=== PATIENT | female | born 1985 | race Caucasian/White ===

== ENCOUNTER 2020-01-29 11:10 | Emergency (ER) | payer BC, MEDICAID, SELFPAY ==
[2020-01-29 11:30] VITALS: BP 108/68; PULSE 71; RESP 16; TEMP 36.6; O2SAT 98
--- NOTE | 2020-01-29 11:45 | ED.GENADULT ---
HPI - General Adult General Chief complaint: Skin/Abscess/Foreign Body Stated complaint: Hives all over body Source: patient and RN notes reviewed Mode of arrival: ambulatory Limitations: no limitations History of Present Illness HPI narrative: This is a 34 years old female presents to the office for an evaluation of hive off and on for one month. She saw her doctor on ; who prescribed her prednisone for this condition. She thinks her hives is related to stress. She had similar episode a few years ago which resolved with steroid however it did not seem to subside this time. Denies any airway involvement. Denies sick contact. Denies new medication. She also been taking Benadryl for itchiness which did not help. Warm bath and oatmeal bath seems to help temporarily. She is supposed to have a follow-up appointment with her doctor on Friday however she cannot stand the itchiness. Related Data Allergies Allergy/AdvReac Type Severity Reaction Status Date / Time No Known Allergies Allergy Verified 01/29/20 11:52 Review of Systems Review of Systems: Narrative: CONSTITUTIONAL: Denies fever or feeling ill ENT: Denies congestion CARDIOVASCULAR: Denies chest pain RESPIRATORY: Denies dyspnea GASTROINTESTINAL: Denies abdominal pain, nausea, vomiting, diarrhea. GENITOURINARY: Denies urinary symptoms SKIN: Reports itchy hives from her hip down to her lower legs. MUSCULOSKELETAL: Denies acute back pain NEUROLOGIC: Denies lightheaded PMFSH Comments At time of signature, I agree with nursing past medical, surgical, social and family history. There is no relevant family history pertinent to the presenting complaint. Exam Narrative: Exam Narrative: GENERAL: This is a well-nourished, well-developed patient, in no apparent distress. EYES: Sclera clear/white. Vision is grossly intact. THROAT: Mucous membranes moist, posterior pharynx clear. NECK: Neck supple, non-tender without lymphadenopathy, masses or thyromegaly. CARDIOVASCULAR: Regular rate and rhythm without murmurs, gallops, or rubs. RESPIRATORY: Clear to auscultation. Breath sounds equal bilaterally. No wheezes, rales, or rhonchi. GASTROINTESTINAL: Abdomen soft, non-tender, nondistended. Bowel sounds are active. No hepato-splenomegaly, or palpable masses. No guarding. SKIN: urticari noted at hip level which scatter throughout her buttocks and lower extremities. No rash in upper extremities or torso. NEURO: awake, alert, and oriented to person, place and time. There were no obvious focal neurologic abnormalities. Steady gait Benson Coma Scale Eye Opening: Spontaneous 4 [place] Coma Scale Motor: Obeys Commands 6 [place] Coma Scale Verbal: Oriented 5 Course Vital Signs Vital signs: Vital Signs Temperature 97.8 F 01/29/20 11:30 Pulse Rate 71 01/29/20 11:30 Respiratory Rate 16 01/29/20 11:30 Blood Pressure 108/68 01/29/20 11:30 Pulse Oximetry 98 01/29/20 11:30 Temperature 97.8 F 01/29/20 11:30 Pulse Rate 71 01/29/20 11:30 Respiratory Rate 16 01/29/20 11:30 Blood Pressure 108/68 01/29/20 11:30 Pulse Oximetry 98 01/29/20 11:30 Medical Decision Making MDM Narrative Medical decision making narrative: Discharge instructions reviewed with patient, as well as provided in writing per nursing staff. The instructions also include specific and strict return/GO TO THE ER as well as f/u information. All questions have been answered, and the patient deny any further questions with discharge and discharge plan. Differential Diagnosis Differential Diagnosis: Contact/allergic dermatitis, atopic dermatitis, psoriasis, eczema, cellulitis, tinea, erythema multiforme, viral exanthem Vital Signs Vital Signs: Vital Signs Temperature 97.8 F 01/29/20 11:30 Pulse Rate 71 01/29/20 11:30 Respiratory Rate 16 01/29/20 11:30 Blood Pressure 108/68 01/29/20 11:30 Pulse Oximetry 98 01/29/20 11:30 Temperature 97.8 F 01/29/20 11:30
== END 2020-01-29 12:15 | disposition home or self-care (01) ==
PROVIDERS: Emergency Provider Nurse Practitioner; PCP Family Medicine
DX: L50.9 Urticaria, unspecified (principal)
CPT/HCPCS: 99213; G0463

== ENCOUNTER 2022-05-15 14:17 | Emergency (ER) | payer OTHER, SELFPAY ==
[2022-05-15 14:25] VITALS: BP 117/57; PULSE 79; RESP 16; TEMP 36.6; O2SAT 100
--- NOTE | 2022-05-15 14:30 | ED.SKABFB ---
HPI - Skin/Abscess/Foreign Bdy General Chief complaint: Skin/Abscess/Foreign Body Stated complaint: Rash Time Seen by Provider: 05/15/22 14:20 Source: patient and RN notes reviewed History of Present Illness HPI narrative: Patient is a 36-year-old female who presents the urgent care with complaints of a rash all over. Patient states she was on a Medrol Dosepak last week which resolved the issue and then it came back 2 days after finishing the medication. Patient states that it is anxiety/stress induced and she is currently not on any anxiety medications. Patient states she had been taking hydroxyzine which did help however her PCP took her off the medication sometime ago. No other acute complaints. No acute distress noted. Patient aware of the plan of care. Some parts of this dictation were generated by voice recognition software and may contain typographical and/or grammatical inaccuracies. Related Data Home Medications Medication Instructions Recorded Confirmed famotidine 20 mg tablet 20 mg PO BID 05/15/22 05/15/22 Allergies Allergy/AdvReac Type Severity Reaction Status Date / Time No Known Allergies Allergy Verified 05/15/22 14:31 Review of Systems Review of Systems: CONSTITUTIONAL: Denies fever, chills, or sweats. EYES: Denies visual changes, redness, or discharge. ENT: Denies rhinorrhea, congestion, sore throat, or otalgia. CARDIOVASCULAR: Denies chest pain, palpitations, or edema. RESPIRATORY: Denies cough or dyspnea. GASTROINTESTINAL: Denies abdominal pain, nausea, vomiting, or diarrhea. GENITOURINARY: Denies dysuria or hematuria. SKIN: Reports of diffuse rash MUSCULOSKELETAL: Denies back pain, joint pain, or myalgia. NEUROLOGIC: Denies headache, numbness, or weakness. All other systems reviewed are negative, except as documented in HPI. PMFSH Comments At the time of my signature, I reviewed and agree with the nursing past medical, surgical, social, and family history. There is no relevant family history pertinent to the patient complaint. Exam Narrative: GENERAL: This is a well-nourished, well-developed patient, in no apparent distress. HEAD: normocephalic, atraumatic. EYES: PERRL. Sclera clear/white. Vision is grossly intact. EARS: External ears normal NOSE: External nose normal with no obvious nasal discharge, nares without redness, no rhinorrhea. THROAT: Mucous membranes moist NECK: Neck supple CARDIOVASCULAR: Regular rate and rhythm without murmurs, gallops, or rubs. RESPIRATORY: Clear to auscultation. Breath sounds equal bilaterally. No wheezes, rales, or rhonchi. SKIN: Diffuse raised erythemic/pruritic urticaria noted to bilateral lower extremities, bilateral upper extremities, trunk and back NEURO: awake, alert, and oriented to person, place and time. There were no obvious focal neurologic abnormalities. EXTREMITIES: No clubbing, cyanosis, or edema. Course Course Level of Care: Express Care Visit Vital Signs Vital signs: Vital Signs Temperature 97.9 F 05/15/22 14:25 Pulse Rate 79 05/15/22 14:25 Respiratory Rate 16 05/15/22 14:25 Blood Pressure 117/57 L 05/15/22 14:25 Pulse Oximetry 100 05/15/22 14:25 Oxygen Delivery Room Air 05/15/22 14:25 Temperature 97.9 F 05/15/22 14:25 Pulse Rate 79 05/15/22 14:25 Respiratory Rate 16 05/15/22 14:25 Blood Pressure 117/57 L 05/15/22 14:25 Pulse Oximetry 100 05/15/22 14:25 Oxygen Delivery Room Air 05/15/22 14:25 Reviewed MDM - Skin/Abscess/Foreign Bdy MDM Narrative Medical decision making narrative: Advised patient to complete the oral steroid regimen as prescribed. Be sure to eat and drink with medication. Recommend taking it prior to 5 PM to avoid keeping you up at night. Use the prescription cream to the affected areas avoiding the underarms, near the eyes and groin. May use Benadryl or hydroxyzine in conjunction with the prednisone. Would recommend staying on a daily antihistamine for recurrent tucker
== END 2022-05-15 14:40 | disposition home or self-care (01) ==
PROVIDERS: Emergency Provider Nurse Practitioner Family; PCP Nurse Practitioner Family
DX: L25.8 Unspecified contact dermatitis due to other agents (principal); K21.9 Gastro-esophageal reflux disease without esophagitis
CPT/HCPCS: 99213; G0463

== ENCOUNTER 2022-06-02 11:17 | Emergency (ER) | payer OTHER, SELFPAY ==
--- NOTE | 2022-06-02 11:19 | ED.SKABFB ---
HPI - Skin/Abscess/Foreign Bdy General Chief complaint: Skin/Abscess/Foreign Body Stated complaint: Rash Time Seen by Provider: 06/02/22 11:19 Source: patient and RN notes reviewed History of Present Illness HPI narrative: Patient is a 36-year-old female who presents the urgent care with complaints of hives to the scalp, bilateral arms and bilateral legs. Patient states that she finished her steroid on the and the hives returned on the . Patient was seen here in the past on May 06 and given steroid cream and steroid oral. That was patient's second consecutive dose on the steroids. Patient states that she has gone to her primary care doctor and they will not do anything for her . Patient states that she is tried eliminating things out of her diet which did not help the issue. Patient denies of any new detergents, creams or products. No other acute complaints. No acute distress noted. Patient aware of the plan of care. Some parts of this dictation were generated by voice recognition software and may contain typographical and/or grammatical inaccuracies. Related Data Home Medications Medication Instructions Recorded Confirmed famotidine 20 mg tablet 20 mg PO BID 05/15/22 05/15/22 Allergies Allergy/AdvReac Type Severity Reaction Status Date / Time No Known Allergies Allergy Verified 06/02/22 11:27 Review of Systems Review of Systems: CONSTITUTIONAL: Denies fever, chills, or sweats. EYES: Denies visual changes, redness, or discharge. ENT: Denies rhinorrhea, congestion, sore throat, or otalgia. CARDIOVASCULAR: Denies chest pain, palpitations, or edema. RESPIRATORY: Denies cough or dyspnea. GASTROINTESTINAL: Denies abdominal pain, nausea, vomiting, or diarrhea. GENITOURINARY: Denies dysuria or hematuria. SKIN: Reports of an itchy rash MUSCULOSKELETAL: Denies back pain, joint pain, or myalgia. NEUROLOGIC: Denies headache, numbness, or weakness. All other systems reviewed are negative, except as documented in HPI. PMFSH Comments At the time of my signature, I reviewed and agree with the nursing past medical, surgical, social, and family history. There is no relevant family history pertinent to the patient complaint. Exam Narrative: GENERAL: This is a well-nourished, well-developed patient, in no apparent distress. HEAD: normocephalic, atraumatic. EYES: PERRL. Sclera clear/white. Vision is grossly intact. EARS: External ears normal NOSE: External nose normal with no obvious nasal discharge, nares without redness, no rhinorrhea. THROAT: Mucous membranes moist, posterior pharynx clear. NECK: Neck supple SKIN: Diffuse urticaria noted to bilateral lower extremities NEURO: awake, alert, and oriented to person, place and time. There were no obvious focal neurologic abnormalities. EXTREMITIES: No clubbing, cyanosis, or edema. Course Course Level of Care: Express Care Visit Vital Signs Vital signs: Vital Signs Temperature 98.3 F 06/02/22 11:22 Pulse Rate 90 06/02/22 11:22 Respiratory Rate 14 06/02/22 11:22 Blood Pressure 111/59 L 06/02/22 11:22 Pulse Oximetry 98 06/02/22 11:22 Oxygen Delivery Room Air 06/02/22 11:22 Temperature 98.3 F 06/02/22 11:22 Pulse Rate 90 06/02/22 11:22 Respiratory Rate 14 06/02/22 11:22 Blood Pressure 111/59 L 06/02/22 11:22 Pulse Oximetry 98 06/02/22 11:22 Oxygen Delivery Room Air 06/02/22 11:22 Reviewed MDM - Skin/Abscess/Foreign Bdy MDM Narrative Medical decision making narrative: Advised the patient to use [id number] Benadryl and antihistamine daily for relief. Advised her to follow-up with a new primary care doctor to possibly have labs for autoimmune disorder and hormone dysfunction. Patient verbalizes her understanding. PCP list given. Differential Diagnosis Differential diagnosis: Likely abscess of skin or subcutaneous tissue, dermatophytosis, urticaria, herpes zoster, allergic reaction to drug, cellulitis, insect bites a
[2022-06-02 11:22] VITALS: BP 111/59; PULSE 90; RESP 14; TEMP 36.8; O2SAT 98
== END 2022-06-02 11:49 | disposition home or self-care (01) ==
PROVIDERS: Emergency Provider Nurse Practitioner Family; PCP Nurse Practitioner Family
DX: L50.9 Urticaria, unspecified (principal); K21.9 Gastro-esophageal reflux disease without esophagitis
CPT/HCPCS: 99211; G0463

== ENCOUNTER 2023-02-12 21:30 | Emergency (ER) | payer OTHER, SELFPAY ==
--- NOTE | ~2023-02-12 | XR_ITS ---
EXAMINATION: XR chest 1V portable INDICATION: Shortness of breath and cough TECHNIQUE: Portable AP chest at 2258 hours COMPARISON: None available FINDINGS: There are minimal airspace opacities of the lung bases. No pleural effusion or pneumothorax . The cardiomediastinal silhouette is normal. IMPRESSION: 1. Minimal bibasilar airspace opacities, consistent with atelectasis versus pneumonia. Reviewed, dictated and finalized at location F. IMPRESSION: 1. Minimal bibasilar airspace opacities, consistent with atelectasis versus pne umonia.
[2023-02-12 21:38] VITALS: BP 110/75; PULSE 84; RESP 20; TEMP 36.6; O2SAT 98
--- NOTE | 2023-02-12 22:00 | ED.URI ---
HPI - URI/Sore Throat General Chief Complaint: Unspecified Stated Complaint: Upper Respitory Problems Source: patient Mode of arrival: ambulatory History of Present Illness HPI Narrative: 37-year-old female, smoker, Chronic skin allergies now controlled, presents to the ER with a 3 day history of -- nonproductive cough -- shortness of breath with wheezing -- headache from repetitive cough -- chest pressure without any actual pain. MD elicited complaint: cough Onset (ago): day(s) ( started 3 days ago.) Consistency: constant Severity: severe Description of mucous: other ( Nonproductive) Able to tolerate fluids by mouth: Yes Exacerbating factors: nothing Relieving factors: nothing Associated symptoms: headache and shortness of breath Treatments prior to arrival: none Related Data Home Medications Medication Instructions Recorded Confirmed Unable to Obtain Home Medications 02/12/23 02/12/23 Allergies Allergy/AdvReac Type Severity Reaction Status Date / Time No Known Allergies Allergy Verified 06/02/22 11:27 Review of Systems Review of Systems: All systems reviewed & are unremarkable except as noted in HPI and below Constitutional: Constitutional: Reports as per HPI and Reports no additional constitutional complaints Eyes: Eyes: Reports as per HPI and Reports no additional eye complaints ENT: Reports system reviewed and no additional complaints, except as documented and Reports as per HPI Cardiovascular: Cardiovascular: Reports as per HPI and Reports no additional cardiovascular complaints Respiratory: Respiratory: Reports as per HPI, Reports no additional respiratory complaints, Reports cough, Reports dyspnea and Reports wheezing Gastrointestinal: Gastrointestinal: Reports as per HPI and Reports no additional gastrointestinal complaints Genitourinary: Genitourinary: Reports no additional female genitourinary complaints and Reports as per HPI Musculoskeletal: Musculoskeletal: Reports no additional musculoskeletal complaints and Reports as per HPI Integumentary/Breasts: Skin/Breast: Reports system reviewed and no additional complaints, except as docu and Reports as per HPI Neurologic: Reports system reviewed and no additional complaints, except as documented and Reports as per HPI Psychiatric: Psychiatric: Reports no additional psychiatric complaints and Reports as per HPI Endocrine: Endocrine: Reports no additional endocrine complaints and Reports as per HPI Hematologic/Lymphatic: Hematologic/Lymphatic: Reports no additional hematologic/lymphatic complaints and Reports as per HPI Allergic/Immunologic: Allergic/Immunologic: Reports no additional allergic/immunologic complaints and Reports as per HPI Exam Const: General: ill appearing Orientation/consciousness: patient oriented x3 Limitations: no limitations HENMT: Head: normal to inspection Ears: external ears normal Face/Nose/Sinus: Normal external nose present Face and sinus: normal facial exam Mouth: Yes Normal oral and palatal mucosa present Throat: posterior oropharynx normal Eyes: Conjunctivae: conjunctivae normal Pupils: Equal, round and reactive pupils present EOM: EOMs intact bilaterally Neck: Neck: normal visual inspection, no lymphadenopathy and no meningeal signs Chest: Chest palpation & inspection: normal inspection of the chest Resp: Auscultation: wheezes and diminished lung sounds Cardio: Rate: regular rate Rhythm: regular rhythm GI: GI Palp: Yes Soft to palpation Auscultation: normal bowel sounds : General: Yes no CVA tenderness Back/Spine/Pelvis: Back: no CVA tenderness Skin: General skin exam: normal color Rashes: no rashes Wounds: no wounds Neuro: General: patient oriented x3, moves all extremities, no meningeal signs, no focal motor deficits and CN's II-XI intact bilaterally Cranial nerves: Yes Nystagmus not present Speech: normal speech Extrem: General: normal to inspection, no clubbing, cyanosis or ed
--- NOTE | 2023-02-12 22:11 | ECG_ITS ---
Measurements Intervals [place] Rate: 75 P: 45 MN: 165 QRS: 25 QRSD: 88 T: 40 QT: 376 QTc: 422 Interpretive Statements SINUS RHYTHM WITH SINUS ARRHYTHMIA NORMAL ECG NO PREVIOUS ECG AVAILABLE FOR COMPARISON Electronically Signed On 02-13-2023 7:59:06 CDT by Suraj Erwin D.O.
[2023-02-12] MEDS: IPRATROPIUM 0.5 MG/ALBUTEROL SULFATE 2.5 MG AMPUL.NEB 3 ML INHALATION (22:21)
[2023-02-12 22:22] VITALS: PULSE 78; RESP 20
[2023-02-12 22:32] LABS: Basophils Absolute Auto 0.01 K/mm3 (0.00-0.10); Basophils Percent Auto 0.1 % (0.0-1.0); Eosinophils Absolute Auto 0.44 K/mm3 (0.02-0.50); Eosinophils Percent Auto 5.1 % (1.0-6.0); Hematocrit 39.7 % (35.0-49.0); Hemoglobin 13.4 g/dL (12.0-15.0); Immature Granulocyte Absolute 0.03 K/mm3 (0.00-0.00); Immature Granulocyte Percent A 0.4 % (0.0-0.0); Lymphocytes Absolute Auto 3.54 K/mm3 (1.10-4.50); Lymphocytes Percent Auto 41.4 % (18.0-42.0); Mean Corpuscular HGB Conc 33.8 g/dL (32.0-36.0); Mean Platelet Volume 9.4 fl (9.2-11.8); Monocytes Absolute Auto 0.55 K/mm3 (0.10-0.90); Monocytes Percent Auto 6.4 % (2.0-11.0); Neutrophils Percent Auto 46.6 % (50.0-70.0); Platelet Count Result 258 K/mm3 (150-420); Red Blood Count 4.46 M/mm3 (4.20-5.40); White Blood Count 8.6 K/mm3 (4.8-10.8)
[2023-02-12] MEDS: methylPREDNISolone SOD SUCC 125 MG VIAL IM (22:32)
[2023-02-12 22:33] VITALS: PULSE 76; RESP 16
[2023-02-12 22:53] LABS: Carbon Dioxide 27 mmol/L (21-32); Chloride 104 mmol/L (98-108); Potassium 3.6 mmol/L (3.5-5.1); Sodium 143 mmol/L (136-145)
[2023-02-12 22:54] LABS: Alanine Aminotransferase 38 U/L (14-59); Albumin Level 3.6 g/dL (3.4-5.0); Alkaline Phosphatase 74 U/L (46-116); Anion Gap 12 mmol/L (8-16); Aspartate Amino Transferase 19 U/L (15-37); Bilirubin,Total 0.4 mg/dL (0.00-1.00); Blood Urea Nitrogen 9 mg/dL (7-18); Calcium 8.8 mg/dL (8.5-10.1); Estimated CRCL calculation 76 ml/min; Estimated Glomerular Filt Rate > 60; Glucose 98 mg/dL (70-99); NT Pro B Type Natriuretic Pept < 11 pg/mL (0-125); Osmolality Calculated 294 mOsm/kg (285-295); Total Protein 7.5 g/dL (6.4-8.2)
[2023-02-12 23:01] LABS: Troponin I < 4.0 ng/L (0.00-60.4)
[2023-02-12 23:15] VITALS: BP 122/60; PULSE 72; RESP 16; O2SAT 98
[2023-02-12 23:41] LABS: Influenza A QL RT-PCR Negative (Negative); Influenza B QL RT-PCR Negative (Negative); SARS-CoV-2 RNA PCR Negative (Negative)
[2023-02-12 23:42] LABS: RSV RNA, RT-PCR Negative (Negative)
[2023-02-12] MEDS: AZITHROMYCIN 250 MG TABLET 500 MG PO (23:44)
[2023-02-12 23:56] VITALS: PULSE 78; RESP 20
[2023-02-12] MEDS: ALBUTEROL SULFATE NEB 2.5 MG/3 ML INH INHALATION (23:56)
[2023-02-13 00:05] VITALS: PULSE 80; RESP 16
[2023-02-13 00:07] VITALS: BP 109/69; PULSE 79; RESP 19; TEMP 36.6; O2SAT 99
== END 2023-02-13 00:11 | disposition home or self-care (01) ==
PROVIDERS: Emergency Provider Internal Medicine Critical Care Medicine
DX: J44.1 Chronic obstructive pulmonary disease with (acute) exacerbation (principal); R07.89 Other chest pain; Z20.822 Contact with and (suspected) exposure to COVID-19
CPT/HCPCS: 36415; 71045; 80053; 83880; 84484; 85025; 87637; 93005; 94640; 96372; 99284; A9270; J2930

== ENCOUNTER 2023-07-17 18:00 | Emergency (ER) | payer OTHER, SELFPAY | END 2023-07-17 19:50 | disposition home or self-care (01) | LOC: EXPBETH 07-28 11:03 | PROVIDERS: Emergency Provider Nurse Practitioner Family | DX: J40 Bronchitis, not specified as acute or chronic (principal); F17.200 Nicotine dependence, unspecified, uncomplicated | CPT/HCPCS: 99213; G0463 ==

== ENCOUNTER 2023-08-02 15:32 | Emergency (ER) | payer OTHER, SELFPAY ==
[2023-08-02 15:40] VITALS: BP 101/63; PULSE 77; RESP 16; TEMP 36.8; O2SAT 100
--- NOTE | 2023-08-02 16:32 | ED.GENADULT ---
HPI - General Adult General Chief complaint: Skin/Abscess/Foreign Body Stated complaint: Rash Source: patient Mode of arrival: ambulatory Limitations: no limitations History of Present Illness HPI narrative: Patient presents for evaluation of pruritic rash to bilateral lower extremities for the last 5 days. The day prior she used a new laundry detergent. She has been evaluated by [employer]eles[employer] team leader in the past for recurrent hives. She is currently on montelukast and cetirizine as recommended by [employer]eles[employer] team leader. She is also taking Pepcid. She denies any difficulty swallowing or breathing. She has been taking benadryl as needed. She has also been taking cool baths to help. Related Data Home Medications Medication Instructions Recorded Confirmed cetirizine 10 mg tablet 10 mg PO DAILY 08/02/23 08/02/23 Allergies Allergy/AdvReac Type Severity Reaction Status Date / Time No Known Allergies Allergy Verified 08/02/23 15:55 Review of Systems Review of Systems: CONSTITUTIONAL: Denies fever, chills, or sweats. EYES: Denies visual changes, redness, or discharge. ENT: Denies rhinorrhea, congestion, sore throat, or otalgia. CARDIOVASCULAR: Denies chest pain, palpitations, or edema. RESPIRATORY: Denies cough or dyspnea. GASTROINTESTINAL: Denies abdominal pain, nausea, vomiting, or diarrhea. GENITOURINARY: Denies dysuria or hematuria. SKIN: Reports pruritic rash to bilateral lower extremities MUSCULOSKELETAL: Denies back pain, joint pain, or myalgia. NEUROLOGIC: Denies headache, numbness, dizziness, or weakness. PSYCHIATRIC: Denies anxiety or depression. [facility] Past Medical History Medical History Depression Hyperlipidemia Surgical History Surgical History No pertinent past surgical history Family History Family History Mother Family history non-contributory Social History Social History Smoking packs per day: 0.5 Smoking cigarettes per day: 10.0 Smoking status: Current every day smoker Substance use: never Living arrangements: with family Gender identity (if verbalized by the patient): Female Spiritual care concerns: No Exam Narrative: GENERAL: Well-appearing, well-nourished, and in no acute distress. HEAD: Normocephalic, atraumatic. EYES: PERRLA and EOMI. ENT: Nares clear, no rhinorrhea or epistaxis. Mucous membranes moist. Oropharynx without tonsillar hypertrophy exudate or other lesions. Bilateral TMs pearly rothman nonbulging NECK: Supple. No adenopathy or masses. No carotid bruits or JVD CHEST: Clear to auscultation. No respiratory distress. No wheezes rales or rhonchi HEART: Regular rate and rhythm. No murmur heard. Normal peripheral pulses. ABDOMEN: Soft, nontender, nondistended, normal active bowel sounds. EXTREMITIES: Normal range of motion. No edema. SKIN: There are several scattered macules in annular formation to bilateral lower extremities which are all less than 1.5 cm in size, too numerous to count. NEURO: No focal deficits. Alert and oriented x3. PSYCH: Normal mood and affect. Course Course Emergency Course: This is a 37-year-old female who presented for evaluation of pruritic rash to bilateral lower extremities after changing laundry detergent. She is already taking Pepcid, montelukast and cetirizine. Will add prednisone. Benadryl as needed for itching. Cool compresses may help. Follow up with primary provider. Go to the ER for difficulty breathing or swelling. Patient in agreement with plan of care. Level of Care: Express Care Visit Vital Signs Vital signs: Vital Signs Temperature 36.8 C 08/02/23 15:40 Pulse Rate 77 08/02/23 15:40 Respiratory Rate 16 08/02/23 15:40 Blood Pressure 101/63 08/02/23 15:40 Pulse Oximetry
== END 2023-08-02 16:37 | disposition home or self-care (01) ==
PROVIDERS: Emergency Provider Nurse Practitioner
DX: L50.9 Urticaria, unspecified (principal); F17.210 Nicotine dependence, cigarettes, uncomplicated; E78.5 Hyperlipidemia, unspecified
CPT/HCPCS: 99213; G0463

== ENCOUNTER 2023-08-16 13:23 | Emergency (ER) | payer OTHER, SELFPAY ==
[2023-08-16 13:27] VITALS: BP 119/66; PULSE 88; RESP 14; TEMP 35.9; O2SAT 99
--- NOTE | 2023-08-16 13:43 | ED.SKABFB ---
HPI - Skin/Abscess/Foreign Bdy General Chief complaint: Skin/Abscess/Foreign Body Stated complaint: Rash Source: patient Mode of arrival: ambulatory Limitations: no limitations History of Present Illness HPI narrative: 37-year-old female presented for complaint of itchy red rash to arms legs. Patient reports a history of hives, and has been following with an automation qa lead. Taking Pepcid, Singulair, and Zyrtec. Started taking Benadryl at onset. Scheduled with automation qa lead in 2 weeks. Denies lip, tongue, or throat swelling, shortness of breath or wheezing. Denies changes to soap, detergent, lotion, or any other exposures. No one else in the house or any contacts with similar symptoms. Patient completed a course of steroid about 1 week ago, for the same symptoms. Related Data Home Medications Medication Instructions Recorded Confirmed cetirizine 10 mg tablet 10 mg PO DAILY 08/02/23 08/02/23 famotidine 20 mg tablet mg 08/16/23 fluoxetine 10 mg tablet mg 08/16/23 montelukast 10 mg tablet mg 08/16/23 rosuvastatin 10 mg tablet mg 08/16/23 Allergies Allergy/AdvReac Type Severity Reaction Status Date / Time No Known Allergies Allergy Verified 08/02/23 15:55 Review of Systems Review of Systems: CONSTITUTIONAL: Denies body aches, fever, chills, or sweats. EYES: Denies visual changes, redness, or discharge. ENT: Denies rhinorrhea, congestion CARDIOVASCULAR: Denies chest pain, palpitations, or edema. RESPIRATORY: Denies cough or dyspnea. GASTROINTESTINAL: Denies abdominal pain, nausea, vomiting, or diarrhea. SKIN: reports red itchy rash MUSCULOSKELETAL: Denies back pain, joint pain, or myalgia. NEUROLOGIC: Denies headache, numbness, tingling, or weakness. PMFSH Past Medical History Medical History Depression Hyperlipidemia Surgical History Surgical History No pertinent past surgical history Family History Family History Mother Family history non-contributory Social History Social History Smoking packs per day: 0.5 Smoking cigarettes per day: 10.0 Smoking status: Current every day smoker Substance use: never Living arrangements: with family Gender identity (if verbalized by the patient): Female Spiritual care concerns: No Comments At time of signature, I have reviewed and agree with nursing past medical, surgical, social and family history unless otherwise noted. Please see nursing chart for further information. There is no relevant family history pertinent to the presenting complaint Exam Narrative: GENERAL: Well-appearing HEAD: Normocephalic, atraumatic. EYES: conjunctivae clear, and EOMI. ENT: Mucous membranes moist. Oropharynx without edema, erythema or lesions. NECK: Supple. No lymphadenopathy CHEST: Clear to auscultation. HEART: Regular rate and rhythm. SKIN: Warm, dry. Erythematous round raised lesions c/w urticaria to bilateral thighs and scattered to arms. No induration, fluctuance, drainage. NEURO: Alert and oriented x3. Course Course Emergency Course: Patient is aware of diagnosis, understands and agrees to treatment plan. Anticipatory guidance given. Patient agrees to follow-up as directed and is aware of reasons to seek care at the emergency department. Portions of this record may have been created with voice recognition software Level of Care: Express Care Visit Vital Signs Vital signs: Vital Signs Temperature 96.6 F L 08/16/23 13:27 Pulse Rate 88 08/16/23 13:27 Respiratory Rate 14 08/16/23 13:27 Blood Pressure 119/66 08/16/23 13:27 Pulse Oximetry 99 08/16/23 13:27 Oxygen Delivery Room Air 08/16/23 13:27 Temperature 96.6 F L 08/16/23 13:27 Pulse Rate 88 08/16/23 13:27 Respiratory Rate 14 08/16/23 1
== END 2023-08-16 13:52 | disposition home or self-care (01) ==
PROVIDERS: Emergency Provider Nurse Practitioner Family
DX: L50.9 Urticaria, unspecified (principal); E78.5 Hyperlipidemia, unspecified; F32.A Depression, unspecified; F17.210 Nicotine dependence, cigarettes, uncomplicated; Z79.899 Other long term (current) drug therapy
CPT/HCPCS: 99213; G0463

== ENCOUNTER 2024-01-21 12:20 | Emergency (ER) | payer OTHER, SELFPAY ==
[2024-01-21 12:27] VITALS: BP 108/61; PULSE 75; RESP 16; TEMP 36.4; O2SAT 99
--- NOTE | 2024-01-21 13:10 | ED.URI ---
HPI - URI/Sore Throat General Chief Complaint: Upper Respiratory Infection Stated Complaint: no voice/throat/ears Time Seen by Provider: 01/21/24 13:10 Source: patient, RN notes reviewed and old records reviewed Mode of arrival: ambulatory Limitations: no limitations History of Present Illness HPI Narrative: 38 year old female who prsents to express care with complaints of hoarseness for the past 3 days and lstarting last night she has eft ear pain which is shooting down her neck. Patient reports that kids had influenza last week.Patient denies any sore throat or any fevers, does have some nasal congestion, denies any shortness of breath or body aches. MD elicited complaint: sore throat, rhinorrhea and other (hoarseness , left ear pain) Onset (ago): day(s) (3 days hoarseness 1 day left ear pain) Pain scale (0-10): 4 Able to tolerate fluids by mouth: Yes Treatments prior to arrival: acetaminophen and other (zyrtec) Related Data Home Medications Medication Instructions Recorded Confirmed cetirizine 10 mg tablet 10 mg PO DAILY 08/02/23 08/02/23 famotidine 20 mg tablet mg 08/16/23 fluoxetine 10 mg tablet mg 08/16/23 montelukast 10 mg tablet mg 08/16/23 rosuvastatin 10 mg tablet mg 08/16/23 amitriptyline 10 mg tablet mg 01/21/24 cholecalciferol (vitamin D3) 125 01/21/24 mcg (5,000 unit) capsule levothyroxine 75 mcg tablet mcg 01/21/24 meloxicam 15 mg tablet mg 01/21/24 Allergies Allergy/AdvReac Type Severity Reaction Status Date / Time No Known Allergies Allergy Verified 01/21/24 12:28 Review of Systems Review of Systems: CONSTITUTIONAL: Denies malaise, chills, sweats, or fever. EYES: Denies visual changes, redness, or discharge. ENT: Reports rhinorrhea, congestion, no sinus pain,left otalgia and no sore throat reports hoarseness. CARDIOVASCULAR: Denies chest pain, palpitations, or edema. RESPIRATORY: Reports no cough.? Denies dyspnea. GASTROINTESTINAL: Denies abdominal pain, nausea, vomiting, diarrhea SKIN: Denies rash or itching. MUSCULOSKELETAL: Denies myalgia. NEUROLOGIC: Denies headache. All systems reviewed & are unremarkable except as noted in HPI and below PMFSH Past Medical History Medical History (Updated 01/22/24 @ 12:01 by Lorena Chopra NP) Acute adjustment disorder with anxiety Depression GERD (gastroesophageal reflux disease) Hives Hyperlipidemia Hypothyroidism Surgical History Surgical History (Updated 01/22/24 @ 12:00 by Lorena Chopra NP) H/O tubal ligation History of carpal tunnel release right and ulnar nerve History of dilatation and curettage Hx of tonsillectomy Family History Family History Mother Family history non-contributory Social History Social History Smoking packs per day: 0.5 Smoking cigarettes per day: 10.0 Smoking status: Current every day smoker Substance use: never Living arrangements: with family Gender identity (if verbalized by the patient): Female Spiritual care concerns: No Comments At time of signature, agree with nursing past medical, surgical, social and family history. There is no relevant family history pertinent to the presenting complaint Exam Narrative: GENERAL: Well-appearing, well-nourished, and in no acute distress. HEAD: Normocephalic EYES: PERRLA, conjunctivae clear ENT: Nares clear, turbinates edematous and erythematous, clear discharge. Mucous membranes moist.Left TM red, Right TM pearly rothman with dull light reflex; no tragal tenderness. Oropharynx erythematous without lesions. Tonsils not present and throat without exudate, no drooling, positive for hoarseness, no trismus, uvula midline. NECK: Supple. No lymphadenopathy CHEST: Clear to auscultation, breath sounds equal. No wheezing, rhonchi, rales, or stridor. No respiratory distress, speaks in full sentences.SAO2 99%
== END 2024-01-21 13:32 | disposition home or self-care (01) ==
PROVIDERS: Emergency Provider Registered Nurse
DX: H66.92 Otitis media, unspecified, left ear (principal); Z20.822 Contact with and (suspected) exposure to COVID-19; F17.210 Nicotine dependence, cigarettes, uncomplicated; K21.9 Gastro-esophageal reflux disease without esophagitis; E78.5 Hyperlipidemia, unspecified; E03.9 Hypothyroidism, unspecified
CPT/HCPCS: 87426; 87804; 99213; G0463

== ENCOUNTER 2024-07-10 09:47 | Emergency (ER) | payer OTHER, SELFPAY ==
[2024-07-10 09:53] VITALS: BP 110/57; PULSE 89; RESP 20; TEMP 37.1; O2SAT 100
--- NOTE | 2024-07-10 10:00 | ED.SKABFB ---
HPI - Skin/Abscess/Foreign Bdy General Chief complaint: Skin/Abscess/Foreign Body Stated complaint: hives Time Seen by Provider: 07/10/24 10:00 Source: patient, RN notes reviewed and old records reviewed Mode of arrival: ambulatory Limitations: no limitations History of Present Illness HPI narrative: 38 year old female who [facility] complaints of hives to both legs and feet for the past 3 days which are itching,denies any difficulty with breathing or with swallowing. Patient reports that she has been taking Benadryl, Pepcid,Singulair, and also Zyrtec. 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 Patient reports no new medications, foods, laundry products or any new body soaps or lotions. MD complaint: rash Onset (ago): day(s) (3) Severity: mild Quality: pruritic Treatments prior to arrival: Benadryl and other (Zyrtec,Pepcid and also Singulair) Related Data Home Medications Medication Instructions Recorded Confirmed cetirizine 10 mg tablet 10 mg PO DAILY 08/02/23 07/10/24 famotidine 20 mg tablet 20 mg PO DAILY 08/16/23 07/10/24 montelukast 10 mg tablet 10 mg PO DAILY 08/16/23 07/10/24 rosuvastatin 10 mg tablet 10 mg PO DAILY 08/16/23 07/10/24 amitriptyline 10 mg tablet 10 mg PO DAILY 01/21/24 07/10/24 cholecalciferol (vitamin D3) 125 125 mcg PO DAILY 01/21/24 07/10/24 mcg (5,000 unit) capsule meloxicam 15 mg tablet 15 mg PO DAILY 01/21/24 07/10/24 buspirone 5 mg tablet 5 mg PO DAILY 07/10/24 07/10/24 fluoxetine 20 mg tablet 20 mg PO DAILY 07/10/24 07/10/24 Allergies Allergy/AdvReac Type Severity Reaction Status Date / Time amoxicillin Allergy Intermediate Hives Verified 07/10/24 10:00 Review of Systems Review of Systems: CONSTITUTIONAL: Denies fever, chills, or sweats. CARDIOVASCULAR: Denies chest pain, palpitations, or edema. RESPIRATORY: Denies cough or dyspnea. SKIN: Reports red blotchy hives to bilateral legs and dorsal feet for the past 3 days which are itchy MUSCULOSKELETAL: Denies joint pain or myalgia. NEUROLOGIC: Denies headache, numbness, or weakness. All systems reviewed & are unremarkable except as noted in HPI and below PMFSH Past Medical History Medical History Acute adjustment disorder with anxiety Depression GERD (gastroesophageal reflux disease) Hives Hyperlipidemia Hypothyroidism Surgical History Surgical History H/O tubal ligation History of carpal tunnel release right and ulnar nerve History of dilatation and curettage Hx of tonsillectomy Family History Family History Mother Family history non-contributory Social History Social History Smoking packs per day: 0.5 Smoking cigarettes per day: 10.0 Smoking status: Current every day smoker Substance use: never Living arrangements: with family Gender identity (if verbalized by the patient): Female Spiritual care concerns: No Comments At time of signature, agree with nursing past medical, surgical, social and family history. There is no relevant family history pertinent to the presenting complaint Exam Narrative: GENERAL: Well-appearing, well-nourished, and in no acute distress. HEAD: Normocephalic, atraumatic. EYES: PERRLA, conjunctivae clear, and EOMI. ENT: Mucous membranes moist. Oropharynx without edema, erythema or lesions. NECK: Supple. No lymphadenopathy CHEST: Clear to auscultation. No respiratory distress.SAO2 100% on room air HEART: Regular rate and rhythm. SKIN: Warm, dry.? Patches of red blotchy raised hives noted to legs and dorsal feet for the past 3 days, do juhi and are itchy.. NEURO:? Alert and oriented x3. PSYCH: Normal mood and affect Course Course Emergency Course
== END 2024-07-10 10:18 | disposition home or self-care (01) ==
PROVIDERS: Emergency Provider Registered Nurse
DX: L50.9 Urticaria, unspecified (principal); F17.210 Nicotine dependence, cigarettes, uncomplicated; K21.9 Gastro-esophageal reflux disease without esophagitis; E78.5 Hyperlipidemia, unspecified; E03.9 Hypothyroidism, unspecified; F32.A Depression, unspecified
CPT/HCPCS: 99213; G0463

== ENCOUNTER 2024-11-07 13:46 | Emergency (ER) | payer OTHER, SELFPAY ==
[2024-11-07 14:09] VITALS: BP 118/65; PULSE 88; RESP 20; TEMP 37.1; O2SAT 100
--- NOTE | 2024-11-07 14:16 | ED.EAR ---
HPI - Ear Problem General Chief complaint: Ear Stated complaint: Sore Throat/Left Ear Pain History of Present Illness HPI Narrative: Patient presents with left ear pain. Patient denies any drainage from the ear patient also reports scratchy throat nasal congestion no trouble swallowing no drooling no fever no body aches. Related Data Home Medications ?Medication ?Instructions ?Recorded ?Confirmed ?Last Taken ?Type cetirizine 10 mg tablet 10 mg PO DAILY 08/02/23 07/10/24 Unknown History famotidine 20 mg tablet 20 mg PO DAILY 08/16/23 07/10/24 Unknown History montelukast 10 mg tablet 10 mg PO DAILY 08/16/23 07/10/24 Unknown History rosuvastatin 10 mg tablet 10 mg PO DAILY 08/16/23 07/10/24 Unknown History amitriptyline 10 mg tablet 10 mg PO DAILY 01/21/24 07/10/24 Unknown History cholecalciferol (vitamin D3) 125 125 mcg PO DAILY 01/21/24 07/10/24 Unknown History mcg (5,000 unit) capsule meloxicam 15 mg tablet 15 mg PO DAILY 01/21/24 07/10/24 Unknown History buspirone 5 mg tablet 5 mg PO DAILY 07/10/24 07/10/24 Unknown History fluoxetine 20 mg tablet 20 mg PO DAILY 07/10/24 07/10/24 Unknown History Allergies Allergy/AdvReac Type Severity Reaction Status Date / Time amoxicillin Allergy Intermediate Hives Verified 07/10/24 10:00 Review of Systems Review of Systems: CONSTITUTIONAL: Denies chills, or sweats. Reports fever and generalized body aches EYES: Denies visual changes, redness, or discharge. ENT: Denies otalgia. Reports nasal congestion runny nose and sore throat CARDIOVASCULAR: Denies chest pain, palpitations, or edema. RESPIRATORY: Denies dyspnea. Reports occasional cough GASTROINTESTINAL: Denies abdominal pain, nausea, vomiting, or diarrhea. GENITOURINARY: Denies dysuria or hematuria. SKIN: Denies rash or itching. MUSCULOSKELETAL: Denies back pain, joint pain, or myalgia. Reports generalized body aches NEUROLOGIC: Denies headache, numbness, or weakness. PSYCHIATRIC: Denies anxiety or depression. [facility] Past Medical History Medical History Acute adjustment disorder with anxiety Depression GERD (gastroesophageal reflux disease) Hives Hyperlipidemia Hypothyroidism Surgical History Surgical History H/O tubal ligation History of carpal tunnel release right and ulnar nerve History of dilatation and curettage Hx of tonsillectomy Family History Family History Mother Family history non-contributory Social History Social History Smoking packs per day: 0.5 Smoking cigarettes per day: 10.0 Smoking status: Current every day smoker Substance use: never Living arrangements: with family Gender identity (if verbalized by the patient): Female Spiritual care concerns: No Comments At time of signature, agree with nursing past medical, surgical, social and family history. There is no relevant family history pertinent to the presenting complaint Exam Narrative: The patient is a well-developed, well-nourished in no acute distress. SKIN: Skin is warm and dry without erythema, swelling or exudate. There is good turgor. No tenting. HEAD: Atraumatic. Normocephalic. No temporal or scalp tenderness. EYES: Moist and bright. Sclera and conjunctivae normal. No discharge. PERRLA. Extraocular motions intact. Gross visual acuity intact. EARS: Pinna is normal shape and contour. Clear external auditory canals. Right TM pearly euceda with good cone of light, no erythema or suppuration. Bilateral cerumen noted no gross hearing deficit. Left TM bulging with moderate erythema to canal NOSE: pink, moist mucosa with good air movement. Clear rhinorrhea without nasal flaring. Septum midline. Mouth: moist mucous membranes. THROAT; mild erythema noted to posterior oropharynx with moderate postnasal drainage. Without exudate or ulceration.. Uvula midline. Normal movement of soft palate. NECK: Supple and nontender with full range of motion without discomfort. No meningeal signs. LUNGS: Equal and bilateral breath sounds without wheezes, rales or rhonchi. CHEST: The chest wall is without retractions or use of accessory muscles. HEART: Has a regular rate and rhythm without murmur, gallops, click or rub. ABDOMEN: Soft, nontender with positive active bowel sounds. No rebound tenderness. EXTREMITIES: Without cyanosis, clubbing or edema. Equal 2+ distal pulses and 2 second capillary refill noted. NEUROLOGIC: alert, active, . The patient moves all extremities with normal muscle strength. Normal muscle tone is noted. Normal coordination is noted. NO focal neurological findings noted. Course Course Level of Care: Express Care Visit Vital Signs Vital signs: Vital Signs Temperature 37.1 C 11/07/24 14:09 Pulse Rate 88 11/07/24 14:09 Respiratory Rate 20 11/07/24 14:09 Blood Pressure 118/65 11/07/24 14:09 Pulse Oximetry 100 11/07/24 14:09 Oxygen Delivery Room Air 11/07/24 14:09 Temperature 37.1 C 11/07/24 14:09 Pulse Rate 88 11/07/24 14:09 Respiratory Rate 20 11/07/24 14:09 Blood Pressure 118/65 11/07/24 14:09 Pulse Oximetry 100 11/07/24 14:09 Oxygen Delivery Room Air 11/07/24 14:09 Medical Decision Making Vital Signs Vital Signs: Vital Signs Temperature 37.1 C 11/07/24 14:09 Pulse Rate 88 11/07/24 14:09 Respiratory Rate 20 11/07/24 14:09 Blood Pressure 118/65 11/07/24 14:09 Pulse Oximetry 100 11/07/24 14:09 Oxygen Delivery Room Air 11/07/24 14:09 Temperature 37.1 C 11/07/24 14:09 Pulse Rate 88 11/07/24 14:09 Respiratory Rate 20 11/07/24 14:09 Blood Pressure 118/65 11/07/24 14:09 Pulse Oximetry 100 11/07/24 14:09 Oxygen Delivery Room Air 11/07/24 14:09 Discharge Plan Discharge Clinical Impression: Otitis media Patient Disposition: Home, Self-Care Condition: Stable Instructions: Antibiotic Form Additional Instructions: Take medications as prescribed. return for worsening signs or symptoms return if facial pain increases, fever, worsening symptoms, shortness of breath, chest pain, productive cough or difficulty swallowing) and agrees with the plan. congestion - flonase am and pm for chronic sinus congestion or prolonged symptoms of sinusitis (takes several days to work). one to three times a day of irrigation of sinus with saline spray, ocean nasal spray or kelsy pot. fluids. if you don't have hypertension-afrin nasal spray with a 3 day limit for immediate relief of sinus congestion. for runny nose: do over the counter antihistamine (claritin, benadryl, zyrtec) for sneezing, runny nose. allergies. sudafed or decongestant can also be used, unless you have elevated blood pressure, nursing or . pineapple juice to help thin mucus pain and discomfort: over the counter treatment for pain - tylenol - with a max of 3 grams a day, not to take more than 3-4 days at this dose. discussed aleve - 1-2 am and pm with food. also not to take more than a few days if not improving. patient understands not to take ibuprofen or aleve without food. patient understands ibuprofen max is 4 pills 3 times a day, also not to take this amount for more than a few days if not improving. rest. -If you have any worsening of symptoms or any other concerns please go to the ED immediately. throat pain- gargling with salt water, throat losengers or chloraseptic spray may help with throat pain. if older than 2 years, cough- can try honey for cough if older than one year. mucinex, nyquil, dayquil, robitussin and other otc cold/cough medications can all be used in teenagers and adults with caution. do not mix or use multiple therapies without discussing with your doctor or pharmacy. steam from shower twice daily or cool mist humidifier. pineapple juice to help thin mucus eat yogurt 1-2 times daily or consider probiotics if on antibiotics. -If you have any worsening of symptoms or any other concerns please go to the ED immediately. Patient Language: Indonesian Prescriptions: New cefdinir 300 mg capsule 300 mg PO Q12H 7 Days Qty: 14 0RF No Action famotidine 20 mg tablet 20 mg PO DAILY montelukast 10 mg tablet 10 mg PO DAILY rosuvastatin 10 mg tablet 10 mg PO DAILY cetirizine 10 mg tablet 10 mg PO DAILY meloxicam 15 mg tablet 15 mg PO DAILY amitriptyline 10 mg tablet 10 mg PO DAILY cholecalciferol (vitamin D3) 125 mcg (5,000 unit) capsule 125 mcg PO DAILY fluoxetine 20 mg tablet 20 mg PO DAILY buspirone 5 mg tablet 5 mg PO DAILY prednisone 50 mg tablet 50 mg PO DAILY Qty: 5 0RF Rx Instructions: Take with food Follow-up/Referrals: PHYSICIAN NOT ON STAFF,NONSTAFF [Primary Care Provider] -
--- OUTSIDE RECORDS SUMMARY | 2024-11-14 20:49 | XMS_ITS | Clinical Summary ---
Author Organization [facility] Office Building [address] Address [address] [place] [address] Care Team Providers Care Retail Maintenance Technician Name Role Phone NatashaXiomy Isa MARIE Unavailable [phone] Mikey Olea MD Primary Care Provider Eladio Weems MD Unavailable Jessenia Castrejon MD Unavailable [phone] Allergies Active Allergy Reactions Criticality Noted Date Comments Amoxicillin Hives Medium 05/31/2024 Amoxicillin-Pot Clavulanate Hives Medium 05/31/20 24 Medications OneTouch Delica Lancets 33 gauge miscIndications:Predia betes Use to check blood sugars before meals and at bedtime 100 each 1 2022 Active Additional Information Patient not taking.Reported on 05/31/2024 blood-glucose meter kitIndications:Prediab etes Please check sometimes fasting morning and sometimes 45 minutes after meal. 1 kit 2022 Active OneTouch Verio Flex meter miscIndications:Impair ed fasting blood sugar USE TO CHECK FASTING IN THE MORNING AND SOMETIMES 45 MINUTES AFTER MEAL 2022 Active OneTouch Verio test strips stripIndications:Predi abetes USE TO CHECK BLOOD SUGAR BEFORE MEALS AND AT BEDTIME 100 each 2022 Active Additional Information Patient not taking.Reported on 05/31/2024 levothyroxine (SYNTHROID) 100 mcg tabletIndications:Hypo thyroidism, unspecified type Take 1 tablet (100 mcg total) by mouth daily 90 tablet 3 2022 Active Additional Information Patient not taking.Reported on 05/31/2024 famotidine (PEPCID) 20 mg tablet Take 1 tablet (20 mg total) by mouth 2 (two) times a day 60 tablet 11 2023 Active fluticasone propionate (FLONASE) 50 mcg/actuation nasal sprayIndications:Recur rent acute serous otitis media of left ear Administer 2 sprays into each nostril daily 1 each 2023 Active Additional Information Patient not taking.Reported on 05/31/2024 albuterol HFA (PROVENTIL HFA,VENTOLIN HFA,PROAIR HFA) 90 mcg/actuation inhalerIndications:Whe ezing Inhale 2 puffs every 4 (four) hours as needed for wheezing 1 each 2023 Active cholecalciferol (VITAMIN D-3) 5,000 unit capsuleIndications:Vit masters D Deficiency Take 1 capsule (5,000 Units total) by mouth daily 90 capsule 3 05/31 Active montelukast (SINGULAIR) 10 mg tablet Take 1 tablet (10 mg total) by mouth daily 30 tablet 3 2023 Active rosuvastatin (CRESTOR) 10 mg tabletIndications:Fami lial hypercholesterolemia Take 1 tablet (10 mg total) by mouth daily 90 tablet 1 2023 Active FLUoxetine (PROzac) 20 mg tabletIndications:Anxi ety and depression Take 2 tablets (40 mg total) by mouth daily 120 tablet 2023 Active busPIRone (BUSPAR) 5 mg tabletIndications:Gene ralized Anxiety Disorder Take 1 tablet (5 mg total) by mouth 3 (three) times a day 180 tablet 2023 Active meloxicam (MOBIC) 15 mg tabletIndications:Healthcare Applications Analyst derick low back pain, unspecified back pain laterality, unspecified whether sciatica present Take 1 tablet by mouth once daily 100 tablet 1 2023 Active amitriptyline (ELAVIL) 10 mg tabletIndications:Healthcare Applications Analyst derick low back pain, unspecified back pain laterality, unspecified whether sciatica present,Frequent headaches TAKE 1 TO 2 TABLETS BY MOUTH NIGHTLY 200 tablet 2023 Active cetirizine (ZyrTEC) 10 mg tablet Take 1 tablet by mouth twice daily 60 tablet 2023 Active cetirizine (ZyrTEC) 10 mg tablet Take 1 tablet by mouth twice daily 60 tablet 2 10/25 Discontinued Active Problems Problem Noted Date Diagnosed Date Preventative health care 06/03/2024 Assessment & Plan (06/03/2024 3:58 PM CDT): - New or chronic worsening conditions: Chronic back pain stable this time - Mental health: Increase in anxiety and depression - Dental health: Up to date with regular dental care and cleaning. Discussed importance of regular tooth brushing, flossing, and dental visits. - Nutrition: Stressed importance of moderation in sodium/caffeine intake, saturated fat and cholesterol, caloric balance, sufficient intake of fresh fruits, vegetables - Exercise: Stressed the importance of regular exercise - Immunizations: Age and sex appropriate immunizations reviewed and offered - Cervical Cancer screening: Due now, referral to warehouse order puller due to previous abnormal Pap - Breast Cancer screening: Not indicated at this time - Colon cancer screening: Not indicated at this time - Lung cancer screening: Not indicated at this time - Bone desnity/osteoporosis screening: Not indicated at this time - control: tubal ligation Impaired fasting blood sugar 01/08/2023 Assessment & Plan (06/03/2024 4:06 PM CDT): -chronic, stable -follows with endocrinology -currently does not require medication at this time -will recheck hemoglobin A1c -continue current treatment plan Assessment & Plan (01/08/2023 2:41 PM FOREIGN LANGUAGE INSTRUCTOR): - established with Endocrinology - told to start monitoring BG Lab Results Component Value Date HGBA1C 5.9 (H) 07/17/2022 Anti-TPO antibodies present 01/08/2023 Assessment & Plan (01/08/2023 2:43 PM FOREIGN LANGUAGE INSTRUCTOR): - noted on testing for chronic urticaria - then she was referred to endocrinology and has established care - has had lab tests recently which is still pending Lab Results Component Value Date TSH 3.77 10/02/2022 Anxiety and depression 10/01/2022 Assessment & Plan (06/03/2024 4:16 PM CDT): -chronic, not at goal -patient currently takes fluoxetine 20 mg -patient reports worsening anxiety and depression -patient states she is happy with her fluoxetine, but thinks she may need an increase in dose -patient denies any thoughts of harming herself or others -fluoxetine increased to 40 mg daily, BuSpar 5 mg t.i.d. prescribed -follow up in 1 month for re-evaluation Assessment & Plan (01/07/2024 4:34 PM FOREIGN LANGUAGE INSTRUCTOR): - chronic, better controlled - used to be on medications before - not on any medications now - requesting assistance with depression > Anxiety - currently on Prozac 20 mg daily - continue current management Lab Results Component Value Date TSH 5.27 (H) 09/10/2023 Assessment & Plan (01/08/2023 2:19 PM FOREIGN LANGUAGE INSTRUCTOR): - chronic, better controlled - used to be on medications before - not on any medications now - requesting assistance with depression > Anxiety - currently on Prozac 20 mg daily - continue current management Lab Results Component Value Date TSH 3.77 10/02/2022 Assessment & Plan (10/01/2022 3:46 PM FOREIGN LANGUAGE INSTRUCTOR): - chronic, worse - used to be on medications before - not on any medications now - requesting assistance with depression > Anxiety - start Prozac 10 mg and up titrate to 20 mg - f/u in 2 months Lab Results Component Value Date TSH 2.63 07/17/2022 Frequent headaches 07/22/2022 Assessment & Plan (01/07/2024 4:21 PM FOREIGN LANGUAGE INSTRUCTOR): -chronic, not well controlled history of migraine headaches, nausea, light sensitivity - now reports she gets headaches when having sex - she also has tension type headaches along with migraine headaches - uses tylenol as needed - tried sumatriptan once and experienced chest tightness and heart racing after 1 use so has discontinued it Assessment & Plan (10/01/2022 3:47 PM FOREIGN LANGUAGE INSTRUCTOR): -chronic, not well controlled history of migraine headaches, nausea, light sensitivity - now reports she gets headaches when having sex - she also has tension type headaches along with migraine headaches - uses tylenol as needed - tried sumatriptan once and experienced chest tightness and heart racing after 1 use so has discontinued it Assessment & Plan (07/22/2022 9:52 PM CDT): - history of migraine headaches, nausea, light sensitivity - now reports she gets headaches when having sex - she also has tension type headaches along with migraine headaches - uses tylenol as needed - use Sumatriptan for use at beginning of migraine type headaches, script sent in History of hypokalemia 07/22/2022 Chronic urticaria 07/22/2022 Assessment & Plan (01/08/2023 2:40 PM FOREIGN LANGUAGE INSTRUCTOR): - chronic for 2 years; better controlled - unclear cause, has been seen in ED several times for this - referred to allergy/immunologyu and has established care - noted to have TPO antibody present during evaluation by Salesperson [employer]ories and referred to [employer] - doing well with Cetirizine 10 mg daily, Famotidine 20 mg daily and Montelukast 10 mg daily - continue management per allergy/immunology Assessment & Plan (10/01/2022 3:43 PM FOREIGN LANGUAGE INSTRUCTOR): - chronic for 2 years; not well controlled - unclear cause, has been seen in ED several times for this - affecting her quality of life - would benefit with further evaluation, awaiting for appointment with allergy/immunology - has an appointment tomorrow Assessment & Plan (07/22/2022 9:55 PM CDT): - chronic for 2 years - unclear cause, has been seen in ED several times for this - affecting her quality of life - would benefit with further evaluation, referral placed to allergy/immunology S/P cubital tunnel release 07/17/2022 Overview (07/17/2022): Right S/P carpal tunnel release 08/17/2021 Overview (07/17/2022): Right Carpal tunnel syndrome, bilateral 07/20/2021 Lumbar spondylosis with left L5 radiculopathy Overview (03/14/2024): 03/10 - [place], This pt's neurosurgery referral was denied. The neurosurgeon that reviewed stated, Do not schedule. No note of patient having undergone conservative therapy. NO MRI available. BMI over limit for elective lumbar surgery. Thank you, [facility] Olea would you like us to try another facility and see what another neuro states? Please advise Yes please Cervical spondylosis 07/20/2021 Chronic low back pain 05/01/2021 Assessment & Plan (06/03/2024 4:21 PM CDT): -chronic, stable -currently takes meloxicam 15 mg, amitriptyline 10 mg -has previously been evaluated by Orthopedics -patient reports her back pain has been doing somewhat better since she was last seen in office -she states she has not seen the neurosurgeon yet but she is still interested in being seen by them - contact information provided -discussed risks of long-term NSAID use -encourage patient to continue utilizing prescription medication, ice/heat application, and rest possible -continue current treatment plan Assessment & Plan (02/18/2024 4:10 PM CDT): - chronic neck and low back pain, worse - Saw orthopedic spine on 07/20/2021 and was diagnosed with Lumbar spondylosis with left L5 radiculopathy and Other spondylosis with radiculopathy, lumbar region - used to be on gabapentin 300 mg nightly but is no longer on it (she could not function to get up early and set up foods in morning for her kids, shewas excessively sleepy in the morning) - has pain with prolonged standing, grocery shopping - provided Toradol shot on this visit - start Meloxicam 15 mg daily and amitriptyline 10-20 mg nightly - recheck XR of lumbar spine --> result documented below - recommend evaluation with Neurosurgery, referral placed XR Lumbar spine 01/10 FINDINGS: Three views submitted with comparison 07/20/2021. No acute fractures are identified. There is mild levocurvature of the lumbar spine. There is mild retrolisthesis of L4 on L5. There is mild L4-L5 and moderate L5-S1 degenerative disc disease. Transitional L5 vertebra is present. IMPRESSION: Mild L4-L5 and moderate L5-S1 degenerative disc disease. Mild retrolisthesis of L4 on L5. 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 XR Spine Lumbar 08/07 osteopenia and a sacralized vertebral lumbar body at L4-S1 - she was seen by Orthopedic Spine doctor Dr. Villa in 2020 and was diagnosed with the following 1. Lumbar spondylosis with left L5 radiculopathy 2. Cervical spondylosis 3. Other spondylosis with radiculopathy, lumbar region - she was referred to Physical therapy which she was not able to do but Is open to do PT at this time - referral placed for Physical therapy Assessment & Plan (07/22/2022 9:46 PM CDT): - chronic neck and low back pain - Saw orthopedic spine - used to be on gabapentin 300 mg nightly but is no longer on it (she could not function to get up early and set up foods in morning for her kids, shewas excessively sleepy in the morning) - has pain with prolonged standing, grocery shopping XR Spine Cervical 08/07 These show minimal to no spondylosis but minimal kyphosis and 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 XR Spine Lumbar 08/07 osteopenia and a sacralized vertebral lumbar body at L4-S1 - she was seen by Orthopedic Spine doctor Dr. Villa in 2020 and was diagnosed with the following 1. Lumbar spondylosis with left L5 radiculopathy 2. Cervical spondylosis 3. Other spondylosis with radiculopathy, lumbar region - she was referred to Physical therapy which she was not able to do but Is open to do PT at this time - referral placed for Physical therapy Morbid obesity with BMI of 40.0-44.9, adult 04/17 Assessment & Plan (06/03/2024 3:58 PM CDT): Wt Readings from Last 3 Encounters: 05/31/24 98.1 kg (216 lb 4.8 oz) 03/09/24 98.9 kg (218 lb) 03/01/24 98.9 kg (218 lb) Body mass index is 41.37 kg/m??. -Stable, not at goal of <30 bmi -Discussed recommendations for exercise at least 30 minutes moderate to vigorous exercise as tolerated most days of the week. (minimum 150 minutes weekly) -Discussed importance of well-balanced diet. Assessment & Plan (01/07/2024 4:21 PM FOREIGN LANGUAGE INSTRUCTOR): Wt Readings from Last 3 Encounters: 01/07/24 99.1 kg (218 lb 6.4 oz) 09/18/23 93.9 kg (207 lb) 08/29/23 90.7 kg (200 lb) Body mass index is 41.29 kg/m??. - chronic condition, not at goal - frustrated with lack of weight loss, states has tried calorie counting, diet changes, avoiding fast food - BMI Follow-up includes: nutrition counseling, exercise counseling and education Assessment & Plan (01/08/2023 2:20 PM FOREIGN LANGUAGE INSTRUCTOR): Wt Readings from Last 3 Encounters: 01/08/23 90.7 kg (200 lb) 01/02/23 89.4 kg (197 lb 3.2 oz) 10/02/22 92.6 kg (204 lb 3.2 oz) Body mass index is 37.79 kg/m??. - chronic condition, not at goal - frustrated with lack of weight loss, states has tried calorie counting, diet changes, avoiding fast food - BMI Follow-up includes: nutrition counseling, exercise counseling and education Assessment & Plan (10/01/2022 3:46 PM FOREIGN LANGUAGE INSTRUCTOR): Wt Readings from Last 3 Encounters: 10/01/22 90.7 kg (200 lb) 07/17/22 92.4 kg (203 lb 9.6 oz) 06/30/22 90.7 kg (200 lb) Body mass index is 37.81 kg/m??. - chronic condition, not at goal - frustrated with lack of weight loss, states has tried calorie counting, diet changes, avoiding fast food - BMI Follow-up includes: nutrition counseling, exercise counseling and education Assessment & Plan (07/22/2022 9:51 PM CDT): Wt Readings from Last 3 Encounters: 07/17/22 92.4 kg (203 lb 9.6 oz) 06/30/22 90.7 kg (200 lb) 06/14/22 90.7 kg (200 lb) Body mass index is 38.49 kg/m??. - chronic condition, not at goal - frustrated with lack of weight loss, states has tried calorie counting, diet changes, avoiding fast food - BMI Follow-up includes: nutrition counseling, exercise counseling and education Personal history of tobacco use 05/01/2021 Assessment & Plan (01/07/2024 4:34 PM FOREIGN LANGUAGE INSTRUCTOR): Social History Tobacco Use Smoking Status Every Day Current packs/day: 0.75 Average packs/day: 0.8 packs/day for 15.0 years (11.3 ttl pk-yrs) Types: Cigarettes Smokeless Tobacco Never - chronic condition, not at goal but has cut back, trying to quit - less than 1/2 pk/day - discussed the importance of tobacco smoking cessation with goal of being tobacco free Assessment & Plan (07/17/2022 8:50 AM CDT): Social History Tobacco Use Smoking Status Every Day ? ? Packs/day: 0.75 ? ? Years: 15.00 ? ? Pack years: 11.25 ? ? Types: Cigarettes Smokeless Tobacco Never - chronic condition, not at goal - discussed the importance of tobacco smoking cessation with goal of being tobacco free Familial hypercholesterolemia 08/05/2017 Assessment & Plan (06/03/2024 4:05 PM CDT): -chronic, stable -currently takes rosuvastatin 10 mg daily -Discussed importance of well-balanced diet. -will recheck lab values -refill of medication provided -continue current treatment plan Assessment & Plan (02/18/2024 4:07 PM CDT): - chronic, improved - Noted 08/08 with LDL >200 - also noted to have hypertriglyceridemia - currently on Crestor 10 mg daily - most recent labs as shown below - has known morbid obesity, Body mass index is 41.29 kg/m??. - continue with current management Lab Results Component Value Date CHOL 165 09/10/2023 CHOL 296 (H) 07/17/2022 Lab Results Component Value Date HDL 41 (L) 09/10/2023 HDL 28 (L) 07/17/2022 Lab Results Component Value Date LDLCALC 202 (H) 07/17/2022 LDL 84 09/10/2023 Lab Results Component Value Date TRIG 329 (H) 09/10/2023 TRIG 328 (H) 07/17/2022 Assessment & Plan (01/08/2023 2:37 PM FOREIGN LANGUAGE INSTRUCTOR): - chronic, unknown - Noted 08/08 with LDL >200 - also noted to have hypertriglyceridemia - started Crestor 10 mg daily - labs pending, will review and see candelaria Lab Results Component Value Date CHOL 296 (H) 07/17/2022 Lab Results Component Value Date HDL 28 (L) 07/17/2022 Lab Results Component Value Date LDLCALC 202 (H) 07/17/2022 Lab Results Component Value Date TRIG 328 (H) 07/17/2022 Assessment & Plan (10/01/2022 3:43 PM FOREIGN LANGUAGE INSTRUCTOR): - recent diagnosis - Noted 08/08 with LDL >200 - also noted to have hypertriglyceridemia - started Crestor 10 mg daily - recheck labs on next visit Vitamin D deficiency 08/05/2017 Assessment & Plan (06/03/2024 4:05 PM CDT): -chronic, stable -patient currently takes vitamin D3 supplement -will recheck lab value -refill medication provided -continue current treatment plan Assessment & Plan (02/18/2024 4:14 PM CDT): - chronic, better controlled - noted to have vitamin D deficiency on 07/08 - history in past even as far as 2016 - most recent Vitamin D level is as shown below - patient is to be started on Vitamin D supplementation - currently on Vitamin D3 5000iu daily - continue current management Vitamin D 35 on 08/2023 Vitamin D 25-OH Date Value Ref Range Status 07/17/2022 23 (L) 30 - 80 ng/mL Final Assessment & Plan (10/01/2022 3:45 PM FOREIGN LANGUAGE INSTRUCTOR): - chronic, not well controlled - noted to have vitamin D deficiency on 07/08 - history in past even as far as 2016 - most recent Vitamin D level is as shown below - patient is to be started on Vitamin D supplementation - started on Vitamin D3 5000iu daily - recheck labs on next visit Vitamin D 25-OH Date Value Ref Range Status 07/17/2022 23 (L) 30 - 80 ng/mL Final Resolved Problems Problem Noted Date Diagnosed Date Resolved Date History of hypothyroidism 07/22/2022 Cubital tunnel syndrome on right 08/17/2021 07/17/2022 Edema of lower extremity 05/01/202101/2024 Fatigue 05/01/2021 07/22/2022 Gastroesophageal reflux dise ase without esophagitis 05/01/2021 07/22/2022 Hypokalemia 08/05/2017 07/22/2022 Migraine 08/05/2017 02/18/2024 Neck pain 08/05/2017 02/18/2024 Immunizations Name Administration Dates Next Due Influenza, Unspecified 01/07/2024(Deferr ed: Patient Refused),08/17/2023(Deferred: Patient Refused),10/01/2022(Deferred: Patient Refused),07/17/2022(Deferred: Patient Refused),01/15/2022(Deferred: Patient Refused),06/17/2021(Deferred: Patient Refused) Surgical History Surgery Date Site/Laterality Comments TUBAL LIGATION 11/17/2010 - 11/16/2011 DILATION AND CURETTAGE OF UTERUS 2007 and 2009 TUBAL LIGATION TONSILLECTOMY AND ADENOIDECTOMY Medical History Medical History Date Comments Cervical cancer screening Cervic al Pre Cancer Hypercholesteremia Thyroid disease Migraines Depression Hyperlipidemia Pneumonia Chronic bronchitis (HCC) GERD (gastroesophageal reflux disease) Hypothyroidism Hypertension Family History Medical History Relation Name Comments COPD Father Dad Heart disease Father Dad Hypertension Father Dad COPD Mother Mom Diabetes Mother Mom Hypertension Mother Mom Cancer Other Heart disease Other Hypertension Other Relation Name Status Comments Father Dad Mother Mom Other Social History Tobacco Use Types Packs/Day Years Used Date Smoking Tobacco: Every Day Cigarettes 0.8 15.1 Smokeless Tobacco: Never Tobacco Cessation:Ready to Q uit: No AUDIT-C Answer Date Recorded Q1: How often do you have a drink containing alcohol? Never 05/31/2024 Q2: How many drinks containi ng alcohol do you have on a typical day when you are drinking? Patient does not drink Q3: How often do you have si x or more drinks on one occasion? Never 05/31/2024 PHQ-2 Answer Date Recorded PHQ-2 Total Score (If total score is 3 or more points, staff should administer the PHQ-9) 0 05/31/2024 Personal Safety Answer Date Recorded Getting School Help Needed Not on file 10/31 Comments No Sex and Gender Information Value Date Recorded Sex Assigned at Not on file Legal Sex Female 4:09 PM FOREIGN LANGUAGE INSTRUCTOR Gender Identity Female 06/02/2024 9:46 PM CDT Sexual Orientation Straight 06/02/2024 9: 46 PM CDT Obstetrics History Last Filed Vital Signs Vital Sign Reading Time Taken Comments Blood Pressure 113/77 05/31/2024 4:05 PM CDT Pulse 79 05/31/2024 4:05 PM CDT Temperature 36.4 ??C (97.5 ??F) 05/31/2024 4:05 PM CD T Respiratory Rate 16 05/31/2024 4:05 PM CDT Oxygen Saturation 97% 05/31/2024 4:05 PM CDT Inhaled Oxygen Concentration - - Weight 98.1 kg (216 lb 4.8 oz) 05/31/2024 4:05 P M CDT Height 154 cm (5' 0.63 ) 05/31/2024 4:05 PM CDT Body Mass Index 41.37 05/31/2024 4:05 PM CDT Plan of Treatment Health Maintenance Due Date Last Done Comments Cervical Cancer Screening 1986 Pneumococcal vaccine <65 (1 of 2 - PCV) 1992 DTaP/Tdap/Td Vaccine (1 - Tdap) 1997 Varicella Vaccines (1 of 2 - 13+ 2-dose series) 1999 Influenza Vaccine (#1) 2024 Depression Screening 05/31/2025 05/31/2024, 01/07/2024, 01/08/2023, Additional history exists Regular Well Visit/Exam 18-64 05/31/2025 05/31/2024, 05/31/2024 Hepatitis C Screening Completed 07/17/2022 Hepatitis B Screening Completed 06/08/2024 HPV Vaccines Aged Out No longer eligi ble based on patient's age to complete this topic Procedures Procedure Name Priority Date/Time Associated Diagnosis Comments HEPATITIS C ANTIBODY Routine 07/17/2022 9:37 AM CDT Need for hepatitis C screening test from Last 3 Months or Most Recently Relevant to Health Maintenance Results * Hepatitis C antibody (07/17/2022 9:37 AM CDT) Hep C Ab Nonreactive Nonreactive [facility] ([place]) Comment: Interpretive Data Nonreactive: Antibodies to HCV not detected. Does NOT exclude the possibility of recent exposure to HCV. Equivocal: Equivocal for HCV antibodies. Supplemental molecular testing will be automatically performed to determine infection status in accordance with current CDC screening recommendations. ?? Reactive: Positive for HCV antibodies. ??This may represent current or past HCV infection. Supplemental molecular testing will be automatically performed to determine ??current infection status in accordance with current CDC screening recommendations. Interpretive data was last revised on 2020. Testing performed by: [facility], [address] [place] [address]., [id number] Blood 07/17/2022 9:37 AM CDT 07/17/2022 12:13 PM CDT Mikey Olea MD LAB MICROBIOLOGY - [facility] ORDERABLES Final Result [facility] ([place]) [facility] [place] [address] from Last 3 Months or Most Recently Relevant to Health Maintenance Insurance Care Teams Retail Maintenance Technician Relationship Specialty Start Date End Date Mikey Olea MD [address] [place], [place] [id number] PCP - General Family Medicine 07/17/22 Xiomy Kaur NP [address] [place] [address] Nurse Practitioner 06/28/21 Eladio Weems MD [address] [facility] [place] [address] Consulting Physician Endocrinology Diabetes & Metabolism 01/08/23 Jessenia Castrejon MD [address] [facility] [place] [address] Referring Physician Allergy and Immunology 01/08/23
--- OUTSIDE RECORDS SUMMARY | 2024-11-14 20:49 | XMS_ITS | Encounter Summary ---
Author Organization [facility] Healthcare Address [address] [place] [address] Care Team Providers Care Imaging Clerk Name Role Phone Natasha, Xiomy Moss NP Unavailable [phone] Mikey Olea MD Primary Care Provider Eladio Weems MD Unavailable Jessenia Castrejon MD Unavailable [phone] Encounter Details Date Type Department Care Team (Late st Contact Info) Description 04/01/2024 Telephone [facility] Medical Group Primary Care at [address] [place] [address] Mikey Olea MD [address] [place] [address] [address] [place] [address] Social History Tobacco Use Types Packs/Day Years Used Date Smoking Tobacco: Every Day Cigarettes 0.8 15 Smokeless Tobacco: Never AUDIT-C Answer Date Recorded Q1: How often do you have a drink containing alcohol? Never 01/07/2024 Q2: How many drinks containi ng alcohol do you have on a typical day when you are drinking? Patient does not drink Q3: How often do you have si x or more drinks on one occasion? 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 Olea is at the [place] location. Patient did not answer and was not able to leave a voicemail. documented in this encounter Plan of Treatment Not on file documented as of this encounter Visit Diagnoses Not on filedocumented in this encounter Care Teams Imaging Clerk Relationship Specialty Start Date End Date Mikey Olea MD [address] [place] [address] PCP - General Family Medicine 07/17/22 Xiomy Kaur NP [address] [place] [address] Nurse Practitioner 06/28/21 Eladio Weems MD [address] [facility] [place] [address] Consulting Physician Endocrinology Diabetes & Metabolism 01/08/23 Jessenia Castrejon MD [address] [facility] [place] [address] Referring Physician Allergy and Immunology 01/08/23 documented as of this encounter
--- OUTSIDE RECORDS SUMMARY | 2024-11-14 20:49 | XMS_ITS | Encounter Summary ---
Author Organization [facility] Healthcare Address [address] [place] [address] Care Team Providers Care Php Lamp Developer Name Role Phone Natasha, Xiomy Moss NP Unavailable [phone] Mikey Olea MD Primary Care Provider Eladio Weems MD Unavailable Jessenia Castrejon MD Unavailable [phone] Encounter Details Date Type Department Care Team (Late st Contact Info) Description 04/26/2024 Telephone [facility] Medical Group Primary Care at [address] [place] [address] Mikey Olea MD [address] [place] [address] [address] [place] [address] Social History Tobacco Use Types [...] on file 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 She is currently on meloxicam 15 mg daily which I started for her in December but I also had referred her to Neurosurgery at the time. I do not see an appointment within epic chart and I would like her to be seen for further evaluation or follow-up with pain management if pain continues to be an outstanding issue. Again reminded her that the meloxicam is not a long-term medication and I like her to wean offthe medication possible. documented in this encounter Plan of Treatment Not on file documented as of this encounter Visit Diagnoses Not on filedocumented in this encounter Care Teams Php Lamp Developer Relationship Specialty Start Date End Date Mikey Olea MD [address] [place] [address] PCP - General Family Medicine 07/17/22 Xiomy Kaur NP [address] [place] [address] Nurse Practitioner 06/28/21 Eladio Weems MD [address] [facility] [address] Consulting Physician Endocrinology Diabetes & Metabolism 01/08/23 Jessenia Castrejon MD [address] [facility] [address] Referring Physician Allergy and Immunology 01/08/23 documented as of this encounter
--- OUTSIDE RECORDS SUMMARY | 2024-11-14 20:49 | XMS_ITS | Encounter Summary ---
Author Organization [facility] Healthcare Address [address] [place] [address] Care Team Providers Care Regional Transportation Manager Name Role Phone Xiomy Kaur NP Unavailable [phone] Mikey Olea MD Primary Care Provider Eladio Weems MD Unavailable Jessenia Castrejon MD Unavailable [phone] Reason for Visit * Reason Comments Rash Patient stated was g iven an abx and had a reaction. 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 Gender Identity Female 06/02/2024 9:46 PM CDT Sexual Orientation Straight 06/02/2024 9: 46 PM CDT documented as of this encounter Last Filed Vital Signs Vital Sign Reading Time Taken Comments Blood Pressure 142/84 03/01/2024 12:26 PM CDT Pulse 98 03/01/2024 12:26 PM CDT Temperature 36.9 ??C (98.5 ??F) 03/01/2024 12:26 PM C DT Respiratory Rate 17 03/01/2024 12:26 PM CDT Oxygen Saturation 97% 03/01/2024 12:26 PM CDT Inhaled Oxygen Concentration - - Weight 98.9 kg (218 lb) 03/01/2024 12:26 PM CDT Height 154.9 cm (5' 1 ) 03/01/2024 12:26 PM CDT Body Mass Index 41.19 03/01/2024 12:26 PM CDT documented in this encounter Patient Instructions * Patient Instructions* Vannessa Chapin, SMALL ENGINE SPECIALIST - 03/01/2024 12:30 PM CDT Stop amox-clav and start azithromycin. Take medications for hives as you normally do Take all medication as prescribed. Probiotics or eating yogurt can help diarrhea caused by antibiotics. If diarrhea is severe, stop medication and call PCP. Keep ear canal free from water Do not place Q-Tips or other objects into ear canal Do not use OTC ear drops without consulting with your healthcare provider. May take Tylenol or Ibuprofen for fever or pain as directed per package instructions. Reviewed education materials and instructions with patient and answered all questions. Follow up with Mikey Olea MD if symptoms worsen or do not completely resolve. Childrenunder age 2 should follow up with physical therapy professor in 2- 3 weeks to make sure infection is gone. GO TO THE ER WITH ANY NEW ONSET OF FEVER, PAIN BEHIND THE EAR AND/OR REDNESS OVER THE BONE BEHIND THE EAR, OR SWELLING OF THE EXTERNAL EAR AND/OR EXTERNAL EAR APPEARING TO BE DISPLACED DOWNWARD. THESE ARE ALL SIGNS OF A SERIOUS COMPLICATION AND REQUIRES IMMEDIATE ATTENTION. documented in this encounter Ordered Prescriptions Prescription Sig Dispense Quantity Refills Last Filled Start Date End Date azithromycin (ZITHROMAX) 250 mg tabletIndications:N on-recurrent acute suppurative otitis media of left ear without spontaneous rupture of tympanic membrane Take 2 tabs (500 mg) by mouth today, than 1 tab (250 mg) daily for 4 days. 6 tablet 03/01/2024 03/06/2024 documented in this encounter Progress Notes * Vannessa Chapin NP - 03/01/2024 12:30 PM CDT Images from the original note were not included. Subjective/Objective Patient ID: Ashley Rdz is a 38 y.o. female. Chief Complaint Rash (Patient stated was given an abx and had a reaction. ) Patient presents to convenient care complaining of possible allergic reaction. Patient states she was here on Friday and prescribed amoxicillin-clavulanate for an ear infection. Pt started taking amox-clav on Friday. She broke out in hives on Friday. She has had issues with hives on and off for the past 4 years however states they have been under good control for the last several months while taking montelukast, cetirizine, Pepcid. She has also tried benadryl with no improvement. She is concerned that amox-clav is making exacerbating or causing her hives. The hives are located on her legs mostly, she has a couple on her arms. The left ear still feels full and hearing is muffled. She denies sob. Her cough has improved. Rash Review of Systems Skin: Positive for rash. All systems reviewed and are negative or non contributory for this patient's presentation today other than as stated in the HPI. Physical Exam Vitals and nursing note reviewed. Constitutional: General: She is not in acute distress. Appearance: She is not ill-appearing or toxic-appearing. HENT: Head: Normocephalic. Right Ear: Ear canal and external ear normal. A middle ear effusion is present. Tympanic membrane is erythematous. Left Ear: Tympanic membrane, ear canal and external ear normal. Nose: Mucosal edema present. Mouth/Throat: Comments: Postnasal drainage Eyes: Conjunctiva/sclera: Conjunctivae normal. Cardiovascular: Rate and Rhythm: Normal rate and regular rhythm. Heart sounds: Normal heart sounds. Pulmonary: Effort: Pulmonary effort is normal. No respiratory distress. Breath sounds: Examination of the right-middle field reveals rhonchi. Examination of the left-middle field reveals rhonchi. Examination of the right- lower field reveals rhonchi. Examination of the left-lower field reveals rhonchi. Rhonchi present. No wheezing or rales. Comments: Rhonchi clear with cough Musculoskeletal: Cervical back: No rigidity. Skin: General: Skin is warm and dry. Findings: Rash present. Rash is urticarial. Neurological: General: No focal deficit present. Mental Status: She is alert and oriented to person, place, and time. Psychiatric: Mood and Affect: Mood normal. Behavior: Behavior normal. Thought Content: Thought content normal. Vitals: 03/01/24 1226 BP: 142/84 BP Location: Right arm Patient Position: Sitting Pulse: 98 Resp: 17 Temp: 36.9 ??C (98.5 ??F) TempSrc: Oral SpO2: 97% Weight: 98.9 kg (218 lb) Height: 154.9 cm (5' 1 ) Assessment/Plan Patient will stop amoxicillin-clavulanate and discuss this reaction with her hospital librarian at her upcoming appointment Start azithromycin for left otitis media as she has had this before without allergy issues. Follow-up with worsening symptoms or if no improvement Diagnoses and all orders for this visit: Non-recurrent acute suppurative otitis media of left ear without spontaneous rupture of tympanic membrane (Primary) - azithromycin (ZITHROMAX) 250 mg tablet; Take 2 tabs (500 mg) by mouth today, than 1 tab (250 mg) daily for 4 days. Chronic urticaria No results found for this or any previous visit (from the past 24 hour(s)). Patient Education: Disposition Treatment plan including expectations, follow up, and return precautions discussed with patient/parent, verbalizes understanding. Medication dosage, use, and potential adverse reactions discussed with patient/parent. Advised to follow up with PCP if symptoms do not resolve as expected or sooner if condition worsens. Signs/symptoms warranting ER evaluation reviewed. Patient and/or guardian was given an opportunity to ask questions, questions answered. Vannessa Chapin NP documented in this encounter Plan of Treatment Not on file documented as of this encounter Visit Diagnoses Diagnosis Non-recurrent acute suppurative otitis media of left ear without spontaneous rupture of tympanic membrane- Primary Chronic urticaria Other specified urticaria documented in this encounter Care Teams Regional Transportation Manager Relationship Specialty Start Date End Date Mikey Olea MD [address] [place], [place] [id number] PCP - General Family Medicine 07/17/22 Xiomy Kaur NP [address] [place] [address] Nurse Practitioner 06/28/21 Eladio Weems MD 1 [facility] [place] [address] Consulting Physician Endocrinology Diabetes & Metabolism 01/08/23 Jessenia Castrejon MD 1 [facility] [place] [address] Referring Physician Allergy and Immunology 01/08/23 documented as of this encounter
--- OUTSIDE RECORDS SUMMARY | 2024-11-14 20:49 | XMS_ITS | Encounter Summary ---
Author Organization [facility] Healthcare Address [address] [place] [address] Care Team Providers Care Retail Marketing Specialist Name Role Phone Natasha Xiomy Moss NP Unavailable [phone] Mikey Olea MD Primary Care Provider Eladio Weems MD Unavailable Jessenia Castrejon MD Unavailable [phone] Reason for Visit * Reason Comments Follow-up Mass Onset 6 month to 1 y ear. Pt states they look like a boil. Pt states they itch. Pt states she hasn't had a well woman exam in a long time. Pt states her last PAP smear was in 2009. Migraine Pt states this alway s occurs when she initiates sex with her partner. Encounter Details Date Type Department Care Team (Late st Contact Info) Description 05/31/2024 4:00 PM CDT Office Visit [facility] Care at [address] [place] [phone] Carleen Torrez NP [address] [place] [address] [address] [place] [address] Preventative health care (Primary Dx); Anxiety and depression; Vitamin D deficiency; Chronic low back pain, unspecified back pain laterality, unspecified whether sciatica present; Familial hypercholesterolemia; Impaired fasting blood sugar; Morbid obesity with BMI of 40.0-44.9, adult (HCC); Thyroid disorder; Need for hepatitis B screening test Social History Tobacco Use Types Packs/Day Years [...] on file 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 4th Floor [address] [place], [address] Thank you for time and patience! We hope you have had an excellent care experience in our office today. If you have any questions or concerns, please do not hesitate to reach out through [email or web address] or call our office at [phone]. - DANNA Ochoa documented in this encounter Ordered Prescriptions Prescription Sig Dispense Quantity Refills Last Filled Start Date End Date busPIRone (BUSPAR) 5 mg tabletIndications:General ized Anxiety Disorder Take 1 tablet (5 mg total) by mouth 3 (three) times a day 180 tablet 4 FLUoxetine (PROzac) 20 mg tabletIndications:Anxiety and depression Take 2 tablets (40 mg total) by mouth daily 120 tablet 4 rosuvastatin (CRESTOR) 10 mg tabletIndications:Rodriguez l hypercholesterolemia Take 1 tablet (10 mg total) by mouth daily 90 tablet 1 4 montelukast (SINGULAIR) 10 mg tablet Take 1 tablet (10 mg total) by mouth daily 30 tablet 3 4 cholecalciferol (VITAMIN D-3) 5,000 unit capsuleIndications:Vitami n D Deficiency Take 1 capsule (5,000 Units total) by mouth daily 90 capsule 3 4 05/31/20 25 documented in this encounter Progress Notes * Carleen Torrez NP - 05/31/2024 4:00 PM CDT Images from the original note were not included. Subjective/Objective Patient ID: Ashley Sepulveda is a 38 y.o. female. Chief Complaint Follow-up, Mass (Onset 6 month to 1 year. Pt states they look like a boil. Pt states they itch. Pt states she hasn't had a well woman exam in a long time. Pt states her last PAP smear was in 2009.), and Migraine (Pt states this always occurs when she initiates sex with her partner.) Care Team Providers: Patient Care Team: Mikey Olea MD as PCP - General (Family Medicine) Natasha, Xiomy Moss NP (Nurse Practitioner) Eladio Weems MD as Consulting Physician (Endocrinology Diabetes & Metabolism) Cash, Jessenia James MD as Referring Physician (Allergy and Immunology) HPI Patient presents today for for annual preventative physical examination and health care maintenanceitems. Patient was last seen in office 3 months ago with complaints of worsening back pain. Patientwas started on meloxicam 15 mg and amitriptyline 10 mg, patient this regimen has helped her back pain somewhat. She has not seen the neurosurgeon yet, contact information provided. Patient does endorse worsening anxiety and depression. Patient currently takes 20 mg fluoxetine, which she states she has happy with the medication but thinks she may need a larger dose. Patient alsoreports symptoms of nausea, fatigue, poor appetite, occasional headache. She states she has not been taking her thyroid medication. Otherwise, all other review of systems are negative. Physical Exam Constitutional: Appearance: Normal appearance. She is obese. HENT: Head: Normocephalic. Right Ear: Tympanic membrane, ear canal and external ear normal. Left Ear: Tympanic membrane, ear canal and external ear normal. Nose: Nose normal. Mouth/Throat: Mouth: Mucous membranes are moist. Pharynx: Oropharynx is clear. Eyes: Extraocular Movements: Extraocular movements intact. Conjunctiva/sclera: Conjunctivae normal. Pupils: Pupils are equal, round, and reactive to light. Cardiovascular: Rate and Rhythm: Normal rate and regular rhythm. Pulses: Normal pulses. Heart sounds: Normal heart sounds. Pulmonary: Effort: Pulmonary effort is normal. Breath sounds: Normal breath sounds. Abdominal: General: Bowel sounds are normal. Palpations: Abdomen is soft. Musculoskeletal: Cervical back: Normal range of motion. Lumbar back: Tenderness present. Decreased range of motion. Skin: General: Skin is warm. Neurological: General: No focal deficit present. Mental Status: She is alert and oriented to person, place, and time. Mental status is at baseline. Psychiatric: Mood and Affect: Mood is anxious and depressed. Behavior: Behavior normal. Thought Content: Thought content normal. Judgment: Judgment normal. Vitals: 05/31/24 1605 BP: 113/77 BP Location: Left arm Patient Position: Sitting Pulse: 79 Resp: 16 Temp: 36.4 ??C (97.5 ??F) SpO2: 97% Weight: 98.1 kg (216 lb 4.8 oz) Height: 154 cm (5' 0.63 ) I have reviewed: allergies, current medications, past family history, past medical history, past social history, past surgical history and problem list. I have updated the relevant sections when necessary. I have reviewed: relevant outside notes, previous office visits, imaging, lab work including records from specialists, other providers, and recent hospital admissions that is relevant to this visit Assessment/Plan Diagnoses and all orders for this visit: Preventative health care (Primary) Assessment & Plan: - New or chronic worsening conditions: Chronic [...] Cervical Cancer screening: Due now, referral to scruff worker due to previous abnormal Pap and for concernsof sores and genital region - Breast Cancer screening: Not indicated at this time - Colon cancer screening: Not indicated at this time - Lung cancer screening: Not indicated at this time - Bone desnity/osteoporosis screening: Not indicated at this time - control: tubal ligation Orders: - CBC with auto differential; Future - Comprehensive metabolic panel; Future Anxiety and depression Assessment & Plan: -chronic, not at goal -patient currently takes fluoxetine 20 mg -patient reports worsening anxiety and depression -patient states she is happy with her fluoxetine, but thinks she may need an increase in dose -patient denies any thoughts of harming herself or others -fluoxetine increased to 40 mg daily, BuSpar 5 mg t.i.d. prescribed -follow up in 8 weeks for re-evaluation Orders: - FLUoxetine (PROzac) 20 mg tablet; Take 2 tablets (40 mg total) by mouth daily - busPIRone (BUSPAR) 5 mg tablet; Take 1 tablet (5 mg total) by mouth 3 (three) times a day Vitamin D deficiency Assessment & Plan: -chronic, stable -patient currently takes vitamin D3 supplement -will recheck lab value -refill medication provided -continue current treatment plan Orders: - Vitamin D 25 hydroxy; Future - cholecalciferol (VITAMIN D-3) 5,000 unit capsule; Take 1 capsule (5,000 Units total) by mouth daily Chronic low back pain, unspecified back pain laterality, unspecified whether sciatica present Assessment & Plan: -chronic, stable -currently takes meloxicam 15 mg, amitriptyline 10 mg -has previously been evaluated by Orthopedics -patient reports her back pain has been doing somewhat better since she was last seen in office -she states she has not seen the neurosurgeon yet but she is still interested in being seen by them- contact information provided -discussed risks of long-term NSAID use -encourage patient to continue utilizing prescription medication, ice/heat application, and rest possible -continue current treatment plan Familial hypercholesterolemia Assessment & Plan: -chronic, stable -currently takes rosuvastatin 10 mg daily -Discussed importance of well-balanced diet. -will recheck lab values -refill of medication provided -continue current treatment plan Orders: - Lipid panel; Future - rosuvastatin (CRESTOR) 10 mg tablet; Take 1 tablet (10 mg total) by mouth daily Impaired fasting blood sugar Assessment & Plan: -chronic, stable -follows with endocrinology -currently does not require medication at this time -will recheck hemoglobin A1c -continue current treatment plan Orders: - Hemoglobin A1c; Future Morbid obesity with BMI of 40.0-44.9, adult (HCC) Assessment & Plan: Wt Readings from Last 3 Encounters: 05/31/24 [...] minutes weekly) -Discussed importance of well-balanced diet. Thyroid disorder -Chronic, stable -patient currently follows with endocrinology -prescribed levothyroxine 100 mcg, which she states she has not been taking -encourage patient to restart this medication and possibly reach out to her residential solar consultant -will re-evaluate lab work - Thyroid Function Kendall; Future Need for hepatitis B screening test - Hepatitis B core antibody, total Blood; Future - Hepatitis B surface antibody (immune status) Blood; Future - Hepatitis B Surface Antigen Blood; Future Other orders - montelukast (SINGULAIR) 10 mg tablet; Take 1 tablet (10 mg total) by mouth daily Disposition- Discussed medications dosages, usage & potential side effects. Risks and interactions reviewed with patient. Indications for testing reviewed. Patient has been instructed to follow up in office or go to ER for any signs or symptoms that are of concern or worsening. Patient verbalizes understanding. The patient was given the opportunity to ask all questions and to have all questions answered. Patient is in agreement with the plan of care. Follow up as needed or in 8 weeks for re-evaluation of anxiety and depression Carleen Torrez NP documented in this encounter Miscellaneous Notes * Assessment & Plan Note - Carleen Torrez NP - 06/03/2024 4:21 PM CDT Associated Problem(s): Chronic low back pain -chronic, stable -currently takes meloxicam 15 mg, amitriptyline 10 mg -has previously been evaluated by Orthopedics -patient reports her back pain has been doing somewhat better since she was last seen in office -she states she has not seen the neurosurgeon yet but she is still interested in being seen by them- contact information provided -discussed risks of long-term NSAID use -encourage patient to continue utilizing prescription medication, ice/heat application, and rest possible -continue current treatment plan * Assessment & Plan Note - Carleen Torrez NP - 06/03/2024 4:16 PM CDT Associated Problem(s): Anxiety and depression -chronic, not at goal -patient currently takes fluoxetine 20 mg -patient reports worsening anxiety and depression -patient states she is happy with her fluoxetine, but thinks she may need an increase in dose -patient denies any thoughts of harming herself or others -fluoxetine increased to 40 mg daily, BuSpar 5 mg t.i.d. prescribed -follow up in 1 month for re-evaluation * Assessment & Plan Note - Carleen Torrez NP - 06/03/2024 4:06 PM CDT Associated Problem(s): Impaired fasting blood sugar -chronic, stable -follows with endocrinology -currently does not require medication at this time -will recheck hemoglobin A1c -continue current treatment plan * Assessment & Plan Note - Carleen Torrez NP - 06/03/2024 4:05 PM CDT Associated Problem(s): Familial hypercholesterolemia -chronic, stable -currently takes rosuvastatin 10 mg daily -Discussed importance of well-balanced diet. -will recheck lab values -refill of medication provided -continue current treatment plan * Assessment & Plan Note - Carleen Torrez NP - 06/03/2024 4:05 PM CDT Associated Problem(s): Vitamin D deficiency -chronic, stable -patient currently takes vitamin D3 supplement -will recheck lab value -refill medication provided -continue current treatment plan * Assessment & Plan Note - Carleen Torrez NP - 06/03/2024 3:58 PM CDT Associated Problem(s): Morbid obesity with BMI of 40.0-44.9, adult (HCC) Wt Readings from Last 3 Encounters: 05/31/24 [...] minutes weekly) -Discussed importance of well-balanced diet. * Assessment & Plan Note - Carleen Torrez NP - 06/03/2024 3:58 PM CDT Associated Problem(s): Preventative health care - New or chronic worsening conditions: Chronic [...] Cervical Cancer screening: Due now, referral to scruff worker due to previous abnormal Pap - Breast Cancer screening: Not indicated at this time - Colon cancer screening: Not indicated at this time - Lung cancer screening: Not indicated at this time - Bone desnity/osteoporosis screening: Not indicated at this time - control: tubal ligation documented in this encounter Plan of Treatment Not on file documented as of this encounter Procedures Procedure Name Priority Date/Time Associated Diagnosis Comments INTERPRETATION Routine 06/08/2024 8:23 AM CDT THYROID PEROXIDASE ANTIBODIES Routine 06/08/2024 8:23 AM CDT T4, FREE Routine 06/08/2024 8:23 AM CDT THYROID FUNCTION CASCADE Routine 06/08/2024 8:23 AM CDT Thyroid disorder CBC WITH AUTO DIFFERENTIAL Routine 06/08/2024 8:23 AM CDT Preventative health care HEPATITIS B CORE ANTIBODY, TOTAL Routine 06/08/2024 8:23 AM CDT Need for hepatitis B screening test VITAMIN D 25 HYDROXY Routine 06/08/2024 8:23 AM CDT Vitamin D deficiency HEPATITIS B SURFACE ANTIBODY (IMMUNE STATUS) Routine 06/08/2024 8:23 AM CDT Need for hepatitis B screening test HEPATITIS B SURFACE ANTIGEN Routine 06/08/2024 8:23 AM CDT Need for hepatitis B screening test HEMOGLOBIN A1C Routine 06/08/2024 8:23 AM CDT Impaired fasting blood sugar LIPID PANEL Routine 06/08/2024 8:23 AM CDT Familial hypercholesterolemia COMPREHENSIVE METABOLIC PANEL Routine 06/08/2024 8:23 AM CDT Preventative health care documented in this encounter Results * (ABNORMAL) Thyroid Peroxidase Antibodies (06/08/2024 8:23 AM CDT) Thyroperoxidase ab 611(H) <9 IU/mL [facility] Kulkarni 06/08/2024 8:23 AM CDT 06/08/2024 8:24 AM CDT [facility] - 06/10/2024 3:08 PM CDT FASTING:YES FASTING: YES Carleen Torrez NP LAB BLOOD ORDERABLES nal Result [facility] [address] [place] [address] * Interpretation (06/08/2024 8:23 AM CDT) Thyroid interp [facility] Kulkarni Comment: TSH result is high, FT4 is low, TPO AB are elevated. 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 Interference from heterophilic antibodies (more common) or autoantibody (less common) should be considered when the TSH value does not fit the clinical picture. TSH with HAMA Treatment (test code 75142) or TSH Antibody (test code 18122) may help identify such interferences. 06/08/2024 8:23 AM CDT 06/08/2024 8:24 AM CDT Narrative [facility] - 06/10/2024 3:08 PM CDT FASTING:YES FASTING: YES Carleen Torrez NP LAB BLOOD ORDERABLES nal Result Performing Organization Address [facility] de Phone Number [facility] [address] [place] [address] * (ABNORMAL) T4, Free (06/08/2024 8:23 AM CDT) [facility] Free T4 0.6(L) 0.8 - 1.8 ng/dL [facility] 06/08/2024 8:23 AM CDT 06/08/2024 8:24 AM CDT Narrative [facility] - 06/10/2024 3:08 PM CDT FASTING:YES FASTING: YES Carleen Torrez NP LAB BLOOD ORDERABLES [facility] Result Performing Organization Address [facility] de Phone Number [facility] [address] [place] [address] * Vitamin D 25 hydroxy (06/08/2024 8:23 AM CDT) [facility] Vitamin D 25-OH 45 30 - 100 ng/mL [facility] Comment: Vitamin D Status ? 25-OH Vitamin D: Deficiency: ?<20 ng/mL Insufficiency: ? 20 - 29 ng/mL Optimal: ? > or = 30 ng/mL For 25-OH Vitamin D testing on patients on D2-supplementation and patients for whom quantitation of D2 and D3 fractions is required, the QuestAssureD(TM) 25-OH VIT D, (D2,D3), LC/MS/MS is recommended: order code 52806 (patients >2yrs). See Note 1 Note 1 For additional information, please refer to http://education.Lolapps/faq/UEV167 (This link is being provided for informational/ educational purposes only.) Blood 06/08/2024 8:23 AM CDT 06/08/2024 8:24 AM CDT Narrative [facility] - 06/10/2024 3:08 PM CDT FASTING:YES FASTING: YES us Carleen Torrez NP LAB BLOOD ORDERABLES nal Result [facility] [address] [facility] [place] [address] * (ABNORMAL) Hemoglobin A1c (06/08/2024 8:23 AM CDT) Hgb A1C 6.0(H) <5.7 % of total Hgb [facility] Comment: For someone without known diabetes, a hemoglobin A1c value between 5.7% and 6.4% is consistent with prediabetes and should be confirmed with a follow-up test. For someone with known diabetes, a value <7% indicates that their diabetes is well controlled. A1c targets should be individualized based on duration of diabetes, age, comorbid conditions, and other considerations. This assay result is consistent with an increased risk of diabetes. Currently, no consensus exists regarding use of hemoglobin A1c for diagnosis of diabetes for children. ? This test was performed on the Anahi jenny c503 platform. Effective 02/02/24, a change in test platforms from the [employer] to the Anahi jenny c503 may have shifted HbA1c results compared to historical results. Based on laboratory validation testing conducted at [facility], the Anahi platform relative to the Logan platform had an average increase in HbA1c value of < or = 0.3%. This difference is within accepted variability established by the National Glycohemoglobin Standardization Program. Note that not all individuals will have had a shift in their results and direct comparisons between historical and current results for testing conducted on different platforms is not recommended. Blood 06/08/2024 8:23 AM CDT 06/08/2024 8:24 AM CDT Narrative [facility] - 06/10/2024 3:08 PM CDT FASTING:YES FASTING: YES Carleen Torrez NP LAB BLOOD ORDERABLES Fi nal Result Performing Organization Address [facility] Co de Phone Number [facility] [address] [place] [address] * Hepatitis B Surface Antigen Blood (06/08/2024 8:23 AM CDT) HepBsAg NON-REACTI VE NON-REACTI VE [facility] Comment: For additional information, please refer to http://education.CafeMom/faq/XHZ782 (This link is being provided for informational/ educational purposes only.) Blood 06/08/2024 8:23 AM CDT 06/08/2024 8:24 AM CDT Narrative [facility] - 06/10/2024 3:08 PM CDT FASTING:YES FASTING: YES Carleen Torrez NP LAB MICROBIOLOGY - GENE RAL ORDERABLES Final Result Performing Organization Address [facility] de Phone Number [facility] [address] [place] [address] * (ABNORMAL) Hepatitis B surface antibody (immune status) Blood (06/08/2024 8:23 AM CDT) Pathologist [facility] HBsAb (immune status) REACTIVE(A ) NON-REACTI VE [facility] Blood 06/08/2024 8:23 AM CDT 06/08/2024 8:24 AM CDT Narrative [facility] - 06/10/2024 3:08 PM CDT FASTING:YES FASTING: YES Carleen Torrez NP LAB MICROBIOLOGY - GENE RAL ORDERABLES Final Result Performing Organization Address [facility] de Phone Number [facility] [address] [place] [address] * Hepatitis B core antibody, total Blood (06/08/2024 8:23 AM CDT) Hep B core IgG/IgM NON-REACTI VE NON-REACTI VE [facility] Comment: For additional information, please refer to http://education.CafeMom/faq/CKO077 (This link is being provided for informational/ educational purposes only.) Blood 06/08/2024 8:23 AM CDT 06/08/2024 8:24 AM CDT Narrative [facility] - 06/10/2024 3:08 PM CDT FASTING:YES FASTING: YES us Carleen Torrez NP LAB MICROBIOLOGY - GENE [facility] ORDERABLES Final Result [facility] [address] [address] * (ABNORMAL) Lipid panel (06/08/2024 8:23 AM CDT) Pathologist [facility] Cholesterol 155 <200 mg/dL [facility] HDL 35(L) > OR = 50 mg/dL [facility] Triglycerides 258(H) <150 mg/dL [facility] Comment: If a non-fasting specimen was collected, consider repeat triglyceride testing on a fasting specimen if clinically indicated. Siria et al. J. of Clin. Lipidol. 2015;9:129-169. LDL 86 mg/dL (calc) [facility] Comment: Reference range: <100 Desirable range <100 mg/dL for primary prevention; ?? <70 mg/dL for patients with CHD or diabetic patients with > or = 2 CHD risk factors. LDL-C is now calculated using the Herman-Mcmullen calculation, which is a validated novel method providing better accuracy than the Friedewald equation in the estimation of LDL-C. Herman SS et al. IVANA. 2013;310(19): 0945-5244 (http://education.Lolapps/faq/DUY631) Chol/HDL ratio 4.4 <5.0 (calc) [facility] Non-HDL, (LDL+VLDL) 120 <130 mg/dL (calc) [facility] Comment: For patients with diabetes plus 1 major ASCVD risk factor, treating to a non-HDL-C goal of <100 mg/dL (LDL-C of <70 mg/dL) is considered a therapeutic option. Blood 06/08/2024 8:23 AM CDT 06/08/2024 8:24 AM CDT Narrative [facility] - 06/10/2024 3:08 PM CDT FASTING:YES FASTING: YES Carleen Torrez NP LAB BLOOD ORDERABLES Fi nal Result Performing Organization Address [facility] Co de Phone Number [facility] [address] [place] [address] * (ABNORMAL) Thyroid Function Kendall (06/08/2024 8:23 AM CDT) Pathologist [facility] TSH 24.34(H) mIU/L [facility] Kulkarni Comment: ?Reference Range ?> or = 20 Years ??0.40-4.50 ? Ranges ?First trimester ?0.26-2.66 ?Second trimester ?? 0.55-2.73 ?Third trimester ?0.43-2.91 Blood 06/08/2024 8:23 AM CDT 06/08/2024 8:24 AM CDT Narrative [facility] - 06/10/2024 3:08 PM CDT FASTING:YES FASTING: YES Carleen Torrez NP LAB BLOOD ORDERABLES Fi nal Result Performing Organization Address [facility] Co de Phone Number [facility] [address] [place] [address] * Comprehensive metabolic panel (06/08/2024 8:23 AM CDT) Pathologist [facility] Glucose 88 65 - 99 mg/dL [facility] Comment: ? Fasting reference interval BUN 10 7 - 25 mg/dL [facility] Creatinine 0.70 0.50 - 0.97 mg/dL [facility] eGFR 114 > OR = 60 mL/min/1.7 3m2 [facility] BUN/creat ratio SEE NOTE: 6 - (calc) [facility] Comment: ?? Not Reported: BUN and Creatinine are within ?? reference range. ? Sodium 139 135 - 146 mmol/L [facility] Potassium, pl 4.0 3.5 - 5.3 mmol/L [facility] Chloride 106 98 - 110 mmol/L [facility] CO2 26 20 - 32 mmol/L [facility] Calcium 8.8 8.6 - 10.2 mg/dL [facility] Protein, sr 6.2 6.1 - 8.1 g/dL [facility] Albumin 4.0 3.6 - 5.1 g/dL [facility] GLOBULIN 2.2 1.9 - 3.7 g/dL (calc) [facility] Alb/glob ratio 1.8 1.0 - 2.5 (calc) [facility] Bilirubin, total 0.5 0.2 - 1.2 mg/dL [facility] Alk phos 50 31 - 125 U/L [facility] AST 19 10 - 30 U/L [facility] ALT (SGPT) 29 6 - 29 U/L [facility] Blood 06/08/2024 8:23 AM CDT 06/08/2024 8:24 AM CDT Narrative [facility] - 06/10/2024 3:08 PM CDT FASTING:YES FASTING: YES us Carleen Torrez NP LAB BLOOD ORDERABLES Fi nal Result [facility] [address] [address] * CBC with auto differential (06/08/2024 8:23 AM CDT) WBC 9.0 3.8 - 10.8 Thousand/u L [facility] RBC, POC 4.41 3.80 - 5.10 Million/uL [facility] Hgb 13.7 11.7 - 15.5 g/dL [facility] Hct 41.2 35.0 - 45.0 % [facility] MCV 93.4 80.0 - 100.0 fL [facility] MCH 31.1 27.0 - 33.0 pg [facility] MCHC 33.3 32.0 - 36.0 g/dL [facility] Rdw 13.5 11.0 - 15.0 % [facility] Platelets 229 140 - 400 Thousand/u L [facility] MPV 9.7 7.5 - 12.5 fL [facility] Neutrophils, abs 4,257 1,500 - 7,800 cells/uL [facility] Lymphocytes, abs 3,753 850 - 3,900 cells/uL [facility] Monocyte abs 531 200 - 950 cells/uL [facility] Eosinophils, abs 450 15 - 500 cells/uL [facility] Basophils, abs 9 0 - 200 cells/uL [facility] Neutrophils 47.3 % [facility] Lymphocyte pct 41.7 % [facility] Monocytes 5.9 % [facility] Eosinophils 5.0 % [facility] Basophils 0.1 % [facility] Blood 06/08/2024 8:23 AM CDT 06/08/2024 8:24 AM CDT Narrative [facility] - 06/10/2024 3:08 PM CDT FASTING:YES FASTING: YES us Carleen Torrez NP LAB BLOOD ORDERABLES Fi nal Result [facility] [address] [place] [address] documented in this encounter Visit Diagnoses Diagnosis Preventative health care- Primary Routine general medical examination at a health care facility Anxiety and depression Vitamin D deficiency Chronic low back pain, unspecified back pain laterality, unspecified whether sciatica present Familial hypercholesterolemia Impaired fasting blood sugar Impaired fasting glucose Morbid obesity with BMI of 40.0-44.9, adult (HCC) Thyroid disorder Unspecified disorder of thyroid Need for hepatitis B screening test documented in this encounter Discontinued Medications Medication Sig Discontinue Reason Start Date End Da te rosuvastatin (CRESTOR) 10 mg tablet Take 1 tablet (10 mg total) by mouth daily Reorder 11/24/2023 05/31/2024 montelukast (SINGULAIR) 10 mg tablet Take 1 tablet by mouth once daily Reorder 04/13/2024 05/31/2024 cholecalciferol (VITAMIN D-3) 5,000 unit capsule Take 1 capsule by mouth once daily Reorder 04/21/2024 05/31/2024 FLUoxetine (PROzac) 20 mg tabletIndications:Anxiet y and depression Take 1 tablet (20 mg total) by mouth daily Reorder 11/24/2023 05/31/2024 documented as of this encounter Care Teams Retail Marketing Specialist Relationship Specialty Start Date End Date Mikey Olea MD [address] [place] [address] PCP - General Family Medicine 07/17/22 Xiomy Kaur NP [address] [place] [address] Nurse Practitioner 06/28/21 Eladio Weems MD 1 [facility] [place] [address] Consulting Physician Endocrinology Diabetes & Metabolism 01/08/23 Jessenia Castrejon MD 1 [facility] [place] [address] Referring Physician Allergy and Immunology 01/08/23 documented as of this encounter
--- OUTSIDE RECORDS SUMMARY | 2024-11-14 20:49 | XMS_ITS | Referral Summary ---
Author Organization [facility] Building B Address [address] [place] [address] Care Team Providers Care Dimensional Inspector Name Role Phone NatashaXiomy Isa MARIE Unavailable Mikey Olea MD Primary Care Provider Eladio Weems MD Unavailable Jessenia Castrejon MD Unavailable Allergies Active Allergy Reactions Criticality Noted Date [...] tablet 2023 Active meloxicam (MOBIC) 15 mg tabletIndications:Porter Luggage derick low back pain, unspecified back pain laterality, unspecified whether sciatica present Take 1 tablet by mouth once daily 100 tablet 1 2023 Active amitriptyline (ELAVIL) 10 mg tabletIndications:Porter Luggage derick low back pain, unspecified back pain [...] Cervical Cancer screening: Due now, referral to exceptional children teacher assistant due to previous abnormal Pap - Breast [...] plan Assessment & Plan (01/08/2023 2:41 PM DEHYDRATION PLANT OPERATOR): - established with Endocrinology - told to start monitoring BG Lab Results Component Value Date HGBA1C 5.9 (H) 07/17/2022 Anti-TPO antibodies present 01/08/2023 Assessment & Plan (01/08/2023 2:43 PM DEHYDRATION PLANT OPERATOR): - noted on testing for chronic urticaria [...] re-evaluation Assessment & Plan (01/07/2024 4:34 PM DEHYDRATION PLANT OPERATOR): - chronic, better controlled - used to be on medications before - not on any medications now - requesting assistance with depression > Anxiety - currently on Prozac 20 mg daily - continue current management Lab Results Component Value Date TSH 5.27 (H) 09/10/2023 Assessment & Plan (01/08/2023 2:19 PM DEHYDRATION PLANT OPERATOR): - chronic, better controlled - used to be on medications before - not on any medications now - requesting assistance with depression > Anxiety - currently on Prozac 20 mg daily - continue current management Lab Results Component Value Date TSH 3.77 10/02/2022 Assessment & Plan (10/01/2022 3:46 PM DEHYDRATION PLANT OPERATOR): - chronic, worse - used to be on medications before - not on any medications now - requesting assistance with depression > Anxiety - start Prozac 10 mg and up titrate to 20 mg - f/u in 2 months Lab Results Component Value Date TSH 2.63 07/17/2022 Frequent headaches 07/22/2022 Assessment & Plan (01/07/2024 4:21 PM DEHYDRATION PLANT OPERATOR): -chronic, not well controlled history of migraine headaches, nausea, light sensitivity - now reports she gets headaches when having sex - she also has tension type headaches along with migraine headaches - uses tylenol as needed - tried sumatriptan once and experienced chest tightness and heart racing after 1 use so has discontinued it Assessment & Plan (10/01/2022 3:47 PM DEHYDRATION PLANT OPERATOR): -chronic, not well controlled history of migraine [...] 07/22/2022 Assessment & Plan (01/08/2023 2:40 PM DEHYDRATION PLANT OPERATOR): - chronic for 2 years; better controlled - unclear cause, has been seen in ED several times for this - referred to allergy/immunologyu and has established care - noted to have TPO antibody present during evaluation by National Dedicated Truck Driver and referred to Perinatal Instructor - doing well with Cetirizine 10 mg daily, Famotidine 20 mg daily and Montelukast 10 mg daily - continue management per allergy/immunology Assessment & Plan (10/01/2022 3:43 PM DEHYDRATION PLANT OPERATOR): - chronic for 2 years; not well [...] lumbar surgery. Thank you, [facility]erral [facility] Dr Olea would you [...] diet. Assessment & Plan (01/07/2024 4:21 PM DEHYDRATION PLANT OPERATOR): Wt Readings from Last 3 Encounters: 01/07/24 [...] education Assessment & Plan (01/08/2023 2:20 PM DEHYDRATION PLANT OPERATOR): Wt Readings from Last 3 Encounters: 01/08/23 [...] education Assessment & Plan (10/01/2022 3:46 PM DEHYDRATION PLANT OPERATOR): Wt Readings from Last 3 Encounters: 10/01/22 [...] 05/01/2021 Assessment & Plan (01/07/2024 4:34 PM DEHYDRATION PLANT OPERATOR): Social History Tobacco Use Smoking Status Every [...] 07/17/2022 Assessment & Plan (01/08/2023 2:37 PM DEHYDRATION PLANT OPERATOR): - chronic, unknown - Noted 08/08 with [...] 07/17/2022 Assessment & Plan (10/01/2022 3:43 PM DEHYDRATION PLANT OPERATOR): - recent diagnosis - Noted 08/08 with [...] Final Assessment & Plan (10/01/2022 3:45 PM DEHYDRATION PLANT OPERATOR): - chronic, not well controlled - noted [...] Refused),07/17/2022(Deferred: Patient Refused),01/15/2022(Deferred: Patient Refused),06/17/2021(Deferred: Patient Refused) Social History Tobacco Use Types Packs/Day Years [...] on file Legal Sex Female 4:09 PM DEHYDRATION PLANT OPERATOR Gender Identity Female 06/02/2024 9:46 PM CDT Sexual Orientation Straight 06/02/2024 9: 46 PM CDT Last Filed Vital Signs Vital Sign Reading [...] 05/31/2024 4:05 PM CDT Plan of Treatment Not on file Procedures Procedure Name Priority Date/Time Associated Diagnosis Comments HEPATITIS C ANTIBODY Routine 07/17/2022 9:37 AM CDT Need for hepatitis C screening test from Last 3 Months or Most Recently Relevant to Health Maintenance Results * Hepatitis C antibody (07/17/2022 9:37 AM CDT) Hep C Ab Nonreactive Nonreactive MECHELLE NINO (MARTIN) Comment: Interpretive Data Nonreactive: Antibodies to HCV [...] last revised on 2020. Testing performed by: [facility], [address] [place] [address], [place]., [address] Blood 07/17/2022 9:37 AM CDT 07/17/2022 12:13 PM CDT Mikey Olea MD LAB MICROBIOLOGY - GENE RAL ORDERABLES Final Result [facility]) 1 [facility] Department [place] [address] from Last 3 Months or Most Recently Relevant to Health Maintenance [place] [address] [place] [address] Care Teams Dimensional Inspector Relationship Specialty Start Date End Date Mikey Olea MD [address] [place] [address] PCP - General Family Medicine 07/17/22 Xiomy Kaur NP [address] [place] [address] Nurse Practitioner 06/28/21 Eladio Weems MD 1 [facility] [place] [address] Consulting Physician Endocrinology Diabetes & Metabolism 01/08/23 Cash, Jessenia James MD 1 [facility] [place] [address] Referring Physician Allergy and Immunology 01/08/23
--- OUTSIDE RECORDS SUMMARY | 2024-11-14 20:49 | XMS_ITS | Encounter Summary ---
Author Organization [facility] Healthcare Address [address] [place] [address] Care Team Providers Care Glazing Machine Operator Name Role Phone Natasha, Xiomy Moss NP Unavailable [phone] Mikey Olea MD Primary Care Provider Eladio Weems MD Unavailable Jessenia Castrejon MD Unavailable [phone] Encounter Details Date Type Department Care Team (Late st Contact Info) Description 06/10/2024 Telephone [facility] Medical Group Primary Care at [address] [place] [address] Mikey Olea MD [address] [place], [place] [address] [place] [address] Social History Tobacco Use Types Packs/Day Years Used Date Smoking Tobacco: Every Day Cigarettes 0.8 15.1 Smokeless Tobacco: Never AUDIT-C Answer Date Recorded [...] on file Legal Sex Female 4:09 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 She is going to restart it and she sees her c winforms developer in the next two months as well. She also wanted to inform you that she has been previously diagnosed with Sruthi disease as well * Telephone Encounter - Palmira Nguyen MA - 06/10/2024 11:42 AM CDT ----- Message from Carleen Torrez NP sent at 06/10/2024 6:24 AM CDT ----- Please call the patient regarding her recent lab work. Blood counts, electrolytes, kidney, liver function were normal. Vitamin-D level was normal. Cholesterol panel showed improvement. Hepatitis-B screening indicated immunity, but no exposure. Thyroid function has worsened, including elevated TSH and low T4. I recommend patient reach out to her c winforms developer for a potential change in dosage ofmedication documented in this encounter Plan of Treatment Not on file documented as of this encounter Visit Diagnoses Not on filedocumented in this encounter Care Teams Glazing Machine Operator Relationship Specialty Start Date End Date Mikey Olea MD [address] [place] [address] PCP - General Family Medicine 07/17/22 Xiomy Kaur NP [address] [place] [address] Nurse Practitioner 06/28/21 Eladio Weems MD 1 [facility] [place] [address] Consulting Physician Endocrinology Diabetes & Metabolism 01/08/23 Jessenia Castrejon MD 1 [facility] [place] [address] Referring Physician Allergy and Immunology 01/08/23 documented as of this encounter
--- OUTSIDE RECORDS SUMMARY | 2024-11-14 20:49 | XMS_ITS | Encounter Summary ---
Author Organization [facility] Healthcare Address [address] [place] [address] Care Team Providers Care Dinkey Mechanic Name Role Phone Natasha, Xiomy Moss NP Unavailable [phone] Mikey Olea MD Primary Care Provider Eladio Weems MD Unavailable Jessenia Castrejon MD Unavailable [phone] Encounter Details Date Type Department Care Team (Late st Contact Info) Description 05/19/2024 Telephone [facility] Medical Group Primary Care at [address] [place] [address] Mikey Olea MD [address] [place] [address] [address] [place] [address] Social History Tobacco Use Types [...] on file Legal Sex Female 4:09 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 OUT 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 Gender Identity Female 06/02/2024 9:46 PM CDT Sexual Orientation Straight 06/02/2024 9: 46 PM CDT documented as of this encounter Miscellaneous Notes * Telephone Encounter - Chacha Mcgraw - 05/19/2024 1:48 PM CDT Called patient to remind them to contact Chaitanya to gear changer their PCP to DR Olea; PT just got and it planning to once they get their name changed documented in this encounter Plan of Treatment Not on file documented as of this encounter Visit Diagnoses Not on filedocumented in this encounter Care Teams Dinkey Mechanic Relationship Specialty Start Date End Date Mikey Olea MD [address] [place] [address] PCP - General Family Medicine 07/17/22 Xiomy Kaur NP [address] [place] [address] Nurse Practitioner 06/28/21 Eladio Weems MD 1 [facility] DIV IM ENDOCRIN[place] [address] Consulting Physician Endocrinology Diabetes & Metabolism 01/08/23 Jessenia Castrejon MD 1 [facility] DIV IM [place] [address] Referring Physician Allergy and Immunology 01/08/23 documented as of this encounter
--- OUTSIDE RECORDS SUMMARY | 2024-11-14 20:49 | XMS_ITS | Encounter Summary ---
Author Organization [facility] Healthcare Address [address] [place] [address] Care Team Providers Care Plastics Seasoner Operator Name Role Phone Xiomy Kaur NP Unavailable [phone] Mikey Olea MD Primary Care Provider Eladio Weems MD Unavailable Jessenia Castrejon MD Unavailable [phone] Reason for Visit * Reason Comments Ear Problem On going fluid in he r left ear, it has never gotten any better since her first visit with us on 02/27/24, otc sudafed has not helped. 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 AND ELECTRONICS Gender Identity Female 06/02/2024 9:46 PM CDT Sexual Orientation Straight 06/02/2024 9: 46 PM CDT documented as of this encounter Last Filed Vital Signs Vital Sign Reading Time Taken Comments Blood Pressure 122/70 03/09/2024 10:08 AM CDT Pulse 85 03/09/2024 10:08 AM CDT Temperature 36.4 ??C (97.6 ??F) 03/09/2024 10:08 AM C DT Respiratory Rate 16 03/09/2024 10:08 AM CDT Oxygen Saturation 97% 03/09/2024 10:08 AM CDT Inhaled Oxygen Concentration - - Weight 98.9 kg (218 lb) 03/09/2024 10:08 AM CDT Height 154.9 cm (5' 1 ) 03/09/2024 10:08 AM CDT Body Mass Index 41.19 03/09/2024 10:08 AM CDT documented in this encounter Patient Instructions * Patient Instructions* Lori Michael NP - 03/09/2024 10:15 AM CDT You can take Tylenol/Motrin for pain/fever Complete any medications as prescribed You can use warm moist heat to decrease pain Sudafed or Flonase for fluid in ears Zyrtec or Claritin for runny nose or drainage Follow up w PCP for further evaluation Follow up with ENT if symptoms persist Go to ER for severe shortness of breath or chest pain documented in this encounter Ordered Prescriptions Prescription Sig Dispense Quantity Refills Last Filled Start Date End Date albuterol HFA (PROVENTIL HFA,VENTOLIN HFA,PROAIR HFA) 90 mcg/actuation inhalerIndications :Wheezing Inhale 2 puffs every 4 (four) hours as needed for wheezing 1 each 03/09/2024 fluticasone propionate (FLONASE) 50 mcg/actuation nasal sprayIndications:R ecurrent acute serous otitis media of left ear Administer 2 sprays into each nostril daily 1 each 03/09/2024 cefdinir (OMNICEF) 300 mg capsuleIndications :Recurrent acute serous otitis media of left ear Take 1 capsule (300 mg total) by mouth 2 (two) times a day for 10 days 20 capsule 03/09/2024 4 predniSONE (DELTASONE) 20 mg tabletIndications: Recurrent acute serous otitis media of left ear Take 2 tablets (40 mg) by mouth daily for 5 days 10 tablet 03/09/2024 4 documented in this encounter Progress Notes * Lori Michael NP - 03/09/2024 10:15 AM CDT Images from the original note were not included. Subjective/Objective Patient ID: Ashley Rdz is a 38 y.o. female. Chief Complaint Ear Problem (On going fluid in her left ear, it has never gotten any better since her first visit with us on 02/27/24, otc sudafed has not helped.) [facility] for left ear fullness, muffled hearing on left side, and cough x 2 weeks. She has been seen twice for this issue in [facility]. She was initially prescribed Augmentin. She states that she often gets hives and felt like hives were worse when she was on Augmentin so she discontinued the antibiotic. She was then prescribed azithromycin. She states she completed entire course of antibiotic without relief. She is taking Zyrtec, Sudafed, and Singulair. She is a smoker. She states that she has been wheezing recently especially at night. She denies any fevers,chest pain, or shortness of breath. Review of Systems All systems reviewed and are negative or non contributory for this patient's presentation today other than as stated in the HPI. Physical Exam Vitals reviewed. Constitutional: General: She is not in acute distress. Appearance: Normal appearance. She is well-developed. She is not ill-appearing. HENT: Head: Normocephalic. Right Ear: Tympanic membrane, ear canal and external ear normal. Left Ear: Ear canal and external ear normal. A middle ear effusion is present. Tympanic membrane iserythematous. Nose: Congestion present. No rhinorrhea. Right Sinus: No maxillary sinus tenderness or frontal sinus tenderness. Left Sinus: No maxillary sinus tenderness or frontal sinus tenderness. Mouth/Throat: Lips: Heeia. Mouth: Mucous membranes are moist. Pharynx: Oropharynx is clear. Eyes: General: Right eye: No discharge. Left eye: No discharge. Conjunctiva/sclera: Conjunctivae normal. Cardiovascular: Rate and Rhythm: Normal rate and regular rhythm. Pulmonary: Effort: Pulmonary effort is normal. No respiratory distress. Breath sounds: Normal air entry. Examination of the right-upper field reveals wheezing. Examinationof the left-upper field reveals wheezing. Examination of the right-lower field reveals wheezing. Examination of the left-lower field reveals wheezing. Wheezing present. Musculoskeletal: General: Normal range of motion. Cervical back: Neck supple. Lymphadenopathy: Head: Right side of head: No tonsillar adenopathy. Left side of head: No tonsillar adenopathy. Cervical: No cervical adenopathy. Skin: General: Skin is warm and dry. Findings: No rash. Neurological: Mental Status: She is alert and oriented to person, place, and time. Mental status is at baseline. Psychiatric: Attention and Perception: Attention normal. Mood and Affect: Mood normal. Behavior: Behavior normal. Behavior is cooperative. Thought Content: Thought content normal. Judgment: Judgment normal. Vitals: 03/09/24 1008 BP: 122/70 Pulse: 85 Resp: 16 Temp: 36.4 ??C (97.6 ??F) TempSrc: Temporal SpO2: 97% Weight: 98.9 kg (218 lb) Height: 154.9 cm (5' 1 ) Assessment/Plan Diagnoses and all orders for this visit: Recurrent acute serous otitis media of left ear (Primary) - fluticasone propionate (FLONASE) 50 mcg/actuation nasal spray; Administer 2 sprays into each nostril daily - predniSONE (DELTASONE) 20 mg tablet; Take 2 tablets (40 mg) by mouth daily for 5 days - cefdinir (OMNICEF) 300 mg capsule; Take 1 capsule (300 mg total) by mouth 2 (two) times a day for10 days Left TM with erythema and ear effusion noted Cefdinir prescribed Prednisone prescribed Recommend patient continue with daily Singulair and Zyrtec Start Flonase daily Recommend patient follow-up with ENT if symptoms persist after completion of prescribed medicationsfor further evaluation Wheezing - albuterol HFA (PROVENTIL HFA,VENTOLIN HFA,PROAIR HFA) 90 mcg/actuation inhaler; Inhale 2 puffs every 4 (four) hours as needed for wheezing Wheezing noted on exam. Patient is smoker. Albuterol inhaler as needed for wheezing Offered chest x-ray. Patient declined as she has a follow-up appointment with her PCP in 2 days. Follow-up with PCP as scheduled Go immediately to the ER if you develop shortness of breath or chest pain No results found for this or any previous visit (from the past 4 hour(s)). Patient Education: Disposition Treatment plan including expectations, follow up, and return precautions discussed with patient/parent, verbalizes understanding. Medication dosage, use, and potential adverse reactions discussed with patient/parent. Advised to follow up with PCP if symptoms do not resolve as expected or sooner if condition worsens. Signs/symptoms warranting ER evaluation reviewed. Patient and/or guardian was given an opportunity to ask questions, questions answered. Lori Michael NP documented in this encounter Plan of Treatment Not on file documented as of this encounter Visit Diagnoses Diagnosis Recurrent acute serous otitis media of left ear- Primary Wheezing documented in this encounter Discontinued Medications Medication Sig Discontinue Reason Start Date End Da te albuterol HFA (PROVENTIL HFA,VENTOLIN HFA,PROAIR HFA) 90 mcg/actuation inhaler INHALE 2 PUFFS BY MOUTH EVERY 4 TO 6 HOURS NEEDED FOR SHORTNESS OF BREATH OR WHEEZING 07/18/2023 03/09/2024 documented as of this encounter Care Teams Plastics Seasoner Operator Relationship Specialty Start Date End Date Mikey Olea MD [address] [place] [address] PCP - General Family Medicine 07/17/22 Xiomy Kaur NP [address] [place] [address] Nurse Practitioner 06/28/21 Eladio Weems MD [address] [facility] [place] [address] Consulting Physician Endocrinology Diabetes & Metabolism 01/08/23 Jessenia Castrejon MD [address] [facility] [place] [address] Referring Physician Allergy and Immunology 01/08/23 documented as of this encounter
--- OUTSIDE RECORDS SUMMARY | 2024-11-14 20:49 | XMS_ITS | Encounter Summary ---
Author Organization [facility] Healthcare Address [address] [place] [address] Care Team Providers Care Sales Advisory Manager Name Role Phone Natasha Xiomy Moss NP Unavailable Mikey Olea MD Primary Care Provider Eladio Weems MD Unavailable Jessenia Castrejon MD Unavailable [phone] Reason for Visit * Reason Comments Sore Throat Patient presents tod ay with complaints of a sore throat, cough and bilateral ear pain and fullness. Sx onset of sore throat today, ear pain a few weeks now. No known fevers. Nothing taken OTC for relief. Encounter Details Date Type Department Care Team (Late st Contact Info) Description 02/27/2024 6:15 PM CDT Office Visit 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 Gender Identity Female 06/02/2024 9:46 PM CDT Sexual Orientation Straight 06/02/2024 9: 46 PM CDT documented as of this encounter Last Filed Vital Signs Vital Sign Reading Time Taken Comments Blood Pressure 102/64 02/27/2024 6:12 PM CDT Pulse 85 02/27/2024 6:12 PM CDT Temperature 36.7 ??C (98 ??F) 02/27/2024 6:12 PM CDT Respiratory Rate 19 02/27/2024 6:12 PM CDT Oxygen Saturation 97% 02/27/2024 6:12 PM CDT Inhaled Oxygen Concentration - - Weight 99.9 kg (220 lb 3.2 oz) 02/27/2024 6:12 P M CDT Height 154.9 cm (5' 1 ) 02/27/2024 6:12 PM CDT Body Mass Index 41.61 02/27/2024 6:12 PM CDT documented in this encounter Patient Instructions * Patient Instructions* Mallorie Kirby NP - 02/27/2024 6:15 PM CDT The treatment for ear infections (otitis media) may include any of the following: Take antibiotics as prescribed until they are gone. Take Tylenol or Motrin as directed for fever and/or discomfort. A warm (not hot) heating pad held over the ear can also help relieve the pain from the earache. Youshould use a thin cloth such as a dry washcloth between your skin and the heating pad. Follow up with your Primary Care Physician in 2 weeks for ear recheck or sooner if symptoms worsen or are not improving as planned. documented in this encounter Ordered Prescriptions Prescription Sig Dispense Quantity Refills Last Filled Start Date End Date amoxicillin-clavul anate (Augmentin) 875-125 mg per tabletIndications: Recurrent acute serous otitis media of left ear Take 1 tablet by mouth 2 (two) times a day for 10 days 20 tablet 02/27/2024 03/08/2024 documented in this encounter Progress Notes * Mallorie Kirby NP - 02/27/2024 6:15 PM CDT Images from the original note were not included. Patient ID: Ashley Rdz is a 38 y.o. female followed by Mikey Olea MD Chief Complaint Patient presents with Sore Throat Patient presents today with complaints of a sore throat, cough and bilateral ear pain and fullness.Sx onset of sore throat today, ear pain a few weeks now. No known fevers. Nothing taken OTC for relief. That presents to [facility] with complaint of generalized fatigue, left ear pain, nasal congestion, sore throat, and cough, onset 02/16/2024. She denies known fever, sinus pressure, or N/V/D. She has taken antihistamines and Singulair as prescribed daily. She has not taken any additional [id number] medications for symptoms. Review of Systems Constitutional: Negative for chills and fever. HENT: Positive for ear pain, hearing loss and sore throat. Negative for congestion, ear discharge, postnasal drip and rhinorrhea. Respiratory: Positive for cough. Negative for chest tightness, shortness of breath and wheezing. Cardiovascular: Negative for chest pain. Gastrointestinal: Negative for abdominal pain, diarrhea and vomiting. Musculoskeletal: Negative for neck pain. Skin: Negative for rash. Neurological: Positive for headaches. Vitals: 02/27/24 1812 BP: 102/64 BP Location: Right arm Patient Position: Sitting Pulse: 85 Resp: 19 Temp: 36.7 ??C (98 ??F) TempSrc: Temporal SpO2: 97% Weight: 99.9 kg (220 lb 3.2 oz) Height: 154.9 cm (5' 1 ) Recent Results (from the past 24 hour(s)) POCT rapid strep A Collection Time: 02/27/24 6:30 PM Result Value Ref Range Rapid Strep A, POC Negative Negative POC Influenza A/B, COVID-19 antigen Collection Time: 02/27/24 6:30 PM Result Value Ref Range Influenza A Ag, POC Negative Negative Influenza B Ag, POC Negative Negative COVID-19 Ag POC Presumptive Negative Presumptive Negative, Invalid Physical Exam Vitals reviewed. Constitutional: Appearance: She is well-developed. HENT: Right Ear: External ear normal. Tympanic membrane is bulging. Tympanic membrane is not injected or erythematous. Left Ear: Tympanic membrane and external ear normal. Tympanic membrane is not injected, erythematous or bulging. Nose: Right Sinus: No maxillary sinus tenderness or frontal sinus tenderness. Left Sinus: No maxillary sinus tenderness or frontal sinus tenderness. Mouth/Throat: Lips: Buck[place]. Mouth: Mucous membranes are moist. Pharynx: No posterior oropharyngeal erythema. Tonsils: No tonsillar exudate. Eyes: Conjunctiva/sclera: Conjunctivae normal. Cardiovascular: Rate and Rhythm: Normal rate and regular rhythm. Pulmonary: Effort: Pulmonary effort is normal. Breath sounds: Normal breath sounds. No wheezing or rhonchi. Musculoskeletal: General: Normal range of motion. Skin: General: Skin is warm and dry. Neurological: Mental Status: She is alert and oriented to person, place, and time. Diagnoses and all orders for this visit: Recurrent acute serous otitis media of left ear (Primary) - POCT rapid strep A - POC Influenza A/B, COVID-19 antigen - amoxicillin-clavulanate (Augmentin) 875-125 mg per tablet; Take 1 tablet by mouth 2 (two) times aday for 10 days Orders Placed This Encounter Procedures POCT rapid strep A POC Influenza A/B, COVID-19 antigen Order Specific Question: Is the Patient experiencing symptoms consistent with COVID? Answer: Yes Assessment/Plan Lungs CTA, O2 Saturation @97%/RA, low suspicion for pneumonia at this time. Will recommend supportive care for symptoms with f/u precautions including signs/symptoms warranting ER evaluation. Discussed home self-care, follow up needs, and signs and symptoms that warrant immediate medical attention/ER evaluation including worsening fever, increased shortness of breath, severe N/V/D, or anyother worrisome symptoms Discussed symptomatic relief of symptoms Patient Education The treatment for ear infections (otitis media) may include any of the following: Take antibiotics as prescribed until they are gone. Take Tylenol or Motrin as directed for fever and/or discomfort. A warm (not hot) heating pad held over the ear can also help relieve the pain from the earache. Youshould use a thin cloth such as a dry washcloth between your skin and the heating pad. Follow up with your Primary Care Physician in 2 weeks for ear recheck or sooner if symptoms worsen or are not improving as planned. documented in this encounter Plan of Treatment Not on file documented as of this encounter Procedures Procedure Name Priority Date/Time Associated Diagnosis Comments POC INFLUENZA A/B, COVID-19 ANTIGEN Routine 02/27/2024 6:30 PM CDT Recurrent acute serous otitis media of left ear POCT RAPID STREP Routine 02/27/2024 6:30 PM CDT Recurrent acute serous otitis media of left ear documented in this encounter Results * POC Influenza A/B, COVID-19 antigen (02/27/2024 6:30 PM CDT) Influenza A Ag, POC Negative Negative [facility] Influenza B Ag, POC Negative Negative [facility] COVID-19 Ag POC Presumptive Negative Presumptive Negative, Invalid [facility] Nasal 02/27/2024 6:30 PM CDT Mallorie Kirby NP POINT OF CARE TEST ORDER ARNEL Final Result [facility] [address] [place] [address], [facility] * POCT rapid strep A (02/27/2024 6:30 PM CDT) Rapid Strep A, POC Negative Negative Swab 02/27/2024 6:30 PM CDT Mallorie Kirby NP POINT OF CARE TEST ORDER ARNEL Final Result documented in this encounter Visit Diagnoses Diagnosis Recurrent acute serous otitis media of left ear- Primary documented in this encounter Additional Health Concerns Infection Onset Date Last Indicated Resolved Time COVID: Suspected 02/27/2024 02/27/2024 02/27/2024 6:33 PM CDT documented as of this encounter Care Teams Sales Advisory Manager Relationship Specialty Start Date End Date Mikey Olea MD [address] [place] [address] PCP - General Family Medicine 07/17/22 Xiomy Kaur NP [address] [place] [address] Nurse Practitioner 06/28/21 Eladio Weems MD [address] [facility] [address] [place] [address] Consulting Physician Endocrinology Diabetes & Metabolism 01/08/23 Jessenia Castrejon MD [address] [facility] [address] [place] [address] Referring Physician Allergy and Immunology 01/08/23 documented as of this encounter
--- OUTSIDE RECORDS SUMMARY | 2024-11-14 20:49 | XMS_ITS | Encounter Summary ---
Author Organization [facility] Address [address] [place] [address] Care Team Providers Care Shrink Pit Operator Name Role Phone Xiomy Kaur NP Unavailable [phone] Mikey Olea MD Primary Care Provider Eladio Weems MD Unavailable Jessenia Castrejon MD Unavailable [phone] Reason for Referral * Consultation (Routine) - Canceled Specialty Diagnoses / Procedures Referred By Contac t Referred To Contact Gynecology Diagnoses Pap smear for cervical cancer screening Carleen Torrez NP [address] [facility] [address] [place] [address] Phone: tel: fax: Edith Juan NP [address] [facility] [address] [place] [address] Phone: tel: fax: Referral ID Status Reason Start Date Expiration Date Visits Requested Visits Authorized [id number] Canceled Specialty Services Required 06/01/2024 07/01/2025 1 1 Question Answer Please select the performing region: [facility] [[id number]] Please select the performing department: [facility] [[id number]] To provider: EDITH JUAN [[id number]] # of visits: 1 Comments Or other provider Encounter Details Date Type Department Care Team (Late st Contact Info) Description 06/01/2024 Orders Only [facility] Primary Care at [address] [place] [address] Carleen Torrez NP [address] [place] [address] [address] [place] [address] Pap smear for cervical cancer screening (Primary Dx) Social History Tobacco Use Types [...] on file 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 Gender Identity Female 06/02/2024 9:46 PM CDT Sexual Orientation Straight 06/02/2024 9: 46 PM CDT documented as of this encounter Plan of Treatment Scheduled Referrals Name Type Priority Associated Diagnoses Order Schedule Ambulatory referral to Gynecology Outpatient Referral Routine Pap smear for cervical cancer screening Expected: 06/01/2024 (Approximate), Expires: 06/01/2025 documented as of this encounter Visit Diagnoses Diagnosis Pap smear for cervical cancer screening- Primary Screening for malignant neoplasm of the cervix documented in this encounter Care Teams Shrink Pit Operator Relationship Specialty Start Date End Date Mikey Olea MD [address] [place] [address] PCP - General Family Medicine 07/17/22 Xiomy Kaur NP [address] [place] [address] Nurse Practitioner 06/28/21 Eladio Weems MD [address] [facility] [place] [address] Consulting Physician Endocrinology Diabetes & Metabolism 01/08/23 Jessenia Castrejon MD [address] [facility] [place] [address] Referring Physician Allergy and Immunology 01/08/23 documented as of this encounter
--- OUTSIDE RECORDS SUMMARY | 2024-11-14 20:49 | XMS_ITS | Encounter Summary ---
Author Organization [facility] Healthcare Address [address] [place] [address] Care Team Providers Care Php Wordpress Developer Name Role Phone Natasha, Xiomy Moss NP Unavailable [phone] Mikey Olea MD Primary Care Provider Eladio Weems MD Unavailable Jessenia Castrejon MD Unavailable [phone] Encounter Details Date Type Department Care Team (Late st Contact Info) Description 07/08/2024 Telephone [facility] Primary Care at [address] [place] [address] Mikey Olea MD [address] [place], [place] [address]DG [address] [place] [address] Social History Tobacco Use Types [...] on file 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 Gender Identity Female 06/02/2024 9:46 PM CDT Sexual Orientation Straight 06/02/2024 9: 46 PM CDT documented as of this encounter Ordered Prescriptions Prescription Sig Dispense Quantity Refills Last Filled Start Date End Date amitriptyline (ELAVIL) 10 mg tabletIndications: Chronic low back pain, unspecified back pain laterality, unspecified whether sciatica present,Frequent headaches TAKE 1 TO 2 TABLETS BY MOUTH NIGHTLY 200 tablet 07/08/2024 documented in this encounter Miscellaneous Notes * Telephone Encounter - Hina Ward MA - 07/08/2024 9:27 AM CDT refill documented in this encounter Plan of Treatment Not on file documented as of this encounter Visit Diagnoses Diagnosis Chronic low back pain, unspecified back pain laterality, unspecified whether sciatica present Frequent headaches documented in this encounter Discontinued Medications Medication Sig Discontinue Reason Start Date End Da te amitriptyline (ELAVIL) 10 mg tabletIndications:Chroni c low back pain, unspecified back pain laterality, unspecified whether sciatica present,Frequent headaches TAKE 1 TO 2 TABLETS BY MOUTH NIGHTLY Reorder 04/03/2024 07/08/2024 documented as of this encounter Care Teams Php Wordpress Developer Relationship Specialty Start Date End Date Mikey Olea MD [address] [place] [address] PCP - General Family Medicine 07/17/22 Xiomy Kaur NP [address] [place] [address] Nurse Practitioner 06/28/21 Eladio Weems MD [address] [facility] [address] [place] [address] Consulting Physician Endocrinology Diabetes & Metabolism 01/08/23 Dy, Jessenia James MD [address] [facility] [address] [place] [address] Referring Physician Allergy and Immunology 01/08/23 documented as of this encounter
--- OUTSIDE RECORDS SUMMARY | 2024-11-14 20:49 | XMS_ITS | Encounter Summary ---
Author Organization [facility] Healthcare Address [address] [place] [address] Care Team Providers Care Washer Cutter Name Role Phone KaurXiomy Isa MARIE Unavailable [phone] Mikey Olea MD Primary Care Provider Eladio Weems MD Unavailable Jessenia Castrejon MD Unavailable [phone] Reason for Referral * Consultation (Routine) - Authorized Specialty Diagnoses / Procedures Referred By Contfred t Referred To Contact Neurosurgery Diagnoses Chronic low back pain, unspecified back pain laterality, unspecified whether sciatica present Other spondylosis with radiculopathy, lumbar region Mikey Olea MD [address] [place] [address] [address] [address] Phone: tel: fax: [facility] [address] [facility] 4th Floor [address] [place] [address] Phone: tel: fax: Referral ID Status Reason Start Date Expiration Date Visits Requested Visits Authorized [id number] Authorized Specialty Services Required 03/15/2024 04/14/2025 1 1 Question Answer Please select the performing region: [facility] [[id number]] Please select the performing department: [facility] [[id number]] # of visits: 1 Encounter Details Date Type Department Care Team (Late st Contact Info) Description 03/15/2024 Orders Only [facility] Primary Care at [place] [address] [facility] [address] [place] [address] Mikey Olea MD [address] [place] [address] [address] [place] [address] Chronic low back pain, unspecified back pain laterality, unspecified whether sciatica present (Primary Dx); Lumbar spondylosis with left L5 radiculopathy Social History Tobacco Use Types Packs/Day Years [...] on file 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 Gender Identity Female 06/02/2024 9:46 PM CDT Sexual Orientation Straight 06/02/2024 9: 46 PM CDT documented as of this encounter Plan of Treatment Scheduled Referrals Name Type Priority Associated Diagnoses Orde r Schedule Ambulatory referral to Neurosurgery Outpatient Referral Routine Chronic low back pain, unspecified back pain laterality, unspecified whether sciatica present Lumbar spondylosis with left L5 radiculopathy Expected: 03/15/2024 (Approximate), Expires: 03/15/2025 documented as of this encounter Visit Diagnoses Diagnosis Chronic low back pain, unspecified back pain laterality, unspecified whether sciatica present- Primary Lumbar spondylosis with left L5 radiculopathy documented in this encounter Care Teams Washer Cutter Relationship Specialty Start Date End Date Mikey Olea MD [address] [place] [address] PCP - General Family Medicine 07/17/22 Xiomy Kaur NP [address] [place] [address] Nurse Practitioner 06/28/21 Eladio Weems MD [address] [facility] [address] [place] [address] Consulting Physician Endocrinology Diabetes & Metabolism 01/08/23 Jessenia Castrejon MD [address] [facility] [address] [place] [address] Referring Physician Allergy and Immunology 01/08/23 documented as of this encounter
--- OUTSIDE RECORDS SUMMARY | 2024-11-14 20:50 | XMS_ITS | Encounter Summary ---
Author Organization [facility] Address [address] [place] [address] Care Team Providers Care Animal Husbandry Manager Name Role Phone Xiomy Kaur Isa FOOD SERVICE AGENT Unavailable [phone] Mikey Olea MD Primary Care Provider Reason for Visit * Reason Onset Date Comments Imaging Result 07/19/2022 CHEST XR Encounter Details Date Type Department Care Team (Late st Contact Info) Description 07/19/2022 Telephone [facility] Primary Care at [address] [place] [address] Mikey Olea MD [address] [place] [address] [address] [place] [address] Imaging Result (CHEST XR) Social History Tobacco Use Types Packs/Day Years Used Date Smoking Tobacco: Every Day Cigarettes 0.8 15 Smokeless Tobacco: Never AUDIT-C Answer Date Recorded Q1: How often do you have a drink containing alc ohol? 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 She reports viewing the results on [employer] and saw they were bad ... please advise. * Telephone Encounter - Madison Kelsey MA - 07/19/2022 10:09 AM CDT ----- Message from Mikey Olea MD sent at 07/19/2022 6:12 AM CDT ----- No signs of infection/pneumonia noted on chest Xray, No abnormal findings noted. documented in this encounter Plan of Treatment Not on file documented as of this encounter Visit Diagnoses Not on filedocumented in this encounter Care Teams Animal Husbandry Manager Relationship Specialty Start Date End Date Mikey Olea MD [address] [place] [address] PCP - General Family Medicine 07/17/22 Xiomy Kaur NP [address] [facility] [place] [id number] Nurse Practitioner 06/28/21 documented as of this encounter
--- OUTSIDE RECORDS SUMMARY | 2024-11-14 20:50 | XMS_ITS | Encounter Summary ---
Author Organization [facility] Address [address] [facility] [address] [place] [address] Care Team Providers Care Quality Project Manager Name Role Phone John Kaurleora Moss SUPERVISOR PUMPING Unavailable [phone] Mikey Olea MD Primary Care Provider Encounter Details Date Type Department Care Team (Late st Contact Info) Description 07/17/2022 Telephone [facility] Primary Care at [address] [place] [address] Mikey Olea MD [address] [place] [address] [address] [place] [address] Social History Tobacco Use Types [...] file Legal Sex Female 4:[address] PRODUCTION MANAGER Gender Identity Female 06/02/2024 9:46 PM CDT Sexual Orientation Straight 06/02/2024 9: 46 PM CDT documented as of this encounter Miscellaneous Notes * Telephone Encounter - Sangita Ramires MA - 07/17/2022 1:55 PM CDT Noted. Once patient returns call we can send an updated referral to the provider insurance elects. * Telephone Encounter - Melinda Ledesma - 07/17/2022 1:13 PM CDT FYI:Pt called stating Dr. Sousa does not take her insurance, [employer]. She is aware she needs to call [employer] to ask for in network Environmental Technology Professor and she will call back to let us know where to send referral to. documented in this encounter Plan of Treatment Not on file documented as of this encounter Visit Diagnoses Not on filedocumented in this encounter Care Teams Quality Project Manager Relationship Specialty Start Date End Date Mikey Olea MD [address] [place] [address] PCP - General Family Medicine 07/17/22 Xiomy Kaur NP [address] [place] [address] Nurse Practitioner 06/28/21 documented as of this encounter
--- OUTSIDE RECORDS SUMMARY | 2024-11-14 20:50 | XMS_ITS | Encounter Summary ---
Author Organization [facility] Healthcare Address [address] [place] [address] Care Team Providers Care Customer Service Operator Name Role Phone Natasha, Xiomy Moss NP Unavailable [phone] Mikey Olea MD Primary Care Provider Eladio Weems MD Unavailable Jessenia Castrejon MD Unavailable [phone] Encounter Details Date Type Department Care Team (Late st Contact Info) Description 01/19/2024 Telephone [facility] Medical Group Primary Care at [address] [place] [address] Mikey Olea MD [address] [place] [address] [address] [place] [address] Social History Tobacco Use Types [...] on file 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 They will review pt records and then contact the pt to schedule. NERY SUPERINTENDENT * Telephone Encounter - Brianna Myrick MA - 01/19/2024 7:12 AM REFINERY SUPERINTENDENT ----- Message from Mikey Olea MD sent at 01/19/2024 5:55 AM REFINERY SUPERINTENDENT ----- Staff, please place referral to neurosurgery for Chronic low back pain, unspecified back pain laterality, unspecified whether sciatica present Lumbar spondylosis with left L5 radiculopathy Other spondylosis with radiculopathy, lumbar region NERY SUPERINTENDENT documented in this encounter Plan of Treatment Not on file documented as of this encounter Visit Diagnoses Not on filedocumented in this encounter Care Teams Customer Service Operator Relationship Specialty Start Date End Date Mikey Olea MD [address] [place] [address] PCP - General Family Medicine 07/17/22 Xiomy Kaur NP [address] [place] [address] Nurse Practitioner 06/28/21 Eladio Weems MD [address] [facility] [address] [place] [address] Consulting Physician Endocrinology Diabetes & Metabolism 01/08/23 Dy, Jessenia James MD [address] [facility] [address] [place] [address] Referring Physician Allergy and Immunology 01/08/23 documented as of this encounter
--- OUTSIDE RECORDS SUMMARY | 2024-11-14 20:50 | XMS_ITS | Encounter Summary ---
Author Organization [facility] Medical Group Address [address] [facility] [address] [place] [address] Care Team Providers Care Bushler Name Role Phone Xiomy Kaur NP Primary Care Provider [phone] Xiomy Kaur PORT CRANE OPERATOR Unavailable [phone] Reason for Visit * Reason Onset Date Comments Post-Op Call 09/19/2021 Encounter Details Date Type Department Care Team (Late st Contact Info) Description 09/19/2021 Telephone [facility] Medical Group Orthopedic and Sports Medicine [address] [place] [id number] Palmira Hassan ATC Post-Op Call Social History Tobacco Use Types Packs/Day Years Used Date Smoking Tobacco: Every Day Cigarettes 0.1 15 Smokeless Tobacco: Never AUDIT-C Answer Date Recorded Q1: How often do you have a drink containing alc ohol? Never 09/18/2021 Average Number of Drinks Not on file 021 Frequency of Binge Drinking Not on file 12/2020 Comments No Sex and Gender Information Value Date Recorded Sex Assigned at Not on file Legal Sex Female 4:09 PM RN CLINICAL RESEARCH Gender Identity Female 06/02/2024 9:46 PM CDT Sexual Orientation Straight 06/02/2024 9: 46 PM CDT documented as of this encounter Miscellaneous Notes * Telephone Encounter - Palmira Hassan ATC - 09/19/2021 8:15 AM CDT Called patient for postop follow up. Patient reported she is doing well and pain is controlled. Confirmed two week postop appointment. Discussed postop care instructions. Patient will call with any questions or concerns. documented in this encounter Plan of Treatment Not on file documented as of this encounter Visit Diagnoses Not on filedocumented in this encounter Care Teams Bushler Relationship Specialty Start Date End Date Xiomy Kaur NP [address] [place] [address] PCP - General Nurse Practitioner 06/28/21 07/16/22 Xiomy Kaur NP [address] [place] [address] Nurse Practitioner 06/28/21 documented as of this encounter
--- OUTSIDE RECORDS SUMMARY | 2024-11-14 20:50 | XMS_ITS | Encounter Summary ---
Author Organization [facility] Address [address] [place] [address] Phone Care Team Providers Care Acidizer Name Role Phone Xiomy Kaur NP Unavailable [phone] Mikey Olea MD Primary Care Provider Eladio Weems MD Unavailable Jessenia Castrejon MD Unavailable [phone] Encounter Details Date Type Department Care Team (Late st Contact Info) Description 12/12/2023 4:00 PM DIRECTOR OF DANCE Telemedicine [facility] Allergy and Immunology [address] [facility] [address] [place] [address] Jessenia Castrejon MD [address] [facility] [address] [place] [address] Chronic urticaria (Primary Dx) Social History Tobacco Use Types [...] points, staff should administer the PHQ-9) 2 01/08/2023 Personal Safety Answer Date Recorded Getting School Help Needed Not on file 10/31 Comments No Sex and Gender Information Value Date Recorded Sex Assigned at Not on file Legal Sex Female 4:09 PM DIRECTOR OF DANCE Gender Identity Female 06/02/2024 9:46 PM CDT Sexual Orientation Straight 06/02/2024 9: 46 PM CDT documented as of this encounter Ordered Prescriptions Prescription Sig Dispense Quantity Refills Last Filled Start Date End Date famotidine (PEPCID) 20 mg tablet Take 1 tablet (20 mg total) by mouth 2 (two) times a day 60 tablet 11 12/12/2023 documented in this encounter Progress Notes * Cash, Jessenia James MD - 12/12/2023 4:00 PM CST This was a telemedicine visit with Ashley Rdz alone which took place via Real-time video connection ([employer], Zoom or similar). During the visit, I was located in the office and the patient was located at home in the [facility]. The patient visit started at 4:05p and ended at 4:16pm. My totalencounter time on 12/12/2023 was 20 minutes which was spent in the activities documented in the note. This includes time spent prior to the visit and after the visit in direct care of the patient. This time does not include time spent in any separately reportable services. The patient : has been informed that the visit may not be secure and acknowledged the information. After being given an opportunity to ask questions about and discuss this type of visit, they verbally consented to proceeding with the telephone/video visit and understand that this service replaces an office visit. Allergy Immunology Return Visit Reason for Visit: Follow up chronic urticaria History of Present Illness: Ashley Rdz is a 38 y.o. year old female presenting for follow up of chronic urticaria. She waslast seen on 08/29/23. Previous History: She was seen for an initial visit 10/02/22. She presented with history of recurrent urticaria x 3 years. Also reported a history of HS, migraines. Checked for mast cell activation, which was negative. Alpha gal was negative. She had abnormal thyroid function and +thyroid antibodies. Advised to use cetirizine BID, famotidine BID, and Singulair. Interval History: Taking cetirizine once daily for the last month, up until 1 month ago had been taking it BID. Also stopped pepcid. Taking Singulair. Last flares requiring prednisone in 05/2023 and 08/2023. Unfortunately she has been feeling run down and fatigued. Gaining weight. Endocrine increased thyroid medication, which she started 3 months ago. She wonders if this is because she stopped taking Vitamin D 1 month ago. Problem List Patient Active Problem List Diagnosis Carpal tunnel syndrome, bilateral Lumbar spondylosis with left L5 radiculopathy Cervical spondylosis Chronic low back pain Edema of lower extremity Familial hypercholesterolemia Migraine Neck pain Class 2 obesity due to excess calories without serious comorbidity with body mass index (BMI) of 37.0 to 37.9 in adult Personal history of tobacco use Vitamin D deficiency S/P carpal tunnel release S/P cubital tunnel release Frequent headaches History of hypokalemia Chronic urticaria Anxiety and depression Impaired fasting blood sugar Anti-TPO antibodies present Past Medical History Past Medical History: Diagnosis Date Cervical cancer screening Cervical Pre Cancer Chronic bronchitis (HCC) Depression GERD (gastroesophageal reflux disease) Hypercholesteremia Hyperlipidemia Hypertension Hypothyroidism Migraines Pneumonia Thyroid disease Past Surgical History Past Surgical History: Procedure Laterality Date DILATION AND CURETTAGE OF UTERUS 2007 and 2009 TONSILLECTOMY AND ADENOIDECTOMY TUBAL LIGATION 2011 TUBAL LIGATION Allergies Patient has no known allergies. Current Medications Current Outpatient Medications: albuterol HFA (PROVENTIL HFA,VENTOLIN HFA,PROAIR HFA) 90 mcg/actuation inhaler, INHALE 2 PUFFS BY MOUTH EVERY 4 TO 6 HOURS NEEDED FOR SHORTNESS OF BREATH OR WHEEZING, Disp: , Rfl: blood-glucose meter kit, Please check sometimes fasting morning and sometimes 45 minutes after meal., Disp: 1 kit, Rfl: 0 cetirizine (ZyrTEC) 10 mg tablet, Take 1 tablet by mouth twice daily, Disp: 60 tablet, Rfl: 0 cholecalciferol (VITAMIN D-3) 5,000 unit tablet, Take 1 tablet by mouth once daily, Disp: 90 tablet, Rfl: 0 famotidine (PEPCID) 20 mg tablet, Take 1 tablet (20 mg total) by mouth 2 (two) times a day, Disp: 60 tablet, Rfl: 11 FLUoxetine (PROzac) 20 mg tablet, Take 1 tablet (20 mg total) by mouth daily, Disp: 90 tablet, Rfl:1 fluticasone propionate (FLONASE) 50 mcg/actuation nasal spray, USE 1 SPRAY(S) IN EACH NOSTRIL ONCE DAILY, Disp: , Rfl: levothyroxine (SYNTHROID) 100 mcg tablet, Take 1 tablet (100 mcg total) by mouth daily, Disp: 90 tablet, Rfl: 3 montelukast (SINGULAIR) 10 mg tablet, Take 1 tablet by mouth once daily, Disp: 30 tablet, Rfl: 0 ondansetron (ZOFRAN) 4 mg tablet, Take 1 tablet (4 mg total) by mouth every 6 (six) hours as neededfor nausea or vomiting (Patient not taking: Reported on 08/29/2023), Disp: 20 tablet, Rfl: 1 OneTouch Delica Lancets 33 gauge misc, Use to check blood sugars before meals and at bedtime, Disp:100 each, Rfl: 1 OneTouch Verio Flex meter misc, USE TO CHECK FASTING IN THE MORNING AND SOMETIMES 45 MINUTES AFTER MEAL, Disp: , Rfl: OneTouch Verio test strips strip, USE TO CHECK BLOOD SUGAR BEFORE MEALS AND AT BEDTIME, Disp: 100 each, Rfl: 0 potassium chloride ER (KLOR-CON) 10 mEq CR tablet, Take 10 mEq by mouth daily (Patient not taking: Reported on 08/29/2023), Disp: , Rfl: rosuvastatin (CRESTOR) 10 mg tablet, Take 1 tablet (10 mg total) by mouth daily, Disp: 90 tablet, Rfl: 1 triamcinolone (KENALOG) 0.1 % cream, APPLY CREAM EXTERNALLY THREE TIMES DAILY, Disp: , Rfl: Social History reports that she has been smoking cigarettes. She has a 11.25 pack-year smoking history. She has never used smokeless tobacco. She reports that she does not use drugs. Patient denies consuming alcoholic drinks. Family History Family History Problem Relation Age of Onset Cancer Other Heart disease Other Hypertension Other Diabetes Mother COPD Mother Hypertension Mother Heart disease Father COPD Father Hypertension Father Review of Systems All other review of systems are negative except noted in HPI. Reviewed patient's history and the review of systems. Physical Exam There were no vitals taken for this visit. Skin: No rash Eyes: No lid lag or edema Nose: Grossly normal, no mucous drainage Neck: No deformity or thyromegaly Respiratory: Normal respiratory effort, no cyanosis or audible wheeze or stridor Cardiovascular: Normal facial flush, no temporal pulsations visible Psych: Intact judgment and insight Neuro: AAO x 3 with cordial affect, normal mood Impression Ashley Rdz is a 38 y.o. year old female with symptoms consistent with chronic urticaria, likely spontaneous. She has underlying chronic medical conditions that could be contributing to non-specific histamine release, including chronic back pain, migraines, and recurrent boils suspicious for hid radenitis suppurativa. She has elevated CRP and ESR. She also has abnormal thyroid function with positive thyroid antibodies. Alpha gal was also measured and was negative Tryptase level was normal and not indicative of mast cell activation syndrome. Her hives improved but she is concerned about fatigue, weight gain. (L50.8) Chronic urticaria (primary encounter diagnosis) Recommendations - Trial dc of cetirizine, wean gradually to 10mg every other day x 2 weeks, then off. - Restart Pepcid 20mg BID. Refill sent, - Continue Singulair 10mg qhs. - Restart Vitamin D OTC 4086-5434 daily New Medications Ordered This Visit famotidine (PEPCID) 20 mg tablet Sig: Take 1 tablet (20 mg total) by mouth 2 (two) times a day Dispense: 60 tablet Refill: 11 Follow up Return in 14 weeks (on 03/19/2024) for Next scheduled follow up. Jessenia Castrejon MD CTOR OF DANCE documented in this encounter Plan of Treatment Not on file documented as of this encounter Visit Diagnoses Diagnosis Chronic urticaria- Primary Other specified urticaria documented in this encounter Discontinued Medications Medication Sig Discontinue Reason Start Date End Da te famotidine (PEPCID) 20 mg tablet Take 1 tablet (20 mg total) by mouth 2 (two) times a day Reorder 10/02/2022 12/12/2023 documented as of this encounter Care Teams Acidizer Relationship Specialty Start Date End Date Mikey Olea MD [address] [place] [address] PCP - General Family Medicine 07/17/22 Xiomy Kaur NP [address] [place] [address] Nurse Practitioner 06/28/21 Eladio Weems MD [address] [facility] [address] [place] [address] Consulting Physician Endocrinology Diabetes & Metabolism 01/08/23 Cash, Jessenia James MD [address] [facility] [address] [place] [address] Referring Physician Allergy and Immunology 01/08/23 documented as of this encounter
--- OUTSIDE RECORDS SUMMARY | 2024-11-14 20:50 | XMS_ITS | Encounter Summary ---
Author Organization [facility] Healthcare Address [address] [place] [address] Care Team Providers Care Vp Mobile Products Name Role Phone Natasha Xiomy Moss NP Unavailable [phone] Mikey Olea MD Primary Care Provider Eladio Weems MD Unavailable Jessenia Castrejon MD Unavailable [phone] Reason for Visit * Reason Onset Date Comments Test Results 01/15/2024 Encounter Details Date Type Department Care Team (Late st Contact Info) Description 01/15/2024 Telephone [facility] Medical Group Primary Care at [address] [place] [address] Mikey Olea MD [address] [place] [address] [address] [facility] [address] [place] [address] Test Results Social History Tobacco Use Types Packs/Day Years [...] on file Legal Sex Female 4:09 PM COACH CLEANER Gender Identity Female 06/02/2024 9:46 PM CDT Sexual Orientation Straight 06/02/2024 9: 46 PM CDT documented as of this encounter Miscellaneous Notes * Telephone Encounter - Mikey Olea MD - 01/19/2024 5:48 AM COACH CLEANER Will address via [employer] response to question sent there H CLEANER * Telephone Encounter - Melinda Ledesma - 01/15/2024 1:13 PM CST Test Result Request Type of test: Spine- X-Ray Date of test: 01/08/24 Where was the test performed at?[facility] Did provider dictate result yet? No Additional Questions/Comments: Patient sent [employer] message 01/13, she is wondering about results and what next steps would be depending on result Does message need to be routed? Yes-Action Needed H CLEANER documented in this encounter Plan of Treatment Not on file documented as of this encounter Visit Diagnoses Not on filedocumented in this encounter Care Teams Vp Mobile Products Relationship Specialty Start Date End Date Mikey Olea MD [address] [place] [address] PCP - General Family Medicine 07/17/22 Xiomy Kaur NP [address] [place], [place] [id number] Nurse Practitioner 06/28/21 Eladio Weems MD [address] [facility] [address] [place] [address] Consulting Physician Endocrinology Diabetes & Metabolism 01/08/23 Dy, Jessenia James MD [address] [facility] [address] [place] [address] Referring Physician Allergy and Immunology 01/08/23 documented as of this encounter
--- OUTSIDE RECORDS SUMMARY | 2024-11-14 20:50 | XMS_ITS | Encounter Summary ---
Author Organization [facility] Address [address] [place] [address] Care Team Providers Care Lapel Stitcher Name Role Phone Xiomy Kaur NP Primary Care Provider [phone] Xiomy Kaur CALCULATING MACHINE MECHANIC Unavailable Encounter Details Date Type Department Care Team (Late st Contact Info) Description 09/18/2021 7:38 AM CDT Anesthesia Event [facility] Operating Room [address] [place] [address] [place] [address] [employer] [facility] [place] [address] [place] [id number] [address] Anesthesia Record Procedure Summary Procedure Name Responsible Anesthesiologist Anesthesia Start Time Anesthesia Stop Time Right carpal tunnel release and transpostion ulnar nerve at elbow (Right: Arm Lower) Conner Heaton MD 09/18/21 0738 09/18/21 0838 Events Date Time Event Comment 09/18/2021 0705 0738 In Room 0738 An Start 0738 An Start Data 0743 An Induction The patient was reevaluated immediately before moderate or deep sedation use and before anesthesia induction. 0743 An LMA 0743 Anesthesia Ready 0759 Proc Start 0800 Incision Start 0828 Proc Fin 0831 Airway Removed 0834 an stop data 0834 Out of Room 0838 Handoff to RN I completed my handoff to the receiving nurse during which we: 1. Patient identified 2. Responsible provider identified 3. Pertinent medical history reviewed 4. Procedure type and surgical course discussed 5. Intraoperative anesthetic management and any significant issues discussed 6. Expectations and concerns for postop period discussed 7. Questions solicited from receiving nurse 8. Patient disposition at the time of handoff: No value filed. 0838 An Stop Meds Name Total propofol 200 mg lidocaine 2 % PF 5 mL dexamethasone 10 mg/mL 8 mg ondansetron 4 mg fentaNYL 100 mcg midazolam 2 mg ceFAZolin (ANCEF) 1 gram/10 mL in steril e water (premix) 2,000 mg 2,000 mg Lactated Ringer's (LR) infusion 600 mL * Agents Name O2 Air Sevoflurane Inspired Sevoflurane * Blood No blood administrations on file. Lines, Drains, and Airways Type Details Placement Removal Peripheral IV Placement Date: 09/18/21; Placement Time: 07; Catheter Size: 22 G; Orientation: Anterior, Left; Location: Wrist; Site Prep: Chlorhexidine; Insertion Attempts: 2; Removal Date: 09/18/21; Removal Time: 1105 09/18/21 0701 by Geeta Han RN 09/18/21 1105 by Geeta Han RN Supraglottic Airway Placement Date: 09/18/21; Placement Time: 0743 (created via procedure documentation); Mask Ventilation: 1; Size: 4; Insertion Attempts: 1; Removal Date: 09/18/21; Removal Time: 0831 09/18/21 0743 by Jonel Rowley CRNA 09/18/21 0831 by Jonel Rowley CRNA RETIRED Surgical Site 09/18/21; 0755; Right; Arm; (WRIST AND ELBOW); 09/22/21; 8; Not present on admission 09/18/21 0755 by Hyun Cox RN 09/22/212137 by Narinder Castellon, CRISTIAN documented in this encounter Social History Tobacco Use Types Packs/Day Years [...] on file 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 Gender Identity Female 06/02/2024 9:46 PM CDT Sexual Orientation Straight 06/02/2024 9: 46 PM CDT documented as of this encounter OR Notes * Anesthesia Postprocedure Evaluation - Conner Heaton MD - 09/18/2021 12:59 PM CDT Patient: Ashley Rdz Procedure Summary Date: 09/18/21 Room / Location: [facility] OR [address] [place] [address] OPERATING ROOM Anesthesia Start: 737 Anesthesia Stop: 837 Procedure: Right carpal tunnel release and transpostion ulnar nerve at elbow (Right Arm Lower) Diagnosis: Carpal tunnel syndrome on right Cubital tunnel syndrome on right (Carpal tunnel syndrome on right [G56.01]) (Cubital tunnel syndrome on right [G56.21]) Providers: Jonel Ley MD Responsible Provider: Conner Heaton MD Anesthesia Type: general ASA Status: 2 Anesthesia Type: general Last vitals BP 112/55 Pulse 82 Temp 36.1 ??C (96.9 ??F) (Temporal) Resp 16 SpO2 95% Anesthesia Post Evaluation Patient location during evaluation: PACU Patient participation: complete - patient participated Level of consciousness: fully awake Pain score: 0 Pain management: adequate Airway patency: patent Evidence of recall: no Cardiovascular status: hemodynamically stable Respiratory status: room air Hydration status: euvolemic Pt is: normothermic Nausea/Vomiting status: none No complications documented. * Anesthesia Procedure Notes - Jonel Rowley CRNA - 09/18/2021 7:48 AM CDT Associated Order(s): Airway Airway Patient location: OR Urgency: elective Date/time: 09/18/2021 7:43 AM Indications for airway management: anesthesia Difficult airway: no Staff: Placed by: PRODUCTION TESTER: Jonel Rowley CRNA Emergent airway documentation: Risks and benefits discussed: yes Consent obtained: yes Consent given by: patient Airway prep: Preoxygenated: yes Patient position: sniffing MILS maintained throughout: yes Mask difficulty assessment: 1 - vent by mask Spontaneous ventilation during airway: absent Sedation level during airway: GA Final airway details: Final airway type: supraglottic airway Final supraglottic airway: [place] SGA size: 4 Number of attempts: 1 Ventilation between attempts: none Planned trial extubation: yes * Anesthesia Preprocedure Evaluation - Rand Walker MD - 09/18/2021 7:00 AM CDT Images from the original note were not included. Anesthesia Evaluation Ashley Rdz is a 35 y.o. female Procedure(s): Right carpal tunnel release and transpostion ulnar nerve at elbow hand table Pre-Op Diagnosis Codes: * Carpal tunnel syndrome on right [G56.01] * Cubital tunnel syndrome on right [G56.21] HISTORY Past Medical History Information obtained from: patient and chart. Gastrointestinal + GERD - on daily therapy. Musculoskeletal/Pain + Osteoarthritis Endocrine / Other + Thyroid disease - hypothyroidism + Obesity (BMI >30) Patient Active Problem List Diagnosis ??? Carpal tunnel syndrome, bilateral ??? Lumbar spondylosis with left L5 radiculopathy ??? Cervical spondylosis ??? Chronic low back pain ??? Edema of lower extremity ??? Fatigue ??? Gastroesophageal reflux disease without esophagitis ??? Hyperlipidemia ??? Hypokalemia ??? Migraine ??? Neck pain ??? Obesity ??? Smoker ??? Vitamin D deficiency ??? Cubital tunnel syndrome on right ??? Carpal tunnel syndrome of right wrist Past Medical History: Diagnosis Date ??? Cervical cancer screening Cervical Pre Cancer ??? Chronic bronchitis (CMS/HCC) (HCC) ??? Depression ??? GERD (gastroesophageal reflux disease) ??? Hypercholesteremia ??? Hyperlipidemia ??? Hypothyroidism ??? Migraines ??? Pneumonia ??? Thyroid disease Past Surgical History: Procedure Laterality Date ??? DILATION AND CURETTAGE OF UTERUS 2007 and 2009 ??? TONSILLECTOMY AND ADENOIDECTOMY ??? TUBAL LIGATION 2010 ??? TUBAL LIGATION OB History No obstetric history on file. No Known Allergies Med List Status: Nurse Complete Set By: Hannah Caruso RN at 09/10/2021 3:31 PM Taking? Last Dose Start Date End Date Provider ergocalciferol (VITAMIN D) 50,000 unit capsule 09/12/2021 06/06/21 -- Rosendo Ortiz MD famotidine (PEPCID) 20 mg tablet 09/16/2021 07/21/21 -- Rosendo Ortiz MD gabapentin (NEURONTIN) 300 mg capsule 09/16/2021 07/20/21 -- Rosendo Ortiz MD hydroCHLOROthiazide (HYDRODIURIL) 12.5 mg tablet 09/16/2021 05/01/21 -- Rosendo Ortiz MD levocetirizine (XYZAL) 5 mg tablet 09/17/2021 -- -- Rosendo Ortiz MD levothyroxine (Euthyrox) 25 mcg tablet 09/16/2021 -- -- Rosendo Ortiz MD potassium chloride ER (KLOR-CON) 10 mEq CR tablet 09/16/2021 -- -- Rosendo Ortiz MD Current Facility-Administered Medications: ??? ceFAZolin (ANCEF) 1 gram/10 mL in sterile water (premix) 2,000 mg, 2,000 mg, intravenous, Once ??? Lactated Ringer's (LR) infusion, 30 mL/hr, intravenous, Continuous, Last Rate: 30 mL/hr at 09/18/21 0656, 30 mL/hr at 09/18/21 0656 ??? sodium chloride 0.9% flush 0.5-20 mL, 0.5-20 mL, intra-catheter, PRN Social History Tobacco Use Smoking Status Current Every Day Smoker ??? Packs/day: 0.05 ??? Years: 15.00 ??? Pack years: 0.75 Smokeless Tobacco Never Used Substance and Sexual Activity Alcohol Use Not on file Substance and Sexual Activity Drug Use Not on file Family History Problem Relation Age of Onset ??? Cancer Other ??? Heart disease Other ??? Hypertension Other ??? Diabetes Mother ??? COPD Mother ??? Hypertension Mother ??? Heart disease Father ??? COPD Father ??? Hypertension Father Vitals: 09/18/21 0614 BP: 133/77 Pulse: 87 Resp: 20 Temp: 36.3 ??C (97.3 ??F) SpO2: 98% PT: No results found for requested labs within last 720 hours. INR: No results found for requested labs within last 720 hours. APTT: No results found for requested labs within last 720 hours. Hgb A1C: No results found for requested labs within last 720 hours. CBC RBC: No results found for requested labs within last 720 hours. RDW: No results found for requested labs within last 720 hours. MCHC: No results found for requested labs within last 720 hours. MCH: No results found for requested labs within last 720 hours. MCV: No results found for requested labs within last 720 hours. Hct: No results found for requested labs within last 720 hours. Hgb: No results found for requested labs within last 720 hours. WBC: No results found for requested labs within last 720 hours. MPV: No results found for requested labs within last 720 hours. Platelets: No results found for requested labs within last 720 hours. RDW CV: No results found for requested labs within last 720 hours. RDW Sd: No results found for requested labs within last 720 hours. BMP Glucose: No results found for requested labs within last 720 hours. Calcium: No results found for requested labs within last 720 hours. Sodium: No results found for requested labs within last 720 hours. Potassium: No results found for requested labs within last 720 hours. CO2: No results found for requested labs within last 720 hours. Chloride: No results found for requested labs within last 720 hours. BUN: No results found for requested labs within last 720 hours. Creatinine: No results found for requested labs within last 720 hours. STOP-Bang Total Score: 2 DOS Physical Exam Medical history, medications, and allergies reviewed. Attestation: This PAT evaluation 09/18/2021. Airway Exam: Mallampati: II Cervical ROM: FROM TM distance: >4 Jaw ROM: full Cardiovascular Exam: Rate: regular Rhythm: regular Pulmonary Exam: LCTA, bilat Dental Exam: Upper dentures Current state: Patient's current state is cooperative. Anesthesia Plan ASA 2 My patient is approved for the Anesthesia Controlled Medication protocol when under care of a PRODUCTION TESTER Planned anesthesia: General Team communication plan: LMA Induction: Induction: intravenous. Postoperative Plan: Postoperative administration opioids intended. No postoperative mechanical ventilation intended. Informed Consent: Discussed plan with attending. Anesthesia plan and risks discussed with patient. Consent and Attending signature: I and/or my designee have discussed the anesthesia plan, benefits, possible alternatives, parental presence at time of induction (if indicated), and clinically relevant risks that may include dental injury, unintentional awareness, and/or other complications. The patient and/or parent/legal guardian understand, and agree to proceed. All questions answered. documented in this encounter Plan of Treatment Not on file documented as of this encounter Procedures Procedure Name Priority Date/Time Associated Diagnosis Comments ME AN ELECTIVE SUPRAGLOTTIC AIRWAY Routine 09/18/2021 7:43 AM CDT documented in this encounter Results * ME AN ELECTIVE SUPRAGLOTTIC AIRWAY (09/18/2021 7:43 AM CDT) Narrative Jonel Rowley CRNA - 09/18/2021 7:43 AM CDT Jonel Rowley CRNA ? 09/18/2021 ??7:48 AM Airway Patient location: OR Urgency: elective Date/time: 09/18/2021 7:43 AM Indications for airway management: anesthesia Difficult airway: no Staff: Placed by: PRODUCTION TESTER: Jonel Rowley CRNA Emergent airway documentation: Risks and benefits discussed: yes Consent obtained: yes Consent given by: patient Airway prep: Preoxygenated: yes Patient position: sniffing MILS maintained throughout: yes Mask difficulty assessment: 1 - vent by mask Spontaneous ventilation during airway: absent Sedation level during airway: GA Final airway details: Final airway type: supraglottic airway Final supraglottic airway: [place] SGA size: 4 Number of attempts: 1 Ventilation between attempts: none Planned trial extubation: yes us Rand Walker MD ANESTHESIA ORDERABLES Fi nal Result documented in this encounter Visit Diagnoses Not on filedocumented in this encounter Administered Medications Inactive Administered Medications - up to 3 most recent administrations Medication Order MAR Action Action Date Dose Rate Site ceFAZolin (ANCEF) 1 gram/10 mL in sterile water (premix) 2,000 mg 2,000 mg, intravenous, at 400 mL/hr, Administer over 3 Minutes, Once, On Fri09/18/21 at 0645, For 1 dose, Pre-Op, Administer within 60 minutes of incision., Indications: Prophylaxis, SurgicalIndications:Prophylaxis, Surgical Given 09/18/2021 7:44 AM CDT 2,000 mg dexAMETHasone (DECADRON) injection solution intravenous, Administer over 2 Minutes, As needed, Starting on Fri09/18/21 at 0743, Anesthesia Intra-op Given 09/18/2021 7:43 AM CDT 8 mg fentaNYL (SUBLIMAZE) preservative free injection intravenous, As needed, Starting on Fri09/18/21 at 0746, Anesthesia Intra-op Given 09/18/2021 7:50 AM CDT 50 mcg Given 09/18/2021 7:46 AM CDT 50 mcg Lactated Ringer's (LR) infusion 30 mL/hr, intravenous, Continuous, Starting on Fri09/18/21 at 0645, Pre-Op Restarted 09/18/2021 7:39 AM CDT Rate/Dose Verify 09/18/2021 7:38 AM CDT 30 mL/h r New Bag 09/18/2021 6:56 AM CDT 30 mL/hr 30 mL/hr lidocaine (XYLOCAINE) 20 mg/mL (2 %) preservative free injection epidural, As needed, Starting on Fri09/18/21 at 0743, Anesthesia Intra-op Given 09/18/2021 7:43 AM CDT 5 mL midazolam (VERSED) 1 mg/mL preservative free injection intravenous, Administer over 2 Minutes, As needed, Starting on Fri09/18/21 at 0739, Anesthesia Intra-op Given 09/18/2021 7:39 AM CDT 2 mg ondansetron (ZOFRAN) injection intravenous, Administer over 2 Minutes, As needed, Starting on Fri09/18/21 at 0743, Anesthesia Intra-op Given 09/18/2021 7:43 AM CDT 4 mg propofoL (DIPRIVAN) 10 mg/mL IV intravenous, As needed, Starting on Fri09/18/21 at 0743, Anesthesia Intra-op Given 09/18/2021 7:43 AM CDT 200 mg documented in this encounter Care Teams Lapel Stitcher Relationship Specialty Start Date End Date Xiomy Kaur NP [address] [place] [id number] PCP - General Nurse Practitioner 06/28/21 07/16/22 Xiomy Kaur NP [address] [place] [address] Nurse Practitioner 06/28/21 documented as of this encounter
--- OUTSIDE RECORDS SUMMARY | 2024-11-14 20:50 | XMS_ITS | Encounter Summary ---
Author Organization [facility] Address [address] [place] [address] Phone Care Team Providers Care Chenille Machine Operator Name Role Phone Xiomy Kaur ANALYTICAL STRATEGIST Unavailable Mikey Olea MD Primary Care Provider Reason for Visit * Reason Onset Date Comments Prior Auth 01/03/2023 Encounter Details Date Type Department Care Team (Late st Contact Info) Description 01/03/2023 Telephone [facility] Endocrinology Metabolism and Lipid [address] [place] [address] [place] [address] Melida Brooks RN Prior Auth Social History Tobacco Use Types Packs/Day Years [...] staff should administer the PHQ-9) 2 01/08/2023 Comments No Sex and Gender Information Value Date Recorded Sex Assigned at Not on file 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 A physician has reviewed all documentation submitted with this request for FREESTYLE LITE Device and determined that it does not meet the coverage criteria. The request for this drug is denied. The request is denied because it did not meet the following criteria : Use of Freestyle Lite Device for a diagnosis of prediabetes is supported by evidence from at least two high- quality, publishedstudies in reputable peer-reviewed journals or evidence-based clinical practice guidelines, and youhave tried at least two preferred drugs that are commonly used to treat your condition at the highest possible dose, or you had a bad reaction, or all cannot be used. The documentation provided for re view does not show that you have met the criteria for approval at this time. Please discuss your plan of care with your physician. AR TEACHER * Telephone Encounter - Alejandra Myers MA - 01/03/2023 5:45 PM CST OneTouch Verio or OneTouch Ultra test strips is the patient plan preferred. Can patient switch the the plan preferred product? AR TEACHER * Telephone Encounter - Melida Brooks RN - 01/03/2023 2:30 PM CST Freestyle lite with device kit Freestyle lite test strips AR TEACHER documented in this encounter Plan of Treatment Not on file documented as of this encounter Visit Diagnoses Not on filedocumented in this encounter Care Teams Chenille Machine Operator Relationship Specialty Start Date End Date Mikey Olea MD [address] [place] [address] PCP - General Family Medicine 07/17/22 Xiomy Kaur NP [address] [place] [address] Nurse Practitioner 06/28/21 documented as of this encounter
--- OUTSIDE RECORDS SUMMARY | 2024-11-14 20:50 | XMS_ITS | Encounter Summary ---
Author Organization [facility] Address [address] [place] [address] Care Team Providers Care Set Painter Name Role Phone Kaur, Xiomyleora Moss FURNITURE SALES ASSOCIATE Unavailable [phone] Mikey Olea MD Primary Care Provider Encounter Details Date Type Department Care Team (Late st Contact Info) Description 07/19/2022 Orders Only [facility] Primary Care at [address] [place] [address] Mikey Olea MD [address] [place] [address] [address] [place] [address] Vitamin D deficiency (Primary Dx) Social History Tobacco Use Types [...] on file 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 Gender Identity Female 06/02/2024 9:46 PM CDT Sexual Orientation Straight 06/02/2024 9: 46 PM CDT documented as of this encounter Ordered Prescriptions Prescription Sig Dispense Quantity Refills Last Filled Start Date End Date cholecalciferol (VITAMIN D-3) 5,000 unit tabletIndications: Vitamin D Deficiency Take 1 tablet (5,000 Units total) by mouth daily 90 tablet 3 07/19/2022 08/08/2023 rosuvastatin (CRESTOR) 10 mg tablet Take 1 tablet (10 mg total) by mouth daily 90 tablet 1 07/19/2022 01/08/2023 documented in this encounter Plan of Treatment Not on file documented as of this encounter Visit Diagnoses Diagnosis Vitamin D deficiency- Primary documented in this encounter Care Teams Set Painter Relationship Specialty Start Date End Date Mikey Olea MD [address] [place] [id number] PCP - General Family Medicine 07/17/22 Xiomy Kaur NP [address] [place] [address] Nurse Practitioner 06/28/21 documented as of this encounter
--- OUTSIDE RECORDS SUMMARY | 2024-11-14 20:50 | XMS_ITS | Encounter Summary ---
Author Organization [facility] Address [address] [place] [address] Care Team Providers Care Zone Maintenance Technician Name Role Phone Xiomy Kaur NP Primary Care Provider [phone] Xiomy Kaur TIMBER INCISOR OPERATOR Unavailable [phone] Encounter Details Date Type Department Care Team (Late st Contact Info) Description 09/12/2021 Orders Only [facility] Orthopedics and Sports Medicine [address] [place] [id number] Jonel Ley MD [address] [place] [address] [facility] [address] [place] [address] Social History Tobacco Use Types Packs/Day Years Used Date Smoking Tobacco: Every Day Smokeless Tobacco: Never AUDIT-C Answer Date Recorded Q1: How often do you have a drink containing alc ohol? 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
--- OUTSIDE RECORDS SUMMARY | 2024-11-14 20:50 | XMS_ITS | Encounter Summary ---
Author Organization [facility] Address [address] [place] [address] Care Team Providers Care Real Estate Broker Name Role Phone KaurJhonXiomyleora Moss NP Unavailable Mikey Olea MD Primary Care Provider Eladio Weems MD Unavailable Jessenia Castrejon MD Unavailable [phone] Reason for Referral * Diagnostic Imaging (Routine) - Closed Specialty Diagnoses / Procedures Referred By Contac t Referred To Contact Diagnoses Chronic low back pain, unspecified back pain laterality, unspecified whether sciatica present Procedures XR Spine Lumbar 2 or 3 Views Mikey Olea MD [address] [place] [address] DR ELIZABETH Fitch [address] [address] Phone: tel: fax: [address] [phone] Referral ID Status Reason Start Date Expiration Date Visits Re quested Visits Authorized [id number] Closed 01/07/2024 02/05/2025 1 1 CLOSER Reason for Visit * Diagnostic Imaging (Routine) - Closed Specialty Diagnoses / Procedures Referred By Contac t Referred To Contact Diagnoses Chronic low back pain, unspecified back pain laterality, unspecified whether sciatica present Procedures XR Spine Lumbar 2 or 3 Views Mikey Olea MD [address] [place] [address] DR ELIZABETH Fitch [address] [address] Phone: tel: fax: [address] [phone] Referral ID Status Reason Start Date Expiration Date Visits Re quested Visits Authorized [id number] Closed 01/07/2024 02/05/2025 1 1 Encounter Details Date Type Department Care Team (Latest Contact Info) Description 01/08/2024 8:43 AM BACK CLOSER - 01/08/2024 11:59 PM BACK CLOSER Hospital Encounter [facility] [address] [place] [address] Chronic low back pain, unspecified back pain laterality, unspecified whether sciatica present Discharge Disposition: Discharge to home or self care Social History Tobacco Use Types Packs/Day Years [...] on file Legal Sex Female 4:09 PM BACK CLOSER Gender Identity Female 06/02/2024 9:46 PM CDT Sexual Orientation Straight 06/02/2024 9: 46 PM CDT documented as of this encounter Medications at Time of Discharge blood-glucose meter kitIndications:Pr ediabetes Please check sometimes fasting morning and sometimes 45 minutes after meal. 1 kit 01/02/2023 famotidine (PEPCID) 20 mg tablet Take 1 tablet (20 mg total) by mouth 2 (two) times a day 60 tablet 11 12/12/2023 levothyroxine (SYNTHROID) 100 mcg tabletIndications :Hypothyroidism, unspecified type Take 1 tablet (100 mcg total) by mouth daily 90 tablet 3 09/18/2023 OneTouch Delica Lancets 33 gauge miscIndications:P rediabetes Use to check blood sugars before meals and at bedtime 100 each 1 01/02/2023 OneTouch Verio Flex meter miscIndications:I mpaired fasting blood sugar USE TO CHECK FASTING IN THE MORNING AND SOMETIMES 45 MINUTES AFTER MEAL 01/06/2023 OneTouch Verio test strips stripIndications: Prediabetes USE TO CHECK BLOOD SUGAR BEFORE MEALS AND AT BEDTIME 100 each 05/12/2023 albuterol HFA (PROVENTIL HFA,VENTOLIN HFA,PROAIR HFA) 90 mcg/actuation inhaler INHALE 2 PUFFS BY MOUTH EVERY 4 TO 6 HOURS NEEDED FOR SHORTNESS OF BREATH OR WHEEZING 07/18/2023 4 amitriptyline (ELAVIL) 10 mg tabletIndications :Chronic low back pain, unspecified back pain laterality, unspecified whether sciatica present,Frequent headaches Take 1-2 tablets (10-20 mg total) by mouth nightly 90 tablet 1 01/07/2024 4 cetirizine (ZyrTEC) 10 mg tablet Take 1 tablet by mouth twice daily 60 tablet 10/24/2023 4 cholecalciferol (VITAMIN D-3) 5,000 unit capsule Take 1 capsule (5,000 Units total) by mouth daily 12/30/2023 4 FLUoxetine (PROzac) 20 mg tabletIndications :Anxiety and depression Take 1 tablet (20 mg total) by mouth daily 90 tablet 1 11/24/2023 4 fluticasone propionate (FLONASE) 50 mcg/actuation nasal spray USE 1 SPRAY(S) IN EACH NOSTRIL ONCE DAILY 07/18/2023 4 meloxicam (MOBIC) 15 mg tabletIndications :Chronic low back pain, unspecified back pain laterality, unspecified whether sciatica present Take 1 tablet (15 mg total) by mouth daily 30 tablet 2 01/07/2024 4 montelukast (SINGULAIR) 10 mg tablet Take 1 tablet by mouth once daily 30 tablet 11/18/2023 4 ondansetron (ZOFRAN) 4 mg tabletIndications :Prevention of Post-Operative Nausea and Vomiting Take 1 tablet (4 mg total) by mouth every 6 (six) hours as needed for nausea or vomiting 20 tablet 1 09/17/2021 4 potassium chloride ER (KLOR-CON) 10 mEq CR tablet Take 10 mEq by mouth daily 4 rosuvastatin (CRESTOR) 10 mg tablet Take 1 tablet (10 mg total) by mouth daily 90 tablet 1 11/24/2023 4 triamcinolone (KENALOG) 0.1 % cream APPLY CREAM EXTERNALLY THREE TIMES DAILY 08/16/2023 4 documented as of this encounter Discharge Disposition Disposition Code Departure Means Destination Discharge to home or self care documented in this encounter Plan of Treatment Not on file documented as of this encounter Procedures Procedure Name Priority Date/Time Associated Diagnosis Comments XR SPINE LUMBAR 2 OR 3 VIEWS Schedule Routine, Read Routine (OP Routine) 01/08/2024 8:53 AM BACK CLOSER Chronic low back pain, unspecified back pain laterality, unspecified whether sciatica present documented in this encounter Results * XR Spine Lumbar 2 or 3 Views (01/08/2024 8:53 AM BACK CLOSER) Anatomical Region Laterality Modality Spine N/A Computed Radiogr aphy 01/08/2024 2:48 PM BACK CLOSER Narrative 01/08/2024 2:49 PM BACK CLOSER EXAM DESCRIPTION: XR SPINE LUMBAR 2 OR 3 VIEWS REASON FOR STUDY: chronic low back pain, f/u from prior XR from 2020 ?? Complaints of chronic lower back pain. ?? Pt states pain occasionally radiates down legs. ?? NKI. ?? Hx of pain injection in lumbar x yesterday. ?? No known conditions to spine. ?? No surgery to spine. ? FINDINGS: Three views submitted with comparison 07/20/2021. No acute fractures are identified. ??There is mild levocurvature of the lumbar spine. ??There is mild retrolisthesis of L4 on L5. ??There is mild L4-L5 and moderate L5-S1 degenerative disc disease. ??Transitional L5 vertebra is present. IMPRESSION: Mild L4-L5 and moderate L5-S1 degenerative disc disease. Mild retrolisthesis of L4 on L5. THIS IS AN ELECTRONICALLY VERIFIED FINAL REPORT 01/08/2024 2:49 PM - Electronically signed by ??Kvng Pinedo M.D. MF: KIP D: ??01/08/2024 2:49 PM T: ??01/08/2024 2:49 PM Report ID: [id number] Reading Location: ??[id number] Procedure Note Kvng Pinedo MD - 01/08/2024 EXAM DESCRIPTION: XR SPINE LUMBAR 2 OR 3 VIEWS REASON FOR STUDY: chronic low back pain, f/u from prior XR from 2020 Complaints of chronic lower back pain. Pt states pain occasionallyradiates down legs. NKI. Hx of pain injection in lumbar x yesterday. No known conditions to spine. No surgery to spine. FINDINGS: Three views submitted with comparison 07/20/2021. No acute fractures are identified. There is mild levocurvature of thelumbar spine. There is mild retrolisthesis of L4 on L5. There is mild L4-L5 and moderate L5-S1 degenerative disc disease. Transitional L5 vertebra is present. IMPRESSION: Mild L4-L5 and moderate L5-S1 degenerative disc disease. Mild retrolisthesis of L4 on L5. THIS IS AN ELECTRONICALLY VERIFIED FINAL REPORT 01/08/2024 2:49 PM - Electronically signed by Kvng Pinedo M.D. MF: KIP Report ID: [id number] Reading Location: [id number] Mikey Olea MD IMG XR PROCEDURES Final Result documented in this encounter Visit Diagnoses Diagnosis Chronic low back pain, unspecified back pain laterality, unspecified whether sciatica present documented in this encounter Care Teams Real Estate Broker Relationship Specialty Start Date End Date Mikey Olea MD [address] [place] [address] PCP - General Family Medicine 07/17/22 Xiomy Kaur NP [address] [place] [address] Nurse Practitioner 06/28/21 Eladio Weems MD [address] [facility] [place] [address] Consulting Physician Endocrinology Diabetes & Metabolism 01/08/23 Jessenia Castrejon MD [address] [facility] [place] [address] Referring Physician Allergy and Immunology 01/08/23 documented as of this encounter
--- OUTSIDE RECORDS SUMMARY | 2024-11-14 20:50 | XMS_ITS | Encounter Summary ---
Author Organization [facility] Address [address] [facility] [address] [place] [address] Care Team Providers Care Apprenticeship Representative Name Role Phone Xiomy Kaur NP Primary Care Provider [phone] Xiomy Kaur SUPERVISOR PLASTERING Unavailable [phone] Reason for Visit * Reason Comments COVID-19 EVALUATION Encounter Details Date Type Department Care Team (Latest Contact Info) Description 09/16/2021 12:15 PM CDT Clinical Support [facility] [address] [place] [id number] Encounter for pre-operative laboratory testing (Primary Dx) Social History Tobacco Use Types [...] on file 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 N95 mask, gown, gloves, and eye protection worn during swab collection. Patient instructed to self-isolate from time of swab collection until scheduled surgery. documented in this encounter Plan of Treatment Not on file documented as of this encounter Visit Diagnoses Diagnosis Encounter for pre-operative laboratory testing- Primary documented in this encounter Care Teams Apprenticeship Representative Relationship Specialty Start Date End Date Xiomy Kaur NP [address] [place] [address] PCP - General Nurse Practitioner 06/28/21 07/16/22 Xiomy Kaur NP [address] [place] [address] Nurse Practitioner 06/28/21 documented as of this encounter
--- OUTSIDE RECORDS SUMMARY | 2024-11-14 20:50 | XMS_ITS | Encounter Summary ---
Author Organization [facility] Address [address] [place] [address] Phone Care Team Providers Care Court Of Appeals Judge Name Role Phone Natasha Xiomy Moss NP Unavailable [phone] Mikey Olea MD Primary Care Provider Eladio Weems MD Unavailable Jessenia Castrejon MD Unavailable [phone] Encounter Details Date Type Department Care Team (Latest Contact Info) Description 09/18/2023 4:40 PM CDT Office Visit [facility] Endocrinology Metabolism and Lipid [address] 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 Gender Identity Female 06/02/2024 9:46 PM CDT Sexual Orientation Straight 06/02/2024 9: 46 PM CDT documented as of this encounter Last Filed Vital Signs Vital Sign Reading Time Taken Comments Blood Pressure 103/65 09/18/2023 4:50 PM CDT Pulse 86 09/18/2023 4:50 PM CDT Temperature 36.8 ??C (98.3 ??F) 09/18/2023 4:50 PM CD T Respiratory Rate - - Oxygen Saturation - - Inhaled Oxygen Concentration - - Weight 93.9 kg (207 lb) 09/18/2023 4:50 PM CDT Height 154.9 cm (5' 1 ) 09/18/2023 4:50 PM CDT Body Mass Index 39.11 09/18/2023 4:50 PM CDT documented in this encounter Patient Instructions * Patient Instructions* Eladio Weems MD - 09/18/2023 4:40 PM CDT Major factors that can affect thyroid function -- supplement with iodine or thyroid hormone -- vitamin B complex, or vitamin B7 (biotin) supplement -- recent image test with iv contrast containing iodine -- acute illness When do thyroid function -- avoid supplement with iodine or thyroid hormone, avoid vitamin B complex, biotin supplement, or supplement with unknown ingredient. -- avoid thyroid function during acute illness. documented in this encounter Ordered Prescriptions Prescription Sig Dispense Quantity Refills Last Filled Start Date End Date levothyroxine (SYNTHROID) 100 mcg tabletIndications:H ypothyroidism, unspecified type Take 1 tablet (100 mcg total) by mouth daily 90 tablet 3 09/18/2023 documented in this encounter Progress Notes * Eladio Weems MD - 09/18/2023 4:40 PM CDT Endocrine Outpatient Visit Note Date: 09/18/2023 HPI Ashley Rdz is a pleasant 37 y.o. female coming today for f/u Sruthi thyroiditis and hypothyroidism. Also has prediabetes, HLD. Establish care 12/2022. Lab showed TSH 13 and FT4 0.7. 75mcg LT4 started. This is 2nd visit. She c/o hives, joint swollen/ pains, fluid retention, seeing special events fundraiser. Has abnormal smell, not due to covid. Steroid pack used 7 times in 6 months by PCP for smell and other reasons. Sruthi thyroiditis, hypothyroid TPO 09/2022 positive. 01/07/2023 TSH 13.47, F4 0.7 started LT4 75mcg 09/10/2023 TSH 5.27, FT4 0.8 taking consistently and correctly. Prediabetes a1c 5.9 Mother T2DM Recommend annual a1c Glucometer ordered 12/2022 Glucometer check: sometimes fasting and sometimes 45 minutes after meal. Fasting normal <95, diabetic >125 Post meal normal <140, diabetic >200 09/18/2023 A1c 5.6 HLD high LDL with TG. On statin since 202109/10/2023 chol 165, LDL 84, HDL 41 L (>50), TG 329 (<150). Low vit D: 1000 unit/day now. 09/10/2023 vitD 39 BMI 38, difficult weight loss. Diet: not on particular diet. Doesn't eat much. Salad. May cook at dinner. 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 Menses: regular. 09/2022 TPO 88 H, TSH 3.77, FT4 0.85 (0.9-1.7) 01/07/2023 TSH 13.47H , F4 0.7 L started LT4 75mcg 09/10/2023 chol 165, LDL 84, HDL 41 L (>50), TG 329 (<150). 09/10/2023 TSH 5.27 H, FT4 0.8 (need to check if taking consistently correctly) 09/10/2023 vitD 39 Current Outpatient Medications Medication Sig Dispense Refill albuterol HFA (PROVENTIL HFA,VENTOLIN HFA,PROAIR HFA) 90 mcg/actuation inhaler INHALE 2 PUFFS BY MOUTH EVERY 4 TO 6 HOURS NEEDED FOR SHORTNESS OF BREATH OR WHEEZING blood-glucose meter kit Please check sometimes fasting morning and sometimes 45 minutes after meal.1 kit 0 cetirizine (ZyrTEC) 10 mg tablet Take 1 tablet by mouth twice daily 60 tablet 0 cholecalciferol (VITAMIN D-3) 5,000 unit tablet Take 1 tablet by mouth once daily 90 tablet 0 famotidine (PEPCID) 20 mg tablet Take 1 tablet (20 mg total) by mouth 2 (two) times a day 60 tablet3 FLUoxetine (PROzac) 20 mg tablet Take 1 tablet (20 mg total) by mouth daily 90 tablet 2 fluticasone propionate (FLONASE) 50 mcg/actuation nasal spray USE 1 SPRAY(S) IN EACH NOSTRIL ONCE DAILY montelukast (SINGULAIR) 10 mg tablet Take 1 tablet (10 mg total) by mouth daily 30 tablet 11 OneTouch Delica Lancets 33 gauge misc Use to check blood sugars before meals and at bedtime 100 each 1 OneTouch Verio Flex meter misc USE TO CHECK FASTING IN THE MORNING AND SOMETIMES 45 MINUTES AFTER MEAL OneTouch Verio test strips strip USE TO CHECK BLOOD SUGAR BEFORE MEALS AND AT BEDTIME 100 each 0 rosuvastatin (CRESTOR) 10 mg tablet Take 1 tablet (10 mg total) by mouth daily 90 tablet 1 triamcinolone (KENALOG) 0.1 % cream APPLY CREAM EXTERNALLY THREE TIMES DAILY levothyroxine (SYNTHROID) 100 mcg tablet Take 1 tablet (100 mcg total) by mouth daily 90 tablet 3 ondansetron (ZOFRAN) 4 mg tablet Take 1 tablet (4 mg total) by mouth every 6 (six) hours as needed for nausea or vomiting (Patient not taking: Reported on 08/29/2023) 20 tablet 1 potassium chloride ER (KLOR-CON) 10 mEq CR tablet Take 10 mEq by mouth daily (Patient not taking: Reported on 08/29/2023) No current facility-administered medications for this visit. Patient has no allergy information on record. Past Medical History: Diagnosis Date Cervical cancer screening Cervical Pre Cancer Chronic bronchitis (HCC) Depression GERD (gastroesophageal reflux disease) Hypercholesteremia Hyperlipidemia Hypertension Hypothyroidism Migraines Pneumonia Thyroid disease Past Surgical History: Procedure Laterality Date DILATION AND CURETTAGE OF UTERUS 2007 and 2009 TONSILLECTOMY AND ADENOIDECTOMY TUBAL LIGATION 2011 TUBAL LIGATION Social History Tobacco Use Smoking status: Every Day Packs/day: 0.75 Years: 15.00 Additional pack years: 0.00 Total pack years: 11.25 Types: Cigarettes Smokeless tobacco: Never Vaping Use Vaping Use: Never used Substance and Sexual Activity Alcohol use: None Drug use: Never Sexual activity: Yes Partners: Male control/protection: Tubal Ligation, None Family History Problem Relation Age of Onset Cancer Other Heart disease Other Hypertension Other Diabetes Mother COPD Mother Hypertension Mother Heart disease Father COPD Father Hypertension Father ROS: joint pain and swollen, Fatigue Endocrine: Negative for cold intolerance, heat intolerance, polydipsia, polyphagia and polyuria. Constitutional: Negative for chills, diaphoresis, and fever. Skin: Negative for color change and rash. HENT: Negative for congestion, mouth sores, rhinorrhea. Eyes: Negative for discharge and redness. Respiratory: Negative for apnea, cough and shortness of breath. Cardiovascular: Negative for chest pain. Gastrointestinal: Negative for abdominal pain, nausea and vomiting. Musculoskeletal: Negative for gait problem and neck stiffness. Neurological: Negative facial asymmetry, speech difficulty and weakness. Psychiatric/Behavioral: Negative for decreased concentration and mood meza. BP 103/65 Pulse 86 Temp 36.8 ??C (98.3 ??F) Ht 154.9 cm (5' 1 ) Wt 93.9 kg (207 lb) BMI 39.11 kg/m?? Wt Readings from Last 3 Encounters: 09/18/23 93.9 kg (207 lb) 08/29/23 90.7 kg (200 lb) 01/08/23 90.7 kg (200 lb) BMI Readings from Last 3 Encounters: 09/18/23 39.11 kg/m?? 08/29/23 37.79 kg/m?? 01/08/23 37.79 kg/m?? Physical Exam: no danis phenotype. Gen : no acute distress, alert, appropriate Skin : turgor normal, warm and dry HENT : normocephalic, atraumatic, moist mucus membranes Eyes : conjunctiva clear, anicteric, no proptosis/exophthalmos/lid lag, EOMI Pulm : non-labored, on room air, breathing normally CV : no JVD, no SOB Abd : soft, non-tender Musculoskeletal: range of motion unremarkable Extr : atraumatic Neuro : alert, speech fluent, comprehension intact, moving all extremities Psych : cooperative, appropriate affect & mood Lab/Radiology/Diagnostic Lab Results Component Value Date HGBA1C 5.6 09/18/2023 HGBA1C 5.9 (H) 07/17/2022 Lab Results Component Value Date LDLCALC 202 (H) 07/17/2022 CREATININE 0.66 10/02/2022 Lab Results Component Value Date TSH 5.27 (H) 09/10/2023 FREET4 0.8 09/10/2023 Lab Results Component Value Date CALCIUM 9.5 10/02/2022 Lab Results Component Value Date ALT 27 10/02/2022 AST 18 10/02/2022 ALKPHOS 74 10/02/2022 BILITOT 0.4 10/02/2022 Lab Results Component Value Date WBC 10.2 (H) 10/02/2022 HGB 13.5 10/02/2022 HCT 41.2 10/02/2022 MCV 89.8 10/02/2022 LABPLAT 303 10/02/2022 Latest Reference Range & Units 10/02/22 15:03 Thyroperoxidase ab <=34 units/mL 88 (H) Free T4 0.90 - 1.70 ng/dL 0.85 (L) TSH 0.30 - 4.20 mcIUnit/mL 3.77 (H): Data is abnormally high (L): Data is abnormally low Assessment and Plan Sruthi thyroiditis, hypothyroid TPO 09/2022 positive. 01/07/2023 TSH 13.47, F4 0.7 started LT4 75mcg 09/10/2023 TSH 5.27, FT4 0.8 taking consistently correctly Increase dose to 100mcg po daily -- Emphasized taking consistently and correctly to ensure good/stable absorption of the thyroid hormone medication. 1 tab po morning with an empty stomach, at least 45 minutes before food/medications/supplement. --TSH 5.27 with normal FT4 is unlikely cause of her hives, painful/swollen joints. Discussed thyroid function interpretation and the log-linear relationship between thyroid hormones and TSH. There abhijit negative log-linear relationship between FT4 and tSH. A very small change in serum free T4 induces a very large reciprocal change in TSH. Ordered repeat lab to [facility] Instruction given for avoid confounding factors. Major factors that can affect thyroid function -- supplement with iodine or thyroid hormone -- vitamin B complex, or vitamin B7 (biotin) supplement -- recent image test with iv contrast containing iodine -- acute illness When do thyroid function -- avoid supplements with iodine or thyroid hormone, avoid vitamin B complex, biotin supplements, or supplements with unknown ingredients. -- avoid thyroid function during acute illness. Prediabetes A1c from 5.9 to 09/18/2023 A1c 5.6 Recommend annual a1c Glucometer ordered 12/2022. Per pt all in normal range. Can check whenever not feeling well. HLD; 09/2022 LDL 202 TG 328 on rosuvastatin 10mg 07/2022 BMI 38 09/10/2023 chol 165, LDL 84, HDL 41 L (>50), TG 329 (<150). Diet and lifestyle change discussed 12/2022 and handout given. Discussed again today vitaminD 23 06/2022 on replacement. Repeat 2022 normal Avoid steroid. Discussed side effects of intermediate school teacher uses regarding metabolism. Lab: TFT in 2 month F/u one year. Will order additional TFT as needed. documented in this encounter Plan of Treatment Scheduled Orders Name Type Priority Associated Diagnoses Orde r Schedule TSH Lab Routine Hypothyroidism, unspecified type Abnormal thyroid function test Expected: 11/13/2023 (Approximate), Expires: 09/18/2024 T4, free Lab Routine Hypothyroidism, unspecified type Abnormal thyroid function test Expected: 11/13/2023 (Approximate), Expires: 09/18/2024 T3, free Lab Routine Abnormal thyroid function test Expected: 11/13/2023 (Approximate), Expires: 09/18/2024 documented as of this encounter Procedures Procedure Name Priority Date/Time Associated Diagnosis Comments POCT HEMOGLOBIN A1C Routine 09/18/2023 5 :12 PM CDT Prediabetes documented in this encounter Results * POCT hemoglobin A1c (09/18/2023 5:12 PM CDT) Hemoglobin A1C, POC 5.6 % Blood 09/18/2023 5:12 PM CDT Eladio Weems MD POINT OF CARE TEST ORDERABLES Fi nal Result documented in this encounter Visit Diagnoses Diagnosis Prediabetes- Primary Other abnormal glucose Hypothyroidism, unspecified type Abnormal thyroid function test Nonspecific abnormal results of thyroid function study documented in this encounter Discontinued Medications Medication Sig Discontinue Reason Start Date End Da te levothyroxine (SYNTHROID) 75 mcg tabletIndications:Hypoth yroidism, unspecified type 1 tab po morning with empty stomach, 45 minutes before food/medications/sup plement, to ensure adequate absorption. 09/02/2023 09/18/2023 documented as of this encounter Care Teams Court Of Appeals Judge Relationship Specialty Start Date End Date Mikey Olea MD [address] [place] [address] PCP - General Family Medicine 07/17/22 Xiomy Kaur NP [address] [place] [address] Nurse Practitioner 06/28/21 Eladio Weems MD [address] [facility] [place] [address] Consulting Physician Endocrinology Diabetes & Metabolism 01/08/23 Jessenia Castrejon MD [address] [facility] [place] [address] Referring Physician Allergy and Immunology 01/08/23 documented as of this encounter
--- OUTSIDE RECORDS SUMMARY | 2024-11-14 20:50 | XMS_ITS | Encounter Summary ---
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 Comment: Interpretive Data Synonyms for this test include: PCR and NAAT . ??Testing performed by the [facility] Molecular Infectious Disease Laboratory. The 2019-Novel Coronavirus Assay (COVID-19) Real Time RT-PCR assay is for in vitro diagnostic use under FDA emergency use authorization only. A negative RT-PCR result does not preclude infection with COVID-19 and should not be used as the sole basis for treatment or other patient management decisions. ??Additional sample types have been validated according to CLIA regulations. ?? Current Interpretive Data was last revised on December 21, 2020. First COVID-19 test? No [facility] Employeed in healthcare? Unknown [facility] status? Unknown [facility] Group care resident? Unknown [facility] Hospitalized? No [facility] Is patient in ICU? No [facility] Symptomatic as defined by CDC? No [facility] Nasopharyngeal 09/16/2021 9: 50 PM CDT 09/16/2021 11:23 PM CDT Narrative [facility] - 09/17/2021 3:16 PM CDT What is the reason for testing?->Screening prior to scheduled procedure or surgery (batch) Jonel Ley MD LAB MICROBIOLOGY - GENERAL O RDERABLES Final Result [facility] Department [place] [address] documented in this encounter Visit Diagnoses Diagnosis Pre-procedure lab exam Pre-procedural laboratory examination documented in this encounter Care Teams Technical Support Intern Relationship Specialty Start Date End Date Xiomy Kaur NP [address] [place] [address] PCP - General Nurse Practitioner 06/28/21 07/16/22 Xiomy Kaur NP [address] [place] [address] Nurse Practitioner 06/28/21 documented as of this encounter
--- OUTSIDE RECORDS SUMMARY | 2024-11-14 20:50 | XMS_ITS | Encounter Summary ---
Author Organization [facility] Address [address] [place] [address] Phone Care Team Providers Care Wash Plant Operator Name Role Phone Kaur, Xiomyleora Moss CURRENCY EXCHANGE SPECIALIST Unavailable [phone] Mikey Olea MD Primary Care Provider Reason for Visit * Reason Comments New Patient * Consultation (Routine) - Closed Specialty Diagnoses / Procedures Referred By Contfred hartman Referred To Contact Allergy Diagnoses Urticaria Mikey Olea MD [address] [place] [address] Phone: tel: fax: [facility] (All Locations) Referral ID Status Reason Start Date Expiration Date V isits Requested Visits Authorized [id number] Closed Specialty Services Required 09/25/2022 08/22/2023 12 12 Encounter Details Date Type Department Care Team (Late st Contact Info) Description 10/02/2022 2:00 PM APPLICATION INTEGRATION SPECIALIST Office Visit [facility] Allergy and Immunology [address] [place] [address] Jessenia Castrejon MD [address] [place] [address] Chronic urticaria (Primary Dx); Urticaria Social History Tobacco Use Types Packs/Day Years [...] more points, staff should administer the PHQ-9) 4 10/01/2022 Comments No Sex and Gender Information Value Date Recorded Sex Assigned at Not on file Legal Sex Female 4:09 PM APPLICATION INTEGRATION SPECIALIST Gender Identity Female 06/02/2024 9:46 PM CDT Sexual Orientation Straight 06/02/2024 9: 46 PM CDT documented as of this encounter Last Filed Vital Signs Vital Sign Reading Time Taken Comments Blood Pressure 109/73 10/02/2022 1:41 PM APPLICATION INTEGRATION SPECIALIST Pulse 76 10/02/2022 1:41 PM APPLICATION INTEGRATION SPECIALIST Temperature 36.7 ??C (98 ??F) 10/02/2022 1:41 PM APPLICATION INTEGRATION SPECIALIST Respiratory Rate 18 10/02/2022 1:41 PM APPLICATION INTEGRATION SPECIALIST Oxygen Saturation 100% 10/02/2022 1:41 PM APPLICATION INTEGRATION SPECIALIST Inhaled Oxygen Concentration - - Weight 92.6 kg (204 lb 3.2 oz) 10/02/2022 1:41 P M APPLICATION INTEGRATION SPECIALIST Height 154.9 cm (5' 0.98 ) 10/02/2022 1:41 PM CS T Body Mass Index 38.61 10/02/2022 1:41 PM APPLICATION INTEGRATION SPECIALIST documented in this encounter Patient Instructions * Patient Instructions* Jessenia Castrejon MD - 10/02/2022 2:00 PM APPLICATION INTEGRATION SPECIALIST Please request Dermatology referral for possible hidradenitis suppurativa management, ICATION INTEGRATION SPECIALIST documented in this encounter Ordered Prescriptions Prescription Sig Dispense Quantity Refills Last Filled Start Date End Date montelukast (SINGULAIR) 10 mg tablet Take 1 tablet (10 mg total) by mouth daily 30 tablet 11 10/02/2022 11/18/2023 famotidine (PEPCID) 20 mg tablet Take 1 tablet (20 mg total) by mouth 2 (two) times a day 60 tablet 3 10/02/2022 12/12/2023 cetirizine (ZyrTEC) 10 mg tablet Take 1 tablet (10 mg total) by mouth 2 (two) times a day 60 tablet 3 10/02/2022 06/20/2023 documented in this encounter Progress Notes * Cash, Jessenia James MD - 10/02/2022 2:00 PM CST Mikey Olea, *, We had the pleasure of seeing Ashley Rdz today in the Division of Allergy and Immunology at [facility] for a consultation regarding chronic urtcaria. History of Present Illness: Ashley Rdz is a 36 y.o. year old female presenting with chronic urticaria. Recurrent urticaria on and off for the past 3 years. She has photos showing urticaria. Most frequently once a week. The longest symptom free interval is 1 month. No particular time of the day. Occurs both in the middle of the night, first thing in the morning, or during the day.. Not related to food. 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 Steroids and Benadryl helpful. Recalls that Xyzal was not helpful. Frequent steroids courses. She has chronic back pain. Started at 17yo after an injury due to lifting heavy object. Limits mobility, standing for prolonged periods of times. Does not take NSAIDs. She has migraines. Denies unexpected weight changes. She does have recurrent boils. Problem List Patient Active Problem List Diagnosis [...] tunnel release Frequent headaches History of hypokalemia Urticaria Anxiety and depression Past Medical History Past Medical History: Diagnosis Date Cervical cancer screening Cervical Pre Cancer Chronic bronchitis (CMS/HCC) (HCC) Depression GERD (gastroesophageal reflux disease) Hypercholesteremia Hyperlipidemia Hypothyroidism Migraines Pneumonia Thyroid disease Past Surgical History Past Surgical History: Procedure Laterality Date DILATION AND CURETTAGE OF UTERUS 2007 and 2010 TONSILLECTOMY AND ADENOIDECTOMY TUBAL LIGATION 2011 TUBAL LIGATION Allergies Patient has no known allergies. Current Medications Current Outpatient Medications: cholecalciferol (VITAMIN D-3) 5,000 unit tablet, Take 1 tablet (5,000 Units total) by mouth daily, Disp: 90 tablet, Rfl: 3 famotidine (PEPCID) 20 mg tablet, Take 1 tablet (20 mg total) by mouth 2 (two) times a day, Disp: 60 tablet, Rfl: 3 FLUoxetine (PROzac) 10 mg tablet/capsule, Take 1 tablet/capsule (10 mg total) by mouth daily for 30days, THEN 2 tablet/capsule (20 mg total) daily., Disp: 90 capsule, Rfl: 0 rosuvastatin (CRESTOR) 10 mg tablet, Take 1 tablet (10 mg total) by mouth daily, Disp: 90 tablet, Rfl: 1 cetirizine (ZyrTEC) 10 mg tablet, Take 1 tablet (10 mg total) by mouth 2 (two) times a day, Disp: 60 tablet, Rfl: 3 montelukast (SINGULAIR) 10 mg tablet, Take 1 tablet (10 mg total) by mouth daily, Disp: 30 tablet, Rfl: 11 ondansetron (ZOFRAN) 4 mg tablet, Take 1 tablet (4 mg total) by mouth every 6 (six) hours as neededfor nausea or vomiting (Patient not taking: Reported on 07/17/2022), Disp: 20 tablet, Rfl: 1 potassium chloride ER (KLOR-CON) 10 mEq CR tablet, Take 10 mEq by mouth daily (Patient not taking: Reported on 07/17/2022), Disp: , Rfl: Social History reports that she has been smoking cigarettes. She has a 11.25 pack-year smoking history. She has never used smokeless tobacco. Patient denies consuming alcoholic drinks. Environmental History What is your current living situtation?: House Where is your home located?: City What is the age of your home in years?: 50 How long have you lived in your home in years?: 2 How may people live in your home?: 5 Does your house have a basement?: No Do you have smokers in or outside the home?: Yes Do you have air conditioning in your home?: Yes Type of Air Conditioning?: Window Do you have forced air heat in your home?: Yes Type of Heating: Gas Do you have a fireplace in your home?: No Do you have a wood burning stove in your home?: No Do you vacuum your home?: No Do you use air purification systems?: No Do you have dust proof covers on your mattress and pillows?: No Do you use a humidifier in your home?: No Do you have pets in your home?: Yes How many pets do you have in your home?: 1 What kind of pets are in your home?: dog Where do your pets sleep?: in living room Do you use fabric softners?: No Do you have plants in your home?: No Do you have carpet in your bedroom?: No Do you have wall to wall carpet in your home?: No What is the age of your mattress in years?: 1 Family History Family History Problem Relation Age of Onset Cancer Other Heart disease Other Hypertension Other Diabetes Mother COPD Mother Hypertension Mother Heart disease Father COPD Father Hypertension Father Review of Symptoms All other review of systems are negative except noted in HPI. Reviewed patient's history and the review of systems. Physical Exam BP 109/73 (BP Location: Left arm, Patient Position: Sitting) Pulse 76 Temp 36.7 ??C (98 ??F) (Oral) Resp 18 Ht 154.9 cm (5' 0.98 ) Wt 92.6 kg (204 lb 3.2 oz) SpO2 100% BMI 38.61 kg/m?? General: WDWN, no acute distress Skin: No suspicious lesions Head: Normocephalic, atraumatic; no sinus tenderness Eyes: PERRLA, no scleral or conjunctival injection; no watery drainage Ears: External auditory canal clear; TMs normal in appearance Nose: Nasal mucosa pink; thick white rhinorrhea in right nasal cavity; no polyps visualized Throat: No oropharyngeal lesions; no thrush; no tonsillar hypertrophy Neck: Supple, no lymphadenopathy Lungs: Clear to auscultation bilaterally CV: Regular rate and rhythm, no murmurs Abdomen: Non tender non distended, no hepatosplenomegaly Extremities: No clubbing, cyanosis, or edema Laboratory Testing Recent Results (from the past 336 hour(s)) POC Influenza A/B, COVID-19 antigen Collection Time: 10/01/22 3:01 PM Result Value Ref Range Inflenza A Ag, POC Negative Negative Influenza B Ag, POC Negative Negative COVID-19 Ag POC Presumptive Negative Presumptive Negative, Invalid Erythrocyte sedimentation rate Collection Time: 10/02/22 3:03 PM Result Value Ref Range Erythrocyte sedimentation rate 42 (H) 1 - 20 mm/hr Thyroid peroxidase antibody (TPO) Collection Time: 10/02/22 3:03 PM Result Value Ref Range Anti Thyroid Peroxidase 88 (H) <=34 units/mL Galactose alpha 1,3 galactose IgE Collection Time: 10/02/22 3:03 PM Result Value Ref Range RAST, pvxjxovmy-lvdah-9,3-galactose <0.10 <0.70 kUnits/L IgE Collection Time: 10/02/22 3:03 PM Result Value Ref Range IgE 11.9 1.0 - 100.0 IUnits/mL CBC with auto differential Collection Time: 10/02/22 3:03 PM Result Value Ref Range WBC 10.2 (H) 3.8 - 9.9 K/cumm Hgb 13.5 11.9 - 15.5 g/dL Hct 41.2 35.6 - 45.5 % Plt 303 150 - 400 K/cumm MPV 9.6 9.1 - 12.3 fL RBC 4.59 3.90 - 5.20 M/cumm MCV 89.8 81.3 - 96.4 fL MCH 29.4 27.1 - 33.3 pg MCHC 32.8 32.3 - 35.7 g/dL RDW CV 14.6 11.1 - 14.9 % RDW SD 47.8 35.7 - 48.1 fL NRBC abs 0.00 0.00 - 0.01 K/cumm T4, free Collection Time: 10/02/22 3:03 PM Result Value Ref Range Free T4 0.85 (L) 0.90 - 1.70 ng/dL TSH Collection Time: 10/02/22 3:03 PM Result Value Ref Range Thyroid Stimulating Hormone 3.77 0.30 - 4.20 mcIUnit/mL Tryptase Collection Time: 10/02/22 3:03 PM Result Value Ref Range Tryptase Level 3.6 <11.5 ng/mL CRP (acute phase) Collection Time: 10/02/22 3:03 PM Result Value Ref Range CRP 34.0 (H) <=10.0 mg/L Comprehensive metabolic panel, without glucose (Outreach) Collection Time: 10/02/22 3:03 PM Result Value Ref Range Sodium 141 135 - 145 mmol/L Potassium, pl 3.7 3.3 - 4.9 mmol/L Chloride 103 97 - 110 mmol/L CO2 29 22 - 32 mmol/L Anion gap 9 2 - 15 mmol/L BUN 5 (L) 8 - 25 mg/dL Creatinine 0.66 0.60 - 1.10 mg/dL Calcium 9.5 8.5 - 10.3 mg/dL Protein, pl 7.9 6.5 - 8.5 g/dL Albumin 4.5 3.5 - 5.0 g/dL Bilirubin, total 0.4 0.1 - 1.2 mg/dL Alk phos 74 40 - 130 Units/L AST 18 10 - 45 Units/L ALT 27 7 - 45 Units/L Glucose, random (Outreach) Collection Time: 10/02/22 3:03 PM Result Value Ref Range Glucose 82 70 - 199 mg/dL Differential, auto Collection Time: 10/02/22 3:03 PM Result Value Ref Range Neutrophil abs 5.3 1.7 - 6.5 K/cumm Imm gran abs 0.1 0.0 - 0.1 K/cumm Lymphocyte abs 4.0 (H) 0.8 - 3.3 K/cumm Monocyte abs 0.5 0.2 - 0.8 K/cumm Eosinophil abs 0.3 0.0 - 0.5 K/cumm Basophil abs 0.0 0.0 - 0.1 K/cumm Neutrophil pct 51.8 % Imm gran pct 0.5 % Lymphocyte pct 39.1 % Monocyte pct 5.3 % Eosinophil pct 3.2 % Basophil pct 0.1 % eGFR Collection Time: 10/02/22 3:03 PM Result Value Ref Range eGFR >90 90 - 130 mL/min/1.73 m2 Fito Rdz is a 36 y.o. year old female with symptoms consistent with chronic urticaria, likely spontaneous. She has underlying chronic medical conditions that could be contributing to non-specific histamine release, including chronic back pain, migraines, and recurrent boils suspicious for hid radenitis suppurativa. Labwork checked today to screen for evidence of systemic inflammation did show elevated CRP and ESR. She also has abnormal thyroid function with positive thyroid antibodies. Alpha gal was also measured and was negative Tryptase level was normal and not indicative of mast cellactivation syndrome. (L50.8) Chronic urticaria (primary encounter diagnosis) (L50.9) Urticaria Plan: Ambulatory referral to Allergy, CRP (acute phase), Tryptase, TSH, T4, free, Comprehensive metabolic panel (Outreach), CBC with auto differential, IgE, Galactose alpha 1,3 galactose IgE, Thyroid peroxidase antibody (TPO), Erythrocyte sedimentation rate Recommendations - Start cetirizine 10mg BID, famotidine 20mg BID, Singulair 10mg qhs. Side effects reviewed. - Recommend Neurology referral for migraines, Dermatology for possible HS, Endocrinology for possible autoimmune thyroiditis New Medications Ordered This Visit cetirizine (ZyrTEC) 10 mg tablet Sig: Take 1 tablet (10 mg total) by mouth 2 (two) times a day Dispense: 60 tablet Refill: 3 famotidine (PEPCID) 20 mg tablet Sig: Take 1 tablet (20 mg total) by mouth 2 (two) times a day Dispense: 60 tablet Refill: 3 montelukast (SINGULAIR) 10 mg tablet Sig: Take 1 tablet (10 mg total) by mouth daily Dispense: 30 tablet Refill: 11 Follow up Return in about 2 months (around 12/02/2022). Patient notified of results via [facility] Jessenia Castrejon MD ICATION INTEGRATION SPECIALIST ICATION INTEGRATION SPECIALIST documented in this encounter Plan of Treatment Not on file documented as of this encounter Results * (ABNORMAL) Erythrocyte sedimentation rate (10/02/2022 3:03 PM APPLICATION INTEGRATION SPECIALIST) Pathologist [facility] Erythrocyte sedimentation rate 42(H) 1 - 20 mm/hr MECHELLE HERNANDEZ Blood 10/02/2022 3:03 PM APPLICATION INTEGRATION SPECIALIST 10/02/2022 4:12 PM APPLICATION INTEGRATION SPECIALIST us Jessenia Castrejon MD LAB BLOOD ORDERABLES Final Result [facility] Department of Laboratories [place], [place] [id number] * (ABNORMAL) Thyroid peroxidase antibody (TPO) (10/02/2022 3:03 PM APPLICATION INTEGRATION SPECIALIST) Pathologist [facility] Anti Thyroid Peroxidase 88(H) <=34 units/mL [facility] Comment: ATPO Interpretive Data Results may be up to 28% higher in patients receiving Itraconazole. Current interpretive data was last revised 2021. Blood 10/02/2022 3:03 PM APPLICATION INTEGRATION SPECIALIST 10/02/2022 4:12 PM APPLICATION INTEGRATION SPECIALIST Jessenia Castrejon MD LAB BLOOD ORDERABLES Final Result Performing Organization Address [facility] Co de Phone Number [facility] Department [place] [address] * Galactose alpha 1,3 galactose IgE (10/02/2022 3:03 PM APPLICATION INTEGRATION SPECIALIST) [facility] RAST, gowclafqc-bwhxl-0 ,3-galactose <0.10 <0.70 kUnits/L [facility] Comment: Class 0 (Negative <0.10) Test Performed by: [facility] [address] [place] [address] Sock Lining Examiner: Patrick Borja M.D. Ph.D.; CLIA# [id number] Blood 10/02/2022 3:03 PM APPLICATION INTEGRATION SPECIALIST 10/02/2022 5:04 PM APPLICATION INTEGRATION SPECIALIST Jessenia Castrejon MD LAB BLOOD ORDERABLES Final Result [facility] [place] [address] * IgE (10/02/2022 3:03 PM APPLICATION INTEGRATION SPECIALIST) [facility] IgE 11.9 1.0 - 100.0 IUnits/mL [facility] Blood 10/02/2022 3:03 PM APPLICATION INTEGRATION SPECIALIST 10/02/2022 4:12 PM APPLICATION INTEGRATION SPECIALIST Jessenia Castrejon MD LAB BLOOD ORDERABLES Final Result Performing Organization Address City/[facility]/ZIP Co de Phone Number [facility] [place] [address] * (ABNORMAL) CBC with auto differential (10/02/2022 3:03 PM APPLICATION INTEGRATION SPECIALIST) WBC 10.2(H) 3.8 - 9.9 K/cumm [facility] Hgb 13.5 11.9 - 15.5 g/dL [facility] Hct 41.2 35.6 - 45.5 % [facility] Plt 303 150 - 400 K/cumm [facility] MPV 9.6 9.1 - 12.3 fL [facility] RBC 4.59 3.90 - 5.20 M/cumm [facility] MCV 89.8 81.3 - 96.4 fL [facility] MCH 29.4 27.1 - 33.3 pg [facility] MCHC 32.8 32.3 - 35.7 g/dL [facility] RDW CV 14.6 11.1 - 14.9 % [facility] RDW SD 47.8 35.7 - 48.1 fL [facility] NRBC abs 0.00 0.00 - 0.01 K/cumm [facility] Blood 10/02/2022 3:03 PM APPLICATION INTEGRATION SPECIALIST 10/02/2022 4:12 PM APPLICATION INTEGRATION SPECIALIST Jessenia Castrejon MD LAB BLOOD ORDERABLES Final Result [facility] Department [place] [address] * (ABNORMAL) T4, free (10/02/2022 3:03 PM APPLICATION INTEGRATION SPECIALIST) Free T4 0.85(L) 0.90 - 1.70 ng/dL [facility] Blood 10/02/2022 3:03 PM APPLICATION INTEGRATION SPECIALIST 10/02/2022 4:12 PM APPLICATION INTEGRATION SPECIALIST Jessenia Castrejon MD LAB BLOOD ORDERABLES Final Result Performing Organization Address City/[facility] Co de Phone Number [facility] [place] [address] * TSH (10/02/2022 3:03 PM APPLICATION INTEGRATION SPECIALIST) Thyroid Stimulating Hormone 3.77 0.30 - 4.20 mcIUnit/mL [facility] Blood 10/02/2022 3:03 PM APPLICATION INTEGRATION SPECIALIST 10/02/2022 4:12 PM APPLICATION INTEGRATION SPECIALIST Jessenia Castrejon MD LAB BLOOD ORDERABLES Final Result Performing Organization Address [facility] [place] [address] * Tryptase (10/02/2022 3:03 PM APPLICATION INTEGRATION SPECIALIST) Tryptase Level 3.6 <11.5 ng/mL [facility] Comment: Test Performed by: [facility] [address] [place] [address] Sock Lining Examiner: Patrick Borja M.D. Ph.D.; CLIA# [id number] Blood 10/02/2022 3:03 PM APPLICATION INTEGRATION SPECIALIST 10/02/2022 6:09 PM APPLICATION INTEGRATION SPECIALIST Jessenia Castrejon MD LAB BLOOD ORDERABLES Final Result Performing Organization Address [facility] Co de Phone Number [place], [place] [id number] * (ABNORMAL) CRP (acute phase) (10/02/2022 3:03 PM APPLICATION INTEGRATION SPECIALIST) CRP 34.0(H) <=10.0 mg/L [facility] Blood 10/02/2022 3:03 PM APPLICATION INTEGRATION SPECIALIST 10/02/2022 4:12 PM APPLICATION INTEGRATION SPECIALIST us Jessenia Castrejon MD LAB BLOOD ORDERABLES Final Result [facility] HERNANDE[facility] Department [place] [address] documented in this encounter Visit Diagnoses Diagnosis Chronic urticaria- Primary Other specified urticaria Urticaria Unspecified urticaria documented in this encounter Discontinued Medications Medication Sig Discontinue Reason Start Date End Da te HYDROcodone-acetaminophe n (NORCO) 5-325 mg per tabletIndications:Pain Take 1 tablet by mouth every 6 (six) hours as needed for pain Therapy completed 09/17/2021 10/02/2022 levocetirizine (XYZAL) 5 mg tablet Take 5 mg by mouth every evening 10/02/2022 famotidine (PEPCID) 20 mg tablet Take 1 tablet (20 mg total) by mouth 2 (two) times a day Reorder 07/21/2021 10/02/2022 documented as of this encounter Orders Outpatient Referral Count Last Ordered Date Fir st Ordered Date AMB REFERRAL TO ALLERGY 1 10/02/2022 documented in this encounter Care Teams Wash Plant Operator Relationship Specialty Start Date End Date Mikey Olea MD [address] [place] [address] PCP - General Family Medicine 07/17/22 Xiomy Kaur NP [address] [place] [address] Nurse Practitioner 06/28/21 documented as of this encounter
--- OUTSIDE RECORDS SUMMARY | 2024-11-14 20:50 | XMS_ITS | Encounter Summary ---
Author Organization [facility] Address [address] [place] [address] Phone Care Team Providers Care Manager Community Outreach Name Role Phone Kaur, Xiomy Moss ORDNANCE OFFICER Unavailable [phone] Mikey Olea MD Primary Care Provider Reason for Visit * Consultation (Routine) - Closed Specialty Diagnoses / Procedures Referred By Contac t Referred To Contact Allergy Diagnoses Urticaria Mikey Olea MD [address] [place] [address] Phone: tel: fax: [facility] (All Locations) Referral ID Status Reason Start Date Expiration Date V isits Requested Visits Authorized [id number] Closed Specialty Services Required 09/25/2022 08/22/2023 12 12 Encounter Details Date Type Department Care Team (Late st Contact Info) Description 12/11/2022 3:00 PM LICENSING DIRECTOR Telemedicine [facility] Allergy and Immunology [address] [place] [address] Jessenia Castrejon MD [address] [place] [address] Chronic urticaria (Primary Dx) Social History Tobacco [...] on file Legal Sex Female 4:09 PM LICENSING DIRECTOR Gender Identity Female 06/02/2024 9:46 PM CDT Sexual Orientation Straight 06/02/2024 9: 46 PM CDT documented as of this encounter Progress Notes * Cash, Jessenia James MD - 12/11/2022 3:00 PM CST Reason for Visit: Follow up chronic urticaria History of Present Illness: Ashley Rdz is a 37 y.o. year old female presenting for follow up of chronic urticaria. She was seen for an initial visit 10/02/22. She presented with history of recurrent urticaria x 3 years. Also reported a history of HS, migraines. Checked for mast cell activation, which was negative. Alpha gal was negative. She had abnormal thyroid function and +thyroid antibodies. Advised to use cetirizine BID, famotidine BID, and Singulair. She has been doing very well since implementing this regimen. She does notice when she misses dosesof her medications, she has recurrence of itching. She has been able to dc Pepcid, only taking prn heartburn. She has an upcoming appointment with Endocrine. She notes that since starting this regimen, she has not really had any boils. Problem List Patient Active Problem List [...] known allergies. Current Medications Current Outpatient Medications: cetirizine (ZyrTEC) 10 mg tablet, Take 1 tablet (10 mg total) by mouth 2 (two) times a day, Disp: 60 tablet, Rfl: 3 cholecalciferol (VITAMIN D-3) 5,000 unit tablet, Take [...] total) daily., Disp: 90 capsule, Rfl: 0 montelukast (SINGULAIR) 10 mg tablet, Take 1 [...] taking: Reported on 07/17/2022), Disp: , Rfl: rosuvastatin (CRESTOR) 10 mg tablet, Take 1 tablet (10 mg total) by mouth daily, Disp: 90 tablet, Rfl: 1 Social History reports that she has been smoking cigarettes. She has a 11.25 pack-year smoking history. She has never used smokeless tobacco. Patient denies consuming alcoholic drinks. Family History [...] normal mood Impression Ashley Rdz is a 37 y.o. year old female with symptoms consistent [...] syndrome. (L50.8) Chronic urticaria (primary encounter diagnosis) Recommendations - Continue cetirizine 10mg BID, Singulair 10mg qhs. - Only needs Pepcid prn reflux - Endocrinology appt pending for possible autoimmune thyroiditis No orders of the defined types were placed in this encounter. Follow up Return in 13 weeks (on 03/12/2023) for Next scheduled follow up. Jessenia Castrejon MD This was a telemedicine visit with Ashley Rdz alone which took place via Real-time video connection ([employer], Zoom or similar). During the visit, I was located in the office and the patient was located at home in the state [facility]. The patient visit started at 3:18pm and ended at 3:30pm. My total encounter time on 12/11/2022 was 20 minutes which was spent in the activities documented in the note. This includes time spent prior to the visit and after the visit in direct care of the patient. This time does not include time spent in any separately reportable services. The patient: has been informed that the visit may not be secure and acknowledged the information. The option of participating in a telephone or video visit during the COVID-19 public health emergencywas explained to them. After being given an opportunity to ask questions about and discuss this type of visit, they verbally consented to proceeding with the telephone/video visit and understand thatthis service replaces an office visit. NSING DIRECTOR documented in this encounter Plan of Treatment Not on file documented as of this encounter Visit Diagnoses Diagnosis Chronic urticaria- Primary Other specified urticaria documented in this encounter Care Teams Manager Community Outreach Relationship Specialty Start Date End Date Mikey Olea MD [address] [place] [address] PCP - General Family Medicine 07/17/22 Xiomy Kaur NP [address] [place] [address] Nurse Practitioner 06/28/21 documented as of this encounter
--- OUTSIDE RECORDS SUMMARY | 2024-11-14 20:50 | XMS_ITS | Encounter Summary ---
Author Organization [facility] Address [address] [place] [address] Care Team Providers Care Spindle Setter Name Role Phone Xiomy Kaur NP Primary Care Provider [phone] Xiomy Kaur SENIOR HEALTH PHYSICS TECHNICIAN Unavailable [phone] Encounter Details Date Type Department Care Team (Latest Contact Info) Description 09/18/2021 5:58 AM CDT - 09/18/2021 11:09 AM CDT Hospital Encounter [facility] Operating Room [address] [place] [address] Jonel Ley MD [address] [place] [address] [place] [address] Pre-operative clearance (Primary Dx) Discharge Disposition: Discharge to home or self care Social History Tobacco Use Types Packs/Day Years Used Date Smoking Tobacco: Every Day Cigarettes 0.1 15 Smokeless Tobacco: Never Tobacco Cessation:Ready to Q uit: No; Counseling Given: Yes AUDIT-C Answer Date Recorded Q1: How often do you have a drink containing alc ohol? 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 Gender Identity Female 06/02/2024 9:46 PM CDT Sexual Orientation Straight 06/02/2024 9: 46 PM CDT documented as of this encounter Last Filed Vital Signs Vital Sign Reading Time Taken Comments Blood Pressure 112/55 09/18/2021 10:48 AM CDT Pulse 82 09/18/2021 10:48 AM CDT Temperature 36.1 ??C (96.9 ??F) 09/18/2021 9:33 AM CD T Respiratory Rate 16 09/18/2021 10:4 8 AM CDT Oxygen Saturation 95% 09/18/2021 10: 48 AM CDT Inhaled Oxygen Concentration - - Weight 92.9 kg (204 lb 12.9 oz) 09/18/2021 6:14 AM CDT Height 154.9 cm (5' 1 ) 09/18/2021 6:14 AM CDT Body Mass Index 38.7 09/18/2021 6:14 AM CDT documented in this encounter Discharge Diagnoses Diagnosis Carpal tunnel syndrome, right upper limb - CARPAL TUNNEL SYNDROME, RIGHT UPPER LIMB Lesion of ulnar nerve, right upper limb - LESION OF ULNAR NERVE, RIGHT UPPER LIMB Pure hypercholesterolemia, unspecified - PURE HYPERCHOLESTEROLEMIA, UNSPECIFIED Hypothyroidism, unspecified - HYPOTHYROIDISM, UNSPECIFIED Obesity, unspecified - OBESITY, UNSPECIFIED Gastro-esophageal reflux disease without esophagitis - GASTRO-ESOPHAGEAL REFLUX DISEASE WITHOUT ESOPHAGITIS Unspecified osteoarthritis, unspecified site - UNSPECIFIED OSTEOARTHRITIS, UNSPECIFIED SITE Nicotine dependence, cigarettes, uncomplicated - NICOTINE DEPENDENCE, CIGARETTES, UNCOMPLICATED [facility] (current) use of non-steroidal anti-inflammatories (nsaid) - [facility] (CURRENT) USE OF NON-STEROIDAL ANTI-INFLAMMATORIES (NSAID) [facility] (current) use of systemic steroids - [facility] (CURRENT) USE OF SYSTEMIC STEROIDS Other custodial (current) drug therapy - OTHER [facility] (CURRENT) DRUG THERAPY Body mass index (BMI) 38.0-38.9, adult - BODY MASS INDEX [BMI] 38.0-38.9, ADULT Family history of ischemic heart disease and other diseases of the circulatory system - FAMILY HISTORY OF ISCHEMIC HEART DISEASE AND OTHER DISEASES OF THE CIRCULATORY SYSTEM documented in this encounter Discharge Instructions * Attachments The following attachments cannot be sent through Care Everywhere. * General Anesthesia (Discharge Care) (Hungarian) * Ascorbic Acid (Vitamin C) (By mouth) (Hungarian) * Hydrocodone/Acetaminophen (By mouth) (Hungarian) * Ondansetron (By mouth, Into the mouth) (Hungarian) * How to Stop Smoking (Discharge Care) (Hungarian) documented in this encounter Medications at Time of Discharge ascorbic acid (VITAMIN C) 500 mg tablet,chewable Take 1 tablet/chew tab (500 mg total) by mouth 2 (two) times a day 30 tablet/chew tab 09/17/2021 1 ergocalciferol (VITAMIN D) 50,000 unit capsule TAKE 1 CAPSULE BY MOUTH ONCE A WEEK 06/06/2021 2 famotidine (PEPCID) 20 mg tablet Take 1 tablet (20 mg total) by mouth 2 (two) times a day 07/21/2021 2 gabapentin (NEURONTIN) 300 mg capsule TAKE 1 CAPSULE BY MOUTH NIGHTLY 07/20/2021 2 hydroCHLOROthiaz nba (HYDRODIURIL) 12.5 mg tablet Take 12.5 mg by mouth daily 05/01/2021 2 HYDROcodone-acet aminophen (NORCO) 5-325 mg per tabletIndication s:Pain Take 1 tablet by mouth every 6 (six) hours as needed for pain 13 tablet 09/17/2021 2 levocetirizine (XYZAL) 5 mg tablet Take 5 mg by mouth every evening 2 levothyroxine (SYNTHROID) 25 mcg tablet Take 25 mcg by mouth data consultant before breakfast 2 ondansetron (ZOFRAN) 4 mg tabletIndication s:Prevention of Post-Operative Nausea and Vomiting Take 1 tablet (4 mg total) by mouth every 6 (six) hours as needed for nausea or vomiting 20 tablet 1 09/17/2021 4 potassium chloride ER (KLOR-CON) 10 mEq CR tablet Take 10 mEq by mouth daily 4 documented as of this encounter Ordered Prescriptions Prescription Sig Dispense Quantity Refills Last Filled Start Date End Date ondansetron (ZOFRAN) 4 mg tabletIndications: Prevention of Post-Operative Nausea and Vomiting Take 1 tablet (4 mg total) by mouth every 6 (six) hours as needed for nausea or vomiting 20 tablet 1 09/17/2021 4 HYDROcodone-acetam inophen (NORCO) 5-325 mg per tabletIndications: Pain Take 1 tablet by mouth every 6 (six) hours as needed for pain 13 tablet 09/17/2021 2 ascorbic acid (VITAMIN C) 500 mg tablet,chewable Take 1 tablet/chew tab (500 mg total) by mouth 2 (two) times a day 30 tablet/chew tab 09/17/2021 1 documented in this encounter Discharge Disposition Disposition Code Departure Means Destination Discharge to home or self care documented in this encounter H&P Notes * Jonel Ley MD - 09/18/2021 7:30 AM CDT I have reviewed the H&P, examined the patient, and endorse the findings as written. Plan of Care : Based on the above findings, I consider Ashley Rdz to be an acceptable risk for: Procedure(s): Right carpal tunnel release and transpostion ulnar nerve at elbow hand table Source Note - Galo Islas PA - 09/12/2021 11:21 AM CDT CHIEF COMPLAINT She had concerns including Pain of the Right Wrist. ?? HISTORY OF PRESENT ILLNESS Right wrist pain for the past years. Gotten worse the past 1 year. Note started the problem. Pain is achy moderate. Using live consult makes her better using a time makes it worse her pain is activity related she has night pain. She has tried braces she has a positive nerve conduction study she is a smoker and she like discuss surgical options re for surgical consultation reports because complaint is her last 3 fingers Crumb Packer completed by using M*Modal Fluency Direct speaking software, therefore, transcriptionvariances may occur. ? Pain Assessment Pain Assessment: 0-10 Pain Score: 6 Pain Location: Wrist Pain Orientation: Right Pain Descriptors: Aching Pain Frequency: With movement/cough ?? PAST MEDCIAL HISTORY She has a past medical history of Depression, Hypercholesteremia, Migraines, and Thyroid disease. ?? PAST SURGICAL HISTORY She has a past surgical history that includes Tubal ligation. ?? MEDICATIONS She has a current medication list which includes the following prescription(s): cyclobenzaprine, ergocalciferol, euthyrox, famotidine, gabapentin, hydrochlorothiazide, ketorolac, meloxicam, methylprednisolone, and nicotine. ?? ALLERGIES She has No Known Allergies. ?? SOCIAL HISTORY She reports that she has been smoking. She has never used smokeless tobacco. ?? FAMILY HISTORY Her family history includes Cancer in an other family member; Heart disease in an other family member; Hypertension in an other family member. ?? REVIEW OF SYSTEMS Review of Systems Constitutional: Negative for activity change, appetite change, chills and fever. HENT: Negative for congestion, dental problem, ear pain, hearing loss and voice change. Eyes: Negative for pain and visual disturbance. Respiratory: Negative for apnea, cough, chest tightness and shortness of breath. Cardiovascular: Positive for leg swelling. Negative for chest pain and palpitations. Gastrointestinal: Negative for blood in stool, constipation, diarrhea, nausea and vomiting. Endocrine: Negative for cold intolerance and heat intolerance. Genitourinary: Negative for difficulty urinating and hematuria. Skin: Negative for color change, rash and wound. Allergic/Immunologic: Negative for environmental allergies. Neurological: Positive for headaches. Negative for dizziness, syncope and numbness. Hematological: Negative for adenopathy. Does not bruise/bleed easily. Psychiatric/Behavioral: Negative for confusion. The patient is not nervous/anxious and is not hyperactive. ? Objective PHYSICAL EXAM BP 118/78 Pulse 80 Ht 158.8 cm (5' 2.5 ) Wt 93.9 kg (207 lb) BMI 37.26 kg/m?? Right elbow ?? Neurovascular Median: paresthesias Ulnar: parethesias ?? Tests Tinel's sign: positive ? Right hand/wrist ?? Inspection The patient has normal inspection of the right hand and wrist. ?? Palpation The patient has normal palpation of the right hand and wrist. ?? Range of motion The patient has normal range of motion of the right wrist. The patient does not have pain with range of motion of the right wrist. Th patient has normal range of motion of the fingers on the right hand. The patient does not have pain with range of motion of the right fingers. ?? Stability The patient has normal stability of the right hand and wrist. ?? Strength The patient has 5/5 strength throughout with exceptions as noted below. Poultry Tender: 4/5 ?? Neurovascular The patient has normal vascular on the right side of their body. The patient has normal sensation on the right side of their body. ?? Test Phalen's sign: positive Tinel's sign: positive ? Left hand/wrist The patient has normal inspection, palpation, range of motion, strength, and stability of the left hand and wrist. ?? Strength The patient has 5/5 strength throughout with exceptions as noted below. ? REVIEW OF X-RAYS/STUDIES/LABS No fractures or dislocations or other osseous abnormalities. ? Assessment ? Assessment/Plan Ashley was seen today for pain. ?? Diagnoses and all orders for this visit: ?? Cubital tunnel syndrome on right ?? Carpal tunnel syndrome of right wrist ?? Smoker ? Procedures ?? PLAN I discussed the nature of the patient's condition in clinic today. Patient has tried conservative management for ulnar nerve entrapment at elbow and carpal tunnel syndrome. We discussed carpal tunnelrelease, ulnar nerve release at elbow. Risks and benefits of the surgery were discussed with the patient. These include but are not limited to bleeding, infection, damage to surrounding structures including nerves, and vessels, DVT, PE, stroke, heart attack, and . Patient understands these risks and agreed to proceed with the surgery as described above. All questions and concerns were addressed with the patient prior to surgical consent being established in the office today. The patient janie l follow up for surgery. ?? Reviewed and no changes to surgical plan since patient was last evaluated and consent was established. KEYONA Khanna Cosigned by Jonel Ley MD at 09/12/2021 11:35 AM CDT * Galo Islas PA - 09/12/2021 11:21 AM CDT CHIEF COMPLAINT She had concerns including Pain of the Right Wrist. ?? HISTORY OF PRESENT ILLNESS Right wrist pain for the past years. Gotten worse the past 1 year. Note started the problem. Pain is achy moderate. Using live consult makes her better using a time makes it worse her pain is activity related she has night pain. She has tried braces she has a positive nerve conduction study she is a smoker and she like discuss surgical options re for surgical consultation reports because complaint is her last 3 fingers Crumb Packer completed by using M*Modal Fluency Direct speaking software, therefore, transcriptionvariances may occur. ? Pain Assessment Pain Assessment: 0-10 Pain Score: 6 Pain Location: Wrist Pain Orientation: Right Pain Descriptors: Aching Pain Frequency: With movement/cough ?? PAST MEDCIAL HISTORY She has a past medical history of Depression, Hypercholesteremia, Migraines, and Thyroid disease. ?? PAST SURGICAL HISTORY She has a past surgical history that includes Tubal ligation. ?? MEDICATIONS She has a current medication list which includes the following prescription(s): cyclobenzaprine, ergocalciferol, euthyrox, famotidine, gabapentin, hydrochlorothiazide, ketorolac, meloxicam, methylprednisolone, and nicotine. ?? ALLERGIES She has No Known Allergies. ?? SOCIAL HISTORY She reports that she has been smoking. She has never used smokeless tobacco. ?? FAMILY HISTORY Her family history includes Cancer in an other family member; Heart disease in an other family member; Hypertension in an other family member. ?? REVIEW OF SYSTEMS Review of Systems Constitutional: Negative for activity change, appetite change, chills and fever. HENT: Negative for congestion, dental problem, ear pain, hearing loss and voice change. Eyes: Negative for pain and visual disturbance. Respiratory: Negative for apnea, cough, chest tightness and shortness of breath. Cardiovascular: Positive for leg swelling. Negative for chest pain and palpitations. Gastrointestinal: Negative for blood in stool, constipation, diarrhea, nausea and vomiting. Endocrine: Negative for cold intolerance and heat intolerance. Genitourinary: Negative for difficulty urinating and hematuria. Skin: Negative for color change, rash and wound. Allergic/Immunologic: Negative for environmental allergies. Neurological: Positive for headaches. Negative for dizziness, syncope and numbness. Hematological: Negative for adenopathy. Does not bruise/bleed easily. Psychiatric/Behavioral: Negative for confusion. The patient is not nervous/anxious and is not hyperactive. ? Objective PHYSICAL EXAM BP 118/78 Pulse 80 Ht 158.8 cm (5' 2.5 ) Wt 93.9 kg (207 lb) BMI 37.26 kg/m?? Right elbow ?? Neurovascular Median: paresthesias Ulnar: parethesias ?? Tests Tinel's sign: positive ? Right hand/wrist ?? Inspection The patient has normal inspection of the right hand and wrist. ?? Palpation The patient has normal palpation of the right hand and wrist. ?? Range of motion The patient has normal range of motion of the right wrist. The patient does not have pain with range of motion of the right wrist. Th patient has normal range of motion of the fingers on the right hand. The patient does not have pain with range of motion of the right fingers. ?? Stability The patient has normal stability of the right hand and wrist. ?? Strength The patient has 5/5 strength throughout with exceptions as noted below. Poultry Tender: 4/5 ?? Neurovascular The patient has normal vascular on the right side of their body. The patient has normal sensation on the right side of their body. ?? Test Phalen's sign: positive Tinel's sign: positive ? Left hand/wrist The patient has normal inspection, palpation, range of motion, strength, and stability of the left hand and wrist. ?? Strength The patient has 5/5 strength throughout with exceptions as noted below. ? REVIEW OF X-RAYS/STUDIES/LABS No fractures or dislocations or other osseous abnormalities. ? Assessment ? Assessment/Plan Ashley was seen today for pain. ?? Diagnoses and all orders for this visit: ?? Cubital tunnel syndrome on right ?? Carpal tunnel syndrome of right wrist ?? Smoker ? Procedures ?? PLAN I discussed the nature of the patient's condition in clinic today. Patient has tried conservative management for ulnar nerve entrapment at elbow and carpal tunnel syndrome. We discussed carpal tunnelrelease, ulnar nerve release at elbow. Risks and benefits of the surgery were discussed with the patient. These include but are not limited to bleeding, infection, damage to surrounding structures including nerves, and vessels, DVT, PE, stroke, heart attack, and . Patient understands these risks and agreed to proceed with the surgery as described above. All questions and concerns were addressed with the patient prior to surgical consent being established in the office today. The patient janie l follow up for surgery. ?? Reviewed and no changes to surgical plan since patient was last evaluated and consent was established. KEYONA Khanna Cosigned by Jonel Ley MD at 09/12/2021 11:35 AM CDT documented in this encounter Miscellaneous Notes * Perioperative Nursing Note - Geeta Martell RN - 09/18/2021 11:09 AM CDT Patient discharged per wheelchair to home with all of belongings and ice packs X2. Ambulating without difficulty. Voiding without difficulty.IV removed, tip intact. Rating pain to surgical site as a 1, states is tolerable. Tolerating PO well, denies nausea. Vital signs stable. Dressing to RUE, clean dry and intact. Digits to RUE, pink in color, warm to touch, movement and sensation noted. Discharge instructions reviewed with patient and patient's significant other. * Op Note - Jonel Ley MD - 09/18/2021 8:00 AM CDT Images from the original note were not included. Operative Report SURGEON: Jonel Ley MD Lead Military Analyst: Hyun Cox RN Scrub: Emilia Mitchell RN ELECTRONIC SECURITY TECHNICIAN: Sonja Garcia CRNFA MD ASST: Alfred To PA SURGICAL TEAM: Surgeon(s) and Role: * Jonel Ley MD - Primary DATE OF SURGERY : 09/18/2021 PREOPERATIVE DIAGNOSIS: See preoperative H and P POSTOPERATIVE DIAGNOSIS: Post-op Diagnosis * Carpal tunnel syndrome on right [G56.01] * Cubital tunnel syndrome on right [G56.21] PROCEDURE: Right carpal tunnel release and transpostion ulnar nerve at elbow (R) ANESTHESIA: General IMPLANTS: Nothing was implanted during the procedure Estimated Blood Loss: No blood loss documented. Operation in detail: INDICATION Patient failed conservative management of hand numbness and tingling of ulnar nerve entrapment at the elbow, and carpal tunnel syndrome in hand patient elected to have theabove-named procedure. Informed consent obtained from the patient. The patient understood the risks and benefits of the procedure including, not limited to , stroke, bleeding, infection, damage to nerves, arteries, veins; loss of limb, loss of life, need for additional procedures. Informed consent was obtained and signed. OPERATION IN DETAIL The patient had general anesthesia performed. The upper extremity was cleaned with alcohol and prepped and draped in standard sterile technique with ChloraPrep. Standard timeout was performed. Operative extremity identified and also marked preoperatively, marked for standard carpal tunnel release at the wrist and standard ulnar nerve release at the elbow. Arm was exsanguinated. Tourniquet was inflated. Skin incision at elbow made, careful dissection down to ulnar nerve under direct Visualization the ulnar nerve was released proximally and distally with direct visualization. Once complete cubital tunnel release was performed the nerve was inspected. Attention was turned to the hand skin incision was made and careful dissection down to the transverse carpal ligament was performed under direct visualization the transverse carpal ligament was released proximally and distally including the deep fascia of the forearm the wound was irrigated the proximal aspect of the incision was injected with lidocaine and then closed in the hand. The elbow was closed with 3-0 Vicryl, 4-0 Monocryl. Mastisol, Steri-Strips, Xeroform, OpSite dressing placed, cast padding and Francisco Javier was placed. Patient extubated and taken to recovery room in stable condition. Needle counts, sponge counts correct at the end of the case. POSTOPERATIVE PLAN Patient to follow standard postop protocol. Thank you for allowing me to participate in this patient's care. Crumb Packer completed by using M*Modal Fluency Direct speaking software, therefore, transcriptionvariances may occur. Complications: None Condition on Discharge from the operating room was stable Jonel Ley MD Date: 09/18/2021 Time: 9:47 AM * Perioperative Nursing Note - Hannah Caruso RN - 09/10/2021 3:36 PM CDT Covid screening on 09-16-21. * Pre-Procedure Instructions - Hannah Caruso RN - 09/10/2021 3:33 PM CDT We are pleased that you and your doctor have chosen [facility] for your surgery. We hope that the following information will help make your visit a pleasant one. Surgery Date: 09/18/2021 Before your surgery: ?? Notify your doctor of ANY change in your health such as a cold, sore throat, fever, any infection or a change in the problem for which you are having your surgery. ?? Follow any instructions given to you by your doctor or surgeon. One week before surgery STOP taking: ?? All herbal supplements ?? Aspirin (not ordered by your doctor) ?? Aleve, Advil, Motrin, Ibuprofen, or other similar medications (Tylenol is okay). 24 hours before your surgery: ?? No smoking or alcoholic drinks. Night before your surgery: ?? Do not eat or drink anything after midnight. ?? Follow surgeon's instructions for anti-bacterial shower night before and morning of surgery. Day of surgery: ?? Do not swallow any water when you brush your teeth. ?? ONLY take these pills with a tiny sip of water. Pre-Surgery Instructions: Medication Instructions ? Use no make-up, nail mosotho, lotions, oils or powders on your skin. ?? Wear comfortable clothes that will not be tight in the area of your surgery. ?? Leave all valuables and jewelry (including all body piercing jewelry) at home. ?? Please bring your a photo ID and insurance cards with you. ?? Check in at the Registration Desk. After your Outpatient Surgery: ?? You must have a responsible adult to drive you home, you will not be allowed to drive or take a cab home. ?? We recommend you have someone stay with you for 24 hours after your surgery. What to bring if you are spending the night with us: ?? Bring toiletry items such as: robe, slippers, toothbrush, toothpaste, brush or comb. ?? Bring contact lens, hearing aids, glass cases and denture container if you use any of these items. ?? The hospital will provide you with a gown. Questions or concerns: ?? If you have any questions or concerns regarding your procedure, contact your surgeon as soon as possible. ?? If you have questions regarding your Pre-Admission Testing, please call us. We can be reached atthe number posted at the top of the page. documented in this encounter Plan of Treatment Not on file documented as of this encounter Procedures Procedure Name Priority Date/Time Associated Diagnosis Comments RELEASE CARPAL TUNNEL 09/18/2021 7:38 AM CDT Carpal tunnel syndrome on right Cubital tunnel syndrome on right Special Needs hand table POTASSIUM, WHOLE BLOOD STAT 09/18/2021 6:55 AM CDT documented in this encounter Results * Potassium, whole blood (09/18/2021 6:55 AM CDT) Potassium, bld 3.3 3.3 - 4.9 mmol/L MECHELLE NINO (MARTIN) Comment: Interpretive Data Unable to assess hemolysis. ??Invitro hemolysis causes falsely elevated potassium. Current Interpretive Data was last revised on 2020. Blood 09/18/2021 6:55 AM CDT 09/18/2021 7:07 AM CDT us Rand Walker MD LAB BLOOD ORDERABLES [facility] al Result MECHELLE NINO (MARTIN) 1 [facility] [place] [address] documented in this encounter Visit Diagnoses Diagnosis Pre-operative clearance- Primary Unspecified pre-operative examination Carpal tunnel syndrome of right wrist Cubital tunnel syndrome on right documented in this encounter Admitting Diagnoses Diagnosis Carpal tunnel syndrome of right wrist Cubital tunnel syndrome on right documented in this encounter Administered Medications Inactive Administered Medications - up to 3 most recent administrations Medication Order MAR Action Action Date Dose Rate Site acetaminophen (TYLENOL) tablet 1,000 mg 1,000 mg, oral, Once, On Fri09/18/21 at 0645, For 1 dose, Pre-Op, Indications: Pre-Emptive AnalgesiaIndications:Pre-Emptive Analgesia Given 09/18/2021 6:56 AM CDT 1,000 mg celecoxib (CeleBREX) capsule 200 mg 200 mg, oral, Once, On Fri09/18/21 at 0645, For 1 dose, Pre-Op, Indications: Pre-Emptive AnalgesiaIndications:Pre-Emptive Analgesia Given 09/18/2021 6:56 AM CDT 200 mg HYDROcodone-acetaminophen (NORCO) 5-325 mg per tablet 1 tablet 1 tablet, oral, Once, On Fri09/18/21 at 1015, For 1 dose, Pre-Op, Indications: PainIndications:Pain Given 09/18/2021 9:49 AM CDT 1 tablet Lactated Ringer's (LR) infusion 30 mL/hr, intravenous, Continuous, Starting on Fri09/18/21 at 0645, Pre-Op Restarted 09/18/2021 7:39 AM CDT Rate/Dose Verify 09/18/2021 7:38 AM CDT 30 mL/h r New Bag 09/18/2021 6:56 AM CDT 30 mL/hr 30 mL/hr Lactated Ringer's (LR) infusion 125 mL/hr, intravenous, Continuous, Starting on Fri09/18/21 at 0900, Phase I documented in this encounter Discontinued Medications Medication Sig Discontinue Reason Start Date End Da te acetaminophen-codeine (TYLENOL with CODEINE #3) 300-30 mg per tabletIndications:Pain Take 1 tablet by mouth every 4 (four) hours as needed for pain (1 tablet for mild to moderate pain or 2 tablets for severe pain). Therapy completed 01/05/2018 09/10/2021 cyclobenzaprine (FLEXERIL) 5 mg tablet TAKE 1 TABLET BY MOUTH THREE TIMES DAILY NEEDED FOR MUSCLE SPASMS Therapy completed 07/03/2021 09/10/2021 ergocalciferol (VITAMIN D) 50,000 unit capsule TAKE 1 CAPSULE BY MOUTH ONCE A WEEK Duplicate order 06/06/2021 09/10/2021 Euthyrox 25 mcg tablet TAKE 1 TABLET BY MOUTH ONCE DAILY IN THE MORNING Duplicate order 06/06/2021 09/10/2021 gabapentin (NEURONTIN) 300 mg capsule Take 1 capsule (300 mg total) by mouth nightly Duplicate order 07/20/2021 09/10/2021 hydroCHLOROthiazide (HYDRODIURIL) 12.5 mg tablet Take 12.5 mg by mouth daily Duplicate order 05/01/2021 09/10/2021 HYDROcodone-acetaminop hen (NORCO) 5-325 mg per tablet TAKE 1 TO 2 TABLETS BY MOUTH EVERY 4 HOURS NEEDED FOR MODERATE TO SEVERE PAIN. NO MORE THAN 8 TABLETS PER DAY. Therapy completed 05/12/2021 09/10/2021 ketorolac (TORADOL) 10 mg tablet Take by mouth every 6 (six) hours as needed Therapy completed 07/03/2021 09/10/2021 meloxicam (MOBIC) 15 mg tablet TAKE 1 TABLET BY MOUTH ONCE DAILY (DO NOT TAKE WITH OTHER NSAIDS) Therapy completed 07/20/2021 09/10/2021 meloxicam (MOBIC) 15 mg tablet Take 1 tablet (15 mg total) by mouth daily Do not take with other NSAIDs Therapy completed 07/20/2021 09/10/2021 methylPREDNISolone (MEDROL DOSEPACK) 4 mg Dosepack TAKE BY MOUTH DIRECTED ON INSIDE OF PACKAGE Therapy completed 07/20/2021 09/10/2021 methylPREDNISolone (Medrol, Oz,) 4 mg Dosepack follow package directions Therapy completed 07/20/2021 09/10/2021 nicotine (NICODERM CQ) 21 mg APPLY 1 PATCH TOPICALLY ONCE DAILY Therapy completed 08/02/2021 09/10/2021 documented as of this encounter Historical Medications * This list may reflect changes made after this encounter. levocetirizine (XYZAL) 5 mg tablet Take 5 mg by mouth every evening 10/02/2022 potassium chloride ER (KLOR-CON) 10 mEq CR tablet Take 10 mEq by mouth daily 02/18/2024 added in this encounter Active and Recently Administered Medications Times are shown in CDT. Scheduled Medication Order 09/16/2021 09/17/2021 09/18/2021 acetaminophen (TYLENOL) tablet 1,000 mg (COMPLETED) 1,000 mg, oral, Once, On Fri09/18/21 at 0645, For 1 dose, Pre-Op, Indications: Pre-Emptive Analgesia 0656 (Given - Provid er: Geeta Martell RN) ceFAZolin (ANCEF) 1 gram/10 mL in sterile water (premix) 2,000 mg (COMPLETED) 2,000 mg, intravenous, at 400 mL/hr, Administer over 3 Minutes, Once, On Fri09/18/21 at 0645, For 1 dose, Pre-Op, Administer within 60 minutes of incision., Indications: Prophylaxis, Surgical 0744 (Given - Provid er: Jonel Rowley CRNA) celecoxib (CeleBREX) capsule 200 mg (COMPLETED) 200 mg, oral, Once, On Fri09/18/21 at 0645, For 1 dose, Pre-Op, Indications: Pre-Emptive Analgesia 0656 (Given - Provid er: Geeta Martell RN) HYDROcodone-acetaminophen (NORCO) 5-325 mg per tablet 1 tablet (COMPLETED) 1 tablet, oral, Once, On Fri09/18/21 at 1015, For 1 dose, Pre-Op, Indications: Pain 0949 (Given - Provid er: Geeta Martell RN) Continuous Medication Order 09/16/2021 09/17/2021 09/18/2021 Lactated Ringer's (LR) infusion 30 mL/hr, intravenous, Continuous, Starting on Fri09/18/21 at 0645, Pre-Op 0656 (New Bag - Prov ider: Geeta Martell RN)0738 (Rate/Dose Verify - Provider: Jonel Rowley CRNA)0738 (Paused - Provider: Jonel Rowley CRNA - Comment: Switch to gravity)0739 (Restarted - Provider: Jonel Rowley CRNA)0821 (Anesthesia Volume Adjustment - Provider: Jonel Rowley CRNA) Lactated Ringer's (LR) infusion 125 mL/hr, intravenous, Continuous, Starting on Fri09/18/21 at 0900, Phase I 0900 (Due) PRN Medication Order 09/16/2021 09/17/2021 09/18/2021 lidocaine EPINEPHrine (XYLOCAINE with EPI) 0.5 %-1:200,000 injection (CANCELED) As needed, Starting on Fri09/18/21 at 0808, Intra-Op, Indications: Administration of Local Anesthesia 0808 (Given - Provid er: Jonel Ley MD) sodium chloride 0.9% irrigation (CANCELED) As needed, Starting on Fri09/18/21 at 0754, Intra-Op 0754 (Given - Provid er: Jonel Ley MD - Comment: ) documented in this encounter Orders Medications Ordered That Marcelo ht Not Have Been Administered Count Last Ordered Date First Ordered Date ceFAZolin (ANCEF) 1 gram/10 mL in sterile water (premix) 2,000 mg 1 09/18/2021 fentaNYL (SUBLIMAZE) preserv ative free injection 25 mcg 1 09/18/2021 Lactated Ringer's (LR) infusion 1 lidocaine EPINEPHrine (XYLOC LEO with EPI) 0.5 %-1:200,000 injection 1 09/18/2021 metoclopramide (REGLAN) injection 10 mg 1 1 11/18/2020 naloxone (NARCAN) 0.4 mg/mL injection 0.04-0.4 mg 1 09/18/2021 sodium chloride 0.9% flush 0.5-20 mL 1 12/2020 sodium chloride 0.9% irrigation 1 Diet Count Last Ordered Date First Orde red Date ADULT DISCHARGE DIET 1 09/17/2021 Nursing Count Last Ordered Date First Orde red Date DISCHARGE ACTIVITY 4 09/17/2021 DISCHARGE CALL PROVIDER 6 09/17/2021 DISCHARGE DRESSING 1 09/17/2021 documented in this encounter Care Teams Spindle Setter Relationship Specialty Start Date End Date Xiomy Kaur NP [address] [place] [id number] PCP - General Nurse Practitioner 06/28/21 07/16/22 Xiomy Kaur NP [address] [place], [place] [id number] Nurse Practitioner 06/28/21 documented as of this encounter
--- OUTSIDE RECORDS SUMMARY | 2024-11-14 20:50 | XMS_ITS | Encounter Summary ---
Author Organization [facility] Address [address] [place] [address] Care Team Providers Care Desk Editor Name Role Phone Xiomy Kaur NP Primary Care Provider [phone] Xiomy Kaur HOTEL OPERATION MANAGER Unavailable [phone] Encounter Details Date Type Department Care Team (Late st Contact Info) Description 09/20/2021 Telephone [facility] Orthopedics and Sports Medicine [address] [place] [address] Jonel Ley MD [address] [facility] [address] [place] [address] Social History Tobacco Use Types [...] on file Legal Sex 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 Image was sent to [facility] phone. Palmira reviewed and advised patient to get a water proof bandage and put on / or use water proff tape. documented in this encounter Plan of Treatment Not on file documented as of this encounter Visit Diagnoses Not on filedocumented in this encounter Care Teams Desk Editor Relationship Specialty Start Date End Date Xiomy Kaur NP [address] [place] [address] PCP - General Nurse Practitioner 06/28/21 07/16/22 Xiomy Kaur NP [address] [place] [address] Nurse Practitioner 06/28/21 documented as of this encounter
--- OUTSIDE RECORDS SUMMARY | 2024-11-14 20:50 | XMS_ITS | Encounter Summary ---
Author Organization [facility] Address [address] [place] [address] Care Team Providers Care Scrum Project Manager Name Role Phone Xiomy Karu NP Primary Care Provider [phone] Xiomy Kaur NURSE COLLEGE Unavailable [phone] Encounter Details Date Type Department Care Team (Late st Contact Info) Description 09/15/2021 Orders Only [facility] Testing Site - [address] [address] Jonel Ley MD [address] [place] [address] [address] [place] [place] [id number] Pre-procedure lab exam (Primary Dx) Social History Tobacco Use Types [...] on file 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 Department: [facility] Sched Instruct: ?? Comment: ?? Order Specific Questions Question Answer Comment Testing types: Pre-procedure ?? Date of Px/chemo/treatment/placement/transfer 09/18/2021 ?? Testing site patient will be sent to: [facility], [place] ?? Date testing requested: 09/15/2021 ?? Testing: COVID-19 RNA ?? Does the patient currently work in a healthcare facility with direct patient contact? Unknown ?? Is the patient a resident of a congregate care or living setting? Unknown ?? Is the patient ? Unknown ?? Please select the performing region: [facility] documented in this encounter Miscellaneous Notes * Addendum Note - Melinda Silverman MA - 09/15/2021 11:17 AM CDTAddended by: MELINDA SILVERMAN on: 09/16/2021 12:25 PM Modules accepted: Orders * Addendum Note - Lamine Snider - 09/15/2021 11:17 AM CDTAddended by: LAMINE SNIDER on: 09/16/2021 09:50 PM Modules accepted: Orders documented in this encounter Plan of Treatment Not on file documented as of this encounter Results * COVID-19 Coronavirus RNA Nasopharyngeal (09/16/2021 9:50 PM CDT) COVID-19 RNA Not Detected [facility] Comment: Interpretive Data Synonyms for this test include: PCR and NAAT . ??Testing performed by the [facility] Molecular Infectious Disease Laboratory. The 2018-Novel Coronavirus Assay (COVID-19) Real Time RT-PCR assay [...] December 21, 2020. First COVID-19 test? No MECHELLE MACKEY Employeed in healthcare? Unknown MECHELLE MACKEY status? Unknown MECHELLE HERNANDEZ Group care resident? Unknown MECHELLE HERNANDEZ Hospitalized? No MECHELLE HERNANDEZ Is patient in ICU? No MECHELLE HERNANDEZ Symptomatic as defined by CDC? No [facility] Nasopharyngeal 09/16/2021 9: 50 PM CDT 09/16/2021 11:23 PM CDT Narrative MECHELLE MACKEY - 09/17/2021 3:16 PM CDT What is the reason for testing?->Screening prior to scheduled procedure or surgery (batch) Jonel Ley MD LAB MICROBIOLOGY - GENERAL O RDERABLES Final Result Performing Organization Address City/State/[facility] Co de Phone Number [facility] [place] [address] documented in this encounter Visit Diagnoses Diagnosis Pre-procedure lab exam- Primary Pre-procedural laboratory examination Pre-procedure lab exam Pre-procedural laboratory examination documented in this encounter Care Teams Scrum Project Manager Relationship Specialty Start Date End Date Xiomy Kaur NP [address] [place] [address] PCP - General Nurse Practitioner 06/28/21 07/16/22 Xiomy Kaur NP [address] [place] [address] Nurse Practitioner 06/28/21 documented as of this encounter
--- OUTSIDE RECORDS SUMMARY | 2024-11-14 20:50 | XMS_ITS | Encounter Summary ---
Author Organization [facility] Address 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 Ley office, we do not blaze to provide clearance for her surgery with Dr. Ley. * Telephone Encounter - Makayla Kwong - 09/10/2021 1:48 PM CDT Patient requesting Dr. Villa to fax over clearance to Dr. Ley office by tomorrow, surgery on 09/18. P:[phone] F [phone] documented in this encounter Plan of Treatment Not on file documented as of this encounter Visit Diagnoses Not on filedocumented in this encounter Care Teams Groundskeeping Maintenance Relationship Specialty Start Date End Date Xiomy Kaur NP [address] [place] [address] PCP - General Nurse Practitioner 06/28/21 07/16/22 Xiomy Kaur NP [address] [place] [address] Nurse Practitioner 06/28/21 documented as of this encounter
--- OUTSIDE RECORDS SUMMARY | 2024-11-14 20:50 | XMS_ITS | Encounter Summary ---
Author Organization [facility] Address [address] [place] [address] Care Team Providers Care Compliance Associate Name Role Phone Xiomy Kaur NP Primary Care Provider [phone] Xiomy Kaur PARALEGAL INSTRUCTOR Unavailable [phone] Encounter Details Date Type Department Care Team (Late st Contact Info) Description 09/12/2021 Telephone [facility] Orthopedic and Sports Medicine [address] [place] [phone] Galo Islas PA [address] [place] [address] [address] Social History Tobacco Use Types Packs/Day [...] on file Legal Sex Female 4: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 Gender Identity Female 06/02/2024 9:46 PM CDT Sexual Orientation Straight 06/02/2024 9: 46 PM CDT documented as of this encounter Miscellaneous Notes * Telephone Encounter - Olena Mahoney MA - 09/12/2021 4:10 PM CDT Appointment made * Telephone Encounter - Galo Islas PA - 09/12/2021 11:20 AM CDT Pt needs post op apt, DOS 09/18 documented in this encounter Plan of Treatment Not on file documented as of this encounter Visit Diagnoses Not on filedocumented in this encounter Care Teams Compliance Associate Relationship Specialty Start Date End Date Xiomy Kaur NP [address] [place] [address] PCP - General Nurse Practitioner 06/28/21 07/16/22 Xiomy Kaur NP [address] [place] [address] Nurse Practitioner 06/28/21 documented as of this encounter
--- OUTSIDE RECORDS SUMMARY | 2024-11-14 20:50 | XMS_ITS | Encounter Summary ---
Author Organization [facility] Address [address] [place] [address] Care Team Providers Care Information Management Manager Name Role Phone KaurJhonXiomyleora Moss AQUA AMMONIA OPERATOR Unavailable [phone] Mikey Olea MD Primary Care Provider Encounter Details Date Type Department Care Team (Late st Contact Info) Description 07/17/2022 Orders Only [facility] Primary Care at [address] [place] [address] Mikey Olea MD [address] [place] [address] [address] [place] [address] Urticaria (Primary Dx) Social History Tobacco Use Types [...] on file Legal Sex Female 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
--- OUTSIDE RECORDS SUMMARY | 2024-11-14 20:50 | XMS_ITS | Encounter Summary ---
Author Organization [facility] Address [address] [place] [address] Care Team Providers Care Primary Counselor Name Role Phone Jhon Kaurleora Moss LIDDER Unavailable [phone] Mikey Olea MD Primary Care Provider Encounter Details Date Type Department Care Team (Late st Contact Info) Description 07/24/[address] 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 You are pre-diabetic and you also have high cholesterol. We need to start cholesterol lowering medication while you start working on your diet into a low fat diet. No need for medication for pre-diabetes but we will monitor it closely. Normal thyroid gland function, no prior exposure to hepatitis C, no anemia or other blood count abnormalities, normal kidney function and liver enzymes, low vitamin D so will send you supplement to take daily, if not covered by insurance also available OTC 5000 international units [place]3 [place] [address] weekly. documented in this encounter Plan of Treatment Not on file documented as of this encounter Visit Diagnoses Not on filedocumented in this encounter Care Teams Primary Counselor Relationship Specialty Start Date End Date Mikey Olea MD [address] [place] [address] PCP - General Family Medicine 07/17/22 Xiomy Kaur NP [address] [place] [address] Nurse Practitioner 06/28/21 documented as of this encounter
--- OUTSIDE RECORDS SUMMARY | 2024-11-14 20:50 | XMS_ITS | Encounter Summary ---
Author Organization [facility] Healthcare Address [address] [place] [address] Care Team Providers Care Golf Ball Winder Name Role Phone Kaur, Xiomy Moss NP Unavailable [phone] Mikey Olea MD Primary Care Provider Eladio Weems MD Unavailable Jessenia Castrejon MD Unavailable [phone] Reason for Referral * Diagnostic Imaging (Routine) - Closed Specialty Diagnoses / Procedures Referred By Contac t Referred To Contact Diagnoses Chronic low back pain, unspecified back pain laterality, unspecified whether sciatica present Procedures XR Spine Lumbar 2 or 3 Views Mikey Olea MD [address] [place] [id number] Phone: tel: fax: [address] [phone] Referral ID Status Reason Start Date Expiration Date Visits Re quested Visits Authorized [id number] Closed 01/07/2024 02/05/2025 1 1 OND SAWER Reason for Visit * Reason Comments Wellness Visit Pt states she has bu mps under her breasts, sever lower back pain. Bad migraine, weight gain. Encounter Details Date Type Department Care Team (Latest Contact Info) Description 01/07/2024 3:30 PM DIAMOND SAWER Office Visit [facility] Primary [facility] at [place] 2 [facility] [address] [place] [phone] Mikey Olea MD [address] [facility] [address] [address] [place] [id number] Chronic low back pain, unspecified back pain laterality, unspecified whether sciatica present (Primary Dx); Morbid obesity with BMI of 40.0-44.9, adult (HCC); Frequent headaches; Personal history of tobacco use; Vitamin D deficiency; Anxiety and depression; Familial hypercholesterolemia Social History Tobacco Use Types Packs/Day Years [...] on file Legal Sex Female 4:09 PM DIAMOND SAWER Gender Identity Female 06/02/2024 9:46 PM CDT Sexual Orientation Straight 06/02/2024 9: 46 PM CDT documented as of this encounter Last Filed Vital Signs Vital Sign Reading Time Taken Comments Blood Pressure 120/78 01/07/2024 3:56 PM DIAMOND SAWER Pulse 67 01/07/2024 3:56 PM DIAMOND SAWER Temperature 36.4 ??C (97.6 ??F) 01/07/2024 3:56 PM CS T Respiratory Rate 16 01/07/2024 3:56 PM DIAMOND SAWER Oxygen Saturation 98% 01/07/2024 3:56 PM DIAMOND SAWER Inhaled Oxygen Concentration - - Weight 99.1 kg (218 lb 6.4 oz) 01/07/2024 3:56 P M DIAMOND SAWER Height 154.9 cm (5' 0.98 ) 01/07/2024 3:56 PM CS T Body Mass Index 41.29 01/07/2024 3:56 PM DIAMOND SAWER documented in this encounter Ordered Prescriptions Prescription Sig Dispense Quantity Refills Last Filled Start Date End Date ketorolac (TORADOL) 60 mg/2 mL injectionIndicatio ns:Chronic low back pain, unspecified back pain laterality, unspecified whether sciatica present Inject 2 mL (60 mg total) into the muscle as instructed Once PRN for pain for up to 1 dose 2 mL 01/07/2024 4 amitriptyline (ELAVIL) 10 mg tabletIndications: Chronic low back pain, unspecified back pain laterality, unspecified whether sciatica present,Frequent headaches Take 1-2 tablets (10-20 mg total) by mouth nightly 90 tablet 1 01/07/2024 4 meloxicam (MOBIC) 15 mg tabletIndications: Chronic low back pain, unspecified back pain laterality, unspecified whether sciatica present Take 1 tablet (15 mg total) by mouth daily 30 tablet 2 01/07/2024 4 documented in this encounter Progress Notes * Mikey Olea MD - 01/07/2024 3:30 PM CST Images from the original note were not included. Chief Complaint Patient presents with Wellness Visit Pt states she has bumps under her breasts, sever lower back pain. Bad migraine, weight gain. Subjective: ALLIE Rdz is a 38 y.o. female. Patient is being seen today for a well woman exam. She complains of Wellness Visit (Pt states she has bumps under her breasts, sever lower back pain. Bad migraine, weight gain.) Patient has significant concerns about her ongoing back pain as well as pain that radiates into herlower extremities which is consistent with neurogenic claudication. She reports muscle spasms, headaches. She is still smoking cigarettes but is trying to quit is now smoking less than half a pack sudeep daily basis. I was able to review past evaluation with Orthopedics when she was seen on 2020 was diagnosed with lumbar spondylosis with left L5 radiculopathy. Health Maintenance Due Topic Date Due Cervical Cancer Screening Never done Pneumococcal vaccine <65 (1 of 2 - PCV) Never done DTaP/Tdap/Td Vaccine (1 - Tdap) Never done Varicella Vaccines (1 of 2 - 13+ 2-dose series) Never done Regular Well Visit/Exam 18-64 Never done Hepatitis B Screening Never done Current Outpatient Medications: albuterol HFA (PROVENTIL HFA,VENTOLIN [...] Rfl: 0 cholecalciferol (VITAMIN D-3) 5,000 unit capsule, Take 1 capsule (5,000 Units total) by mouth daily, Disp: , Rfl: famotidine (PEPCID) 20 mg tablet, Take 1 tablet (20 mg total) by mouth 2 (two) times a day, Disp: 60 tablet, Rfl: 11 FLUoxetine (PROzac) 20 mg tablet, Take 1 tablet (20 mg total) by mouth daily, Disp: 90 tablet, Rfl:1 levothyroxine (SYNTHROID) 100 mcg tablet, Take 1 tablet (100 mcg total) by mouth daily, Disp: 90 tablet, Rfl: 3 OneTouch Delica Lancets 33 gauge misc, Use to check blood sugars before meals and at bedtime, Disp:100 each, Rfl: 1 OneTouch Verio Flex meter misc, USE TO CHECK FASTING IN THE MORNING AND SOMETIMES 45 MINUTES AFTER MEAL, Disp: , Rfl: OneTouch Verio test strips strip, USE TO CHECK BLOOD SUGAR BEFORE MEALS AND AT BEDTIME, Disp: 100 each, Rfl: 0 rosuvastatin (CRESTOR) 10 mg tablet, Take 1 tablet (10 mg total) by mouth daily, Disp: 90 tablet, Rfl: 1 amitriptyline (ELAVIL) 10 mg tablet, Take 1-2 tablets (10-20 mg total) by mouth nightly, Disp: 90 tablet, Rfl: 1 meloxicam (MOBIC) 15 mg tablet, Take 1 tablet (15 mg total) by mouth daily, Disp: 30 tablet, Rfl: 2 montelukast (SINGULAIR) 10 mg tablet, Take 1 tablet by mouth once daily, Disp: 30 tablet, Rfl: 1 No Known Allergies Patient's last menstrual period was 12/18/2023 (approximate). OB History No obstetric history on file. Patient's last menstrual period was 12/18/2023 (approximate). Past Medical History: Diagnosis Date Cervical cancer screening Cervical Pre Cancer Chronic bronchitis (HCC) Depression GERD (gastroesophageal reflux disease) Hypercholesteremia Hyperlipidemia Hypertension Hypothyroidism Migraines Pneumonia Thyroid disease Past Surgical History: Procedure Laterality Date DILATION AND CURETTAGE OF UTERUS 2007 and 2009 TONSILLECTOMY AND ADENOIDECTOMY TUBAL LIGATION 2011 TUBAL LIGATION Review of Systems: Review of Systems Constitutional: Positive for unexpected weight change (gain). Negative for fatigue and fever. HENT: Negative for congestion, sinus pressure and sinus pain. Respiratory: Negative for cough, shortness of breath and wheezing. Cardiovascular: Negative for chest pain and palpitations. Gastrointestinal: Negative for abdominal pain, diarrhea, nausea and vomiting. Musculoskeletal: Positive for back pain, gait problem and myalgias. Negative for arthralgias. Claudications Skin: Negative for rash and wound. Reports skin tags under breast folds Neurological: Positive for headaches. Psychiatric/Behavioral: Negative for dysphoric mood, hallucinations and suicidal ideas. The patientis not nervous/anxious and is not hyperactive. Objective: BP 120/78 (BP Location: Left arm, Patient Position: Sitting) Pulse 67 Temp 36.4 ??C (97.6 ??F) Resp 16 Ht 154.9 cm (5' 0.98 ) Wt 99.1 kg (218 lb 6.4 oz) LMP 12/18/2023 (Approximate) SpO2 98% BMI 41.29 kg/m?? Physical Exam Vitals reviewed. Constitutional: General: She is not in acute distress. Appearance: She is obese. She is not ill-appearing. Comments: Pleasant HENT: Mouth/Throat: Mouth: Mucous membranes are moist. Cardiovascular: Rate and Rhythm: Normal rate and regular rhythm. Pulses: Normal pulses. Heart sounds: Normal heart sounds. No murmur heard. Pulmonary: Effort: Pulmonary effort is normal. No respiratory distress. Breath sounds: Normal breath sounds. No wheezing. Abdominal: General: Bowel sounds are normal. Palpations: Abdomen is soft. Musculoskeletal: Lumbar back: Spasms present. No edema, deformity, signs of trauma or lacerations. Decreased range of motion. Right lower leg: No edema. Left lower leg: No edema. Skin: General: Skin is warm and dry. Comments: Multiple skin tags noted over chest, under breast folds Neurological: Mental Status: She is alert and oriented to person, place, and time. Psychiatric: Attention and Perception: Attention normal. Mood and Affect: Mood is not anxious or depressed. Behavior: Behavior normal. Behavior is cooperative. Thought Content: Thought content normal. Cognition and Memory: Cognition normal. Assessment/Plan Diagnoses and all orders for this visit: Chronic low back pain, unspecified back pain laterality, unspecified whether sciatica present (Primary) Assessment & Plan: - chronic neck and low back pain, [...] time - referral placed for Physical therapy Orders: - XR Spine Lumbar 2 or 3 Views; Future - meloxicam (MOBIC) 15 mg tablet; Take 1 tablet (15 mg total) by mouth daily - amitriptyline (ELAVIL) 10 mg tablet; Take 1-2 tablets (10-20 mg total) by mouth nightly Morbid obesity with BMI of 40.0-44.9, adult ([facility]) Assessment & Plan: Wt Readings from Last 3 Encounters: 01/07/24 99.1 kg (218 lb 6.4 oz) 09/18/23 93.9 kg (207 lb) 08/29/23 90.7 kg (200 lb) Body mass index is 41.29 kg/m??. - chronic condition, not at goal - frustrated with lack of weight loss, states has tried calorie counting, diet changes, avoiding fast food - BMI Follow-up includes: nutrition counseling, exercise counseling and education Frequent headaches Assessment & Plan: -chronic, not well controlled history of migraine headaches, nausea, light sensitivity - now reports she gets headaches when having sex - she also has tension type headaches along with migraine headaches - uses tylenol as needed - tried sumatriptan once and experienced chest tightness and heart racing after 1 use so has discontinued it Orders: - amitriptyline (ELAVIL) 10 mg tablet; Take 1-2 tablets (10-20 mg total) by mouth nightly Personal history of tobacco use Assessment & Plan: Social History Tobacco Use Smoking Status Every Day Current packs/day: 0.75 Average packs/day: 0.8 packs/day for 15.0 years (11.3 ttl pk-yrs) Types: Cigarettes Smokeless Tobacco Never - chronic condition, not at goal but has cut back, trying to quit - less than 1/2 pk/day - discussed the importance of tobacco smoking cessation with goal of being tobacco free Vitamin D deficiency Assessment & Plan: - chronic, better controlled - noted to [...] 23 (L) 30 - 80 ng/mL Final Anxiety and depression Assessment & Plan: - chronic, better controlled - used to be on medications before - not on any medications now - requesting assistance with depression > Anxiety - currently on Prozac 20 mg daily - continue current management Lab Results Component Value Date TSH 5.27 (H) 09/10/2023 Familial hypercholesterolemia Assessment & Plan: - chronic, improved - Noted 08/08 with [...] 329 (H) 09/10/2023 TRIG 328 (H) 07/17/2022 Due to patient's various questions and concerns about her health this visit was changed from a wellness visit to a problem patient visit. My total encounter time on 01/07/2024 was 43 minutes which was spent in the activities documented inthe note. This includes time spent prior to the visit and after the visit in direct care of the patient. This time does not include time spent in any separately reportable services. Return in about 2 months (around 03/07/2024). Mikey Olea MD documented in this encounter Miscellaneous Notes * Assessment & Plan Note - Mikey Olea MD - 02/18/2024 4:07 PM CDT Associated Problem(s): Familial hypercholesterolemia - chronic, improved - Noted 08/08 with [...] 329 (H) 09/10/2023 TRIG 328 (H) 07/17/2022 * Assessment & Plan Note - Mikey Olea MD - 01/07/2024 4:36 PM DIAMOND SAWER Associated Problem(s): Vitamin D deficiency - chronic, better controlled - noted to [...] 23 (L) 30 - 80 ng/mL Final OND SAWER OND SAWER * Assessment & Plan Note - Mikey Olea MD - 01/07/2024 4:34 PM DIAMOND SAWER Associated Problem(s): Personal history of tobacco use Social History Tobacco Use Smoking Status Every Day Current packs/day: 0.75 Average packs/day: 0.8 packs/day for 15.0 years (11.3 ttl pk-yrs) Types: Cigarettes Smokeless Tobacco Never - chronic condition, not at goal but has cut back, trying to quit - less than 1/2 pk/day - discussed the importance of tobacco smoking cessation with goal of being tobacco free OND SAWER * Assessment & Plan Note - Mikey Olea MD - 01/07/2024 4:34 PM DIAMOND SAWER Associated Problem(s): Anxiety and depression - chronic, better controlled - used to be on medications before - not on any medications now - requesting assistance with depression > Anxiety - currently on Prozac 20 mg daily - continue current management Lab Results Component Value Date TSH 5.27 (H) 09/10/2023 OND SAWER * Assessment & Plan Note - Mikey Olea MD - 01/07/2024 4:23 PM DIAMOND SAWER Associated Problem(s): Chronic low back pain - chronic neck and low back pain, [...] by Orthopedic Spine doctor Dr. Villa in 2021 and was diagnosed with the following 1. Lumbar spondylosis with left L5 radiculopathy 2. Cervical spondylosis 3. Other spondylosis with radiculopathy, lumbar region - she was referred to Physical therapy which she was not able to do but Is open to do PT at this time - referral placed for Physical therapy OND SAWER OND SAWER * Assessment & Plan Note - Mikey Oela MD - 01/07/2024 4:21 PM DIAMOND SAWER Associated Problem(s): Frequent headaches -chronic, not well controlled history of migraine headaches, nausea, light sensitivity - now reports she gets headaches when having sex - she also has tension type headaches along with migraine headaches - uses tylenol as needed - tried sumatriptan once and experienced chest tightness and heart racing after 1 use so has discontinued it OND SAWER * Assessment & Plan Note - Mikey Olea MD - 01/07/2024 4:21 PM DIAMOND SAWER Associated Problem(s): Morbid obesity with BMI of 40.0-44.9, adult (HCC) Wt Readings from Last 3 Encounters: 01/07/24 99.1 kg (218 lb 6.4 oz) 09/18/23 93.9 kg (207 lb) 08/29/23 90.7 kg (200 lb) Body mass index is 41.29 kg/m??. - chronic condition, not at goal - frustrated with lack of weight loss, states has tried calorie counting, diet changes, avoiding fast food - BMI Follow-up includes: nutrition counseling, exercise counseling and education OND SAWER documented in this encounter Plan of Treatment Not on file documented as of this encounter Results * XR Spine Lumbar 2 or 3 Views (01/08/2024 8:53 AM DIAMOND SAWER) Anatomical Region Laterality Modality Spine N/A Computed Radiogr aphy 01/08/2024 2:48 PM DIAMOND SAWER Narrative 01/08/2024 2:49 PM DIAMOND SAWER EXAM DESCRIPTION: XR SPINE LUMBAR 2 OR [...] PM T: ??01/08/2024 2:49 PM Report ID: [id number] Reading Location: ??[id number] Procedure Note Kvng Pinedo MD - 01/08/2024 [...] Kvng Pinedo M.D. MF: [id number] Report ID: [id number] Reading Location: [id number] [facility] Kvng Olea MD IMG XR PROCEDURES Final Result documented in this encounter Visit Diagnoses Diagnosis Chronic low back pain, unspecified back pain laterality, unspecified whether sciatica present- Primary Morbid obesity with BMI of 40.0-44.9, adult (HCC) Frequent headaches Personal history of tobacco use Personal history of tobacco use, presenting hazards to health Vitamin D deficiency Anxiety and depression Familial hypercholesterolemia Chronic low back pain, unspecified back pain laterality, unspecified whether sciatica present documented in this encounter Discontinued Medications Medication Sig Discontinue Reason Start Date End Da te cholecalciferol (VITAMIN D-3) 5,000 unit tabletIndications:Vitam in D deficiency Take 1 tablet by mouth once daily 08/08/2023 01/07/2024 ketorolac (TORADOL) 60 mg/2 mL injectionIndications:Ch ronic low back pain, unspecified back pain laterality, unspecified whether sciatica present Inject 2 mL (60 mg total) into the muscle as instructed Once PRN for pain for up to 1 dose Error 01/07/2024 01/08/2024 potassium chloride ER (KLOR-CON) 10 mEq CR tablet Take 10 mEq by mouth daily 02/18/2024 ondansetron (ZOFRAN) 4 mg tabletIndications:Preve ntion of Post-Operative Nausea and Vomiting Take 1 tablet (4 mg total) by mouth every 6 (six) hours as needed for nausea or vomiting 09/17/2021 02/18/2024 fluticasone propionate (FLONASE) 50 mcg/actuation nasal spray USE 1 SPRAY(S) IN EACH NOSTRIL ONCE DAILY 07/18/2023 02/18/2024 triamcinolone (KENALOG) 0.1 % cream APPLY CREAM EXTERNALLY THREE TIMES DAILY 08/16/2023 02/18/2024 documented as of this encounter Historical Medications * This list may reflect changes made after this encounter. cholecalciferol (VITAMIN D-3) 5,000 unit capsule Take 1 capsule (5,000 Units total) by mouth daily 12/30/2023 03/26/2024 added in this encounter Care Teams Golf Ball Winder Relationship Specialty Start Date End Date Mikey Olea MD [address] [place] [address] PCP - General Family Medicine 07/17/22 Xiomy Kaur NP [address] [place] [address] Nurse Practitioner 06/28/21 Eladio Weems MD [address] [facility] [place] [address] Consulting Physician Endocrinology Diabetes & Metabolism 01/08/23 Jessenia Castrejon MD [address] [facility] [place] [address] Referring Physician Allergy and Immunology 01/08/23 documented as of this encounter
--- OUTSIDE RECORDS SUMMARY | 2024-11-14 20:50 | XMS_ITS | Encounter Summary ---
Author Organization [facility] Address [address] [facility] [address] [place] [id number] Care Team Providers Care Bereavement Counselor Name Role Phone Xiomy Kaur NP Primary Care Provider [phone] Xiomy Kaur CARDIOVASCULAR RN Unavailable [phone] Encounter Details Date Type Department Care Team (Late st Contact Info) Description 10/16/2021 10:30 AM SYSTEM SUPPORT ADMINISTRATOR Telemedicine [facility] Orthopedic and Sports Medicine [address] [place] [phone] Claire Miller PA [address] [place] [address] [address] S/P cubital tunnel release (Primary Dx); Status post carpal tunnel release Social History Tobacco Use Types Packs/Day Years [...] on file Legal Sex Female 4:09 PM SYSTEM SUPPORT ADMINISTRATOR Gender Identity Female 06/02/2024 9:46 PM CDT Sexual Orientation Straight 06/02/2024 9: 46 PM CDT documented as of this encounter Progress Notes * Claire Miller PA - 10/16/2021 10:30 AM CST Images from the original note were not included. This was a telemedicine visit with Ashley Rdz alone which took place via TelephoneOther - postop. During the visit, I was located in the office and the patient was located at home in the state of [place]. The patient visit started at 1045 and ended at 1055. Greater than 50 % of the video/phone call was spent on counseling and coordinating care. Patient was counseled on post op care. The patient: has been informed that the visit may not be secure and acknowledged the information. The option of participating in a telephone or video visit during the [facility]-[address] [place] [address] emergencywas explained to them. After being given an opportunity to ask questions about and discuss this type of visit, they verbally consented to proceeding with the telephone/video visit and understand thatthis service replaces an office visit. Post-Op Visit Note HPI: Patient is 4 weeks s/p right carpal tunnel and cubital tunnel release. Pain is well controlled. Presurgical symptoms are improving. She was seen 2 weeks ago with concerns of post surgical wound dehiscence, secondary to direct trauma over her incision site. She has been wearing her splint and caringfor this as instructed. Overall she is improving and denies any draining, incisional pain or erythema. patient sent above image via [employer]. Wound is now healing well via secondary intention. No signs of infection present. Assessment: Diagnosis Plan 1. S/P cubital tunnel release 2. Status post carpal tunnel release Plan: Discussed continued post op expectations and recovery. Initiate scar care consisting of daily massage to the area Patient may progress lifting at 4 weeks post op and resume vigorous activities at 6 weeks post op. She will f/u with us prn. Questions were answered. Patient expressed full understanding and agreement of plan. Claire Miller PA-C EM SUPPORT ADMINISTRATOR documented in this encounter Plan of Treatment Not on file documented as of this encounter Visit Diagnoses Diagnosis S/P cubital tunnel release- Primary Other postprocedural status Status post carpal tunnel release Other postprocedural status documented in this encounter Care Teams Bereavement Counselor Relationship Specialty Start Date End Date Xiomy Kaur NP [address] [place] [address] PCP - General Nurse Practitioner 06/28/21 07/16/22 Xiomy Kaur NP [address] [place] [address] Nurse Practitioner 06/28/21 documented as of this encounter
--- OUTSIDE RECORDS SUMMARY | 2024-11-14 20:50 | XMS_ITS | Encounter Summary ---
Author Organization [facility] Address [address] [facility] [address] [place] [address] Care Team Providers Care Tutor Name Role Phone Xiomy Kaur NP Primary Care Provider [phone] Xiomy Kaur JEWEL HOLE ROUGH OPENER Unavailable [phone] Encounter Details Date Type Department Care Team (Late st Contact Info) Description 10/16/2021 Telephone [facility] Orthopedic and Sports Medicine [address] [place] [phone] Reba Garcia ATC Social History Tobacco Use Types Packs/Day Years [...] on file Legal Sex Female 4:09 PM CLEARING DISTRIBUTION CLERK Gender Identity Female 06/02/2024 9:46 PM CDT Sexual Orientation Straight 06/02/2024 9: 46 PM CDT documented as of this encounter Miscellaneous Notes * Telephone Encounter - Reba Garcia ATC - 10/16/2021 10:34 AM CST Patient called in needing to reschedule her appointment. Stated that her daughter had croup and a high fever and was not going to be able to make it to her appointment. Spoke with Claire who stated that if she could send a picture of her hand through [employer] she can do Telmed visit with the patient. Called patient back and let her know. Patient stated that she was going to work on sending the picture. I stated that if she had issues to let me know and I will get her the number to the [facility] phone. RING DISTRIBUTION CLERK documented in this encounter Plan of Treatment Not on file documented as of this encounter Visit Diagnoses Not on filedocumented in this encounter Care Teams Tutor Relationship Specialty Start Date End Date Xiomy Kaur NP [address] [place] [address] PCP - General Nurse Practitioner 06/28/21 07/16/22 Xiomy Kaur NP [address] [place] [address] Nurse Practitioner 06/28/21 documented as of this encounter
--- OUTSIDE RECORDS SUMMARY | 2024-11-14 20:50 | XMS_ITS | Encounter Summary ---
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 Unavailable [phone] Mikey Olea MD Primary Care Provider Reason for Referral * Diagnostic Imaging (Routine) - Closed Specialty Diagnoses / Procedures Referred By Vicente hartman Referred To Contact Diagnoses Cough Procedures XR Chest Pa Lateral 2 Views Mikey Olea MD [address] [place] [address] Phone: tel: fax: [address] [address] Referral ID Status Reason Start Date Expiration Date Visits Re quested Visits Authorized [id number] Closed 07/17/2022 08/16/2023 1 1 Reason for Visit * Reason Comments New Patient Has been having issu es with hives Encounter Details Date Type Department Care Team (Late st Contact Info) Description 07/17/2022 8:15 AM CDT Office Visit [facility] [place] [address] [facility] [address] [place] [phone] Mikey Olea MD [address] [facility] [facility] [address]ETH [address] [place] [id number] Personal history of tobacco use (Primary Dx); Class 2 obesity due to excess calories without serious comorbidity with body mass index (BMI) of 38.0 to 38.9 in adult; S/P carpal tunnel release; S/P cubital tunnel release; Vitamin D deficiency; Need for hepatitis C screening test; Urticaria; Cough; Frequent headaches; Chronic low back pain, unspecified back pain laterality, unspecified whether sciatica present Social History Tobacco Use Types Packs/Day Years [...] on file 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 Gender Identity Female 06/02/2024 9:46 PM CDT Sexual Orientation Straight 06/02/2024 9: 46 PM CDT documented as of this encounter Last Filed Vital Signs Vital Sign Reading Time Taken Comments Blood Pressure 103/70 07/17/2022 8:15 AM CDT Pulse 101 07/17/2022 8:15 AM CDT Temperature - - Respiratory Rate 12 07/17/2022 8:15 AM CDT Oxygen Saturation 96% 07/17/2022 8:15 AM CDT Inhaled Oxygen Concentration - - Weight 92.4 kg (203 lb 9.6 oz) 07/17/2022 8:15 A M CDT Height 154.9 cm (5' 0.98 ) 07/17/2022 8:15 AM CD T Body Mass Index 38.49 07/17/2022 8:15 AM CDT documented in this encounter Ordered Prescriptions Prescription Sig Dispense Quantity Refills Last Filled Start Date End Date SUMAtriptan (IMITREX) 50 mg tabletIndications: Migraine Take 1 tablet (50 mg total) by mouth once as needed for migraine May repeat after 2 hours. 20 tablet 07/17/2022 documented in this encounter Progress Notes * Lefty, Mikey Kvng, MD - 07/17/2022 8:15 AM CDT Images from the original note were not included. Subjective/Objective Chief Complaint: New Patient (Has been having issues with hives) History of Present Illness HPI Ashley Rdz is a 36 y.o. White female who presents here today to establish care with known conditions of tobacco use disorder, s/p bilateral carpal tunnel release, vitamin D deficiency, and obesity with complaints of headahce, and frequent hives. I have reviewed: allergies, current medications, past family history, past medical history, past social history, past surgical history and problem list. I have updated the relevant sections when necessary. Any smoking history? yes Please see the assessment and plan section for relevant conditions discussed, status of conditions,current and future management recommendations. PHQ9 - Depression Screening tool questionnaire Over the last 2 weeks, how often have you been bothered by any of the following problems? Little Interest or Pleasure in Doing Things: Several days Feeling Down, Depressed, or Hopeless: Several days PHQ-2 Total Score (If total score is 3 or more points, staff should administer the PHQ-9): 2 Over the past 2 weeks, how often have you been bothered by any of the following problems? Little Interest or Pleasure in Doing Things: Several days Feeling Down, Depressed, or Hopeless: Several days PHQ-2 Total Score (If total score is 3 or more points, staff should administer the PHQ-9): 2 Interpretation of PHQ9 Total Score 1-4 = Minimal depression 5-9 = Mild depression 10-14 = Moderate depression 15-19 = Moderately severe depression 20-27 = Severe depression ASCVD (atherosclerotic cardiovascular disease) risk score - a calculation of your 10-year risk of having a cardiovascular problem, such as a heart attack or stroke. The ASCVD Risk score (Dk CHAIDEZ, et al., 2019) failed to calculate for the following reasons: The 2019 ASCVD risk score is only valid for ages 40 to 79 Care Team Providers: Patient Care Team: Mikey Olea MD as PCP - General (Family Medicine) Natasha, Xiomy Moss NP (Nurse Practitioner) Past Medical History Past Medical History: Diagnosis [...] status: Every Day Packs/day: 0.75 Years: 15.00 Pack years: 11.25 Types: Cigarettes Smokeless tobacco: Never Substance and Sexual Activity Drug use: None Sexual activity: None Alcohol Use: Not At Risk Frequency of Alcohol Consumption: Never Average Number of Drinks: Not on file Frequency of Binge Drinking: Not on file Family History Problem Relation Age of Onset Cancer Other Heart disease Other Hypertension Other Diabetes Mother COPD Mother Hypertension Mother Heart disease Father COPD Father Hypertension Father No Known Allergies Review of Systems Constitutional: Negative for chills, fatigue and fever. HENT: Negative for congestion and sore throat. Eyes: Negative for visual disturbance. Respiratory: Positive for cough. Negative for shortness of breath and wheezing. Cardiovascular: Negative for chest pain and leg swelling. Gastrointestinal: Positive for diarrhea (when she knows she has to leave her house). Negative for abdominal pain, constipation, nausea and vomiting. Genitourinary: Negative for difficulty urinating and dysuria. Musculoskeletal: Positive for back pain. Skin: Negative for rash and wound. Neurological: Positive for headaches. Negative for dizziness, facial asymmetry and speech difficulty. Psychiatric/Behavioral: Negative for agitation, behavioral problems, dysphoric mood and sleep disturbance. The patient is nervous/anxious. Vitals: 07/17/22 0815 BP: 103/70 BP Location: Left arm Patient Position: Sitting Pulse: 101 Resp: 12 SpO2: 96% Weight: 92.4 kg (203 lb 9.6 oz) Height: 154.9 cm (5' 0.98 ) Wt Readings from Last 3 Encounters: 07/17/22 92.4 kg (203 lb 9.6 oz) 06/30/22 90.7 kg (200 lb) 06/14/22 90.7 kg (200 lb) Body mass index is 38.49 kg/m??. Physical Exam Vitals reviewed. Constitutional: General: She is not in acute distress. Appearance: Normal appearance. She is obese. She is not ill-appearing, toxic- appearing or diaphoretic. HENT: Head: Normocephalic. Mouth/Throat: Mouth: Mucous membranes are moist. Eyes: Extraocular Movements: Extraocular movements intact. Cardiovascular: Rate and Rhythm: Normal rate and regular rhythm. Pulmonary: Effort: Pulmonary effort is normal. No respiratory distress. Breath sounds: Normal breath sounds. No wheezing. Abdominal: General: Abdomen is flat. There is no distension. Palpations: Abdomen is soft. Tenderness: There is no abdominal tenderness. Musculoskeletal: Right lower leg: No edema. Left lower leg: No edema. Skin: General: Skin is warm and dry. Neurological: General: No focal deficit present. Mental Status: She is alert and oriented to person, place, and time. Mental status is at baseline. Gait: Gait normal. Psychiatric: Attention and Perception: Attention normal. Mood and Affect: Mood normal. Speech: Speech normal. Behavior: Behavior normal. Behavior is cooperative. Thought Content: Thought content normal. Judgment: Judgment normal. Assessment/Plan Diagnoses and all orders for this visit: Personal history of tobacco use (Z87.891) (Primary) Assessment & Plan: Social History Tobacco Use Smoking Status Every Day Packs/day: 0.75 Years: 15.00 Pack years: 11.25 Types: Cigarettes Smokeless Tobacco Never - chronic condition, not at goal - discussed the importance of tobacco smoking cessation with goal of being tobacco free Class 2 obesity due to excess calories without serious comorbidity with body mass index (BMI) of 38.0 to 38.9 in adult (E66.09, Z68.38) Assessment & Plan: Wt Readings from Last 3 Encounters: 07/17/22 92.4 kg (203 lb 9.6 oz) 06/30/22 90.7 kg (200 lb) 06/14/22 90.7 kg (200 lb) Body mass index is 38.49 kg/m??. - chronic condition, not at goal - frustrated with lack of weight loss, states has tried calorie counting, diet changes, avoiding fast food - BMI Follow-up includes: nutrition counseling, exercise counseling and education Orders: - CBC with auto differential; Future - Comprehensive metabolic panel; Future - TSH reflex to free T4; Future - Lipid panel; Future - Hemoglobin A1c; Future - Folate; Future - Vitamin B12; Future S/P carpal tunnel release (Z98.890) S/P cubital tunnel release (Z98.890) Vitamin D deficiency (E55.9) - Vitamin D 25 hydroxy; Future Need for hepatitis C screening test (Z11.59) - Hepatitis C antibody; Future Urticaria (L50.9) Assessment & Plan: - chronic for 2 years - unclear cause, has been seen in ED several times for this - affecting her quality of life - would benefit with further evaluation, referral placed to allergy/immunology Cough (R05.9) - XR Chest Pa Lateral 2 Views; Future Frequent headaches (R51.9) Assessment & Plan: - history of migraine headaches, nausea, light sensitivity - now reports she gets headaches when having sex - she also has tension type headaches along with migraine headaches - uses tylenol as needed - use Sumatriptan for use at beginning of migraine type headaches, script sent in Orders: - SUMAtriptan (IMITREX) 50 mg tablet; Take 1 tablet (50 mg total) by mouth once as needed for migraine May repeat after 2 hours. Chronic low back pain, unspecified back pain laterality, unspecified whether sciatica present (M54.50, G89.29) Assessment & Plan: - chronic neck and low back pain [...] time - referral placed for Physical therapy Return in about 6 weeks (around 08/28/2022). Mikey Olea MD July 22, 2022 9:55 PM Please note: Voice recognition software [employer] Direct was used dictate and transcribe this document. Business Objects Analyst variances may occur. Despite proofreading, typographical errors may occur. documented in this encounter Miscellaneous Notes * Assessment & Plan Note - Mikey Olea MD - 07/22/2022 9:54 PM CDT Associated Problem(s): Chronic urticaria - chronic for 2 years - unclear cause, has been seen in ED several times for this - affecting her quality of life - would benefit with further evaluation, referral placed to allergy/immunology * Assessment & Plan Note - Mikey Olea MD - 07/22/2022 9:50 PM CDT Associated Problem(s): Frequent headaches - history of migraine headaches, nausea, light sensitivity - now reports she gets headaches when having sex - she also has tension type headaches along with migraine headaches - uses tylenol as needed - use Sumatriptan for use at beginning of migraine type headaches, script sent in * Assessment & Plan Note - Mikey Olea MD - 07/17/2022 8:52 AM CDT Associated Problem(s): Chronic low back pain - chronic neck and low back pain [...] time - referral placed for Physical therapy * Assessment & Plan Note - Mikey Olea MD - 07/17/2022 8:50 AM CDT Associated Problem(s): Morbid obesity with BMI of 40.0-44.9, adult (HCC) Wt Readings from Last 3 Encounters: 07/17/22 92.4 kg (203 lb 9.6 oz) 06/30/22 90.7 kg (200 lb) 06/14/22 90.7 kg (200 lb) Body mass index is 38.49 kg/m??. - chronic condition, not at goal - frustrated with lack of weight loss, states has tried calorie counting, diet changes, avoiding fast food - BMI Follow-up includes: nutrition counseling, exercise counseling and education * Assessment & Plan Note - Mikey Olea MD - 07/17/2022 8:49 AM CDT Associated Problem(s): Personal history of tobacco use Social History Tobacco Use Smoking Status Every Day ??? Packs/day: 0.75 ??? Years: 15.00 ??? Pack years: 11.25 ??? Types: Cigarettes Smokeless Tobacco Never - chronic condition, not at goal - discussed the importance of tobacco smoking cessation with goal of being tobacco free documented in this encounter Plan of Treatment Not on file documented as of this encounter Results * XR Chest Pa Lateral 2 Views (07/17/2022 11:58 AM CDT) Anatomical Region Laterality Modality Body, Chest N/A Computed Radiogr aphy 07/17/2022 12:4 3 PM CDT Narrative 07/17/2022 12:43 PM CDT EXAM DESCRIPTION: ?? XR CHEST PA LATERAL 2 VIEWS REASON FOR STUDY: ?? cough ?? Cough couple days ??Hx of pneumonia ??Smoker ??No surgery ?? TECHNIQUE: ?? Frontal ??and lateral radiographic views of the chest acquired. COMPARISON: None Available. FINDINGS: LUNGS/PLEURA: ?? No focal consolidation or pneumothorax. No pleural effusion. HEART/MEDIASTINUM: ?? Heart size is normal. Normal mediastinal and hilar contours. HARDWARE/LINES/TUBES: ?? None. BONES: ?? No acute findings. OTHER: ?? No other significant finding. IMPRESSION: ??No active cardiopulmonary disease. THIS IS AN ELECTRONICALLY VERIFIED FINAL REPORT 07/17/2022 12:43 PM - Electronically signed by ??Jt Ham M.D. RW: NORMA D: ??07/17/2022 12:43 PM T: ??07/17/2022 12:43 PM Report ID: [id number] Reading Location: ??[id number] Procedure Note Jt Ham MD - 07/17/2022 EXAM DESCRIPTION: XR CHEST PA LATERAL 2 VIEWS REASON FOR STUDY: cough Cough couple days Hx of pneumonia Smoker No surgery TECHNIQUE: Frontal and lateral radiographic views of the chestacquired. COMPARISON: None Available. FINDINGS: LUNGS/PLEURA: No focal consolidation or pneumothorax. No pleuraleffusion. HEART/MEDIASTINUM: Heart size is normal. Normal mediastinal and hilar contours. HARDWARE/LINES/TUBES: None. BONES: No acute findings. OTHER: No other significant finding. IMPRESSION: No active cardiopulmonary disease. THIS IS AN ELECTRONICALLY VERIFIED FINAL REPORT 07/17/2022 12:43 PM - Electronically signed by Jt Ham M.D. RW: NORMA Report ID: [id number] Reading Location: [id number] Mikey Olea MD IMG XR PROCEDURES Final Result * (ABNORMAL) Vitamin D 25 hydroxy (07/17/2022 9:37 AM CDT) Vitamin D 25-OH 23(L) 30 - 80 ng/mL [facility] ([place]) Blood 07/17/2022 9:37 AM CDT 07/17/2022 10:18 AM CDT Mikey Olea MD LAB BLOOD ORDERABLES Fi nal Result [facility] ([place]) 1 [facility] [place] [address] * (ABNORMAL) Vitamin B12 (07/17/2022 9:37 AM CDT) Pathologist [facility] Vitamin B12 1,450(H) 230 - 1,250 pg/mL [facility] ([place]) Comment:Testing performed by : [facility], [address] [place] [address], [id number] Blood 07/17/2022 9:37 AM CDT 07/17/2022 12:13 PM CDT Mikey Olea MD LAB BLOOD ORDERABLES Fi nal Result [facility] ([place]) 1 [facility] [employer] [place] [address] * Folate (07/17/2022 9:37 AM CDT) Pathologist [facility] Folic acid 17.9 >=5.0 ng/mL [facility] ([place]) Comment:Testing performed by : [facility], [address] [place] [address]., [id number] Blood 07/17/2022 9:37 AM CDT 07/17/2022 12:13 PM CDT Mikey Olea MD LAB BLOOD ORDERABLES Fi nal Result [facility] ([place]) 1 [facility] [place] [address] * Hepatitis C antibody (07/17/2022 9:37 AM CDT) Pathologist [facility] Hep C Ab Nonreactive Nonreactive [facility] ([place]) Comment: Interpretive Data Nonreactive: Antibodies to HCV [...] last revised on 2020. Testing performed by: [facility], [address] [place] [address]., [id number] Blood 07/17/2022 9:37 AM CDT 07/17/2022 12:13 PM CDT Mikey Olea MD LAB MICROBIOLOGY - GENE RAL ORDERABLES Final Result [facility] ([place]) 1 [place] [address] * (ABNORMAL) Hemoglobin A1c (07/17/2022 9:37 AM CDT) [facility] Hgb A1C 5.9(H) 4.0 - 5.6 % [facility] ([place]) Estimated Average Glucose 123 mg/dL [facility] ([place]) Comment: The ADA recommends reporting an estimated Average Glucose (eAG) with all Hemoglobin A1c results using the equation derived from a study of 507 normal and diabetic adults. ??Minority populations were underrepresented and children were not included. ?? (Diabetes Care 31:1279-7219, 2008). ??The eAG is not equivalent to a fasting glucose. Blood 07/17/2022 9:37 AM CDT 07/17/2022 10:18 AM CDT Mikey Olea MD LAB BLOOD ORDERABLES Fi nal Result [facility] ([place]) 1 [facility] [place] [address] * (ABNORMAL) Lipid panel (07/17/2022 9:37 AM CDT) Cholesterol 296(H) 30 - 199 mg/dL [facility] ([place]) Comment: Interpretive Data Ages < or = 19 years ??Acceptable: ? <170 mg/dL ??Borderline high: ??170-199 mg/dL ??High: ? >or= 200 mg/dL Ages > or = 20 years ??Desirable: ?<200 mg/dL ??Borderline high: ??200-239 mg/dL ??High: ? >or= 240 mg/dL Literature References: 1. Expert Panel on Integrated Guidelines for Cardiovascular Health and Risk Reduction in Children and Adolescents. Pediatrics 2011;128:S213 2. NCEP Expert Panel. Circulation 2004;110:227 Current Interpretive Data was last revised on 2018. Triglycerides 328(H) <=149 mg/dL [facility] ([place]) Comment: Interpretive Data Ages < or = 9 years ??Acceptable: ? <75 mg/dL ??Borderline high: ??75-99 mg/dL ??High: ? >or= 100 mg/dL Ages 10 to 20 years ??Acceptable: ? <90 mg/dL ??Borderline high: ??90-129 mg/dL ??High: ? >or= 130 mg/dL Ages > or = 20 years ??Desirable: ?<150 mg/dL ??Borderline high: ??150-199 mg/dL ??High: ? 200-499 mg/dL ?Very high: ?? >or= 499 mg/dL Literature References: 1. Expert Panel on Integrated Guidelines for Cardiovascular Health and Risk Reduction in Children and Adolescents. Pediatrics 2011;128:S213 2. NCEP Expert Panel. Circulation 2004;110:227 Current Interpretive Data was last revised on 2018. HDL 28(L) >=40 mg/dL [facility] ([place]) Comment: Interpretive Data Ages < or = 19 years ??Acceptable: ? >45 mg/dL ??Borderline low: ?? 40-45 mg/dL ??Low: ? <40 mg/dL Ages > or = 20 years ??Desirable: ?>or= 60 mg/dL ??Low: ? <40 mg/dL Literature References: 1. Expert Panel on Integrated Guidelines for Cardiovascular Health and Risk Reduction in Children and Adolescents. Pediatrics 2011;128:S213 2. NCEP Expert Panel. Circulation 2004;110:227 Current Interpretive Data was last revised on 2018. LDL, calculated 202(H) <=129 mg/dL [facility] ([place]) Comment: Interpretive Data Ages < or = 19 years ??Acceptable: ? <110 mg/dL ??Borderline high: ??110-129 mg/dL ??High: ?>or= 130 mg/dL Ages > or = 20 years ??Optimal: ? <100 mg/dL ??Near optimal: ?100-129 mg/dL ??Borderline high: ?? 130-159 mg/dL ??High: ?>160 mg/dL Literature References: 1. Expert Panel on Integrated Guidelines for Cardiovascular Health and Risk Reduction in Children and Adolescents. Pediatrics 2011;128:S213 2. NCEP Expert Panel. Circulation 2004;110:227 Current Interpretive Data was last revised on 2018. Non-HDL Cholesterol 268 mg/dL [facility] ([place]) Comment: Interpretive Data Ages < or = 19 years ??Acceptable: ?<120 mg/dL ??Borderline high: ??120-144 mg/dL ??High: ?>145 mg/dL Ages > or = 20 years ??When triglycerides are >200 mg/dL, Non-HDL cholesterol is a secondary target of ? therapy with treatment goals that are 30 mg/dL greater than the LDL cholesterol target. ? Literature References: 1. Expert Panel on Integrated Guidelines for Cardiovascular Health and Risk Reduction in Children and Adolescents. Pediatrics 2011;128:S213 2. NCEP Expert Panel. Circulation 2004;110:227 Current Interpretive Data was last revised on 2018. Chol/HDL ratio 11 [facility] ([place]) Blood 07/17/2022 9:37 AM CDT 07/17/2022 10:18 AM CDT Narrative [facility] ([place]) - 07/17/2022 10:49 AM CDT Has the patient been fasting for 8 hours or more?->No Mikey Olea MD LAB BLOOD ORDERABLES Fi nal Result Performing Organization Address City/[facility]/ZIP Co de Phone Number [facility] ([place]) 1 [facility] [place] [address] * TSH reflex to free T4 (07/17/2022 9:37 AM CDT) TSH 2.63 0.30 - 4.20 mcIUnit/mL [facility] ([place]) Blood 07/17/2022 9:37 AM CDT 07/17/2022 10:18 AM CDT Mikey Olea MD LAB BLOOD ORDERABLES Fi nal Result [facility] ([place]) 1 [facility] Department [place] [address] * Comprehensive metabolic panel (07/17/2022 9:37 AM CDT) Sodium 139 135 - 145 mmol/L [facility] ([place]) Potassium, pl 4.0 3.3 - 4.9 mmol/L [facility] ([place]) Chloride 104 97 - 110 mmol/L [facility] ([place]) CO2 24 22 - 32 mmol/L [facility] ([place]) Anion gap 11 2 - 15 mmol/L [facility] ([place]) BUN 8 8 - 25 mg/dL [facility] ([place]) Creatinine 0.69 0.60 - 1.10 mg/dL [facility] ([place]) Glucose 101 70 - 199 mg/dL [facility] ([place]) Comment: Interpretive Data Fasting glucose >/= 126 mg/dl is diagnostic for diabetes. ?? Fasting is defined as no caloric intake for at least 8 hours. Fasting glucose between 100 mg/dl to 125 mg/dl is diagnostic of prediabetes. In a patient with classic symptoms of hyperglycemia or hyperglycemic crisis, a random glucose >/= 200 mg/dl is diagnostic for diabetes. In the absence of unequivocal hyperglycemia, results should be confirmed by repeat testing. The classification and Diagnosis of Diabetes Diabetes Care 2017;40 (Suppl. 1):S11. Current interpretive data was last revised 2017. Calcium 9.5 8.5 - 10.3 mg/dL [facility] ([place]) Bilirubin, total 0.4 0.1 - 1.2 mg/dL [facility] ([place]) Protein, pl 7.5 6.5 - 8.5 g/dL [facility] ([place]) Albumin 4.5 3.5 - 5.0 g/dL [facility] ([place]) Alk phos 80 40 - 130 Units/L [facility] ([place]) ALT 29 7 - 45 Units/L [facility] ([place]) AST 24 10 - 45 Units/L [facility] ([place]) Blood 07/17/2022 9:37 AM CDT 07/17/2022 10:18 AM CDT us Mikey Olea MD LAB BLOOD ORDERABLES Fi nal Result [facility] ([place]) 1 [facility] [place] [address] * CBC with auto differential (07/17/2022 9:37 AM CDT) WBC 9.7 3.8 - 9.9 K/cumm [facility] ([place]) Hgb 14.5 11.9 - 15.5 g/dL [facility] ([place]) Hct 42.6 35.6 - 45.5 % [facility] ([place]) Plt 296 150 - 400 K/cumm [facility] ([place]) MPV 9.5 9.1 - 12.3 fL [facility] ([place]) RBC 4.74 3.90 - 5.20 M/cumm [facility] ([place]) MCV 89.9 81.3 - 96.4 fL [facility] ([place]) MCH 30.6 27.1 - 33.3 pg [facility] ([place]) MCHC 34.0 32.3 - 35.7 g/dL [facility] ([place]) RDW CV 14.5 11.1 - 14.9 % [facility] ([place]) RDW SD 47.4 35.7 - 48.1 fL [facility] ([place]) NRBC abs 0.00 0.00 - 0.01 K/cumm [facility] ([place]) Blood 07/17/2022 9:37 AM CDT 07/17/2022 10:18 AM CDT us Mikey Olea MD LAB BLOOD ORDERABLES nal Result [facility] ([place]) 1 [facility] [place] [address] documented in this encounter Visit Diagnoses Diagnosis Personal history of tobacco use- Primary Personal history of tobacco use, presenting hazards to health Class 2 obesity due to excess calories without serious comorbidity with body mass index (BMI) of 38.0 to 38.9 in adult S/P carpal tunnel release Other postprocedural status S/P cubital tunnel release Other postprocedural status Vitamin D deficiency Need for hepatitis C screening test Special screening examination for other specified viral diseases Urticaria Unspecified urticaria Cough Frequent headaches Chronic low back pain, unspecified back pain laterality, unspecified whether sciatica present Vitamin D deficiency Class 2 obesity due to excess calories without serious comorbidity with body mass index (BMI) of 38.0 to 38.9 in adult Need for hepatitis C screening test Special screening examination for other specified viral diseases Cough documented in this encounter Care Teams Preforms Laminator Relationship Specialty Start Date End Date Mikey Olea MD [address] [place] [address] PCP - General Family Medicine 07/17/22 Xiomy Kaur NP [address] [place] [address] Nurse Practitioner 06/28/21 documented as of this encounter
--- OUTSIDE RECORDS SUMMARY | 2024-11-14 20:50 | XMS_ITS | Encounter Summary ---
Author Organization Formerly [facility] Address [address] [place] [address] Care Team Providers Care Home Performance Laborer Name Role Phone Xiomy Kaur NP Primary Care Provider Xiomy Kaur PLANT SCIENCE PROFESSOR Unavailable [phone] Reason for Visit * Reason Comments Post-op Problem Encounter Details Date Type Department Care Team (Late st Contact Info) Description 09/22/2021 6:20 PM CDT - 09/22/2021 9:38 PM CDT Emergency [facility] Emergency Department [address] [place] [address] Yousuf Deutsch MD [address] [id number] Post-op pain (Primary Dx) Discharge Disposition: Discharge to home [...] on file 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 Gender Identity Female 06/02/2024 9:46 PM CDT Sexual Orientation Straight 06/02/2024 9: 46 PM CDT documented as of this encounter Last Filed Vital Signs Vital Sign Reading Time Taken Comments Blood Pressure 121/66 09/22/2021 9:30 PM CDT Pulse 101 09/22/2021 9:30 PM CDT Temperature 36.1 ??C (97 ??F) 09/22/2021 9:14 PM CDT Respiratory Rate 18 09/22/2021 9:14 PM CDT Oxygen Saturation 100% 09/22/2021 9:30 PM CDT Inhaled Oxygen Concentration - - Weight 91.6 kg (202 lb) 09/22/2021 6:18 PM CDT Height 154.9 cm (5' 1 ) 09/22/2021 6:18 PM CDT Body Mass Index 38.17 09/22/2021 6:18 PM CDT documented in this encounter Discharge Diagnoses Diagnosis Other acute postprocedural pain - OTHER ACUTE POSTPROCEDURAL PAIN Nicotine dependence, cigarettes, uncomplicated - NICOTINE DEPENDENCE, CIGARETTES, UNCOMPLICATED documented in this encounter Discharge Instructions * Discharge Instructions* Yousuf Deutsch MD - 09/22/2021 9:30 PM CDT Keep the incision covered. Follow up with Dr. Ley. * Attachments The following attachments cannot be sent through Care Everywhere. * Pain Management After Surgery (Discharge Care) (Arabic) documented in this encounter Medications at Time [...] mcg tablet Take 25 mcg by mouth medical laboratory technical officer before breakfast 2 ondansetron (ZOFRAN) 4 mg tabletIndication s:Prevention of Post-Operative Nausea and Vomiting Take 1 tablet (4 mg total) by mouth every 6 (six) hours as needed for nausea or vomiting 20 tablet 1 09/17/2021 4 potassium chloride ER (KLOR-CON) 10 mEq CR tablet Take 10 mEq by mouth daily 4 documented as of this encounter Discharge Disposition Disposition Code Departure Means Destination Discharge to home or self care documented in this encounter ED Notes * Yousuf Deutsch MD - 09/22/2021 9:34 PM CDT HPI Chief Complaint Patient presents with ??? Post-op Problem 9:24 PM 09/22/2021 Patient is a 35 year old female with a history of GERD, hyperlipidemia, hypothyroidism, and migraines, who presents to the ED, for evaluation s/p of bleeding to the surgical site on the palm of her right hand when she tripped and fell at 10 AM this morning. She reports that she had carpel tunnel surgery to her right hand [address] Vasquez, orthopedic surgeon. She reports that she noticed blood through the bandage immediately after the fall, but has not noticed any bleeding since. No other alleviating or exacerbating factors. 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 Cubital tunnel syndrome on right 08/17/2021 ??? Carpal tunnel syndrome of right wrist 08/17/2021 ??? Carpal tunnel syndrome, bilateral 07/20/2021 ??? Lumbar spondylosis with left L5 radiculopathy 07/20/2021 ??? Cervical spondylosis 07/20/2021 ??? Chronic low back pain 05/01/2021 ??? Edema of lower extremity 05/01/2021 ??? Fatigue 05/01/2021 ??? Gastroesophageal reflux disease without esophagitis 05/01/2021 ??? Obesity 05/01/2021 ??? Smoker 05/01/2021 ??? Hyperlipidemia 08/05/2017 ??? Hypokalemia 08/05/2017 ??? Migraine 08/05/2017 ??? Neck pain 08/05/2017 ??? Vitamin D deficiency 08/05/2017 Past Medical History: Diagnosis Date ??? Cervical cancer screening Cervical Pre Cancer ??? Chronic bronchitis (CMS/HCC) (HCC) ??? Depression ??? GERD (gastroesophageal reflux disease) ??? Hypercholesteremia ??? Hyperlipidemia ??? Hypothyroidism ??? Migraines ??? Pneumonia ??? Thyroid disease Past Surgical History: Procedure Laterality Date ??? DILATION AND CURETTAGE OF UTERUS 2007 and 2009 ??? TONSILLECTOMY AND ADENOIDECTOMY ??? TUBAL LIGATION 2010 ??? TUBAL LIGATION Family History Problem Relation Age of Onset ??? Cancer Other ??? Heart disease Other ??? Hypertension Other ??? Diabetes Mother ??? COPD Mother ??? Hypertension Mother ??? Heart disease Father ??? COPD Father ??? Hypertension Father Social History Tobacco Use ??? Smoking status: Current Every Day Smoker Packs/day: 0.05 Years: 15.00 Pack years: 0.75 ??? Smokeless tobacco: Never Used Vaping Use ??? Vaping Use: Never used Substance Use Topics ??? Alcohol use: Not on file ??? Drug use: Not on file Social History Social History Narrative Merged History Encounter Review of Systems Review of Systems Constitutional: Negative for chills and fever. HENT: Negative for congestion, rhinorrhea and sore throat. Eyes: Negative for pain. Respiratory: Negative for cough and shortness of breath. Cardiovascular: Negative for chest pain and leg swelling. Gastrointestinal: Negative for abdominal pain, diarrhea, nausea and vomiting. Genitourinary: Negative for difficulty urinating. Musculoskeletal: Negative for myalgias. +Post-op bleeding to the right hand Skin: Negative for rash. Neurological: Negative for dizziness and headaches. Psychiatric/Behavioral: Negative for behavioral problems. Physical Exam ED Triage Vitals [09/22/21 1818] Temp Pulse Resp BP SpO2 36.7 ??C (98.1 ??F) 116 16 132/73 96 % Temp src Heart Rate Source Patient Position BP Location FiO2 (%) Temporal -- -- -- -- Physical Exam Vitals and nursing note reviewed. Constitutional: General: She is not in acute distress. Appearance: She is well-developed. HENT: Head: Normocephalic and atraumatic. Eyes: Conjunctiva/sclera: Conjunctivae normal. Cardiovascular: Rate and Rhythm: Normal rate and regular rhythm. Heart sounds: Normal heart sounds. No murmur heard. Pulmonary: Effort: Pulmonary effort is normal. No respiratory distress. Breath sounds: Normal breath sounds. Abdominal: General: Bowel sounds are normal. There is no distension. Palpations: Abdomen is soft. Tenderness: There is no abdominal tenderness. There is no guarding. Musculoskeletal: Cervical back: Neck supple. Comments: Well-healing scar to the palm of the right hand. Skin: General: Skin is warm and dry. Neurological: Mental Status: She is alert and oriented to person, place, and time. [facility] Labs Reviewed - No data to display No orders to display BP 126/74 Pulse 104 Temp 36.1 ??C (97 ??F) (Temporal) Resp 18 Ht 154.9 cm (5' 1 ) Wt 91.6kg (202 lb) LMP 09/17/2021 SpO2 98% BMI 38.17 kg/m?? Procedures Medical Decision Making Differential Diagnosis or Management Options: Patient fell on her right hand incision and had some bleeding. Summarize previous history: Recent carpal tunnel surgery. Summarize history: I gave patient reassurance. Final diagnoses: Post-op pain Colleen Bay scribed for Yousuf Deutsch MD, in the doctor's presence. I electronically signedthis note at 9:36 PM on 09/22/2021. I, Yousuf Deutsch MD, have personally performed the services described in the documentation, reviewed the documentation, as recorded by the scribe in my presence, and it accurately and completely records my words and actions. Colleen Bay 09/22/212136 Yousuf Deutsch MD 09/22/21 0163 * Shara Chu RN - 09/22/2021 6:16 PM CDT Pt had carpal tunnel surgery on Friday and fell on the incision site today. Pt states she notice more blood from the incision today after the fall than prior to the fall. Pt reports 2/10 pain. documented in this encounter Plan of Treatment Not on file documented as of this encounter Visit Diagnoses Diagnosis Post-op pain- Primary Other acute postoperative pain documented in this encounter Care Teams Home Performance Laborer Relationship Specialty Start Date End Date Xiomy Kaur NP [address] [place] [id number] PCP - General Nurse Practitioner 06/28/21 07/16/22 Xiomy Kaur NP [address] [place] [address] Nurse Practitioner 06/28/21 documented as of this encounter
--- OUTSIDE RECORDS SUMMARY | 2024-11-14 20:50 | XMS_ITS | Encounter Summary ---
Author Organization [facility] Address [address] [place] [address] Care Team Providers Care Golf Ball Winder Name Role Phone Xiomy Kaur NP Primary Care Provider [phone] Xiomy Kaur BRANCH OPERATIONS SPECIALIST Unavailable [phone] Encounter Details Date Type Department Care Team (Late st Contact Info) Description 09/18/2021 7:30 AM CDT - 09/18/2021 8:30 AM CDT Surgery [facility] Operating Room [address] [place] [address] Jonel Ley MD [address] [place] [address] [address] [address] Right carpal tunnel release and transpostion ulnar nerve at elbow Surgery Details Date/Time Status Location OR Service Patient Class Case Class Case Type Trauma Case? 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 Gender Identity Female 06/02/2024 9:46 PM CDT Sexual Orientation Straight 06/02/2024 9: 46 PM CDT documented as of this encounter Last Filed Vital Signs Vital Sign Reading Time Taken Comments Blood Pressure 133/77 09/18/2021 6:14 AM CDT Pulse 87 09/18/2021 6:14 AM CDT Temperature 36.3 ??C (97.3 ??F) 09/18/2021 6:14 AM CD T Respiratory Rate 20 09/18/2021 6:14 AM CDT Oxygen Saturation 98% 09/18/2021 6:14 AM CDT Inhaled Oxygen Concentration - - Weight 92.9 kg (204 lb 12.9 oz) 09/18/2021 6:14 AM CDT Height 154.9 cm (5' 1 ) 09/18/2021 6:14 AM CDT Body Mass Index 38.7 09/18/2021 6:14 AM CDT documented in this encounter Discharge Instructions * Attachments The following attachments cannot be sent through Care Everywhere. * General Anesthesia (Discharge Care) (Serbian) * Ascorbic Acid (Vitamin C) (By mouth) (Serbian) * Hydrocodone/Acetaminophen (By mouth) (Serbian) * Ondansetron (By mouth, Into the mouth) (Serbian) * How to Stop Smoking (Discharge Care) (Serbian) documented in this encounter Medications at Time [...] mcg tablet Take 25 mcg by mouth early childhood coordinator before breakfast 2 ondansetron (ZOFRAN) 4 mg [...] because complaint is her last 3 fingers Director Presales completed by using M*Modal Fluency Direct speaking [...] strength throughout with exceptions as noted below. Poising Inspector: 4/5 ?? Neurovascular The patient has normal [...] because complaint is her last 3 fingers Director Presales completed by using M*Modal Fluency Direct speaking [...] strength throughout with exceptions as noted below. Poising Inspector: 4/5 ?? Neurovascular The patient has normal [...] included. Operative Report SURGEON: Jonel Ley MD Wire Spooler: Hyun Cox RN Scrub: Emilia Mitchell RN ALUMNI RELATIONS OFFICER: Sonja Garcia CRNFA MD ASST: Alfred To [...] me to participate in this patient's care. Director Presales completed by using M*Modal Fluency Direct speaking [...] that you and your doctor have chosen [facility] for your surgery. We hope [...] Medication Instructions ? Use no make-up, nail slovenian, lotions, oils or powders on your skin. [...] 3.3 3.3 - 4.9 mmol/L [facility] Comment: Interpretive Data Unable to assess hemolysis. ??Invitro hemolysis causes falsely elevated potassium. Current Interpretive Data was last revised on 2020. Blood 09/18/2021 6:55 AM CDT 09/18/2021 7:07 AM CDT us Rand Walker MD LAB BLOOD ORDERABLES Fin al Result [facility] ([place]) 1 [facility] Department [place] [address] documented in this encounter Visit Diagnoses Diagnosis Pre-operative clearance- Primary Unspecified pre-operative examination Carpal tunnel syndrome of right wrist Cubital tunnel syndrome on right Carpal tunnel syndrome on right Carpal tunnel syndrome Cubital tunnel syndrome on right documented in [...] Starting on Fri09/18/21 at 0900, Phase I lidocaine EPINEPHrine (XYLOCAINE with EPI) 0.5 %-1:200,000 injection As needed, Starting on Fri09/18/21 at 0808, Intra-Op, Indications: Administration of Local AnesthesiaIndications:Administrati on of Local Anesthesia Given 09/18/2021 8:08 AM CDT 16 mL Surgical Site sodium chloride 0.9% irrigation As needed, Starting on Fri09/18/21 at 0754, Intra-Op Given 09/18/2021 7:54 AM CDT 500 mL Surgical Site documented in this encounter Discontinued Medications Medication [...] Analgesia 0656 (Given - Provid er: Geeta Martell, CRISTIAN) HYDROcodone-acetaminophen (NORCO) 5-325 mg per tablet 1 [...] 1 09/18/2021 Lactated Ringer's (LR) infusion 1 metoclopramide (REGLAN) injection 10 mg 1 1 11/18/2020 naloxone (NARCAN) 0.4 mg/mL injection 0.04-0.4 mg 1 09/18/2021 sodium chloride 0.9% flush 0.5-20 mL 1 12/2020 Diet Count Last Ordered Date First Orde red Date ADULT DISCHARGE DIET 1 09/17/2021 Nursing Count Last Ordered Date First Orde red Date DISCHARGE ACTIVITY 4 09/17/2021 DISCHARGE CALL PROVIDER 6 09/17/2021 DISCHARGE DRESSING 1 09/17/2021 documented in this encounter Care Teams Golf Ball Winder Relationship Specialty Start Date End Date Xiomy Kaur NP [address] [place] [address] PCP - General Nurse Practitioner 06/28/21 07/16/22 Xiomy Kaur NP [address] [place] [address] Nurse Practitioner 06/28/21 documented as of this encounter
--- OUTSIDE RECORDS SUMMARY | 2024-11-14 20:50 | XMS_ITS | Encounter Summary ---
Author Organization Formerly [facility] Address [address] [place] [address] Care Team Providers Care Mid Level Game Designer Name Role Phone Jhon Kaurleora Moss OCEAN TRANSPORTATION INTERMEDIARY Unavailable [phone] Mikey Olea MD Primary Care Provider Reason for Referral * Diagnostic Imaging (Routine) - Closed Specialty Diagnoses / Procedures Referred By Contac t Referred To Contact Diagnoses Cough Procedures XR Chest Pa Lateral 2 Views Mikey Olea MD [address] [place] [address] Phone: tel: fax: [address] [phone] Referral ID Status Reason Start Date Expiration Date Visits Re quested Visits Authorized [id number] Closed 07/17/2022 08/16/2023 1 1 Reason for Visit * Diagnostic Imaging (Routine) - Closed Specialty Diagnoses / Procedures Referred By Vicente hartman Referred To Contact Diagnoses Cough Procedures XR Chest Pa Lateral 2 Views Mikey Olea MD [address] [place] [address] Phone: tel: fax: [address] [phone] Referral ID Status Reason Start Date Expiration Date Visits Re quested Visits Authorized [id number] Closed 07/17/2022 08/16/2023 1 1 Encounter Details Date Type Department Care Team (Latest Contact Info) Description 07/17/2022 11:49 AM CDT - 07/17/2022 11:59 PM CDT Hospital Encounter [facility] [address] [place] [address] Mikey Olea MD [address] [facility] [address] [place] [address] Cough Discharge Disposition: Discharge to home or self [...] on file Legal Sex Female 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 Gender Identity Female 06/02/2024 9:46 PM CDT Sexual Orientation Straight 06/02/2024 9: 46 PM CDT documented as of this encounter Medications at Time of Discharge ergocalciferol (VITAMIN D) 50,000 unit capsule TAKE [...] mcg tablet Take 25 mcg by mouth director of early childhood before breakfast 2 ondansetron (ZOFRAN) 4 mg tabletIndication s:Prevention of Post-Operative Nausea and Vomiting Take 1 tablet (4 mg total) by mouth every 6 (six) hours as needed for nausea or vomiting 20 tablet 1 09/17/2021 4 potassium chloride ER (KLOR-CON) 10 mEq CR tablet Take 10 mEq by mouth daily 4 SUMAtriptan (IMITREX) 50 mg tabletIndication s:Migraine Take 1 tablet (50 mg total) by mouth once as needed for migraine May repeat after 2 hours. 20 tablet 07/17/2022 2 documented as of this encounter Discharge Disposition Disposition Code Departure Means Destination Discharge to home or self care documented in this encounter Miscellaneous Notes * Result Encounter Note - Mikey Olea MD - 07/17/2022 11:59 PM CDT No signs of infection/pneumonia noted on chest Xray, No abnormal findings noted. * Result Encounter Note - Madison Kelsey MA - 07/17/2022 11:59 PM CDT See phone encounter on 07/19/22 documented in this encounter Plan of Treatment Not on file documented as of this encounter Procedures Procedure Name Priority Date/Time Associated Diagnosis Comments XR CHEST PA LATERAL 2 VIEWS Schedule Routine, Read Routine (OP Routine) 07/17/2022 11:58 AM CDT Cough documented in this encounter Results * XR Chest Pa [...] PM T: ??07/17/2022 12:43 PM Report ID: [id number] Reading Location: ??[id number] Procedure Note Jt Ham MD - 07/17/2022 [...] Jt Ham M.D. RW: NORMA Report ID: [id number] Reading Location: [id number] Mikey Olea MD IMG XR PROCEDURES Final Result documented in this encounter Visit Diagnoses Diagnosis Cough documented in this encounter Care Teams Mid Level Game Designer Relationship Specialty Start Date End Date Mikey Olea MD [address] [place] [address] PCP - General Family Medicine 07/17/22 Xiomy Kaur NP [address] [place] [address] Nurse Practitioner 06/28/21 documented as of this encounter
--- OUTSIDE RECORDS SUMMARY | 2024-11-14 20:50 | XMS_ITS | Encounter Summary ---
Author Organization [facility] Address [address] [place] [address] Care Team Providers Care Power Ballast Machine Operator Name Role Phone Xiomy Kaur Isa EXECUTIVE CREATIVE DIRECTOR Unavailable [phone] Mikey Olea MD Primary Care Provider Reason for Visit * Reason Comments Diarrhea Only today Encounter Details Date Type Department Care Team (Late st Contact Info) Description 10/01/2022 2:15 PM LAGGING MACHINE OPERATOR Office Visit [facility] Primary Care at [address] [place] [address] Mikey Olea MD [address] [place] [address] [address] [place] [address] Urticaria (Primary Dx); Frequent headaches; Diarrhea, unspecified type; Familial hypercholesterolemia ; Class 2 obesity due to excess calories without serious comorbidity with body mass index (BMI) of 37.0 to 37.9 in adult; Anxiety and depression; Vitamin D deficiency Social History Tobacco Use Types Packs/Day Years [...] on file Legal Sex Female 4:09 PM LAGGING MACHINE OPERATOR Gender Identity Female 06/02/2024 9:46 PM CDT Sexual Orientation Straight 06/02/2024 9: 46 PM CDT documented as of this encounter Last Filed Vital Signs Vital Sign Reading Time Taken Comments Blood Pressure 128/78 10/01/2022 2:25 PM LAGGING MACHINE OPERATOR Pulse 88 10/01/2022 2:25 PM LAGGING MACHINE OPERATOR Temperature 36.8 ??C (98.2 ??F) 10/01/2022 2:25 PM CS T Respiratory Rate 18 10/01/2022 2:25 PM LAGGING MACHINE OPERATOR Oxygen Saturation 97% 10/01/2022 2:25 PM LAGGING MACHINE OPERATOR Inhaled Oxygen Concentration - - Weight 90.7 kg (200 lb) 10/01/2022 2:25 PM LAGGING MACHINE OPERATOR Height 154.9 cm (5' 0.98 ) 10/01/2022 2:25 PM CS T Body Mass Index 37.81 10/01/2022 2:25 PM LAGGING MACHINE OPERATOR documented in this encounter Ordered Prescriptions Prescription Sig Dispense Quantity Refills Last Filled Start Date End Date FLUoxetine (PROzac) 10 mg tablet/capsuleIndic ations:Anxiety and depression Take 1 tablet/caps ule (10 mg total) by mouth daily for 30 days, THEN 2 tablet/caps ule (20 mg total) daily. 90 capsule 10/01/2022 01/02/2023 documented in this encounter Progress Notes * Mikey Olea MD - 10/01/2022 2:15 PM CST Images from the original note were not included. Assessment/Plan Diagnoses and all orders for this visit: Urticaria (Primary) Assessment & Plan: - chronic for 2 years; not well controlled - unclear cause, has been seen in ED several times for this - affecting her quality of life - would benefit with further evaluation, awaiting for appointment with allergy/immunology - has an appointment tomorrow Frequent headaches Assessment & Plan: -chronic, not well controlled history of migraine headaches, nausea, light sensitivity - now reports she gets headaches when having sex - she also has tension type headaches along with migraine headaches - uses tylenol as needed - tried sumatriptan once and experienced chest tightness and heart racing Diarrhea, unspecified type - POC Influenza A/B, COVID-19 antigen Familial hypercholesterolemia Assessment & Plan: - recent diagnosis - Noted 08/08 with LDL >200 - also noted to have hypertriglyceridemia - started Crestor 10 mg daily - recheck labs on next visit Orders: - Lipid panel; Future - Comprehensive metabolic panel; Future Class 2 obesity due to excess calories without serious comorbidity with body mass index (BMI) of 37.0 to 37.9 in adult Assessment & Plan: Wt Readings from Last 3 Encounters: 10/01/22 90.7 kg (200 lb) 07/17/22 92.4 kg (203 lb 9.6 oz) 06/30/22 90.7 kg (200 lb) Body mass index is 37.81 kg/m??. - chronic condition, not at goal - frustrated with lack of weight loss, states has tried calorie counting, diet changes, avoiding fast food - BMI Follow-up includes: nutrition counseling, exercise counseling and education Anxiety and depression Assessment & Plan: - chronic, worse - used to be on medications before - not on any medications now - requesting assistance with depression > Anxiety - start Prozac 10 mg and up titrate to 20 mg - f/u in 2 months Lab Results Component Value Date TSH 2.63 07/17/2022 Orders: - FLUoxetine (PROzac) 10 mg tablet/capsule; Take 1 tablet/capsule (10 mg total) by mouth daily for 30 days, THEN 2 tablet/capsule (20 mg total) daily. Vitamin D deficiency Assessment & Plan: - chronic, not well controlled - noted [...] 23 (L) 30 - 80 ng/mL Final Orders: - Vitamin D 25 hydroxy; Future Return in about 2 months (around 12/01/2022). Subjective/Objective Chief Complaint Patient presents with Diarrhea Only today HPI Ashley Rdz is a 36 y.o. female who is here for recurrent hives. Reports she has an appointmentwith an allergy/district sales leader. Patient mostly experiences the hives from her hips down her legs. Shehas not had to use steroids since she last went to the ER on Sep 14, 2022. She has experienced hives since her last office visit and has had to use benadryl. She has had to stay off antihistamines for the last 5 days for her upcoming appointment, but is managing well. She is also following up on her migraines. She has only had one bad episode since her last visit.Sumatriptan caused worsening of her migraine, chest tightness, heart racing, and lightheadedness. She has had two migraines after having sex recently. She is currently managing her migraines with sleep, decreased light, and tylenol and/or motrin. History of anxiety and depression. She is struggling with coping. She has tried Zoloft before without benefit. She has been on another medication that she took that she had side effect. Repeat labs in 3 months. Order to be placed. Please see the assessment and plan section for relevant conditions discussed, status of conditions,current and future management recommendations. Patient Care Team: Mikey Olea MD as PCP - General (Family Medicine) Kaur, Xiomy Moss NP (Nurse Practitioner) Labs: Lab Results Component Value Date CHOL 296 (H) 07/17/2022 TRIG 328 (H) 07/17/2022 HDL 28 (L) 07/17/2022 Lab Results Component Value Date LDLCALC 202 (H) 07/17/2022 Lab Results Component Value Date TSH 2.63 07/17/2022 Lab Results Component Value Date HGBA1C 5.9 (H) 07/17/2022 Review of Systems Constitutional: Negative for fatigue and fever. Respiratory: Negative for cough, shortness of breath and wheezing. Cardiovascular: Negative for chest pain. Gastrointestinal: Positive for diarrhea (baseline) and nausea (earlier today, resolved now). Negative for abdominal pain and vomiting. Musculoskeletal: Negative for arthralgias and myalgias. Skin: Positive for rash (Hives; no current hives). Neurological: Positive for headaches. Psychiatric/Behavioral: Positive for dysphoric mood. Negative for suicidal ideas. The patient is nervous/anxious. Vitals: 10/01/22 1425 BP: 128/78 BP Location: Left arm Patient Position: Sitting Pulse: 88 Resp: 18 Temp: 36.8 ??C (98.2 ??F) TempSrc: Oral SpO2: 97% Weight: 90.7 kg (200 lb) Height: 154.9 cm (5' 0.98 ) Wt Readings from Last 3 Encounters: 10/01/22 90.7 kg (200 lb) 07/17/22 92.4 kg (203 lb 9.6 oz) 06/30/22 90.7 kg (200 lb) Body mass index is 37.81 kg/m??. Physical Exam Constitutional: Appearance: She is obese. HENT: Mouth/Throat: Mouth: Mucous membranes are moist. Cardiovascular: Rate and Rhythm: Normal rate and regular rhythm. Pulses: Normal pulses. Heart sounds: Normal heart sounds. No murmur heard. Pulmonary: Effort: Pulmonary effort is normal. Breath sounds: Normal breath sounds. Abdominal: General: Bowel sounds are normal. Palpations: Abdomen is soft. Musculoskeletal: Right lower leg: No edema. Left lower leg: No edema. Skin: General: Skin is warm and dry. Neurological: Mental Status: She is alert and oriented to person, place, and time. Psychiatric: Attention and Perception: Attention normal. Mood and Affect: Mood is anxious. Behavior: Behavior normal. Behavior is cooperative. Thought Content: Thought content normal. Cognition and Memory: Cognition normal. Mikey Olea MD October 01, 2022 3:46 PM Please note: Voice recognition software VideoJax Direct was used dictate and transcribe this document. Cashier Gambling variances may occur. Despite proofreading, typographical errors may occur. j ING MACHINE OPERATOR documented in this encounter Miscellaneous Notes * Assessment & Plan Note - Mikey Olea MD - 10/01/2022 3:46 PM LAGGING MACHINE OPERATOR Associated Problem(s): Morbid obesity with BMI of 40.0-44.9, adult (HCC) Wt Readings from Last 3 Encounters: 10/01/22 90.7 kg (200 lb) 07/17/22 92.4 kg (203 lb 9.6 oz) 06/30/22 90.7 kg (200 lb) Body mass index is 37.81 kg/m??. - chronic condition, not at goal - frustrated with lack of weight loss, states has tried calorie counting, diet changes, avoiding fast food - BMI Follow-up includes: nutrition counseling, exercise counseling and education ING MACHINE OPERATOR * Assessment & Plan Note - Mikey Olea MD - 10/01/2022 3:45 PM LAGGING MACHINE OPERATOR Associated Problem(s): Anxiety and depression - chronic, worse - used to be on medications before - not on any medications now - requesting assistance with depression > Anxiety - start Prozac 10 mg and up titrate to 20 mg - f/u in 2 months Lab Results Component Value Date TSH 2.63 07/17/2022 ING MACHINE OPERATOR * Assessment & Plan Note - Mikey Olea MD - 10/01/2022 3:44 PM LAGGING MACHINE OPERATOR Associated Problem(s): Vitamin D deficiency - chronic, not well controlled - noted [...] 23 (L) 30 - 80 ng/mL Final ING MACHINE OPERATOR * Assessment & Plan Note - Mikey Olea MD - 10/01/2022 3:42 PM LAGGING MACHINE OPERATOR Associated Problem(s): Familial hypercholesterolemia - recent diagnosis - Noted 08/08 with LDL >200 - also noted to have hypertriglyceridemia - started Crestor 10 mg daily - recheck labs on next visit ING MACHINE OPERATOR * Assessment & Plan Note - Ioana Hernandez NP - 10/01/2022 3:02 PM LAGGING MACHINE OPERATOR Associated Problem(s): Chronic urticaria - chronic for 2 years; not well controlled - unclear cause, has been seen in ED several times for this - affecting her quality of life - would benefit with further evaluation, awaiting for appointment with allergy/immunology - has an appointment tomorrow ING MACHINE OPERATOR ING MACHINE OPERATOR * Assessment & Plan Note - Ioana Hernandez NP - 10/01/2022 3:01 PM LAGGING MACHINE OPERATOR Associated Problem(s): Frequent headaches -chronic, not well controlled history of migraine headaches, nausea, light sensitivity - now reports she gets headaches when having sex - she also has tension type headaches along with migraine headaches - uses tylenol as needed - tried sumatriptan once and experienced chest tightness and heart racing after 1 use so has discontinued it ING MACHINE OPERATOR ING MACHINE OPERATOR documented in this encounter Plan of Treatment Not on file documented as of this encounter Procedures Procedure Name Priority Date/Time Associated Diagnosis Comments POC INFLUENZA A/B, COVID-19 ANTIGEN Routine 10/01/2022 3:01 PM LAGGING MACHINE OPERATOR Diarrhea, unspecified type documented in this encounter Results * POC Influenza A/B, COVID-19 antigen (10/01/2022 3:01 PM LAGGING MACHINE OPERATOR) Influenza A Ag, POC Negative Negative [facility] Influenza B Ag, POC Negative [facility] COVID-19 Ag POC Presumptive Negative Presumptive Negative, Invalid [facility] Nasal 10/01/2022 3:01 PM LAGGING MACHINE OPERATOR us Mikey Olea MD POINT OF CARE TEST CARO PAYNE Final Result [facility] [address] [address] documented in this encounter Visit Diagnoses Diagnosis Urticaria- Primary Unspecified urticaria Frequent headaches Diarrhea, unspecified type Familial hypercholesterolemia Class 2 obesity due to excess calories without serious comorbidity with body mass index (BMI) of 37.0 to 37.9 in adult Anxiety and depression Vitamin D deficiency documented in this encounter Discontinued Medications Medication Sig Discontinue Reason Start Date End Da te levothyroxine (SYNTHROID) 25 mcg tablet Take 25 mcg by mouth estate planning paralegal before breakfast 10/01/2022 hydroCHLOROthiazide (HYDRODIURIL) 12.5 mg tablet Take 12.5 mg by mouth daily 05/01/2021 10/01/2022 gabapentin (NEURONTIN) 300 mg capsule TAKE 1 CAPSULE BY MOUTH NIGHTLY 07/20/2021 10/01/2022 ergocalciferol (VITAMIN D) 50,000 unit capsule TAKE 1 CAPSULE BY MOUTH ONCE A WEEK 06/06/2021 10/01/2022 SUMAtriptan (IMITREX) 50 mg tabletIndications:Migra ine Take 1 tablet (50 mg total) by mouth once as needed for migraine May repeat after 2 hours. 07/17/2022 10/01/2022 documented as of this encounter Additional Health Concerns Infection Onset Date Last Indicated Resolved Time COVID: Suspected 10/01/2022 10/01/2022 10/01/2022 3:02 PM LAGGING MACHINE OPERATOR documented as of this encounter Care Teams Power Ballast Machine Operator Relationship Specialty Start Date End Date Mikey Olea MD [address] [place] [address] PCP - General Family Medicine 07/17/22 Xiomy Kaur NP [address] [place] [address] Nurse Practitioner 06/28/21 documented as of this encounter
--- OUTSIDE RECORDS SUMMARY | 2024-11-14 20:50 | XMS_ITS | Encounter Summary ---
Author Organization [facility] Address [address] [place] [address] Care Team Providers Care Shoe Sticks Repairer Name Role Phone Jhon Kaurleora Moss ADVANCE SCOUT Unavailable [phone] Mikey Olea MD Primary Care Provider Encounter Details Date Type Department Care Team (Late st Contact Info) Description 07/19/2022 Telephone [facility] Primary Care at [address] [place] [address] Mikey Olea MD [address] [place] [address] [address] [place] [address] Social History Tobacco Use Types [...] on file Legal Sex Female 4:09 PM CLOTH WASHER Gender Identity Female 06/02/2024 9:46 PM CDT Sexual Orientation Straight 06/02/2024 9: 46 PM CDT documented as of this encounter Miscellaneous Notes * Telephone Encounter - Madison Kelsey MA - 07/19/2022 10:12 AM CDT This has been address via other means. * Telephone Encounter - Mitzi Galan MA - 07/19/2022 9:07 AM CDT Pt requesting lab results done 07/17/22 States her results were bad Please advise documented in this encounter Plan of Treatment Not on file documented as of this encounter Visit Diagnoses Not on filedocumented in this encounter Care Teams Shoe Sticks Repairer Relationship Specialty Start Date End Date Mikey Olea MD [address] [place] [address] PCP - General Family Medicine 07/17/22 Xiomy Kaur NP [address] [place] [address] Nurse Practitioner 06/28/21 documented as of this encounter
--- OUTSIDE RECORDS SUMMARY | 2024-11-14 20:50 | XMS_ITS | Encounter Summary ---
Author Organization [facility] Address [address] [place] [address] Care Team Providers Care Miniature Set Constructor Name Role Phone Jhon Kaurleora Moss NUT ROASTER HELPER Unavailable [phone] Mikey Olea MD Primary Care Provider Encounter Details Date Type Department Care Team (Late st Contact Info) Description 07/23/2022 Telephone [facility] Primary Care at [address] [place] [address] Mikey Olea MD [address] [place] [address] [address] [place] [address] Social History Tobacco Use Types [...] on file Legal Sex Female 4:09 PM FRONT DESK REPRESENTATIVE Gender Identity Female 06/02/2024 9:46 PM CDT Sexual Orientation Straight 06/02/2024 9: 46 PM CDT documented as of this encounter Miscellaneous Notes * Telephone Encounter - Arlene Cuello - 07/23/2022 12:48 PM CDT We sent the referral to our referral department there they will take care of the pt getting set up * Telephone Encounter - Brianna Myrick MA - 07/23/2022 11:07 AM CDT Pt needs a new referral sent to subway conductor as the other one is not accepting her insurance or new patients [facility] [phone] documented in this encounter Plan of Treatment Not on file documented as of this encounter Visit Diagnoses Not on filedocumented in this encounter Care Teams Miniature Set Constructor Relationship Specialty Start Date End Date Mikey Olea MD [address] [place] [address] PCP - General Family Medicine 07/17/22 Xiomy Kaur NP [address] [place] [address] Nurse Practitioner 06/28/21 documented as of this encounter
--- OUTSIDE RECORDS SUMMARY | 2024-11-14 20:50 | XMS_ITS | Encounter Summary ---
Author Organization [facility] Address [address] [place] [address] Phone Care Team Providers Care Pipe Wrapping Machine Operator Name Role Phone Kaur, Xiomy Moss NP Unavailable [phone] Mikey Olea MD Primary Care Provider Eladio Weems MD Unavailable Jessenia Castrejon MD Unavailable [phone] Reason for Visit * Consultation (Routine) - Closed Specialty Diagnoses / Procedures Referred By Vicente hartman Referred To Contact Endocrinology Diagnoses Thyroiditis Jessenia Castrejon MD [address] [facility] [address] [place] [address] Phone: tel: fax: [facility] (All Locations) Referral ID Status Reason Start Date Expiration Date V isits Requested Visits Authorized [id number] Closed Specialty Services Required 10/09/2022 11/08/2023 40 40 Encounter Details Date Type Department Care Team (Latest Contact Info) Description 01/02/2023 3:00 PM FARM LABORER Office Visit [facility] Endocrinology Metabolism and Lipid [address] [place] [address] [place] [address] Eladio Weems MD [address] [place] [address] Prediabetes (Primary Dx); Thyroiditis; Hypercholesterolemia ; Low vitamin D level; Hypothyroidism, unspecified type Social History Tobacco Use Types Packs/Day Years Used Date Smoking Tobacco: Every Day Cigarettes 0.8 15 Smokeless Tobacco: Never Tobacco Cessation:Ready to Q uit: Not Asked; Counseling Given: Not Answered AUDIT-C Answer Date Recorded Q1: How often do you have a drink containing alc ohol? Never 09/18/2021 Average Number of Drinks Not on file Frequency of Binge Drinking Not on file 12/2020 PHQ-2 Answer Date Recorded PHQ-2 Total Score (If total score is 3 or more points, staff should administer the PHQ-9) 2 01/08/2023 Comments No Sex and Gender Information Value Date Recorded Sex Assigned at Not on file Legal Sex Female 4:09 PM FARM LABORER Gender Identity Female 06/02/2024 9:46 PM CDT Sexual Orientation Straight 06/02/2024 9: 46 PM CDT documented as of this encounter Last Filed Vital Signs Vital Sign Reading Time Taken Comments Blood Pressure 117/75 01/02/2023 2:41 PM FARM LABORER Pulse 80 01/02/2023 2:41 PM FARM LABORER Temperature 36.6 ??C (97.9 ??F) 01/02/2023 2:41 PM CS T Respiratory Rate - - Oxygen Saturation - - Inhaled Oxygen Concentration - - Weight 89.4 kg (197 lb 3.2 oz) 01/02/2023 2:41 P M FARM LABORER Height 154.9 cm (5' 1 ) 01/02/2023 2:41 PM FARM LABORER Body Mass Index 37.26 01/02/2023 2:41 PM FARM LABORER documented in this encounter Patient Instructions * Patient Instructions* Eladio Weems MD - 01/02/2023 3:00 PM FARM LABORER Images from the original note were not included. Glucometer check: sometimes fasting and sometimes 45 minutes after meal. Fasting normal <95, diabetic >125 Post meal normal <140, diabetic >200 Major factors that can affect thyroid function [...] -- avoid thyroid function during acute illness. Diet modification. --Limit food intake that tastes sweet; limit adding table sugar to drinks or food. --Limit alcohol and other beverage that has calories. --Moderate pasta, bread, and rice intake. Use whole grain or brown rice or multigrain whenever possible. --Limit cholesterol intake, mainly from animal skin/fat, red meat, but also can be from certain shell sea food, and egg yolk. --Moderate protein intake 2. Exercise --Ideally exercise everyday moderate intensity for 30 minutes, if tolerated. If can't tolerate moderate intensity, consider a light activity such as walking or other tolerated activities for 45 to 60minutes. --Combine exercise with diet will improve weight management, lower cholesterol, blood pressure and reduce glucose. In addition, consistent/daily exercise improves insulin action and further improves glucose readings. 3. Weight loss --All weight loss methods can work if calorie intake is counted accurately and subtracted 250-500 Kcal from the daily requirement that maintains your body weight. Here are two methods you can use forcalorie calculation: You may try those recommendations first, and if not working and you would like to see a bridge operator slip, I can refer you to them. LABORER LABORER LABORER documented in this encounter Ordered Prescriptions Prescription Sig Dispense Quantity Refills Last Filled Start Date End Date blood-glucose meter kitIndications:Pre diabetes Please check sometimes fasting morning and sometimes 45 minutes after meal. 1 kit 01/02/2023 OneTouch Delica Lancets 33 gauge miscIndications:Pr ediabetes Use to check blood sugars before meals and at bedtime 100 each 1 01/02/2023 levothyroxine (SYNTHROID) 75 mcg tabletIndications: Hypothyroidism, unspecified type 1 tab po morning with empty stomach, 45 minutes before food/medication s/supplement, to ensure adequate absorption. 90 tablet 1 01/09/2023 OneTouch Verio test strips stripIndications:P rediabetes Use to check blood sugar before meals and at bedtime 100 each 1 01/02/2023 3 documented in this encounter Progress Notes * Eladio Weems MD - 01/02/2023 3:00 PM CST Images from the original note were not included. Endocrine Outpatient New Patient Note Date: 01/02/2023 HPI Ashley Rdz is a pleasant 37 y.o. female coming today for evaluation of thyroiditis with positive TPO. Also has prediabetes, HLD. Has abnormal smell, not due to covid. Steroid pack used 7 times in 6 months by PCP for smell and other reasons. 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 Low FT4 was on LT4 for a month. No change for her symptoms. Prediabetes a1c 5.9 Mother T2DM NO meter. HLD high LDL with TG. On statin since 2021 Low vit D: 1000 unit/day now. BMI 38, difficult weight loss. Diet: not on particular diet. Doesn't eat much. Salad. May cook at dinner. 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 Menses: regular. Current Outpatient Medications Medication Sig Dispense Refill cetirizine (ZyrTEC) 10 mg tablet Take 1 tablet (10 mg total) by mouth 2 (two) times a day 60 tablet3 cholecalciferol (VITAMIN D-3) 5,000 unit tablet Take 1 tablet (5,000 Units total) by mouth daily 90tablet 3 famotidine (PEPCID) 20 mg tablet Take 1 tablet (20 mg total) by mouth 2 (two) times a day 60 tablet3 FLUoxetine (PROzac) 10 mg tablet/capsule Take 1 tablet/capsule (10 mg total) by mouth daily for 30 days, THEN 2 tablet/capsule (20 mg total) daily. 90 capsule 0 montelukast (SINGULAIR) 10 mg tablet Take 1 tablet (10 mg total) by mouth daily 30 tablet 11 ondansetron (ZOFRAN) 4 mg tablet Take 1 tablet (4 mg total) by mouth every 6 (six) hours as needed for nausea or vomiting (Patient not taking: Reported on 07/17/2022) 20 tablet 1 potassium chloride ER (KLOR-CON) 10 mEq CR tablet Take 10 mEq by mouth daily (Patient not taking: Reported on 07/17/2022) rosuvastatin (CRESTOR) 10 mg tablet Take 1 tablet (10 mg total) by mouth daily 90 tablet 1 No current facility-administered medications for this visit. Patient has no known allergies. Past Medical History: Diagnosis Date Cervical cancer screening Cervical Pre Cancer Chronic bronchitis (CMS/HCC) (HCC) Depression GERD (gastroesophageal reflux disease) Hypercholesteremia Hyperlipidemia Hypertension Hypothyroidism Migraines Pneumonia Thyroid disease Past Surgical History: Procedure Laterality Date DILATION AND CURETTAGE OF UTERUS 2007 and 2009 TONSILLECTOMY AND ADENOIDECTOMY TUBAL LIGATION 2010 TUBAL LIGATION Social History Tobacco Use Smoking status: Every Day Packs/day: 0.75 Years: 15.00 Pack years: 11.25 Types: Cigarettes Smokeless tobacco: Never Vaping Use Vaping Use: Never used Substance and Sexual Activity Alcohol use: Not on file Drug use: Never Sexual activity: Yes Partners: Male control/protection: Tubal Ligation, None Family History Problem Relation Age of Onset Cancer Other Heart disease Other Hypertension Other Diabetes Mother COPD Mother Hypertension Mother Heart disease Father COPD Father Hypertension Father ROS: difficult weight loss, smell problem. Fatigue. Endocrine: Negative for cold intolerance, heat intolerance, [...] for decreased concentration and mood meza. BP 117/75 (BP Location: Left arm, Patient Position: Sitting) Pulse 80 Temp 36.6 ??C (97.9 ??F) (Oral) Ht 154.9 cm (5' 1 ) Wt 89.4 kg (197 lb 3.2 oz) BMI 37.26 kg/m?? Wt Readings from Last 3 Encounters: 10/02/22 92.6 kg (204 lb 3.2 oz) 10/01/22 90.7 kg (200 lb) 07/17/22 92.4 kg (203 lb 9.6 oz) BMI Readings from Last 3 Encounters: 10/02/22 38.61 kg/m?? 10/01/22 37.81 kg/m?? 07/17/22 38.49 kg/m?? Physical Exam: no danis phenotype. Gen [...] Lab/Radiology/Diagnostic Lab Results Component Value Date HGBA1C 5.9 (H) 07/17/2022 Lab Results Component Value Date LDLCALC 202 (H) 07/17/2022 CREATININE 0.66 10/02/2022 Lab Results Component Value Date TSH 3.77 10/02/2022 FREET4 0.85 (L) 10/02/2022 Lab Results Component Value Date CALCIUM 9.5 [...] is abnormally low Assessment and Plan Sruthi thyroiditis; Discussed nature course Repeat TFT When do thyroid function -- avoid supplement with iodine or thyroid hormone, avoid vitamin B complex, biotin supplement, or supplement with unknown ingredient. -- avoid thyroid function during acute illness. Prediabetes with HLD, BMI 38 Recommend annual a1c Glucometer ordered: Glucometer check: sometimes fasting and sometimes 45 minutes after meal. Fasting normal <95, diabetic >125 Post meal normal <140, diabetic >200 HLD; 09/2022 LDL 202 TG 328 on rosuvastatin 10mg BMI 38 Diet modification. --Limit food intake that tastes sweet; limit adding table sugar to drinks or food. --Limit alcohol and other beverage that has calories. --Moderate pasta, bread, and rice intake. Use whole grain or brown rice or multigrain whenever possible. --Limit cholesterol intake, mainly from animal skin/fat, red meat, but also can be from certain shell sea food, and egg yolk. --Moderate protein intake 2. Exercise --Ideally exercise everyday moderate intensity for 30 minutes, if tolerated. If can't tolerate moderate intensity, consider a light activity such as walking or other tolerated activities for 45 to 60minutes. --Combine exercise with diet will improve weight management, lower cholesterol, blood pressure and reduce glucose. In addition, consistent/daily exercise improves insulin action and further improves glucose readings. 3. Weight loss --All weight loss methods can work if calorie intake is counted accurately and subtracted 250-500 Kcal from the daily requirement that maintains your body weight. Here are two methods you can use forcalorie calculation: You may try those recommendations first, and if not working and you would like to see a bridge operator slip, I can refer you to them. vitaminD 06/2022 on replacement. Repeat 2022 Avoid steroid. Discussed side effects of terminal make up operator uses regarding metabolism. TSH and FT4 now. vitD. Lipid 6 mos before next visit. Glucometer ordered. ADDENDUM ADDED ON 01/09/2023 Called pt and started LT4 75mcg po daily. Repeat TFT 2-3 months. Pt acknowledged. Latest Reference Range & Units 01/07/23 07:33 Free T4 0.8 - 1.8 ng/dL 0.7 (L) TSH mIU/L 13.47 (H) (L): Data is abnormally low (H): Data is abnormally high ADDENDUM ADDED ON 09/11/2023 Comment to pt will discuss next week visit 09/10/2023 chol 165, LDL 84, HDL 41 L (>50), TG 329 (<150). 09/10/2023 TSH 5.27, FT4 0.8 (need to check if taking consistently correctly) 09/10/2023 vitD 39 LABORER LABORER documented in this encounter Miscellaneous Notes * Addendum Note - Eladio Weems MD - 01/02/2023 3:00 PM CSTAddended by: ELADIO WEEMS on: 01/09/2023 11:05 AM Modules accepted: Orders LABORER documented in this encounter Plan of Treatment Not on file documented as of this encounter Procedures Procedure Name Priority Date/Time Associated Diagnosis Comments VITAMIN D 25 HYDROXY Routine 09/10/2023 7:41 AM CDT Low vitamin D level LIPID PANEL Routine 09/10/2023 7:41 AM CDT Hypercholesterolemia TSH Routine 09/10/2023 7:40 AM CDT Hypothyroidism, unspecified type T4, FREE Routine 09/10/2023 7:40 AM CDT Hypothyroidism, unspecified type TSH Routine 01/07/2023 7:33 AM FARM LABORER Thyroiditis T4, FREE Routine 01/07/2023 7:33 AM FARM LABORER Thyroiditis documented in this encounter Results * Vitamin D 25 hydroxy (09/10/2023 7:41 AM CDT) [facility] Vitamin D 25-OH 39 30 - 100 ng/mL [facility] Comment: Vitamin D Status ? 25-OH Vitamin D: Deficiency: ?<20 ng/mL Insufficiency: ? 20 - 29 ng/mL Optimal: ? > or = 30 ng/mL For 25-OH Vitamin D testing on patients on D2-supplementation and patients for whom quantitation of D2 and D3 fractions is required, the QuestAssureD(TM) 25-OH VIT D, (D2,D3), LC/MS/MS is recommended: order code 94580 (patients >2yrs). See Note 1 Note 1 For additional information, please refer to http://VOICEPLATE.COM.Postdeck/faq/ATE106 (This link is being provided for informational/ educational purposes only.) Blood 09/10/2023 7:41 AM CDT 09/10/2023 7:42 AM CDT Narrative [facility] - 09/11/2023 2:57 AM CDT FASTING:YES FASTING: YES us Eladio Weems MD LAB BLOOD ORDERABLES Final Resul t [facility] [address] [place] [address] * (ABNORMAL) Lipid panel (09/10/2023 7:41 AM CDT) [facility] Cholesterol 165 <200 mg/dL [facility] HDL 41(L) > OR = 50 mg/dL [facility] Triglycerides 329(H) <150 mg/dL [facility] Comment: If a non-fasting specimen was collected, consider repeat triglyceride testing on a fasting specimen if clinically indicated. Siria et al. J. of Clin. Lipidol. 2015;9:129-169. LDL 84 mg/dL (calc) [facility] Comment: Reference range: <100 Desirable range <100 mg/dL for primary prevention; ?? <70 mg/dL for patients with CHD or diabetic patients with > or = 2 CHD risk factors. LDL-C is now calculated using the Meri calculation, which is a validated novel method providing better accuracy than the Friedewald equation in the estimation of LDL-C. Herman WHITE et al. IVANA. 2013;310(19): 4849-1512 (http://education.Postdeck/faq/JDJ228) Chol/HDL ratio 4.0 <5.0 (calc) [facility] Non-HDL, (LDL+VLDL) 124 <130 mg/dL (calc) [facility] Comment: For patients with diabetes plus 1 major ASCVD risk factor, treating to a non-HDL-C goal of <100 mg/dL (LDL-C of <70 mg/dL) is considered a therapeutic option. Blood 09/10/2023 7:41 AM CDT 09/10/2023 7:42 AM CDT Narrative [facility] - 09/11/2023 2:57 AM CDT FASTING:YES FASTING: YES us Eladio Weems MD LAB BLOOD ORDERABLES Final Resul t Performing Organization Address [facility] de Phone Number [facility] [address] [place] [address] * T4, free (09/10/2023 7:40 AM CDT) Free T4 0.8 0.8 - 1.8 ng/dL [facility] Blood 09/10/2023 7:40 AM CDT 09/10/2023 7:40 AM CDT Narrative [facility] - 09/11/2023 2:39 AM CDT FASTING:YES FASTING: YES us Eladio Weems MD LAB BLOOD ORDERABLES Final Resul t Performing Organization Address [facility] de Phone Number [facility] [address] [place] [address] * (ABNORMAL) TSH (09/10/2023 7:40 AM CDT) TSH 5.27(H) mIU/L [facility] Comment: ?Reference Range ?> or = 20 Years ??0.40-4.50 ? Ranges ?First trimester ?0.26-2.66 ?Second trimester ?? 0.55-2.73 ?Third trimester ?0.43-2.91 Blood 09/10/2023 7:40 AM CDT 09/10/2023 7:40 AM CDT Narrative [facility] - 09/11/2023 2:39 AM CDT FASTING:YES FASTING: YES Eladio Weems MD LAB BLOOD ORDERABLES Final Resul t Performing Organization Address [facility] Co de Phone Number [facility] [address] [place] [address] * (ABNORMAL) T4, free (01/07/2023 7:33 AM FARM LABORER) Free T4 0.7(L) 0.8 - 1.8 ng/dL [facility] Blood 01/07/2023 7:33 AM FARM LABORER 01/07/2023 7:34 AM FARM LABORER Eladio Weems MD LAB BLOOD ORDERABLES Final Resul t Performing Organization Address [facility] de Phone Number [facility] [address] [place] [address] * (ABNORMAL) TSH (01/07/2023 7:33 AM FARM LABORER) TSH 13.47(H) mIU/L [facility] Comment: ?Reference Range ?> or = 20 Years ??0.40-4.50 ? Ranges ?First trimester ?0.26-2.66 ?Second trimester ?? 0.55-2.73 ?Third trimester ?0.43-2.91 Blood 01/07/2023 7:33 AM FARM LABORER 01/07/2023 7:34 AM FARM LABORER Eladio Weems MD LAB BLOOD ORDERABLES Final Resul t [facility] [address] [place] [address] documented in this encounter Visit Diagnoses Diagnosis Prediabetes- Primary Other abnormal glucose Thyroiditis Unspecified thyroiditis Hypercholesterolemia Pure hypercholesterolemia Low vitamin D level Hypothyroidism, unspecified type documented in this encounter Discontinued Medications Medication Sig Discontinue Reason Start Date End Da te FLUoxetine (PROzac) 10 mg tablet/capsuleIndications :Anxiety and depression Take 1 tablet/capsule (10 mg total) by mouth daily for 30 days, THEN 2 tablet/capsule (20 mg total) daily. Duplicate order 10/01/2022 01/02/2023 documented as of this encounter Historical Medications * This list may reflect changes made after this encounter. FLUoxetine (PROzac) 20 mg tablet Take 20 mg by mouth daily 11/12/2022 01/08/2023 cholecalciferol (VITAMIN D-3) 5,000 unit capsule Take 5,000 Units by mouth daily 10/23/2022 08/08/2023 added in this encounter Orders Outpatient Referral Count Last Ordered Date Fir st Ordered Date AMB REFERRAL TO ENDOCRINOLOGY 1 01/02/2023 documented in this encounter Care Teams Pipe Wrapping Machine Operator Relationship Specialty Start Date End Date Mikey Olea MD [address] [place] [address] PCP - General Family Medicine 07/17/22 Xiomy Kaur NP [address] [place] [address] Nurse Practitioner 06/28/21 Eladio Weems MD [address] [facility] [address] [place] [address] Consulting Physician Endocrinology Diabetes & Metabolism 01/08/23 Jessenia Castrejon MD [address] [facility] [address] [place] [address] Referring Physician Allergy and Immunology 01/08/23 documented as of this encounter
--- OUTSIDE RECORDS SUMMARY | 2024-11-14 20:50 | XMS_ITS | Encounter Summary ---
Author Organization [facility] Address [address] [facility] [address] [place] [address] Care Team Providers Care Hand Outside Cutter Name Role Phone Xiomy Kaur NP Primary Care Provider [phone] Xiomy Kaur BAND MACHINE OPERATOR Unavailable [phone] Reason for Visit * Reason Comments Post-op Encounter Details Date Type Department Care Team (Late st Contact Info) Description 10/02/2021 9:15 AM RAMP FLIGHT ATTENDANT Office Visit [facility] Orthopedic and Sports Medicine [address] [place] [phone] Claire Miller PA [address] [place] [address] [address] [place] [address] Aftercare following surgery of the musculoskeletal system (Primary Dx); S/P cubital tunnel release; Status post carpal tunnel release Social History [...] on file Legal Sex Female 4:09 PM RAMP FLIGHT ATTENDANT Gender Identity Female 06/02/2024 9:46 PM CDT Sexual Orientation Straight 06/02/2024 9: 46 PM CDT documented as of this encounter Last Filed Vital Signs Vital Sign Reading Time Taken Comments Blood Pressure 118/79 10/02/2021 9:25 AM RAMP FLIGHT ATTENDANT Pulse 104 10/02/2021 9:25 AM RAMP FLIGHT ATTENDANT Temperature - - Respiratory Rate - - Oxygen Saturation - - Inhaled Oxygen Concentration - - Weight 91.4 kg (201 lb 9.6 oz) 10/02/2021 9:25 A M RAMP FLIGHT ATTENDANT Height 154.9 cm (5' 1 ) 10/02/2021 9:25 AM RAMP FLIGHT ATTENDANT Body Mass Index 38.09 10/02/2021 9:25 AM RAMP FLIGHT ATTENDANT documented in this encounter Progress Notes * Claire Miller PA - 10/02/2021 9:15 AM CST Images from the original note were not included. Post-Op Visit Note HPI: Patient is 2 weeks s/p right carpal tunnel and cubital tunnel release. Pain is well controlled. Presurgical symptoms are improving. She reports her hand incision has but open) 3 times. The first was due to trauma, where she fell and hit her hand on a rock. This happened 09/22/2021 and she was seen at [facility] ED. She states the wound was dressed at the time of her fall, and she had increased bleeding noted. Since then, she has had 2 separate incidents, one where her 3-year old dragged the phone from her hand, snagging the incision, and the other where she hit her hand on a wall. Both times she has noted to have increased bloody draining. No prior notes/calls are documented regarding this and she states she did not contact our office. She has been keeping the area clean by washing daily with antibacterial soap. She reports limited dressing use, and she is having a hard time getting a bandage to adhere to the area. She denies any issues at the elbow Vital signs: height is 154.9 cm (5' 1 ) and weight is 91.4 kg (201 lb 9.6 oz). Her blood pressure is 118/79 and her pulse is 104. Exam: Gapping of her palmar incision is noted with dried, bloody draining noted. Deep scar tissue is present, and area appears to be healing via secondary intention Well-approximated, healing postoperative incision to medial aspect of the right elbow No active erythema, draining, or signs of infection present. Neurovascular status is intact. Full AROM of wrist and digits. Assessment: Diagnosis Plan 1. Aftercare following surgery of the musculoskeletal system 2. S/P cubital tunnel release 3. Status post carpal tunnel release Plan: Incision/wound care was reviewed. Reassurance provided and advised her that this was healing via secondary intention. Provider her today with wound cleanser, bacitracin, and appropriate bandages. Also placed her in a cock-up wrist splint for added protection of her wound. Discussed continued post op expectations and recovery. Advised limited lifting and use of the right hand. Follow up next week for wound check Questions were answered. Patient expressed full understanding and agreement of plan. Claire Miller PA-C Cosigned by Jonel Ley MD at 10/02/2021 1:10 PM RAMP FLIGHT ATTENDANT FLIGHT ATTENDANT FLIGHT ATTENDANT documented in this encounter Plan of Treatment Not on file documented as of this encounter Visit Diagnoses Diagnosis Aftercare following surgery of the musculoskeletal system- Primary Aftercare following surgery of the musculoskeletal system, NEC S/P cubital tunnel release Other postprocedural status Status post carpal tunnel release Other postprocedural status documented in this encounter Care Teams Hand Outside Cutter Relationship Specialty Start Date End Date Xiomy Kaur NP [address] [place] [address] PCP - General Nurse Practitioner 06/28/21 07/16/22 Xiomy Kaur NP [address] [place] [address] Nurse Practitioner 06/28/21 documented as of this encounter
--- OUTSIDE RECORDS SUMMARY | 2024-11-14 20:50 | XMS_ITS | Encounter Summary ---
Author Organization [facility] Healthcare Address [address] [place] [address] Care Team Providers Care Template Fitter Name Role Phone Natasha, Xiomy Moss GRADES 6 THROUGH 8 TEACHER Unavailable [phone] Mikey Olea MD Primary Care Provider Encounter Details Date Type Department Care Team (Late st Contact Info) Description 10/02/2022 3:00 PM ASSEMBLER BODY Lab [facility] at the [address] [phone] Urticaria Social History Tobacco Use Types Packs/Day [...] on file Legal Sex Female 4:09 PM ASSEMBLER BODY Gender Identity Female 06/02/2024 9:46 PM CDT Sexual Orientation Straight 06/02/2024 9: 46 PM CDT documented as of this encounter Plan of Treatment Not on file documented as of this encounter Procedures Procedure Name Priority Date/Time Associated Diagnosis Comments GLUCOSE, RANDOM (OUTREACH) Routine 10/02/2022 3:03 PM ASSEMBLER BODY Urticaria EGFR Routine 10/02/2022 3:03 PM ASSEMBLER BODY Urticaria DIFFERENTIAL AUTO Routine 10/02/2022 3:0 3 PM ASSEMBLER BODY Urticaria GALACTOSE ALPHA 1,3 GALACTOSE IGE Routine 10/02/2022 3:03 PM ASSEMBLER BODY Urticaria COMPREHENSIVE METABOLIC PANEL WITHOUT GLUCOSE (OUTREACH) Routine 10/02/2022 3:03 PM ASSEMBLER BODY Urticaria HC COMP METABOLIC PANEL Routine 10/02/2022 3:03 PM ASSEMBLER BODY Urticaria CBC WITH AUTO DIFFERENTIAL Routine 10/02/2022 3:03 PM ASSEMBLER BODY Urticaria THYROID PEROXIDASE ANTIBODY Routine 10/02/2022 3:03 PM ASSEMBLER BODY Urticaria TRYPTASE Routine 10/02/2022 3:03 PM ASSEMBLER BODY Urticaria ERYTHROCYTE SEDIMENTATION RATE Routine 10/02/2022 3:03 PM ASSEMBLER BODY Urticaria CRP (ACUTE PHASE) Routine 10/02/2022 3:0 3 PM ASSEMBLER BODY Urticaria TSH Routine 10/02/2022 3:03 PM ASSEMBLER BODY Urticaria T4, FREE Routine 10/02/2022 3:03 PM ASSEMBLER BODY Urticaria IGE Routine 10/02/2022 3:03 PM ASSEMBLER BODY Urticaria documented in this encounter Results * eGFR (10/02/2022 3:03 PM ASSEMBLER BODY) [facility] eGFR >90 90 - 130 mL/min/1. 73 m2 [facility] Comment: Interpretive Data Reference Interval Normal ?>/= 90 mL/min/1.73m2 Mildly decreased* ? 60 - 89 mL/min/1.73m2 Mildly to moderately decreased ?45 - 59 mL/min/1.73m2 Moderately to severely decreased ??30 - 44 mL/min/1.73m2 Severely decreased ?15 - 29 mL/min/1.73m2 Kidney Failure ?< 15 ??mL/min/1.73m2 *Relative to young adult level Estimated glomerular filtration rate is determined by the 2020 CKD-EPI equation recommended by the National Kidney Foundation (A Unifying Approach to GFR Estimation: Recommendations of the NKF-ASK Task Force on Reassessing the Inclusion of Race in Diagnosing Kidney Disease, JASN 2020). The CKD-EPI equation should not be used for patients with unstable renal function and has not been validated in children and those over 70. Current interpretive data was last reviewed 2021. Blood 10/02/2022 3:03 PM ASSEMBLER BODY 10/02/2022 4:21 PM ASSEMBLER BODY us Jessenia Castrejon MD LAB BLOOD ORDERABLES Final Result [facility] Department [place] [address] * (ABNORMAL) Differential, auto (10/02/2022 3:03 PM ASSEMBLER BODY) Neutrophil abs 5.3 1.7 - 6.5 K/cumm [facility] Imm gran abs 0.1 0.0 - 0.1 K/cumm [facility] Lymphocyte abs 4.0(H) 0.8 - 3.3 K/cumm [facility] Monocyte abs 0.5 0.2 - 0.8 K/cumm [facility] Eosinophil abs 0.3 0.0 - 0.5 K/cumm [facility] Basophil abs 0.0 0.0 - 0.1 K/cumm [facility] Neutrophil pct 51.8 % [facility] Comment: Interpretive Data Percent cell count reference ranges are not reported, since discordance with absolute values may lead to misinterpretation of CBC data. Current Interpretive Data was last revised on 2018. Imm gran pct 0.5 % [facility] Comment: Interpretive Data Percent cell count reference ranges are not reported, since discordance with absolute values may lead to misinterpretation of CBC data. Current Interpretive Data was last revised on 2018. Lymphocyte pct 39.1 % [facility] Comment: Interpretive Data Percent cell count reference ranges are not reported, since discordance with absolute values may lead to misinterpretation of CBC data. Current Interpretive Data was last revised on 2018. Monocyte pct 5.3 % [facility] Comment: Interpretive Data Percent cell count reference ranges are not reported, since discordance with absolute values may lead to misinterpretation of CBC data. Current Interpretive Data was last revised on 2018. Eosinophil pct 3.2 % [facility] Comment: Interpretive Data Percent cell count reference ranges are not reported, since discordance with absolute values may lead to misinterpretation of CBC data. Current Interpretive Data was last revised on 2018. Basophil pct 0.1 % [facility] Comment: Interpretive Data Percent cell count reference ranges are not reported, since discordance with absolute values may lead to misinterpretation of CBC data. Current Interpretive Data was last revised on 2018. Blood 10/02/2022 3:03 PM ASSEMBLER BODY 10/02/2022 4:12 PM ASSEMBLER BODY us Jessenia Castrejon MD LAB BLOOD ORDERABLES Final Result [facility] Department [place] [address] * Glucose, random (Outreach) (10/02/2022 3:03 PM ASSEMBLER BODY) Pathologist [facility] Glucose 82 70 - 199 mg/dL [facility] Comment: Interpretive Data Fasting glucose >/= 126 [...] Current interpretive data was last revised 2017. Blood 10/02/2022 3:03 PM ASSEMBLER BODY 10/02/2022 4:12 PM ASSEMBLER BODY Jessenia Castrejon MD LAB BLOOD ORDERABLES Final Result [facility] Department [place] [address] * (ABNORMAL) Comprehensive metabolic panel, without glucose (Outreach) (10/02/2022 3:03 PM ASSEMBLER BODY) Sodium 141 135 - 145 mmol/L [facility] Potassium, pl 3.7 3.3 - 4.9 mmol/L [facility] Chloride 103 97 - 110 mmol/L [facility] CO2 29 22 - 32 mmol/L [facility] Anion gap 9 2 - 15 mmol/L [facility] BUN 5(L) 8 - 25 mg/dL [facility] Creatinine 0.66 0.60 - 1.10 mg/dL [facility] Calcium 9.5 8.5 - 10.3 mg/dL [facility] Protein, pl 7.9 6.5 - 8.5 g/dL [facility] Albumin 4.5 3.5 - 5.0 g/dL [facility] Bilirubin, total 0.4 0.1 - 1.2 mg/dL [facility] Alk phos 74 40 - 130 Units/L [facility] AST 18 10 - 45 Units/L [facility] ALT 27 7 - 45 Units/L [facility] Blood 10/02/2022 3:03 PM ASSEMBLER BODY 10/02/2022 4:12 PM ASSEMBLER BODY Jessenia Castrejon MD LAB BLOOD ORDERABLES Final Result [facility] [place] [address] * (ABNORMAL) CRP (acute phase) (10/02/2022 3:03 PM ASSEMBLER BODY) CRP 34.0(H) <=10.0 mg/L [facility] Blood 10/02/2022 3:03 PM ASSEMBLER BODY 10/02/2022 4:12 PM ASSEMBLER BODY Jessenia Castrejon MD LAB BLOOD ORDERABLES Final Result Performing Organization Address City/[facility]/[place] [address] * Tryptase (10/02/2022 3:03 PM ASSEMBLER BODY) Tryptase Level 3.6 <11.5 ng/mL [facility] Comment: Test Performed by: [facility] [address] [id number] Director Of Photography: Patrick Borja M.D. Ph.D.; CLIA# [id number] Blood 10/02/2022 3:03 PM ASSEMBLER BODY 10/02/2022 6:09 PM ASSEMBLER BODY Jessenia Castrejon MD LAB BLOOD ORDERABLES Final Result Performing Organization Address City/[facility]/[place] [address] * TSH (10/02/2022 3:03 PM ASSEMBLER BODY) Thyroid Stimulating Hormone 3.77 0.30 - 4.20 mcIUnit/mL [facility] Blood 10/02/2022 3:03 PM ASSEMBLER BODY 10/02/2022 4:12 PM ASSEMBLER BODY Jessenia Castrejon MD LAB BLOOD ORDERABLES Final Result [facility] Department [place] [address] * (ABNORMAL) T4, free (10/02/2022 3:03 PM ASSEMBLER BODY) Pathologist [facility] Free T4 0.85(L) 0.90 - 1.70 ng/dL [facility] Blood 10/02/2022 3:03 PM ASSEMBLER BODY 10/02/2022 4:12 PM ASSEMBLER BODY Jessenia Castrejon MD LAB BLOOD ORDERABLES Final Result [facility] [place] [address] * (ABNORMAL) CBC with auto differential (10/02/2022 3:03 PM ASSEMBLER BODY) [facility] WBC 10.2(H) 3.8 - 9.9 K/cumm [facility] Hgb 13.5 11.9 - 15.5 g/dL [facility] Hct 41.2 35.6 - 45.5 % [facility] Plt 303 150 - 400 K/cumm [facility] MPV 9.6 9.1 - 12.3 fL [facility] RBC 4.59 3.90 - 5.20 M/cumm [facility] MCV 89.8 81.3 - 96.4 fL [facility] MCH 29.4 27.1 - 33.3 pg [facility] MCHC 32.8 32.3 - 35.7 g/dL [facility] RDW CV 14.6 11.1 - 14.9 % [facility] RDW SD 47.8 35.7 - 48.1 fL [facility] NRBC abs 0.00 0.00 - 0.01 K/cumm [facility] Blood 10/02/2022 3:03 PM ASSEMBLER BODY 10/02/2022 4:12 PM ASSEMBLER BODY Jessenia Castrejon MD LAB BLOOD ORDERABLES Final Result [facility] [place] [address] * IgE (10/02/2022 3:03 PM ASSEMBLER BODY) [facility] IgE 11.9 1.0 - 100.0 IUnits/mL [facility] Blood 10/02/2022 3:03 PM ASSEMBLER BODY 10/02/2022 4:12 PM ASSEMBLER BODY Jessenia Castrejon MD LAB BLOOD ORDERABLES Final Result Performing Organization Address [facility] [place] [address] * Galactose alpha 1,3 galactose IgE (10/02/2022 3:03 PM ASSEMBLER BODY) [facility] RAST, pmnoxmprd-xloex-1 ,3-galactose <0.10 <0.70 kUnits/L [facility] Comment: Class 0 (Negative <0.10) Test Performed by: [facility] [address] [place] [address] Director Of Photography: Patrick Borja M.D. Ph.D.; CLIA# [id number] Blood 10/02/2022 3:03 PM ASSEMBLER BODY 10/02/2022 5:04 PM ASSEMBLER BODY Jessenia Castrejon MD LAB BLOOD ORDERABLES Final Result Performing Organization Address City/[facility] Co de Phone Number [facility] [place] [address] * (ABNORMAL) Thyroid peroxidase antibody (TPO) (10/02/2022 3:03 PM ASSEMBLER BODY) [facility] Anti Thyroid Peroxidase 88(H) <=34 units/mL [facility] Comment: ATPO Interpretive Data Results may be up to 28% higher in patients receiving Itraconazole. Current interpretive data was last revised 2021. Blood 10/02/2022 3:03 PM ASSEMBLER BODY 10/02/2022 4:12 PM ASSEMBLER BODY Jessenia Castrejon MD LAB BLOOD ORDERABLES Final Result Performing Organization Address City/[facility]/ZIP Co de Phone Number [facility] [place] [address] * (ABNORMAL) Erythrocyte sedimentation rate (10/02/2022 3:03 PM ASSEMBLER BODY) Erythrocyte sedimentation rate 42(H) 1 - 20 mm/hr [facility] Blood 10/02/2022 3:03 PM ASSEMBLER BODY 10/02/2022 4:12 PM ASSEMBLER BODY Jessenia Castrejon MD LAB BLOOD ORDERABLES Final Result Performing Organization Address [facility] de Phone Number [facility] [place] [address] documented in this encounter Visit Diagnoses Diagnosis Urticaria Unspecified urticaria documented in this encounter Care Teams Template Fitter Relationship Specialty Start Date End Date Mikey Olea MD [address] [place], [place] [id number] PCP - General Family Medicine 07/17/22 Xiomy Kaur NP [address] [place] [address] Nurse Practitioner 06/28/21 documented as of this encounter
--- OUTSIDE RECORDS SUMMARY | 2024-11-14 20:50 | XMS_ITS | Encounter Summary ---
Author Organization [facility] Address [address] [place] [address] Care Team Providers Care Stator Winder Name Role Phone Xiomy Kaur NP Primary Care Provider [phone] Xiomy Kaur FINE CHEMICALS OPERATOR Unavailable [phone] Reason for Visit * Reason Comments Pain Encounter Details Date Type Department Care Team (Late st Contact Info) Description 08/17/2021 9:00 AM CDT Office Visit [facility] Orthopedics and Sports Medicine [address] [place] [id number] Jonel Ley MD [address] [place] [address] DR J[address]NSON [address] [address] Cubital tunnel syndrome on right (Primary Dx); Carpal tunnel syndrome of right wrist; Smoker Social History Tobacco Use Types Packs/Day Years Used Date Smoking Tobacco: Every Day Smokeless Tobacco: Never Comments No Sex and Gender Information Value Date Recorded Sex Assigned at Not on file Legal Sex Female 4:09 PM CRIME SCENE EXAMINER Gender Identity Female 06/02/2024 9:46 PM CDT Sexual Orientation Straight 06/02/2024 9: 46 PM CDT documented as of this encounter Last Filed Vital Signs Vital Sign Reading Time Taken Comments Blood Pressure 118/78 08/17/2021 9:32 AM CDT Pulse 80 08/17/2021 9:32 AM CDT Temperature - - Respiratory Rate - - Oxygen Saturation - - Inhaled Oxygen Concentration - - Weight 93.9 kg (207 lb) 08/17/2021 9:32 AM CDT Height 158.8 cm (5' 2.5 ) 08/17/2021 9:32 AM CDT Body Mass Index 37.26 08/17/2021 9:32 AM CDT documented in this encounter Progress Notes * Jonel Ley MD - 08/17/2021 9:00 AM CDT Images from the original note were not included. NEW PATIENT VISIT This patient has been reviewed and COVID-19 risk has been assessed. Based on our clinical judgement, we find it appropriate to see this patient in clinic today. Our staff performed proper precautionsand wore appropriate PPE when caring for this patient in office today. Both myself and the patient wore a mask throughout the visit. The patient understands current COVID-19 risks and wished to be seen today. Subjective CHIEF COMPLAINT She had concerns including Pain of the Right Wrist. HISTORY OF PRESENT ILLNESS Right wrist pain [...] because complaint is her last 3 fingers Mortgage Accounting Clerk completed by using M*Modal Fluency Direct speaking software, therefore, transcriptionvariances may occur. Pain Assessment Pain Assessment: 0-10 Pain Score: 6 Pain Location: Wrist Pain Orientation: Right Pain Descriptors: Aching Pain Frequency: With movement/cough PAST MEDCIAL HISTORY She has a past medical history of Depression, Hypercholesteremia, Migraines, and Thyroid disease. PAST SURGICAL HISTORY She has a past surgical history that includes Tubal ligation. MEDICATIONS She has a current medication list which includes the following prescription(s): cyclobenzaprine, ergocalciferol, euthyrox, famotidine, gabapentin, hydrochlorothiazide, ketorolac, meloxicam, methylprednisolone, and nicotine. ALLERGIES She has No Known Allergies. SOCIAL HISTORY She reports that she has been smoking. She has never used smokeless tobacco. FAMILY HISTORY Her family history includes Cancer in an other family member; Heart disease in an other family member; Hypertension in an other family member. REVIEW OF SYSTEMS Review of Systems Constitutional: [...] is not nervous/anxious and is not hyperactive. Objective PHYSICAL EXAM BP 118/78 Pulse 80 Ht 158.8 cm (5' 2.5 ) Wt 93.9 kg (207 lb) BMI 37.26 kg/m?? Right elbow Neurovascular Median: paresthesias Ulnar: parethesias Tests Tinel's sign: positive Right hand/wrist Inspection The patient has normal inspection of the right hand and wrist. Palpation The patient has normal palpation of the right hand and wrist. Range of motion The patient has normal range of motion of the right wrist. The patient does not have pain with range of motion of the right wrist. Th patient has normal range of motion of the fingers on the right hand. The patient does not have pain with range of motion of the right fingers. Stability The patient has normal stability of the right hand and wrist. Strength The patient has 5/5 strength throughout with exceptions as noted below. Condenser Cleaner: 4/5 Neurovascular The patient has normal vascular on the right side of their body. The patient has normal sensation on the right side of their body. Test Phalen's sign: positive Tinel's sign: positive Left hand/wrist The patient has normal inspection, palpation, range of motion, strength, and stability of the left hand and wrist. Strength The patient has 5/5 strength throughout with exceptions as noted below. REVIEW OF X-RAYS/STUDIES/LABS No fractures or dislocations or other osseous abnormalities. Assessment/Plan Ashley was seen today for pain. Diagnoses and all orders for this visit: Cubital tunnel syndrome on right Carpal tunnel syndrome of right wrist Smoker Procedures PLAN I discussed the nature of the patient's condition in clinic today. Patient has tried conservative management for ulnar nerve entrapment at elbow and carpal tunnel syndrome. We discussed carpal tunnelrelease, ulnar nerve release and elbow. Risks and benefits of the surgery [...] established in the office today. The patient wi ll follow up for surgery. ROSA ELENA Dubois MD documented in this encounter Plan of Treatment Not on file documented as of this encounter Visit Diagnoses Diagnosis Cubital tunnel syndrome on right- Primary Carpal tunnel syndrome of right wrist Smoker Tobacco use disorder documented in this encounter Historical Medications * This list may reflect changes made after this encounter. nicotine (NICODERM CQ) 21 mg APPLY 1 PATCH TOPICALLY ONCE DAILY 08/02/2021 1 methylPREDNISolo ne (MEDROL DOSEPACK) 4 mg Dosepack TAKE BY MOUTH DIRECTED ON INSIDE OF PACKAGE 07/20/2021 1 meloxicam (MOBIC) 15 mg tablet TAKE 1 TABLET BY MOUTH ONCE DAILY (DO NOT TAKE WITH OTHER NSAIDS) 07/20/2021 1 ketorolac (TORADOL) 10 mg tablet Take by mouth every 6 (six) hours as needed 07/03/2021 1 gabapentin (NEURONTIN) 300 mg capsule TAKE 1 CAPSULE BY MOUTH NIGHTLY 07/20/2021 2 famotidine (PEPCID) 20 mg tablet Take 1 tablet (20 mg total) by mouth 2 (two) times a day 07/21/2021 2 cyclobenzaprine (FLEXERIL) 5 mg tablet TAKE 1 TABLET BY MOUTH THREE TIMES DAILY NEEDED FOR MUSCLE SPASMS 07/03/2021 1 added in this encounter Care Teams Stator Winder Relationship Specialty Start Date End Date Xiomy Kaur NP [address] [place] [address] PCP - General Nurse Practitioner 06/28/21 07/16/22 Xiomy Kaur NP [address] [place] [address] Nurse Practitioner 06/28/21 documented as of this encounter
--- OUTSIDE RECORDS SUMMARY | 2024-11-14 20:50 | XMS_ITS | Encounter Summary ---
Author Organization [facility] Address [address] [place] [address] Care Team Providers Care Floor Covering Printer Assistant Name Role Phone Xiomy Kaur NP Primary Care Provider [phone] Xiomy Kaur REGISTERED NURSE AMBULATORY Unavailable [phone] Encounter Details Date Type Department Care Team (Late st Contact Info) Description 09/05/2021 Telephone [facility] Orthopedics and Sports Medicine [address] [place] [address] Olena Mahoney MA Social History Tobacco Use Types Packs/Day Years Used Date Smoking Tobacco: Every Day Smokeless Tobacco: Never Comments No Sex and Gender Information Value Date Recorded Sex Assigned at Not on file Legal Sex Female 4:09 PM OFFICE ASSISTANCE Gender Identity Female 06/02/2024 9:46 PM CDT Sexual Orientation Straight 06/02/2024 9: 46 PM CDT documented as of this encounter Miscellaneous Notes * Telephone Encounter - Claire Mccoy - 09/06/2021 3:49 PM CDT Patient returning call, she will call her drClaudia Office to see where the clearances are. * Telephone Encounter - Ramonita Monroy MA - 09/06/2021 3:40 PM CDT Called and left message for the patient to call back, we have not received any clearances. * Telephone Encounter - Olena Mahoney MA - 09/05/2021 2:07 PM CDT Patient is calling asking if medical clearances have been received. She would like a phone call please. [phone] documented in this encounter Plan of Treatment Not on file documented as of this encounter Visit Diagnoses Not on filedocumented in this encounter Care Teams Floor Covering Printer Assistant Relationship Specialty Start Date End Date Xiomy Kaur NP [address] [place] [address] PCP - General Nurse Practitioner 06/28/21 07/16/22 Xiomy Kaur NP [address] [place] [address] Nurse Practitioner 06/28/21 documented as of this encounter
--- OUTSIDE RECORDS SUMMARY | 2024-11-14 20:50 | XMS_ITS | Encounter Summary ---
Author Organization [facility] Address [address] [place] [address] Phone Care Team Providers Care Blister Packaging Machine Operator Name Role Phone Xiomy Kaur NP Unavailable [phone] Mikey Olea MD Primary Care Provider Eladio Weems MD Unavailable Jessenia Castrejon MD Unavailable [phone] Encounter Details Date Type Department Care Team (Late st Contact Info) Description 08/29/2023 4:00 PM CDT Telemedicine [facility] Allergy and Immunology [address] [place] [address] Jessenia Castrejon MD [address] [facility] [address] [place] [address] Chronic urticaria (Primary Dx); Thyroiditis Social History Tobacco Use Types Packs/Day Years [...] on file 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 Gender Identity Female 06/02/2024 9:46 PM CDT Sexual Orientation Straight 06/02/2024 9: 46 PM CDT documented as of this encounter Last Filed Vital Signs Vital Sign Reading Time Taken Comments Blood Pressure 123/73 08/29/2023 1:50 PM CDT Pulse 78 08/29/2023 1:50 PM CDT Temperature - - Respiratory Rate - - Oxygen Saturation - - Inhaled Oxygen Concentration - - Weight 90.7 kg (200 lb) 08/29/2023 1:50 PM CDT Height 154.9 cm (5' 1 ) 08/29/2023 1:50 PM CDT Body Mass Index 37.79 08/29/2023 1:50 PM CDT documented in this encounter Progress Notes * Jessenia Castrejon MD - 08/29/2023 4:00 PM CDT Allergy Immunology Return Visit Reason for Visit: Follow up chronic urticaria History of Present Illness: Ashley Rdz is a 37 y.o. year old female presenting for follow up of chronic urticaria. She waslast seen on 12/11/22. Previous History: She was seen for an initial visit 10/02/22. She presented with history of recurrent urticaria x 3 years. Also reported a history of HS, migraines. Checked for mast cell activation, which was negative. Alpha gal was negative. She had abnormal thyroid function and +thyroid antibodies. Advised to use cetirizine BID, famotidine BID, and Singulair. Interval History: She was doing well at her last visit, on Zyrtec BID, Pepcid BID, Singulair. Overall she has continued to do well. She had a flare requiring prednisone in 05/2023. On 08/18/23, she messaged our office saying that she had a flare for which she was seen in urgent care. Given steroid injection. She is doing better now. Has not seen Endocrine for follow up since 12/2022. She feels fatigued. No other illnesses. No NSAIDs. Problem List Patient Active Problem List Diagnosis [...] 2011 TUBAL LIGATION Allergies Patient has no allergy information on record. Current Medications Current Outpatient Medications: albuterol HFA [...] Disp: 60 tablet, Rfl: 3 FLUoxetine (PROzac) 20 mg tablet, Take 1 tablet (20 mg total) by mouth daily, Disp: 90 tablet, Rfl:2 fluticasone propionate (FLONASE) 50 mcg/actuation nasal spray, USE 1 SPRAY(S) IN EACH NOSTRIL ONCE DAILY, Disp: , Rfl: montelukast (SINGULAIR) 10 mg tablet, Take 1 tablet (10 mg total) by mouth daily, Disp: 30 tablet, Rfl: 11 OneTouch Delica Lancets 33 gauge misc, Use [...] EXTERNALLY THREE TIMES DAILY, Disp: , Rfl: levothyroxine (SYNTHROID) 75 mcg tablet, 1 tab po morning with empty stomach, 45 minutes before food/medications/supplement, to ensure adequate absorption. (Patient not taking: Reported on 08/29/2023), Disp: 90 tablet, Rfl: 1 ondansetron (ZOFRAN) 4 mg tablet, Take 1 tablet (4 mg total) by mouth every 6 (six) hours as neededfor nausea or vomiting (Patient not taking: Reported on 08/29/2023), Disp: 20 tablet, Rfl: 1 potassium chloride ER (KLOR-CON) 10 mEq CR tablet, Take 10 mEq by mouth daily (Patient not taking: Reported on 08/29/2023), Disp: , Rfl: predniSONE (DELTASONE) 10 mg tablet, Take 4 tablets (40 mg) by mouth daily for 4 days, THEN 3 tablets (30 mg) daily for 4 days, THEN 2 tablets (20 mg) daily for 4 days, THEN 1 tablet (10 mg) daily for 4 days. (Patient not taking: Reported on 08/29/2023), Disp: 40 tablet, Rfl: 0 Social History reports that she has been [...] the review of systems. Physical Exam BP 123/73 Pulse 78 Ht 154.9 cm (5' 1 ) Wt 90.7 kg (200 lb) BMI 37.79 kg/m?? Skin: No rash Eyes: No lid lag [...] not indicative of mast cell activation syndrome. (L50.8) Chronic urticaria (primary encounter diagnosis) (E06.9) Thyroiditis Recommendations - Continue cetirizine 10mg BID, Pepcid 20mg BID, Singulair 10mg qhs. - Endocrinology appt pending, will discuss need for treatment No orders of the defined types were placed in this encounter. Follow up Return in 15 weeks (on 12/12/2023). Jessenia Castrejon MD This was a telemedicine visit with Ashley Rdz alone which took place via Real-time video connection (amprice, Zoom or similar). During the visit, I was located in the office and the patient was located at home in the [facility]. The patient visit started at 4:05pm and ended at 4:20pm. My total encounter time on 08/29/2023 was 20 minutes which was spent in [...] understand thatthis service replaces an office visit. documented in this encounter Plan of Treatment Not on file documented as of this encounter Visit Diagnoses Diagnosis Chronic urticaria- Primary Other specified urticaria Thyroiditis Unspecified thyroiditis documented in this encounter Historical Medications * This list may reflect changes made after this encounter. triamcinolone (KENALOG) 0.1 % cream APPLY CREAM EXTERNALLY THREE TIMES DAILY 08/16/2023 4 fluticasone propionate (FLONASE) 50 mcg/actuation nasal spray USE 1 SPRAY(S) IN EACH NOSTRIL ONCE DAILY 07/18/2023 4 albuterol HFA (PROVENTIL HFA,VENTOLIN HFA,PROAIR HFA) 90 mcg/actuation inhaler INHALE 2 PUFFS BY MOUTH EVERY 4 TO 6 HOURS NEEDED FOR SHORTNESS OF BREATH OR WHEEZING 07/18/2023 4 added in this encounter Care Teams Blister Packaging Machine Operator Relationship Specialty Start Date End Date Mikey Olea MD [address] [place] [address] PCP - General Family Medicine 07/17/22 Xiomy Kaur NP [address] [place] [address] Nurse Practitioner 06/28/21 Eladio Weems MD [address] [facility] [place] [address] Consulting Physician Endocrinology Diabetes & Metabolism 01/08/23 Jessenia Castrejon MD [address] [facility] [place] [place] [address] Referring Physician Allergy and Immunology 01/08/23 documented as of this encounter
--- OUTSIDE RECORDS SUMMARY | 2024-11-14 20:50 | XMS_ITS | Encounter Summary ---
Author Organization [facility] Medical Group Address [address] [place] [address] Care Team Providers Care Fell Cutter Name Role Phone Xiomy Kaur NP Primary Care Provider [phone] Xiomy Kaur ELECTRONIC NEWS GATHERING CAMERA PERSON Unavailable [phone] Encounter Details Date Type Department Care Team (Late st Contact Info) Description 10/16/2021 Telephone [facility] Medical Group Orthopedic and Sports Medicine [address] [place] [phone] Reba Garcia ATC Social History Tobacco [...] on file 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 RATOR MANNEQUIN * Telephone Encounter - Reba Garcia ATC - 10/16/2021 10:46 AM CST ----- Message from Ashley Rdz sent at 10/16/2021 10:40 AM DECORATOR MANNEQUIN ----- Regarding: Right hand incision Here is the picture of my hand. Sorry I couldn't make it in today. RATOR MANNEQUIN documented in this encounter Plan of Treatment Not on file documented as of this encounter Visit Diagnoses Not on filedocumented in this encounter Care Teams Fell Cutter Relationship Specialty Start Date End Date Xiomy Kaur NP [address] [place] [address] PCP - General Nurse Practitioner 06/28/21 07/16/22 Xiomy Kaur NP [address] [place] [address] Nurse Practitioner 06/28/21 documented as of this encounter
--- OUTSIDE RECORDS SUMMARY | 2024-11-14 20:50 | XMS_ITS | Encounter Summary ---
Author Organization [facility] Address [address] [place] [address] Care Team Providers Care Diamond Die Polisher Name Role Phone Kaur Xiomy Moss WIRE HARNESS DESIGN ENGINEER Unavailable [phone] Mikey Olea MD Primary Care Provider Encounter Details Date Type Department Care Team (Late st Contact Info) Description 07/17/2022 9:35 AM CDT Lab [address] Mikey Olea MD [address] [place] [address] [place] [id number] Vitamin D deficiency; Class 2 obesity due to excess calories without serious comorbidity with body mass index (BMI) of 38.0 to 38.9 in adult; Need for hepatitis C screening test Discharge Disposition: Discharge to home or self [...] on file 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 You are pre-diabetic and you [...] [place]3 [place] [address] weekly. documented in this encounter Plan of Treatment Not on file documented as of this encounter Procedures Procedure Name Priority Date/Time Associated Diagnosis Comments EGFR Routine 07/17/2022 9:37 AM CDT Class 2 obesity due to excess calories without serious comorbidity with body mass index (BMI) of 38.0 to 38.9 in adult DIFFERENTIAL AUTO Routine 07/17/2022 9:3 7 AM CDT Class 2 obesity due to excess calories without serious comorbidity with body mass index (BMI) of 38.0 to 38.9 in adult THYROID FUNCTION CASCADE Routine 07/17/2022 9:37 AM CDT Class 2 obesity due to excess calories without serious comorbidity with body mass index (BMI) of 38.0 to 38.9 in adult CBC WITH AUTO DIFFERENTIAL Routine 07/17/2022 9:37 AM CDT Class 2 obesity due to excess calories without serious comorbidity with body mass index (BMI) of 38.0 to 38.9 in adult HEPATITIS C ANTIBODY Routine 07/17/2022 9:37 AM CDT Need for hepatitis C screening test VITAMIN D 25 HYDROXY Routine 07/17/2022 9:37 AM CDT Vitamin D deficiency HEMOGLOBIN A1C Routine 07/17/2022 9:37 AM CDT Class 2 obesity due to excess calories without serious comorbidity with body mass index (BMI) of 38.0 to 38.9 in adult FOLATE Routine 07/17/2022 9:37 AM CDT Class 2 obesity due to excess calories without serious comorbidity with body mass index (BMI) of 38.0 to 38.9 in adult VITAMIN B12 Routine 07/17/2022 9:37 AM CDT Class 2 obesity due to excess calories without serious comorbidity with body mass index (BMI) of 38.0 to 38.9 in adult LIPID PANEL Routine 07/17/2022 9:37 AM CDT Class 2 obesity due to excess calories without serious comorbidity with body mass index (BMI) of 38.0 to 38.9 in adult COMPREHENSIVE METABOLIC PANEL Routine 07/17/2022 9:37 AM CDT Class 2 obesity due to excess calories without serious comorbidity with body mass index (BMI) of 38.0 to 38.9 in adult documented in this encounter Results * eGFR (07/17/2022 9:37 AM CDT) [facility] eGFR 116 mL/min/1. 73 m2 [facility] ([place]) Comment: Interpretive Data Reference Interval Normal ?>/= [...] interpretive data was last reviewed 2021. Blood 07/17/2022 9:37 AM CDT 07/17/2022 10:18 AM CDT us Mikey Olea MD LAB BLOOD ORDERABLES Fi nal Result [facility] ([place]) [address] [facility] [place] [address] * (ABNORMAL) Differential, auto (07/17/2022 9:37 AM CDT) Neutrophil abs 5.3 1.7 - 6.5 K/cumm [facility] ([place]) Imm gran abs 0.1 0.0 - 0.1 K/cumm [facility] ([place]) Lymphocyte abs 3.6(H) 0.8 - 3.3 K/cumm [facility] ([place]) Monocyte abs 0.5 0.2 - 0.8 K/cumm [facility] ([place]) Eosinophil abs 0.3 0.0 - 0.5 K/cumm [facility] ([place]) Basophil abs 0.0 0.0 - 0.1 K/cumm [facility] ([place]) Neutrophil pct 54.5 % [facility] ([place]) Comment: Interpretive Data Percent cell count reference ranges are not reported, since discordance with absolute values may lead to misinterpretation of CBC data. Current Interpretive Data was last revised on 2018. Imm gran pct 0.8 % [facility] ([place]) Comment: Interpretive Data Percent cell count reference ranges are not reported, since discordance with absolute values may lead to misinterpretation of CBC data. Current Interpretive Data was last revised on 2018. Lymphocyte pct 37.0 % [facility] ([place]) Comment: Interpretive Data Percent cell count reference ranges are not reported, since discordance with absolute values may lead to misinterpretation of CBC data. Current Interpretive Data was last revised on 2018. Monocyte pct 4.8 % [facility] ([place]) Comment: Interpretive Data Percent cell count reference ranges are not reported, since discordance with absolute values may lead to misinterpretation of CBC data. Current Interpretive Data was last revised on 2018. Eosinophil pct 2.7 % [facility] ([place]) Comment: Interpretive Data Percent cell count reference ranges are not reported, since discordance with absolute values may lead to misinterpretation of CBC data. Current Interpretive Data was last revised on 2018. Basophil pct 0.2 % [facility] ([place]) Comment: Interpretive Data Percent cell count reference ranges are not reported, since discordance with absolute values may lead to misinterpretation of CBC data. Current Interpretive Data was last revised on 2018. Blood 07/17/2022 9:37 AM CDT 07/17/2022 10:18 AM CDT us Mikey Olea MD LAB BLOOD ORDERABLES Fi nal Result [facility] [address] [facility] [place] [address] * CBC with auto differential (07/17/2022 9:37 AM CDT) WBC 9.7 3.8 - 9.9 K/cumm [facility] ([place]) Hgb 14.5 11.9 - 15.5 g/dL [facility] ([place]) Hct 42.6 35.6 - 45.5 % [facility] ([place]) Plt 296 150 - 400 K/cumm [facility] ([place]) MPV 9.5 9.1 - 12.3 fL [facility] ([place]) RBC 4.74 3.90 - 5.20 M/cumm [facility] ([place]) MCV 89.9 81.3 - 96.4 fL [facility] ([place]) MCH 30.6 27.1 - 33.3 pg [facility] ([place]) MCHC 34.0 32.3 - 35.7 g/dL [facility] ([place]) RDW CV 14.5 11.1 - 14.9 % [facility] ([place]) RDW SD 47.4 35.7 - 48.1 fL [facility] ([place]) NRBC abs 0.00 0.00 - 0.01 K/cumm [facility] ([place]) Blood 07/17/2022 9:37 AM CDT 07/17/2022 10:18 AM CDT Mikey Olea MD LAB BLOOD ORDERABLES Fi nal Result [facility] ([place]) [address] [facility] [place] [address] * Comprehensive metabolic panel (07/17/2022 9:37 AM CDT) Sodium 139 135 - 145 mmol/L [facility] ([place]) Potassium, pl 4.0 3.3 - 4.9 mmol/L [facility] ([place]) Chloride 104 97 - 110 mmol/L [facility] ([place]) CO2 24 22 - 32 mmol/L [facility] ([place]) Anion gap 11 2 - 15 mmol/L [facility] ([place]) BUN 8 8 - 25 mg/dL [facility] ([place]) Creatinine 0.69 0.60 - 1.10 mg/dL [facility] ([place]) Glucose 101 70 - 199 mg/dL [facility] ([place]) Comment: Interpretive Data Fasting glucose >/= 126 [...] ORDERABLES Fi nal Result Performing Organization Address City/[facility]/ZIP Co de Phone Number [facility] ([place] [address] [facility] [place] [address] * TSH reflex to free T4 (07/17/2022 9:37 AM CDT) TSH 2.63 0.30 - 4.20 mcIUnit/mL [facility] ([place]) Blood 07/17/2022 9:37 AM CDT 07/17/2022 10:18 AM CDT Mikey Olea MD LAB BLOOD ORDERABLES Fi nal Result [facility] ([place]) [address] [facility] [place] [address] * (ABNORMAL) Lipid panel (07/17/2022 9:37 AM CDT) Cholesterol 296(H) 30 - 199 mg/dL [facility] ([place]) Comment: Interpretive Data Ages < or [...] last revised on 2018. Chol/HDL ratio 11 [facility] ([place]) Blood 07/17/2022 9:37 AM CDT 07/17/2022 10:18 AM CDT Narrative [facility] ([place]) - 07/17/2022 10:49 AM CDT Has the patient been fasting for 8 hours or more?->No Mikey Olea MD LAB BLOOD ORDERABLES nal Result Performing Organization Address [facility] de Phone Number [facility] ([place]) 1 [facility] [place] [address] * (ABNORMAL) Hemoglobin A1c (07/17/2022 9:37 AM CDT) Hgb A1C 5.9(H) 4.0 - 5.6 % [facility] ([place]) Estimated Average Glucose 123 mg/dL [facility] ([place]) Comment: The ADA recommends reporting an estimated Average Glucose (eAG) with all Hemoglobin A1c results using the equation derived from a study of 507 normal and diabetic adults. ??Minority populations were underrepresented and children were not included. ?? (Diabetes Care 31:0586-7975, 2008). ??The eAG is not equivalent to a fasting glucose. Blood 07/17/2022 9:37 AM CDT 07/17/2022 10:18 AM CDT Mikey Olea MD LAB BLOOD ORDERABLES Fi nal Result Performing Organization Address [facility] Co de Phone Number [facility] ([place]) [address] [facility] [place] [address] * Hepatitis C antibody (07/17/2022 9:37 AM CDT) Hep C Ab Nonreactive Nonreactive [facility] ([place]) Comment: Interpretive Data Nonreactive: Antibodies to HCV [...] last revised on 2020. Testing performed by: [facility], [address] [place] [address]., [id number] Blood 07/17/2022 9:37 AM CDT 07/17/2022 12:13 PM CDT Mikey Olea MD LAB MICROBIOLOGY - GENE RAL ORDERABLES Final Result Performing Organization Address City/[facility]/ZIP Co de Phone Number [facility] ([place]) 1 [facility] [place] [address] * Folate (07/17/2022 9:37 AM CDT) Pathologist [facility] Folic acid 17.9 >=5.0 ng/mL [facility] ([place]) Comment:Testing performed by : [address], [address] Blood 07/17/2022 9:37 AM CDT 07/17/2022 12:13 PM CDT Mikey Olea MD LAB BLOOD ORDERABLES Fi nal Result Performing Organization Address [facility] Co de Phone Number [facility] ([place]) [address] [facility] [place] [address] * (ABNORMAL) Vitamin B12 (07/17/2022 9:37 AM CDT) Vitamin B12 1,450(H) 230 - 1,250 pg/mL [facility] ([place]) Comment:Testing performed by : [address] [place] [address] Blood 07/17/2022 9:37 AM CDT 07/17/2022 12:13 PM CDT Mikey Olea MD LAB BLOOD ORDERABLES Fi nal Result Performing Organization Address City/[facility]/ZIP Co de Phone Number [facility] ([place]) 1 [facility] [place] [address] * (ABNORMAL) Vitamin D 25 hydroxy (07/17/2022 9:37 AM CDT) Vitamin D 25-OH 23(L) 30 - 80 ng/mL [facility] ([place]) Blood 07/17/2022 9:37 AM CDT 07/17/2022 10:18 AM CDT us Mikey Olea MD LAB BLOOD ORDERABLES Fi nal Result [facility] ([place]) [address] [facility] [place] [address] documented in this encounter Visit Diagnoses Diagnosis Vitamin D deficiency Class 2 obesity due to excess calories without serious comorbidity with body mass index (BMI) of 38.0 to 38.9 in adult Need for hepatitis C screening test Special screening examination for other specified viral diseases documented in this encounter Care Teams Diamond Die Polisher Relationship Specialty Start Date End Date Mikey Olea MD [address] [place] [address] PCP - General Family Medicine 07/17/22 Xiomy Kaur NP [address] [place] [address] Nurse Practitioner 06/28/21 documented as of this encounter
--- OUTSIDE RECORDS SUMMARY | 2024-11-14 20:50 | XMS_ITS | Encounter Summary ---
Author Organization [facility] Address [address] [place] [address] Care Team Providers Care Certified Master Safecracker Name Role Phone Xiomy Kaur Isa MARIE Unavailable [phone] Mikey Olea MD Primary Care Provider Eladio Weems MD Unavailable Jessenia Castrejon MD Unavailable [phone] Reason for Visit * Reason Comments Sinus Problem Pt states symptoms s tarted 3 days ago Encounter Details Date Type Department Care Team (Late st Contact Info) Description 01/08/2023 1:45 PM THEATER USHER Office Visit [facility] Primary Care at [address] [place] [address] Mikey Olea MD [address] [place] [address] [address] [place] [address] Anxiety and depression (Primary Dx); Class 2 obesity due to excess calories without serious comorbidity with body mass index (BMI) of 37.0 to 37.9 in adult; Familial hypercholesterolemia ; Chronic urticaria; Impaired fasting blood sugar; Sinus congestion; Anti-TPO antibodies present Social History Tobacco Use Types Packs/Day [...] on file Legal Sex Female 4:09 PM THEATER USHER Gender Identity Female 06/02/2024 9:46 PM CDT Sexual Orientation Straight 06/02/2024 9: 46 PM CDT documented as of this encounter Last Filed Vital Signs Vital Sign Reading Time Taken Comments Blood Pressure 100/62 01/08/2023 2:02 PM THEATER USHER Pulse 64 01/08/2023 2:02 PM THEATER USHER Temperature - - Respiratory Rate - - Oxygen Saturation 96% 01/08/2023 2:02 PM THEATER USHER Inhaled Oxygen Concentration - - Weight 90.7 kg (200 lb) 01/08/2023 2:02 PM THEATER USHER Height 154.9 cm (5' 1 ) 01/08/2023 2:02 PM THEATER USHER Body Mass Index 37.79 01/08/2023 2:02 PM THEATER USHER documented in this encounter Ordered Prescriptions Prescription Sig Dispense Quantity Refills Last Filled Start Date End Date azithromycin (ZITHROMAX) 250 mg tabletIndications: Sinus congestion Take 2 tabs (500 mg) by mouth today, than 1 tab (250 mg) daily for 4 days. 6 tablet 01/08/2023 01/13/2023 FLUoxetine (PROzac) 20 mg tabletIndications: Anxiety and depression Take 1 tablet (20 mg total) by mouth daily 90 tablet 2 01/08/2023 11/24/2023 documented in this encounter Progress Notes * Mikey Olea MD - 01/08/2023 1:45 PM CST Images from the original note were not included. Assessment/Plan Diagnoses and all orders for this visit: Anxiety and depression (Primary) Assessment & Plan: - chronic, better controlled - used to be on medications before - not on any medications now - requesting assistance with depression > Anxiety - currently on Prozac 20 mg daily - continue current management Lab Results Component Value Date TSH 3.77 10/02/2022 Orders: - FLUoxetine (PROzac) 20 mg tablet; Take 1 tablet (20 mg total) by mouth daily Class 2 obesity due to excess calories without serious comorbidity with body mass index (BMI) of 37.0 to 37.9 in adult Assessment & Plan: Wt Readings from Last 3 Encounters: 01/08/23 [...] includes: nutrition counseling, exercise counseling and education Familial hypercholesterolemia Assessment & Plan: - chronic, unknown - Noted 08/08 with [...] Component Value Date TRIG 328 (H) 07/17/2022 Chronic urticaria Assessment & Plan: - chronic for 2 years; better controlled - unclear cause, has been seen in ED several times for this - referred to allergy/immunologyu and has established care - noted to have TPO antibody present during evaluation by Campus Receptionist and referred to Talkback Host - doing well with Cetirizine 10 mg daily, Famotidine 20 mg daily and Montelukast 10 mg daily - continue management per allergy/immunology Impaired fasting blood sugar Assessment & Plan: - established with Endocrinology - told to start monitoring BG Lab Results Component Value Date HGBA1C 5.9 (H) 07/17/2022 Sinus congestion Comments: new condition, if prolonged by more than 5 additional days can start use of antibiotics prescribed Orders: - azithromycin (ZITHROMAX) 250 mg tablet; Take 2 tabs (500 mg) by mouth today, than 1 tab (250 mg) daily for 4 days. Anti-TPO antibodies present Assessment & Plan: - noted on testing for chronic urticaria - then she was referred to endocrinology and has established care - has had lab tests recently which is still pending Lab Results Component Value Date TSH 3.77 10/02/2022 Return in about 4 months (around 05/08/2023). Subjective/Objective Chief Complaint Patient presents with Sinus Problem Pt states symptoms started 3 days ago Sinus Problem Associated symptoms include congestion, headaches and sinus pressure. Pertinent negatives include no coughing or shortness of breath. Ashley Rdz is a 37 y.o. female who is here for follow-up of chronic health conditions. On lastvisit had started her on Prozac to help with her anxiety as well as depression and she reports thatshe has noticed significant improvement terms of her mental health since she is been on the medication. She is requesting refill on the medication at this time. She was also seen by horse exerciser for chronic urticaria and on testing she was found to have positive antibody for TPO. As result she was referred to Endocrinology and is currently being evaluated. Please see the assessment and plan section for relevant conditions discussed, status of conditions,current and future management recommendations. Patient Care Team: Mikey Olea MD as PCP - General (Family Medicine) Kaur, Xiomy Moss NP (Nurse Practitioner) Eladio Weems MD as Consulting Physician (Endocrinology Diabetes & Metabolism) Dy, Jessenia James MD as Referring Physician (Allergy and Immunology) Labs: Lab Results Component Value Date CHOL 296 (H) 07/17/2022 TRIG 328 (H) 07/17/2022 HDL 28 (L) 07/17/2022 Lab Results Component Value Date LDLCALC 202 (H) 07/17/2022 Lab Results Component Value Date TSH 3.77 10/02/2022 FREET4 0.85 (L) 10/02/2022 Lab Results Component Value Date HGBA1C 5.9 (H) 07/17/2022 Review of Systems Constitutional: Negative for fatigue and fever. HENT: Positive for congestion, sinus pressure and sinus pain. Respiratory: Negative for cough, shortness of breath and wheezing. Cardiovascular: Negative for chest pain and palpitations. Gastrointestinal: Positive for diarrhea (baseline) and nausea (earlier today, resolved now). Negative for abdominal pain and vomiting. Musculoskeletal: Negative for arthralgias and myalgias. Skin: Negative for rash and wound. Neurological: Positive for headaches. Psychiatric/Behavioral: Negative for dysphoric mood, hallucinations and suicidal ideas. The patientis not nervous/anxious (improved significantly) and is not hyperactive. Vitals: 01/08/23 1402 BP: 100/62 BP Location: Right arm Patient Position: Sitting Pulse: 64 SpO2: 96% Weight: 90.7 kg (200 lb) Height: 154.9 cm (5' 1 ) Wt Readings from Last 3 Encounters: 01/08/23 90.7 kg (200 lb) 01/02/23 89.4 kg (197 lb 3.2 oz) 10/02/22 92.6 kg (204 lb 3.2 oz) Body mass index is 37.79 kg/m??. Physical Exam Constitutional: General: She is not in acute distress. Appearance: She is obese. She is not ill-appearing. Comments: Pleasant HENT: Nose: Congestion present. Right Sinus: Maxillary sinus tenderness present. Left Sinus: Maxillary sinus tenderness present. Mouth/Throat: Mouth: Mucous membranes are moist. Cardiovascular: [...] and Memory: Cognition normal. Mikey Olea MD January 08, 2023 2:43 PM Please note: Voice recognition software [employer] was used dictate and transcribe this document. Manager Gyn variances may occur. Despite proofreading, typographical errors may occur. j TER USHER documented in this encounter Miscellaneous Notes * Assessment & Plan Note - Mikey Olea MD - 01/08/2023 2:43 PM THEATER USHER Associated Problem(s): Anti-TPO antibodies present - noted on testing for chronic urticaria - then she was referred to endocrinology and has established care - has had lab tests recently which is still pending Lab Results Component Value Date TSH 3.77 10/02/2022 TER USHER * Assessment & Plan Note - Mikey Olea MD - 01/08/2023 2:41 PM THEATER USHER Associated Problem(s): Impaired fasting blood sugar - established with Endocrinology - told to start monitoring BG Lab Results Component Value Date HGBA1C 5.9 (H) 07/17/2022 TER USHER * Assessment & Plan Note - Mikey Olea MD - 01/08/2023 2:39 PM THEATER USHER Associated Problem(s): Chronic urticaria - chronic for 2 years; better controlled - unclear cause, has been seen in ED several times for this - referred to allergy/immunologyu and has established care - noted to have TPO antibody present during evaluation by Campus Receptionist and referred to Talkback Host - doing well with Cetirizine 10 mg daily, Famotidine 20 mg daily and Montelukast 10 mg daily - continue management per allergy/immunology TER USHER * Assessment & Plan Note - Mikey Olea MD - 01/08/2023 2:20 PM THEATER USHER Associated Problem(s): Familial hypercholesterolemia - chronic, unknown - Noted 08/08 with [...] Component Value Date TRIG 328 (H) 07/17/2022 TER USHER TER USHER TER USHER * Assessment & Plan Note - Mikey Olea MD - 01/08/2023 2:19 PM THEATER USHER Associated Problem(s): Morbid obesity with BMI of 40.0-44.9, adult (HCC) Wt Readings from Last 3 Encounters: 01/08/23 [...] includes: nutrition counseling, exercise counseling and education TER USHER * Assessment & Plan Note - Mikey Olea MD - 01/08/2023 2:19 PM THEATER USHER Associated Problem(s): Anxiety and depression - chronic, better controlled - used to be on medications before - not on any medications now - requesting assistance with depression > Anxiety - currently on Prozac 20 mg daily - continue current management Lab Results Component Value Date TSH 3.77 10/02/2022 TER USHER documented in this encounter Plan of Treatment Not on file documented as of this encounter Visit Diagnoses Diagnosis Anxiety and depression- Primary Class 2 obesity due to excess calories without serious comorbidity with body mass index (BMI) of 37.0 to 37.9 in adult Familial hypercholesterolemia Chronic urticaria Other specified urticaria Impaired fasting blood sugar Impaired fasting glucose Sinus congestion Other diseases of nasal cavity and sinuses Anti-TPO antibodies present documented in this encounter Discontinued Medications Medication Sig Discontinue Reason Start Date End Da te FLUoxetine (PROzac) 20 mg tablet Take 20 mg by mouth daily Reorder 11/12/2022 01/08/2023 documented as of this encounter Historical Medications * This list may reflect changes made after this encounter. OneTouch Verio Flex meter miscIndications: Impaired fasting blood sugar USE TO CHECK FASTING IN THE MORNING AND SOMETIMES 45 MINUTES AFTER MEAL 01/06/2023 added in this encounter Care Teams Certified Master Safecracker Relationship Specialty Start Date End Date Mikey Olea MD [address] [place] [address] PCP - General Family Medicine 07/17/22 Xiomy Kaur NP [address] [place] [address] Nurse Practitioner 06/28/21 Eladio Weems MD [address] [facility] [place] [address] Consulting Physician Endocrinology Diabetes & Metabolism 01/08/23 Jessenia Castrejon MD 1 [facility] [place] [address] Referring Physician Allergy and Immunology 01/08/23 documented as of this encounter
--- OUTSIDE RECORDS SUMMARY | 2024-11-14 20:50 | XMS_ITS | Encounter Summary ---
Author Organization [facility] Address [address] [place] [address] Care Team Providers Care Hide Selector Name Role Phone Xiomy Kaur NP Primary Care Provider [phone] Xiomy Kaur WORM RAISER Unavailable [phone] Reason for Visit * Reason Comments Rash Encounter Details Date Type Department Care Team (Late st Contact Info) Description 06/14/2022 3:37 AM CDT - 06/14/2022 4:06 AM CDT Emergency [facility] Emergency Department [address] [place] [address] Gwyn Betancur MD [address] [place] [address] [place] [id number] Urticaria (Primary Dx) Discharge Disposition: Discharge to home [...] on file Legal Sex Female 4:09 PM MASTER DYER Gender Identity Female 06/02/2024 9:46 PM CDT Sexual Orientation Straight 06/02/2024 9: 46 PM CDT documented as of this encounter Last Filed Vital Signs Vital Sign Reading Time Taken Comments Blood Pressure 140/86 06/14/2022 3:36 AM CDT Pulse 95 06/14/2022 3:36 AM CDT Temperature 36.1 ??C (97 ??F) 06/14/2022 3:36 AM CDT Respiratory Rate 18 06/14/2022 3:36 AM CDT Oxygen Saturation 100% 06/14/2022 3:36 AM CDT Inhaled Oxygen Concentration - - Weight 90.7 kg (200 lb) 06/14/2022 3:36 AM CDT Height - - Body Mass Index 37.79 10/02/2021 9:25 AM MASTER DYER documented in this encounter Discharge Diagnoses Diagnosis Urticaria, unspecified - URTICARIA, UNSPECIFIED Gastro-esophageal reflux disease without esophagitis - GASTRO-ESOPHAGEAL REFLUX DISEASE WITHOUT ESOPHAGITIS Pure hypercholesterolemia, unspecified - PURE HYPERCHOLESTEROLEMIA, UNSPECIFIED Hypothyroidism, unspecified - HYPOTHYROIDISM, UNSPECIFIED Nicotine dependence, cigarettes, uncomplicated - NICOTINE DEPENDENCE, CIGARETTES, UNCOMPLICATED Other terminal gauger (current) drug therapy - OTHER [facility] (CURRENT) DRUG THERAPY documented in this encounter Discharge Instructions * Attachments The following attachments cannot be sent through Care Everywhere. * Urticaria (AfterCare(R) Instructions(ER/ED)) (Grenadian) documented in this encounter Medications at Time of Discharge predniSONE (DELTASONE) 20 mg tablet Take 2 tablets (40 mg) by mouth daily for 5 days 10 tablet 06/14/2022 2 ergocalciferol (VITAMIN D) 50,000 unit capsule TAKE [...] mcg tablet Take 25 mcg by mouth disease case manager rn before breakfast 2 ondansetron (ZOFRAN) 4 mg [...] Refills Last Filled Start Date End Date predniSONE (DELTASONE) 20 mg tablet Take 2 tablets (40 mg) by mouth daily for 5 days 10 tablet 06/14/2022 2 documented in this encounter Discharge Disposition Disposition Code Departure Means Destination Discharge to home or self care documented in this encounter ED Notes * Gwyn Betancur MD - 06/14/2022 3:45 AM CDT HPI Chief Complaint Patient presents with ??? Rash 36-year-old with a history of recurrent area here with the complaints of rash on both lower extremities for past few hours. She denies any shortness of breath. She denies using new medications or newchemicals. She states that she gets once in every couple months. Patient History: Patient Active Problem List Diagnosis [...] years: 0.75 ??? Smokeless tobacco: Never Used Substance and Sexual Activity ??? Drug use: Not on file ??? Sexual activity: Not on file Alcohol Use: Not At Risk ??? Frequency of Alcohol Consumption: Never ??? Average Number of Drinks: Not on file ??? Frequency of Binge Drinking: Not on file Alcohol Use: Not At Risk ??? Frequency of Alcohol Consumption: Never ??? Average Number of Drinks: Not on file ??? Frequency of Binge Drinking: Not on file Social History Social History Narrative Merged History Encounter Review of Systems Review of Systems Constitutional: Negative. Eyes: Negative. Respiratory: Negative. Cardiovascular: Negative. Gastrointestinal: Negative. Genitourinary: Negative. Musculoskeletal: Negative. Skin: Positive for rash. Hematological: Negative. Physical Exam ED Triage Vitals [06/14/22 0336] Temp Pulse Resp BP SpO2 36.1 ??C (97 ??F) 95 18 140/86 100 % Temp src Heart Rate Source Patient Position BP Location FiO2 (%) Temporal -- -- -- -- Height Height Method Weight Weight Method -- -- 90.7 kg (200 lb) Stated Physical Exam Vitals and nursing note reviewed. Constitutional: Appearance: Normal appearance. HENT: Head: Normocephalic and atraumatic. Eyes: Extraocular Movements: Extraocular movements intact. Pupils: Pupils are equal, round, and reactive to light. Cardiovascular: Rate and Rhythm: Normal rate and regular rhythm. Pulmonary: Effort: Pulmonary effort is normal. Breath sounds: Normal breath sounds. Musculoskeletal: General: Normal range of motion. Cervical back: Normal range of motion. Skin: General: Skin is warm. Comments: Resolving urticarial lesions on both lower extremity Neurological: General: No focal deficit present. Mental Status: She is alert and oriented to person, place, and time. MDM MDM Final diagnoses: Urticaria Gwyn Betancur MD 06/14/22 0347 * Williams Reynoso RN - 06/14/2022 3:34 AM CDT Patient to ED c/o rash x 3 years. Rash, which is not well visualized, is on bilateral legs documented in this encounter Plan of Treatment Not on file documented as of this encounter Visit Diagnoses Diagnosis Urticaria- Primary Unspecified urticaria documented in this encounter Administered Medications Inactive Administered Medications - up to 3 most recent administrations Medication Order MAR Action Action Date Dose Rate Site predniSONE (DELTASONE) tablet 60 mg 60 mg, oral, Once, On Fri06/14/22 at 0345, For 1 dose Given 06/14/2022 4:00 AM CDT 60 mg documented in this encounter Active and Recently Administered Medications Times are shown in CDT. Scheduled Medication Order 06/12/2022 06/13/2022 06/14/2022 predniSONE (DELTASONE) tablet 60 mg (COMPLETED) 60 mg, oral, Once, On Fri06/14/22 at 0345, For 1 dose 0400 (Given - Provid er: Erica Vaughan RN) documented in this encounter Orders Medications Ordered That Marcelo ht Not Have Been Administered Count Last Ordered Date First Ordered Date predniSONE (DELTASONE) tablet 60 mg 1 06/14 documented in this encounter Care Teams Hide Selector Relationship Specialty Start Date End Date Natasha, Xiomy Moss NP [address] [place] [address] PCP - General Nurse Practitioner 06/28/21 07/16/22 Xiomy Kaur NP [address] [place] [address] Nurse Practitioner 06/28/21 documented as of this encounter
--- OUTSIDE RECORDS SUMMARY | 2024-11-14 20:50 | XMS_ITS | Encounter Summary ---
Author Organization [facility] Healthcare Address [address] [place] [address] Care Team Providers Care Supervisor Self Service Store Name Role Phone Natasha, Xiomy Moss NP Unavailable [phone] Mikey Olea MD Primary Care Provider Eladio Weems MD Unavailable Jessenia Castrejon MD Unavailable [phone] Encounter Details Date Type Department Care Team (Late st Contact Info) Description 01/19/2024 Telephone [facility] Primary Care at [address] [place] [address] Mikey Olea MD [address] [place] [address] [address] [place] [address] Social History Tobacco Use Types [...] on file Legal Sex Female 4:09 PM INTERNAL MEDICINE NURSE Gender Identity Female 06/02/2024 9:46 PM CDT Sexual Orientation Straight 06/02/2024 9: 46 PM CDT documented as of this encounter Miscellaneous Notes * Telephone Encounter - Padmini Pearson - 03/15/2024 9:06 AM CDT Referral resent to [facility] Facility * Telephone Encounter - Mikey Olea MD - 03/14/2024 4:25 PM CDT Yes please * Telephone Encounter - Arlene Cuello - 03/11/2024 3:[address] Olea would you like us to try another facility and see what another neuro states? Please advise * Telephone Encounter - Jyotsna Ramos - 03/11/2024 1:42 PM CDT Hello, This pt's neurosurgery referral was denied. The neurosurgeon that reviewed stated, Do not schedule. No note of patient having undergone conservative therapy. NO MRI available. BMI over limit for elective lumbar surgery. Thank you, [facility] * Telephone Encounter - Coby Currie - 01/19/2024 8:[address] Mikey Olea is referring this pt to [facility] Neurosurgery. Dx: Chronic low back pain, unspecified back pain laterality, unspecified whether sciatica present; Lumbar spondylosis with left L5 radiculopathy; Other spondylosis with radiculopathy, lumbar region RNAL MEDICINE NURSE documented in this encounter Plan of Treatment Not on file documented as of this encounter Visit Diagnoses Not on filedocumented in this encounter Additional Health Concerns Infection Onset Date Last Indicated Resolved Time COVID: Suspected 02/27/2024 02/27/2024 02/27/2024 6:33 PM CDT documented as of this encounter Care Teams Supervisor Self Service Store Relationship Specialty Start Date End Date Mikey Olea MD [address] [place] [address] PCP - General Family Medicine 07/17/22 Xiomy Kaur NP [address] [place] [address] Nurse Practitioner 06/28/21 Eladio Weems MD 1 [facility] [place] [address] Consulting Physician Endocrinology Diabetes & Metabolism 01/08/23 Jessenia Castrejon MD 1 [facility] [place] [address] Referring Physician Allergy and Immunology 01/08/23 documented as of this encounter
--- OUTSIDE RECORDS SUMMARY | 2024-11-14 20:50 | XMS_ITS | Encounter Summary ---
Author Organization [facility] Address [address] [place] [address] Care Team Providers Care Corn Press Operator Name Role Phone Jhon Kaurleora Moss DAM OPERATOR Unavailable [phone] Mikey Olea MD Primary Care Provider Encounter Details Date Type Department Care Team (Late st Contact Info) Description 07/23/2022 Telephone [facility] Primary Care at [address] [place] [address] Mikey Olea MD [address] [place] [address] [address] [place] [address] Social History Tobacco Use Types [...] on file Legal Sex Female 4:09 PM CULLET TRUCKER Gender Identity Female 06/02/2024 9:46 PM CDT Sexual Orientation Straight 06/02/2024 9: 46 PM CDT documented as of this encounter Miscellaneous Notes * Telephone Encounter - Arlene Cuello - 07/23/2022 12:[address] Olea would like to get this pt set up with a Cardiac Nurse dx urticaria Thank you documented in this encounter Plan of Treatment Not on file documented as of this encounter Visit Diagnoses Not on filedocumented in this encounter Care Teams Corn Press Operator Relationship Specialty Start Date End Date Mikey Olea MD [address] [place] [address] PCP - General Family Medicine 07/17/22 Xiomy Kaur NP [address] [place] [address] Nurse Practitioner 06/28/21 documented as of this encounter
--- OUTSIDE RECORDS SUMMARY | 2024-11-14 20:50 | XMS_ITS | Encounter Summary ---
Author Organization 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 Gender Identity Female 06/02/2024 9:46 PM CDT Sexual Orientation Straight 06/02/2024 9: 46 PM CDT documented as of this encounter Last Filed Vital Signs Vital Sign Reading Time Taken Comments Blood Pressure 135/75 06/30/2022 8:07 PM CDT Pulse 93 06/30/2022 8:07 PM CDT Temperature 36.7 ??C (98 ??F) 06/30/2022 8:07 PM CDT Respiratory Rate 16 06/30/2022 8:07 PM CDT Oxygen Saturation 100% 06/30/2022 8:07 PM CDT Inhaled Oxygen Concentration - - Weight 90.7 kg (200 lb) 06/30/2022 8:07 PM CDT Height 154.9 cm (5' 1 ) 06/30/2022 8:07 PM CDT Body Mass Index 37.79 06/30/2022 8:07 PM CDT documented in this encounter Discharge Diagnoses Diagnosis Rash and other nonspecific skin eruption - RASH AND OTHER NONSPECIFIC SKIN ERUPTION Nicotine dependence, cigarettes, uncomplicated - NICOTINE DEPENDENCE, CIGARETTES, UNCOMPLICATED documented in this encounter Discharge Instructions * Discharge Instructions* Villa Smith NP - 06/30/2022 8:59 PM CDT Please return to the ED if you experience fever, chills, chest pain, shortness of breath, or difficulty breathing. Use an antihistamine such zyrtec, ifrah, or claritin Aveeno oatmeal bath will help with itching. Use ALL free and clear laundry detergent Consider formal allergy testing. * Attachments The following attachments cannot be sent through Care Everywhere. * Acute Rash (Chalk Cutter) (Spanish) documented in this encounter Medications at Time of Discharge predniSONE (DELTASONE) 20 mg tablet Take 2 tablets (40 mg) by mouth daily for 5 days 10 tablet 06/30/2022 2 ergocalciferol (VITAMIN D) 50,000 unit capsule [...] mcg tablet Take 25 mcg by mouth vp before breakfast 2 ondansetron (ZOFRAN) 4 mg [...] mouth daily for 5 days 10 tablet 06/30/2022 2 documented in this encounter Discharge Disposition Disposition Code Departure Means Destination Discharge to home or self care documented in this encounter ED Notes * Villa Smith, FRANK - 06/30/2022 8:53 PM CDT HPI Chief Complaint Patient presents with ??? Itching 36-year-old, female patient presents the ED with a history of obesity, smoking, hyperlipidemia, hypokalemia depression, GERD, elevated cholesterol, hypothyroidism, migraines, thyroid disease, presents the ED stating that she has hives, and she is had hives for 1.5 days. Patient states yesterday shetook the remaining dose of prednisone that she had from her last course of prednisone that she did not finish yesterday. Patient states she is been on prednisone for times since November. States she is complained to her primary care physician about the hives, and states that ???nothing was done?? . Patient denies new medical diagnosis, new medications, denies being on antibiotics recently. Denies changing body wash, soap, lotions, laundry detergent. Denies additional complaints. Denies chest pain, shortness of breath, difficulty breathing, fever, chills. Patient History: Patient Active Problem List Diagnosis [...] Substance and Sexual Activity ??? Drug use: None ??? Sexual activity: None Alcohol Use: Not At Risk ??? Frequency [...] for chills and fever. HENT: Negative for ear pain and sore throat. Eyes: Negative for pain and visual disturbance. Respiratory: Negative for cough and shortness of breath. Cardiovascular: Negative for chest pain and palpitations. Gastrointestinal: Negative for abdominal pain and vomiting. Genitourinary: Negative for dysuria and hematuria. Musculoskeletal: Negative for arthralgias and back pain. Skin: Positive for rash. Negative for color change. Neurological: Negative for seizures and syncope. All other systems reviewed and are negative. Physical Exam ED Triage Vitals [06/30/222006] Temp Pulse Resp BP SpO2 36.7 ??C (98 ??F) 93 16 135/75 100 % Temp src Heart Rate Source Patient Position BP Location FiO2 (%) Temporal -- -- -- -- Height Height Method Weight Weight Method 1.549 m (5' 1 ) Estimated 90.7 kg (200 lb) Estimated Physical Exam Vitals and nursing note reviewed. Constitutional: General: She is not in acute distress. Appearance: She is well-developed. She is obese. She is not ill-appearing, toxic-appearing or diaphoretic. HENT: Head: Normocephalic and atraumatic. Right Ear: Tympanic membrane, ear canal and external ear normal. Left Ear: Tympanic membrane, ear canal and external ear normal. Nose: Nose normal. Mouth/Throat: Mouth: Mucous membranes are moist. Eyes: Extraocular Movements: Extraocular movements intact. Conjunctiva/sclera: Conjunctivae normal. Pupils: Pupils are equal, round, and reactive to light. Cardiovascular: Rate and Rhythm: Normal rate and regular rhythm. Heart sounds: Normal heart sounds. No murmur heard. Pulmonary: Effort: Pulmonary effort is normal. No respiratory distress. Breath sounds: Normal breath sounds. Abdominal: General: Bowel sounds are normal. There is no distension. Palpations: Abdomen is soft. There is no mass. Tenderness: There is no abdominal tenderness. There is no right CVA tenderness, left CVA tenderness, guarding or rebound. Hernia: No hernia is present. Musculoskeletal: General: No swelling, tenderness, deformity or signs of injury. Cervical back: Neck supple. Right lower leg: No edema. Left lower leg: No edema. Skin: General: Skin is warm and dry. Capillary Refill: Capillary refill takes less than 2 seconds. Findings: Rash present. Comments: There are mild, occasional scattered urticaria to lower back bilateral inner thighs, and bilateral upper arms patient reports urticaria is also located on abdomen, but none are visible. No cellulitis, no vesicles, no drainage. Neurological: General: No focal deficit present. Mental Status: She is alert and oriented to person, place, and time. Psychiatric: Mood and Affect: Mood normal. Behavior: Behavior normal. Thought Content: Thought content normal. Judgment: Judgment normal. MDM Medical Decision Making Differential Diagnosis or Management Options: In my medical decision making the following differential diagnoses were considered before arriving at final diagnosis and many were either ruled out or appeared unlikely Skin Rash Drug Rash, Eczema, Head Lice, Impetigo, Poison Tasha / Poison Verdi, Allergic Reaction, Contact Dermatitis, Scabies, Scarl[place], Systemic Illness, Tinea, Urticaria, Varicella Zoster, Viral Exanthema, suiOther Patient is stable for discharge. Patient notified that she needs to follow up with an digital imaging specialist, for formal allergy testing. Due to repeated episodes of urticaria ED Course as of 06/30/222158 Time: 06/30 2057 Comment: Voice recognition software [email or web address] Direct was used to dictate and transcribe this document. Picc Nurse variances may occur. Despite proofreading, typographical errors may occur. By: Villa Smith NP Time: 06/30 2057 Comment: Discussed ED findings and plans for discharge with pt who understands and agrees with plan. Pt has been advised to return to the ED with any new or worsening symptoms. Pt has no further complaints. All questions addressed at this time. By: Villa Smith NP Final diagnoses: Rash Villa Smith NP 06/30/222158 Cosigned by Cony Renner MD at 07/07/2022 3:50 PM CDT Associated attestation - Cony Renner MD - 07/07/2022 3:50 PM CDT Based on the medical record, the care appears appropriate. * Nehal Sparks RN - 06/30/2022 8:05 PM CDT Pt states that she has hives that itch all over her body. Pt states that her lips are swelling. Pt states she has had them off and on for years. Pt states that she has taken steroids in the past. documented in this encounter Plan of Treatment Not on file documented as of this encounter Visit Diagnoses Diagnosis Rash- Primary Rash and other nonspecific skin eruption documented in this encounter Administered Medications Inactive Administered Medications - up to 3 most recent administrations Medication Order MAR Action Action Date Dose Rate Site dexAMETHasone (DECADRON) injection solution 10 mg 10 mg, intramuscular, Once, On 06/30/22 at 2052, For 1 dose Given 06/30/2022 9:10 PM CDT 10 mg Left Deltoid diphenhydrAMINE (BENADRYL) tab/cap 25 mg 25 mg, oral, Once, On 06/30/22 at 2052, For 1 dose Given 06/30/2022 9:10 PM CDT 25 mg famotidine (PEPCID) tablet 20 mg 20 mg, oral, Once, On 06/30/22 at 2052, For 1 dose Given 06/30/2022 9:10 PM CDT 20 mg documented in this encounter Active and Recently Administered Medications Times are shown in CDT. Scheduled Medication Order 06/28/2022 06/29/2022 06/30/2022 dexAMETHasone (DECADRON) injection solution 10 mg (COMPLETED) 10 mg, intramuscular, Once, On 06/30/22 at 2052, For 1 dose 2109 (Given - Provid er: Samantha Tavares, CRISTIAN) diphenhydrAMINE (BENADRYL) tab/cap 25 mg (COMPLETED) 25 mg, oral, Once, On 06/30/22 at 2052, For 1 dose 2109 (Given - Provid er: Samantha Tavares RN) famotidine (PEPCID) tablet 20 mg (COMPLETED) 20 mg, oral, Once, On 06/30/22 at 2052, For 1 dose 2109 (Given - Provid er: Samantha Tavares RN) documented in this encounter Care Teams Rapier Insertion Loom Fixer Relationship Specialty Start Date End Date Xiomy Kaur NP [address] [place] [address] PCP - General Nurse Practitioner 06/28/21 07/16/22 Xiomy Kaur NP [address] [place] [address] Nurse Practitioner 06/28/21 documented as of this encounter
--- OUTSIDE RECORDS SUMMARY | 2024-11-14 20:51 | XMS_ITS | Encounter Summary ---
Author Organization [facility] Healthcare Address [address] [place] [address] Care Team Providers Care Molecular Pathologist Name Role Phone Unavailable Primary Care Provider Unavailabl e Encounter Details Date Type Department Care Team (Late st Contact Info) Description 08/18/2015 11:37 AM CDT - 08/18/2015 2:33 PM CDT Hospital Encounter [facility] Gwyn Little MD 1 [facility] [place] [address] [place] [id number] Pain; Cigarette nicotine dependence, uncomplicated Social History Tobacco Use Types Packs/Day Years Used Date Smoking Tobacco: Never Assessed Comments Unknown Sex and Gender Information Value Date Recorded Sex Assigned at Not on file 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 Gender Identity Female 06/02/2024 9:46 PM CDT Sexual Orientation Straight 06/02/2024 9: 46 PM CDT documented as of this encounter Plan of Treatment Not on file documented as of this encounter Procedures Procedure Name Priority Date/Time Associated Diagnosis Comments SERUM ESTIMATED GLOMERULAR FILTRATION RATE Routine 08/18/2015 1:30 PM CDT PLASMA BASIC METABOLIC PANEL Routine 08/18/2015 1:30 PM CDT BLOOD CELL COUNT (CBC), MORPHOLOGIC EXAM Routine 08/18/2015 1:30 PM CDT BLOOD CELL MORPHOLOGIC EXAM Routine 08/18/2015 1:[address] HEAD WO CONTRAST Routine 08/18/2015 1 2:44 PM CDT DISCHARGE LABORATORY CUMULATIVE REPORT 08/18/2015 documented in this encounter Results * Plasma basic metabolic panel (08/18/2015 1:30 PM CDT) Sodium 141 135 - 145 mmol/L HISTORICAL RESULTS K, pl 4.4 3.5 - 5.1 mmol/L HISTORICAL RESULTS Chloride 105 97 - 110 mmol/L HISTORICAL RESULTS CO2 25 22 - 32 mmol/L HISTORICAL RESULTS A. gap 15 8 - 16 mmol/L HISTORICAL RESULTS Glucose 99 70 - 199 mg/dl HISTORICAL RESULTS Comment: Interpretive Data Note:The glucose is assumed non fasting Fastin-99 mg/dL Random: ??70-199 mg/dL Either a fasting glucose > 126 mg/dL or a random glucose > 200 mg/dL plus symptoms is diagnostic of diabetes when confirmed on another day. Fasting values > 100 mg/dL but < 125 mg/dL are diagnostic of impaired fasting glucose. Current interpretive data was last revised on 2015. BUN 12.7 8.0 - 25.0 mg/dl HISTORICAL RESULTS Creatinine 0.63 0.60 - 1.10 mg/dl HISTORICAL RESULTS Calcium 9.3 8.6 - 10.2 mg/dl HISTORICAL RESULTS BUN/creat ratio 20 10 - 20 HIST ORICAL RESULTS Plasma 08/18/2015 1:30 PM CDT us Historical Provider LAB BLOOD ORDERABLES Jeanette gabriel Result HISTORICAL RESULTS * (ABNORMAL) Blood cell morphologic exam (08/18/2015 1:30 PM CDT) Neutrophils 59.4 44.0 - 80.0 % HISTORICAL RESULTS Immature granulocytes 0.5 0.0 - 1.0 % HISTORICAL RESULTS Lymphocytes 33.8 13.0 - 44.0 % HISTORICAL RESULTS Monos 4.5 2.0 - 11.0 % HISTORICAL RESULTS Eosinophils 1.6 0.0 - 6.0 % HISTORICAL RESULTS Basophils 0.2 0.0 - 3.0 % HISTORICAL RESULTS Neutrophils, abs 7.1(H) 1.6 - 7.0 K/cumm HISTORICAL RESULTS Immature granulocyte, abs 0.06 0.00 - 0.20 K/cumm HISTORICAL RESULTS Lymphocytes, abs 4.0 0.5 - 4.3 K/cumm HISTORICAL RESULTS Monocytes, absolute 0.5 0.1 - 1.0 K/cumm HISTORICAL RESULTS Eosinophils, abs 0.2 0.0 - 0.6 K/cumm HISTORICAL RESULTS Basophils, abs 0.0 0.0 - 0.3 K/cumm HISTORICAL RESULTS Blood specimen (specimen) 08/18/2015 1:30 PM CDT Historical Provider LAB BLOOD ORDERABLES Jeanette l Result Performing Organization Address [facility] de Phone Number HISTORICAL RESULTS * (ABNORMAL) Blood cell count (CBC), morphologic exam (08/18/2015 1:30 PM CDT) WBC 11.9(H) 3.8 - 9.8 K/cumm HISTORICAL RESULTS RBC 4.67 3.90 - 5.00 M/cumm HISTORICAL RESULTS Hgb 13.5 12.1 - 15.1 g/dl HISTORICAL RESULTS Hct 41.3 36.1 - 44.3 % HISTORICAL RESULTS MCV 88.4 80.0 - 100.0 fl HISTORICAL RESULTS MCH 28.9 26.7 - 33.7 pg HISTORICAL RESULTS MCHC 32.7 32.7 - 36.0 g/dl HISTORICAL RESULTS Rdw 13.5 11.5 - 14.6 % HISTORICAL RESULTS Platelets 257 140 - 440 K/cumm HISTORICAL RESULTS MPV 9.9 8.0 - 12.0 fl HISTORICAL RESULTS NRBC 0.0 0.0 - 0.0 % HISTORIC AL RESULTS NRBC, abs 0.00 0.00 - 0.00 K/cumm HISTORICAL RESULTS Blood specimen (specimen) 08/18/2015 1:30 PM CDT Historical Provider LAB BLOOD ORDERABLES Jeanette l Result Performing Organization Address [place]/[facility] Co de Phone Number HISTORICAL RESULTS * Serum estimated glomerular filtration rate (08/18/2015 1:30 PM CDT) eGFR >60 ml/min/1.7 3 m2 HISTORICAL RESULTS Comment: Interpretation of Estimated GFR (eGFR): Normal ?>/= 60 mL/min/1.73m2 Possible Chronic Kidney Disease ??15 - 59 mL/min/1.73m2 Possible Kidney Failure ?< 15 ??mL/min/1.73m2 If -Citizen Of The [place] multiply value by 1.16. ??Estimated glomerular filtration rate is determined by the CKD-EPI equation recommended by the National Kidney Foundation (KDIGO 2012 Clinical Practice Guideline for the Evaluation and Management of Chronic Kidney Disease. ??Kidney Intnl Suppl Nov 2012;3:1). ??The CKD-EPI equation should not be used in acute renal failure or acute kidney injury and is not valid in children. Serum 08/18/2015 1:30 PM CDT us Historical Provider LAB BLOOD ORDERABLES Jeanette l Result HISTORICAL RESULTS * CT Head WO Contrast (08/18/2015 12:44 PM CDT) Anatomical Region Laterality Modality Head and Neck N/A Computed Tomogra phy 08/18/2015 12:4 4 PM CDT Narrative 08/18/2015 2:[address] [place] [address] [place] ?[id number] ??Acc#: ??[id number] DATE OF EXAM: ??Aug ??2014 CLINICAL HISTORY: Headache, right arm and leg numbness. RESULT: PROTOCOL: Sequential axial images were obtained from skull base to vertex without contrast. FINDINGS: There is no evidence of intracranial hemorrhage, mass or infarction. ??The ventricles are symmetric. ??Midline is normal. ??The extraaxial structures are normal. IMPRESSION: NORMAL HEAD CT. Interpreting Physician: ??DR VONNIE HEBERT M.D. ??Read on: ??Oct ??2 2014 12:51P Transcribed by: ??maggie ??On: Aug ??2 2014 ??1:59P Approved Electronically by: ??ANUP Low, DR SHANKAR ??on: ??Oct ??2 2014 2:56P Attending: ??GWYN HANSEN Requesting: ??TAMMI ALVAREZ Requesting Fax: ??-- Attending Fax: ??-- Attending ID: ??[id number] Requesting ID: ??[id number] Report To 1 ID: ??[id number] Report To 1 Name: ??GWYN HANSEN Report To 1 FAX: ??-- NextGen Order #: Procedure Note Provider, MD Rosendo - 03/20/[address] [place] [id number] Acc#: [id number] DATE OF EXAM: Aug 18 2015 CLINICAL HISTORY: Headache, right arm and leg numbness. RESULT: PROTOCOL: Sequential axial images were obtained from skull base to vertex withoutcontrast. FINDINGS: There is no evidence of intracranial hemorrhage, mass or infarction. Theventricles are symmetric. Midline is normal. The extraaxial structuresare normal. IMPRESSION: NORMAL HEAD CT. Interpreting Physician: DR VONNIE HEBERT M.D. Read on: Aug 18 201512:51P Transcribed by: maggie On: Aug 18 2015 1:59P Approved Electronically by: ANUP Low, DR SHANKAR on: Aug 18 20152:56P Attending: GWYN HANSEN Requesting: TAMMI ALVAREZ Requesting Fax: -- Attending Fax: -- Attending ID: [id number] Requesting ID: [id number] Report To 1 ID: [id number] Report To 1 Name: GWYN HANSEN Report To 1 FAX: -- NextGen Order #: Historical Provider MD KEARNS CT PROCEDURES Final R esult * DISCHARGE LABORATORY CUMULATIVE REPORT (08/18/2015) Narrative 08/18/2015 Ordered by an unspecified provider. Historical Provider LAB BLOOD ORDERABLES Jeanette l Result documented in this encounter Visit Diagnoses Diagnosis Pain Generalized pain Cigarette nicotine dependence, uncomplicated documented in this encounter
--- OUTSIDE RECORDS SUMMARY | 2024-11-14 20:51 | XMS_ITS | Encounter Summary ---
Author Organization [facility] Address [address] [place] [address] Care Team Providers Care Wholesale Loan Processor Name Role Phone No, Physician Primary Care Provider [phone] Reason for Visit * Reason Comments Fall Encounter Details Date Type Department Care Team (Late st Contact Info) Description 01/05/2018 6:03 PM LENS CLEANER - 01/05/2018 8:38 PM LENS CLEANER Emergency [facility] Emergency Department [address] [place] [address] Nas Vanegas MD [address] [place] [address] Fall down stairs, initial encounter (Primary Dx); Sacral pain; Pain in the coccyx Discharge Disposition: Discharge to home or self care Social History Tobacco Use Types Packs/Day Years Used Date Smoking Tobacco: Never Smokeless Tobacco: Never Comments No Sex and Gender Information Value Date Recorded Sex Assigned at Not on file Legal Sex Female 4:09 PM LENS CLEANER Gender Identity Female 06/02/2024 9:46 PM CDT Sexual Orientation Straight 06/02/2024 9: 46 PM CDT documented as of this encounter Last Filed Vital Signs Vital Sign Reading Time Taken Comments Blood Pressure 140/99 01/05/2018 6:23 PM LENS CLEANER Pulse 86 01/05/2018 6:23 PM LENS CLEANER Temperature 36.2 ??C (97.1 ??F) 01/05/2018 6:23 PM CS T Respiratory Rate 18 01/05/2018 6:23 PM LENS CLEANER Oxygen Saturation 99% 01/05/2018 6:23 PM LENS CLEANER Inhaled Oxygen Concentration - - Weight 72.6 kg (160 lb) 01/05/2018 6:23 PM LENS CLEANER Height 154.9 cm (5' 1 ) 01/05/2018 6:23 PM LENS CLEANER Body Mass Index 30.23 01/05/2018 6:23 PM LENS CLEANER documented in this encounter Discharge Instructions * Discharge Instructions* Chelita Callejas NP - 01/05/2018 8:09 PM LENS CLEANER Use over the counter Motrin per manufacturers guidelines for relief of pain and fever. Use Biofreeze, icy hot, bengay, epsom salt baths, ice and heat for muscle pain relief Do not drive while taking Tylenol #3 as it may cause drowsiness. Use a doughnut pillow to sit on to help with pain relief. CLEANER * Attachments The following attachments cannot be sent through Care Everywhere. * BACK SPRAIN/STRAIN (GAMBIAN) documented in this encounter Medications at Time of Discharge lidocaine (LIDODERM) 5 %Indications:Pos therpetic Neuralgia Apply 1 patch topically daily. Remove & discard patch within 12 hours or as directed by . 12 patch 01/05/2018 8 acetaminophen-co deine (TYLENOL with CODEINE #3) 300-30 mg per tabletIndication s:Pain Take 1 tablet by mouth every 4 (four) hours as needed for pain (1 tablet for mild to moderate pain or 2 tablets for severe pain). 12 tablet 01/05/2018 1 documented as of this encounter Ordered Prescriptions Prescription Sig Dispense Quantity Refills Last Filled Start Date End Date lidocaine (LIDODERM) 5 %Indications:Posth erpetic Neuralgia Apply 1 patch topically daily. Remove & discard patch within 12 hours or as directed by . 12 patch 01/05/2018 8 acetaminophen-code ine (TYLENOL with CODEINE #3) 300-30 mg per tabletIndications: Pain Take 1 tablet by mouth every 4 (four) hours as needed for pain (1 tablet for mild to moderate pain or 2 tablets for severe pain). 12 tablet 01/05/2018 1 documented in this encounter Discharge Disposition Disposition Code Departure Means Destination Discharge to home or self care documented in this encounter ED Notes * Chelita Callejas NP - 01/05/2018 7:14 PM CST HPI Chief Complaint Patient presents with ??? Fall 32 y.o. year old female with PMHX History reviewed. No pertinent past medical history.; accompaniedby family presents to ED with c/o Fall Denies fever, chills, nausea, vomiting, diarrhea, SOB, CP, numbness, tingling. Pt fell down approximately 16 stairs on buttocks 3 days ago. Pt has pain with sitting. Pt denies loss of bowel or bladder. Pt has not taken OTC medication for relief of pain. Pain 8. Patient History There are no active problems to display for this patient. History reviewed. No pertinent past medical history. History reviewed. No pertinent surgical history. History reviewed. No pertinent family history. Social History Substance Use Topics ??? Smoking status: Never Smoker ??? Smokeless tobacco: Never Used ??? Alcohol use Not on file Social History Social History Narrative ??? No narrative on file Review of Systems Review of Systems Constitutional: Negative. Negative for chills and fever. HENT: Negative. Negative for ear pain and sore throat. Eyes: Negative. Negative for pain and visual disturbance. Respiratory: Negative. Negative for cough and shortness of breath. Cardiovascular: Negative. Negative for chest pain and palpitations. Gastrointestinal: Negative. Negative for abdominal pain and vomiting. Genitourinary: Negative. Negative for dysuria and hematuria. Musculoskeletal: Negative for arthralgias and back pain. Saccrum and coccyx pain. Skin: Negative. Negative for color change and rash. Neurological: Negative. Negative for seizures and syncope. Psychiatric/Behavioral: Negative. All other systems reviewed and are negative. Physical Exam ED Triage Vitals [01/05/18 1823] Temp Pulse Resp BP SpO2 36.2 ??C (97.1 ??F) 86 18 140/99 99 % Temp src Heart Rate Source Patient Position BP Location FiO2 (%) Tympanic -- -- -- -- Physical Exam Constitutional: She is oriented to person, place, and time. She appears well- developed and well-nourished. Non-toxic appearance. She does not have a sickly appearance. She does not appear ill. No distress. HENT: Head: Normocephalic and atraumatic. Right Ear: Hearing and external ear normal. Left Ear: Hearing and external ear normal. Nose: Nose normal. Right sinus exhibits no maxillary sinus tenderness and no frontal sinus tenderness. Left sinus exhibits no maxillary sinus tenderness and no frontal sinus tenderness. Mouth/Throat: Uvula is midline and mucous membranes are normal. No tonsillar exudate. Eyes: Conjunctivae and EOM are normal. Pupils are equal, round, and reactive to light. Neck: Normal range of motion. Neck supple. Cardiovascular: Normal rate, regular rhythm, normal heart sounds and intact distal pulses. Exam reveals no gallop and no friction rub. No murmur heard. Pulmonary/Chest: Effort normal and breath sounds normal. No respiratory distress. She has no decreased breath sounds. She has no wheezes. She has no rhonchi. She has no rales. She exhibits no tenderness. Abdominal: Soft. Normal appearance and bowel sounds are normal. She exhibits no distension and no mass. There is no tenderness. There is no rebound and no guarding. No hernia. Musculoskeletal: She exhibits tenderness. She exhibits no edema or deformity. Back: No tenderness with palpation to spinous process. Normal ROM in bilateral hips. Bilateral pedal pulse 2+, distal sensation intact, and capillary refill less than 2 seconds. Neurological: She is alert and oriented to person, place, and time. No cranial nerve deficit. Skin: Skin is warm. Capillary refill takes less than 2 seconds. No rash noted. She is not diaphoretic. No erythema. No pallor. Psychiatric: She has a normal mood and affect. Her behavior is normal. Nursing note and vitals reviewed. ED Course & MDM ED Course as of Jan 05 2009 Mon Jan 05, 20181956 Discussed x-ray results with patient. Advised to use Motrin for relief of fever and pain, to follow up with PMD for further evaluation and treatment. Pt verbalized understanding. All questions answered at this time. [GV] 194 The patient has been informed that they may have pre-hypertension or Hypertension based on a blood pressure reading in the Emergency Department. I recommend that the patient call the primary care provider listed on their discharge instructions or a physician of their choice this week to arrange follow up for further evaluation of possible Hypertension. [GV] ED Course User Index [GV] Chelita Callejas NP MDM Fall down stairs, initial encounter Sacral pain Pain in the coccyx Chelita Callejas NP 01/05/182008 Cosigned by Nas Vanegas MD at 01/06/2018 12:51 AM LENS CLEANER CLEANER CLEANER Associated attestation - Nas Vanegas MD - 01/06/2018 12:51 AM LENS CLEANER ED Attestation Based on the medical record the care appears appropriate. * Sparkle Richardson RN - 01/05/2018 6:25 PM CST Pt reports slipping and sliding down a flight of steps on Friday01/03/18. Pt reports pain to her tailbone. Pt reports the pain has been increasing and that she is no longer able to sit or lay down without severe pain. Sensation and circulation are intact to the bilateral lower extremities. Pt denies any additional symptoms at this time. CLEANER documented in this encounter Plan of Treatment Not on file documented as of this encounter Procedures Procedure Name Priority Date/Time Associated Diagnosis Comments XR SACRUM COCCYX 2 OR MORE VIEWS IP Routine 01/05/2018 7:42 PM LENS CLEANER documented in this encounter Results * XR Sacrum Coccyx 2 or More Views (01/05/2018 7:42 PM LENS CLEANER) Anatomical Region Laterality Modality Pelvis, Body N/A Radio Fluoroscop y Impressions 01/05/2018 7:45 PM LENS CLEANER No acute sacral or coccygeal fracture. Electronically signed by: Serge Rodríguez M.D. Narrative 01/05/2018 7:45 PM LENS CLEANER EXAM: XR SACRUM COCCYX 2 OR MORE VIEWS AP and lateral HISTORY: Tailbone pain. COMPARISON: None FINDINGS: No acute sacrococcygeal fractures noted. ??The SI joints are neither widened or displaced. ??The sacral arcuate lines appear intact. Procedure Note Serge Rodríguez MD - 01/05/2018 EXAM: XR SACRUM COCCYX 2 OR MORE VIEWS AP and lateral HISTORY: Tailbone pain. COMPARISON: None FINDINGS: No acute sacrococcygeal fractures noted. The SI joints are neither widened or displaced. The sacral arcuate lines appear intact. IMPRESSION: No acute sacral or coccygeal fracture. Electronically signed by: Serge Rodríguez M.D. Chelita Woody Júnior RETAIL STORE ASSISTANT IMG XR PROCEDURES Final Res ult documented in this encounter Visit Diagnoses Diagnosis Fall down stairs, initial encounter- Primary Sacral pain Pain in the coccyx Other disorder of coccyx documented in this encounter Administered Medications Inactive Administered Medications - up to 3 most recent administrations Medication Order MAR Action Action Date Dose Rate Site HYDROcodone-acetaminophen (NORCO) 5-325 mg per tablet 1 tablet 1 tablet, oral, Once, On Fri01/05/18 at 1930, For 1 dose, Indications: PainIndications:Pain Given 01/05/2018 7:25 PM LENS CLEANER 1 tablet documented in this encounter Active and Recently Administered Medications Times are shown in LENS CLEANER. Scheduled Medication Order 01/03/2018 01/04/2018 01/05/2018 HYDROcodone-acetaminophen (NORCO) 5-325 mg per tablet 1 tablet (COMPLETED) 1 tablet, oral, Once, On Fri01/05/18 at 1930, For 1 dose, Indications: Pain 192 (Given - Provid er: Sparkle Richardson RN) documented in this encounter Orders Medications Ordered That Marcelo ht Not Have Been Administered Count Last Ordered Date First Ordered Date HYDROcodone-acetaminophen (N ORCO) 5-325 mg per tablet 1 tablet 1 01/05/2018 documented in this encounter Care Teams Wholesale Loan Processor Relationship Specialty Start Date End Date No, Physician PCP - General 01/05/18 05/17/21 documented as of this encounter
--- OUTSIDE RECORDS SUMMARY | 2024-11-14 20:51 | XMS_ITS | Encounter Summary ---
Author Organization [facility] Address [address] [place] [address] Care Team Providers Care Tilting Head Band Sawyer Name Role Phone Unavailable Primary Care Provider Unavailabl e Encounter Details Date Type Department Care Team (Late st Contact Info) Description 03/04/2015 5:22 PM CDT - 03/04/2015 5:52 PM CDT Hospital Encounter [facility] Cony Preston MD [address] [place] [id number] Enthesopathy; Tobacco use disorder Social History Tobacco Use Types Packs/Day Years Used Date Smoking Tobacco: Never Assessed Comments Unknown Sex and Gender Information Value Date Recorded Sex Assigned at Not on file Legal Sex Female 4:09 PM GUEST SERVICE AGENT Gender Identity Female 06/02/2024 9:46 PM CDT Sexual Orientation Straight 06/02/2024 9: 46 PM CDT documented as of this encounter Plan of Treatment Not on file documented as of this encounter Procedures Procedure Name Priority Date/Time Associated Diagnosis Comments DEXA AXIAL SKELETON BONE DENSITY 1 OR MORE SITES Routine 03/04/2015 5:43 PM CDT documented in this encounter Results * Dexa Axial Skeleton Bone Density 1 or 2 Site (03/04/2015 5:43 PM CDT) Anatomical Region Laterality Modality Body N/A Radiographic Irma ging 03/04/2015 5:43 PM CDT Narrative 03/06/2015 6:56 AM CDT XR Forearm R ? [id number] ??Acc#: ??[id number] DATE OF EXAM: ??Mar 04 2015 CLINICAL HISTORY: Right forearm pain, no known injury. RESULT: Two views of the right forearm demonstrate a partially visualized radial head fracture previously noted on a radiograph of 11/05/14. ??No additional findings of the right radius or ulna are present. ??The soft tissues are unremarkable. IMPRESSION: 1. PARTIALLY VISUALIZED SUBACUTE FRACTURE OF THE RIGHT RADIAL HEAD, PREVIOUSLY NOTED ON RADIOGRAPHS FROM OCTOBER. 2. OTHERWISE NORMAL RIGHT FOREARM. Interpreting Physician: ??DR VONNIE HEBERT M.D. ??Read on: ??Mar 05 2015 11:38A Transcribed by: ??grazyna ??On: Mar 05 2015 12:58P Approved Electronically by: ??ANUP Low, DR SHANKAR ??on: ??Mar 06 2015 6:56A Attending: ??, Requesting: ??SHARON ARCHIBALD ([place]) Requesting Fax: ??-- Attending Fax: ??-- Attending ID: ?? Requesting ID: ??[id number] Report To 1 ID: ??[id number] Report To 1 Name: ??CONY GIL Report To 1 FAX: ??-- NextGen Order #: Procedure Note Provider, MD Rosendo - 03/20/2017 XR Forearm R [id number] Acc#: [id number] DATE OF EXAM: Mar 04 2015 CLINICAL HISTORY: Right forearm pain, no known injury. RESULT: Two views of the right forearm demonstrate a partially visualized radialhead fracture previously noted on a radiograph of 11/05/14. No additionalfindings of the right radius or ulna are present. The soft tissues areunremarkable. IMPRESSION: 1. PARTIALLY VISUALIZED SUBACUTE FRACTURE OF THE RIGHT RADIAL HEAD,PREVIOUSLY NOTED ON RADIOGRAPHS FROM OCTOBER. 2. OTHERWISE NORMAL RIGHT FOREARM. Interpreting Physician: DR VONNIE HEBERT M.D. Read on: Mar 05 201511:38A Transcribed by: grazyna On: Mar 05 2015 12:58P Approved Electronically by: ANUP Low, DR SHANKAR on: Mar 06 20156:56A Attending: , Requesting: SHARON ARCHIBALD ([place]) Requesting Fax: -- Attending Fax: -- Attending ID: Requesting ID: [id number] Report To 1 ID: [id number] Report To 1 Name: CONY GIL Report To 1 FAX: -- NextGen Order #: Historical Provider MD KEARNS DXA PROCEDURES Final Result documented in this encounter Visit Diagnoses Diagnosis Enthesopathy Enthesopathy of unspecified site Tobacco use disorder documented in this encounter
--- OUTSIDE RECORDS SUMMARY | 2024-11-14 20:51 | XMS_ITS | Encounter Summary ---
Author Organization [facility] Address [address] [place] [address] Care Team Providers Care Tearoom Host Name Role Phone Xiomy Kaur NP Primary Care Provider [phone] KaurXiomy THREAD MARKER Unavailable [phone] Reason for Visit * Diagnostic Imaging (Routine) - Closed Specialty Diagnoses / Procedures Referred By Vicente hartman Referred To Contact Diagnoses Neck pain Procedures XR Spine Cervical Complete 4 Or 5 [place] [id number] [place] [address] Phone: tel: fax: Referral ID Status Reason Start Date Expiration Date Visits Re quested Visits Authorized [id number] Closed 07/20/2021 08/19/2022 1 1 Encounter Details Date Type Department Care Team (Latest Contact Info) Description 07/20/2021 10:14 AM CDT - 07/20/2021 11:59 PM CDT Hospital Encounter [facility] [id number] [phone] Discharge Disposition: Discharge to home or self care Social History Tobacco Use Types Packs/Day Years Used Date Smoking Tobacco: Every Day Smokeless Tobacco: Never Comments No Sex and Gender Information Value Date Recorded Sex Assigned at Not on file Legal Sex Female 4:09 PM PHONE SPECIALIST Gender Identity Female 06/02/2024 9:46 PM CDT Sexual Orientation Straight 06/02/2024 9: 46 PM CDT documented as of this encounter Medications at Time of Discharge acetaminophen-co deine (TYLENOL with CODEINE #3) 300-30 mg per tabletIndication s:Pain Take 1 tablet by mouth every 4 (four) hours as needed for pain (1 tablet for mild to moderate pain or 2 tablets for severe pain). 12 tablet 01/05/2018 1 cyclobenzaprine (FLEXERIL) 5 mg tablet TAKE 1 TABLET BY MOUTH THREE TIMES DAILY NEEDED FOR MUSCLE SPASMS 07/03/2021 1 ergocalciferol (VITAMIN D) 50,000 unit capsule TAKE 1 CAPSULE BY MOUTH ONCE A WEEK 06/06/2021 2 ergocalciferol (VITAMIN D) 50,000 unit capsule TAKE 1 CAPSULE BY MOUTH ONCE A WEEK 06/06/2021 1 Euthyrox 25 mcg tablet TAKE 1 TABLET BY MOUTH ONCE DAILY IN THE MORNING 06/06/2021 1 gabapentin (NEURONTIN) 300 mg capsule TAKE 1 CAPSULE BY MOUTH NIGHTLY 07/20/2021 2 gabapentin (NEURONTIN) 300 mg capsule Take 1 capsule (300 mg total) by mouth nightly 90 capsule 1 07/20/2021 1 hydroCHLOROthiaz nba (HYDRODIURIL) 12.5 mg tablet Take 12.5 mg by mouth daily 05/01/2021 2 hydroCHLOROthiaz nba (HYDRODIURIL) 12.5 mg tablet Take 12.5 mg by mouth daily 05/01/2021 1 HYDROcodone-acet aminophen (NORCO) 5-325 mg per tablet TAKE 1 TO 2 TABLETS BY MOUTH EVERY 4 HOURS NEEDED FOR MODERATE TO SEVERE PAIN. NO MORE THAN 8 TABLETS PER DAY. 05/12/2021 1 ketorolac (TORADOL) 10 mg tablet Take by mouth every 6 (six) hours as needed 07/03/2021 1 levothyroxine (SYNTHROID) 25 mcg tablet Take 25 mcg by mouth early childhood education worker before breakfast 2 meloxicam (MOBIC) 15 mg tablet TAKE 1 TABLET BY MOUTH ONCE DAILY (DO NOT TAKE WITH OTHER NSAIDS) 07/20/2021 1 meloxicam (MOBIC) 15 mg tablet Take 1 tablet (15 mg total) by mouth daily Do not take with other NSAIDs 90 tablet 1 07/20/2021 1 methylPREDNISolo ne (MEDROL DOSEPACK) 4 mg Dosepack TAKE BY MOUTH DIRECTED ON INSIDE OF PACKAGE 07/20/2021 1 methylPREDNISolo ne (Medrol, Oz,) 4 mg Dosepack follow package directions 21 tablet 07/20/2021 1 documented as of this encounter Discharge Disposition Disposition Code Departure Means Destination Discharge to home or self care documented in this encounter Plan of Treatment Not on file documented as of this encounter Procedures Procedure Name Priority Date/Time Associated Diagnosis Comments XR SPINE CERVICAL COMPLETE 4 OR 5 VW Schedule Routine, Read Routine (OP Routine) 07/20/2021 10:34 AM CDT Cervical spondylosis documented in this encounter Results * XR Spine Cervical Complete 4 Or 5 View (07/20/2021 10:34 AM CDT) Anatomical Region Laterality Modality Spine N/A Radiographic Irma ging Narrative 07/20/2021 12:36 PM CDT I personally reviewed and interpreted AP and lateral flexion/extension XR images of the patient's cervical spine taken in office on 07/20/2021 . 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 Kayden Villa MD IMG XR PROCEDURES Edit ed Result - Final documented in this encounter Visit Diagnoses Not on filedocumented in this encounter Care Teams Tearoom Host Relationship Specialty Start Date End Date Xiomy Kaur NP [address] [place] [address] PCP - General Nurse Practitioner 06/28/21 07/16/22 Xiomy Kaur NP [address] [place] [address] Nurse Practitioner 06/28/21 documented as of this encounter
--- OUTSIDE RECORDS SUMMARY | 2024-11-14 20:51 | XMS_ITS | Encounter Summary ---
Author Organization [facility] Address [address] [place] [address] Care Team Providers Care Marine Machinist Name Role Phone Xiomy Kaur NP Primary Care Provider [phone] Xiomy Kaur GROUND INSTRUCTOR BASIC Unavailable [phone] Reason for Visit * Diagnostic Imaging (Routine) - Closed Specialty Diagnoses / Procedures Referred By Vicente hartman Referred To Contact Diagnoses Other spondylosis with radiculopathy, lumbar region Procedures XR Spine Lumbar Complete 4 [place] Kayden Villa [place] [id number] [place] [address] Phone: tel: fax: Referral ID Status Reason Start Date Expiration Date Visits Re quested Visits Authorized [id number] Closed 07/20/2021 08/19/2022 1 1 Encounter Details Date Type Department Care Team (Latest Contact Info) Description 07/20/2021 10:14 AM CDT - 07/20/2021 11:59 PM CDT Hospital Encounter [facility] [id number] [phone] Discharge Disposition: Discharge to home or self care Social History Tobacco Use Types Packs/Day Years Used Date Smoking Tobacco: Every Day Smokeless Tobacco: Never Comments No Sex and Gender Information Value Date Recorded Sex Assigned at Not on file Legal Sex Female 4:09 PM FORM BLOCK MAKER Gender Identity Female 06/02/2024 9:46 PM CDT [...] mcg tablet Take 25 mcg by mouth clinical editor before breakfast 2 meloxicam (MOBIC) 15 mg [...] Date/Time Associated Diagnosis Comments XR SPINE LUMBAR COMPLETE 4 OR MORE VIEWS Schedule Routine, Read Routine (OP Routine) 07/20/2021 10:33 AM CDT Other spondylosis with radiculopathy, lumbar region documented in this encounter Results * XR Spine Lumbar Complete 4 View (07/20/2021 10:33 AM CDT) Anatomical Region Laterality Modality Spine N/A Radiographic Irma ging Narrative 07/20/2021 12:36 PM CDT I personally reviewed and interpreted AP and lateral flexion/extension XR images of the patient's lumbar spine taken in office on 07/20/2021. These show osteopenia and a sacralized vertebral lumbar body at L4-S1. Kayden Villa MD IMG XR PROCEDURES Edit ed Result - Final documented in this encounter Visit Diagnoses Not on filedocumented in this encounter Care Teams Marine Machinist Relationship Specialty Start Date End Date Xiomy Kaur NP [address] [place] [address] PCP - General Nurse Practitioner 06/28/21 07/16/22 Xiomy Kaur NP [address] [place] [address] Nurse Practitioner 06/28/21 documented as of this encounter
--- OUTSIDE RECORDS SUMMARY | 2024-11-14 20:51 | XMS_ITS | Encounter Summary ---
Author Organization [facility] Healthcare Address [address] [place] [address] Care Team Providers Care Convex Grinder Name Role Phone Unavailable Primary Care Provider Unavailabl e Encounter Details Date Type Department Care Team (Late st Contact Info) Description 05/18/2014 10:44 PM CDT - 05/19/2014 Hospital Encounter [facility] Tigre Szymanski MD [address] [place] [address] Chest pain; Tobacco use disorder Social History Tobacco Use Types Packs/Day Years Used Date Smoking Tobacco: Never Assessed Comments Unknown Sex and Gender Information Value Date Recorded Sex Assigned at Not on file 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 Gender Identity Female 06/02/2024 9:46 PM CDT Sexual Orientation Straight 06/02/2024 9: 46 PM CDT documented as of this encounter Plan of Treatment Not on file documented as of this encounter Procedures Procedure Name Priority Date/Time Associated Diagnosis Comments DISCHARGE CUMULATIVE SUMMARY ADDENDUM Routine 05/20/2014 12:37 AM CDT DISCHARGE LABORATORY CUMULATIVE REPORT Routine 05/19/2014 12:00 AM CDT SERUM MAGNESIUM Routine 05/18/2014 11:20 PM CDT SERUM COMPREHENSIVE METABOLIC PANEL Routine 05/18/2014 11:20 PM CDT PLASMA PROTHROMBIN TIME (PT) Routine 05/18/2014 11:20 PM CDT PLASMA PARTIAL THROMBOPLASTIN TIME (PTT) Routine 05/18/2014 11:20 PM CDT BLOOD WBC CELL MORPHOLOGIC EXAM, AUTO Routine 05/18/2014 11:20 PM CDT BLOOD CELL COUNT (CBC) Routine 4 11:20 PM CDT XR CHEST PA LATERAL 2 VIEWS Routine 05/18/2014 11:19 PM CDT SERUM TROPONIN I Routine 05/18/2014 6:20 PM CDT BLOOD B-TYPE NATRIURETIC PEPTIDE (BNP) Routine 05/18/2014 6:20 PM CDT ELECTROCARDIOGRAPHY (ECG) 05/18/2014 documented in this encounter Results * Discharge Cumulative Summary Addendum (05/20/2014 12:37 AM CDT) 05/20/2014 12:3 7 AM CDT Narrative HISTORICAL RESULTS - 05/20/2014 12:37 AM CDT Patient No: [id number] ? [facility] Patient Name: ASHLEY HERNANDEZ ?[facility] Healthcare Age: 28 YRS ?: 1985 ?Sex:F ?[address] )[phone] ?? Adm Dt: 05/18/2014 ?[place] ??[address] Created: 05/20/2014 ??0037 ?? Pt. Type: E ? Discharge Dt: 05/19/2014 ? Pathologists: Waleska Cardona MD Admit Attend Dr: TIGRE RODRIGUEZ MD ?BLOOD CELL DIFFERENTIAL ?Collection Date: ?05/18/14 ?Collection Time: ?2320 ? Ref Range: ?? Units: [54.0-69.0] ??% ?NEUTROPHILS ? 47.8 L [25.0-33.0] ??% ?LYMPHOCYTES ? 40.6 H [0.0-13.0] ??% ?MONOCYTES ?6.0 [0.0-10.0] ??% ?EOSINOPHILS ?4.8 [0.0-1.0] ?? % ?BASOPHILS ?0.5 ? /CMM ? A LYMPHOCYTE ? 5.2 H [0.0-1.0] ?? % ?IMM GRAN % ? 0.3 [0.00-0.02] ??/CMM ? A IMM GRAN ?0.04 H [1.1-1.9] ?? /CMM ? A MONOCYTE ? 0.8 L [1.4-6.5] ?? /CMM ? A NEUTROPHIL ? 6.1 [0.0-0.7] ?? /CMM ? A EOSINOPHIL ? 0.6 [0.0-0.2] ?? /CMM ? A BASOPHIL ? 0.1 Footnotes and Symbols: L = Low, H = High ?? END OF CHART ? Page: ?? 1 us Historical Provider LAB MICROBIOLOGY - GENERA L ORDERABLES Final Result HISTORICAL RESULTS * Discharge Laboratory Cumulative Report (05/19/2014 12:00 AM CDT) 05/19/2014 Narrative HISTORICAL RESULTS - 05/19/2014 12:36 AM CDT Patient No: [id number] ? [facility] Patient Name: ASHLEY HERNANDEZ ?[facility] Healthcare Age: 28 YRS ?: 1985 ?Sex:F ?[address] )[phone] ?? Adm Dt: 05/18/2014 ?[place], [place] ??[address] Created: 05/19/2014 ??0036 ?? Pt. Type: E ? Discharge Dt: 05/19/2014 ? Pathologists: Waleska Cardona MD Admit DrClaudia Attend Dr: TIGRE RODRIGUEZ MD ? BLOOD CELL COUNTS ?Collection Date: ?05/18/14 ?Collection Time: ?2320 ? Ref Range: ?? Units: [4.00-10.50] /CMM ? WBC X 10^3 ? 12.73 H [4.20-5.40] ??/CMM ? RBC X 10^6 ?4.56 [12.0-16.0] ??G/DL ? HGB ? 13.6 [37.0-47.0] ??% ?HCT ? 40.8 [77.0-97.0] ??FL ? MCV ? 89.5 [23.0-34.0] ??PG ? MCH ? 29.8 [32.0-36.0] ??% ?MCHC ?33.3 [11.5-14.5] ??% ?RDW ? 14.2 [150-400] ?? /CMM ? PLT X 10^3 ? 304 ? GENERAL CHEMISTRY ?Collection Date: ?05/18/14 ?Collection Time: ?2320 ? Ref Range: ?? Units: [< ?100] ?? pg/ml ?BNP ? <2 f [134-143] ?? MMOL/L ? SODIUM ? 140 [3.4-5.0] ?? MMOL/L ? POTASSIUM ?3.9 [99.0-108.0] MMOL/L ? CHLORIDE ? 105.0 [23.0-32.0] ??MMOL/L ? TOTAL CO2 ? 30.9 ?? [7-14] ?MMOL/L ? ANION GAP ?8 Footnotes and Symbols: H = High, f = Footnote BNP (08/26/08 -- Current) BNP REFERENCE RANGE <100 pg/ml ?? CONTINUED ?Page: ?? 1 Patient No: [id number] ? [facility] Patient Name: ASHLEY HERNANDEZ ?[facility] Age: 28 YRS ?: 1985 ?Sex:F ?[address] )[phone] ?? Adm Dt: 05/18/2014 ?[place] ??[id number] Created: 05/19/2014 ??0036 ?? Pt. Type: E ? Discharge Dt: 05/19/2014 ? Pathologists: Waleska Cardona MD Admit Attend Dr: TIGRE RODRIGUEZ MD ? GENERAL CHEMISTRY ?Collection Date: ?05/18/14 ?Collection Time: ?2320 ? Ref Range: ?? Units: ??[70-199] ?? MG/DL ?GLUCOSE ?107 f [6.4-8.0] ?? G/DL ? TOTAL PROTEIN ?7.6 [3.3-4.5] ?? G/DL ? ALBUMIN ?3.6 [1.1-1.8] ?A/G RATIO ?0.9 L [8.6-9.8] ?? MG/DL ?CALCIUM ?9.2 [0.0-1.1] ?? MG/DL ?BILI TOTAL ? 0.2 ??[44-125] ?? U/L ?ALK PHOS ? 116 ?? [5-40] ?U/L ?AST(SGOT) ? 15 f ??[15-70] ?U/L ?ALT(SGPT) ? 27 f [6.0-23.0] ??MG/DL ?BUN ? 10.0 ??[10-20] ? B/C RATIO ? 10 Footnotes and Symbols: L = Low, f = Footnote GLUCOSE (10/19/13 -- Current) Note:The glucose is assumed non fasting Fastin-99 mg/dl Random: 70-199 mg/dl Either a fasting glucose > 126 mg/dL or a random glucose > 200 mg/dL plus symptoms is diagnostic of diabetes when confirmed on another day. Fasting values > 100 mg/dl but < 125 mg/dL are diagnostic of impaired fasting glucose. New reference ranges implemented 09/27/2013. AST(SGOT) (03/31/14 -- Current) ALT(SGPT) (06/08/13 -- Current) ?? CONTINUED ?Page: ?? 2 Patient No: [id number] ? [facility] Patient Name: ASHLEY HERNANDEZ ?[facility] Healthcare Age: 28 YRS ?: 1985 ?Sex:F ?[address] )[phone] ?? Adm Dt: 05/18/2014 ?[place], [place] ??[address] Created: 05/19/2014 ??0036 ?? Pt. Type: E ? Discharge Dt: 05/19/2014 ? Pathologists: Waleska Cardona MD Admit Attend Dr: TIGRE RODRIGUEZ MD ? GENERAL CHEMISTRY ?Collection Date: ?05/18/14 ?Collection Time: ?2320 ? Ref Range: ?? Units: [0.60-1.30] ??MG/DL ?CREATININE ?0.96 f ?05/18/14 2320 eGFR: >70 ml/min/1.73sq.m if non -Congolese. eGFR: >70 ml/min/1.73sq.m if -Congolese. AVE GFR for 20-29 yr. age group: ??116 ml/min/1.73sq.m Calculated using the MDRD Equation FOOTNOTE ADDED ON ?? 05/19/14 ?? AT 0001 BY 999 [1.5-2.2] ?? MG/DL ?MAGNESIUM ?2.1 ? CARDIAC CHEMISTRY ?Collection Date: ?05/18/14 ?Collection Time: ?2320 ? Ref Range: ?? Units: [0.00-0.10] ??NG/ML ?TROPONIN I ? <0.04 f Footnotes and Symbols: f = Footnote TROPONIN I (09/12/11 -- Current) NEGATIVE: ??0.00 - 0.10 NG/ML INDETERMINATE: ??0.11 - 0.50 NG/ML POSITIVE: ??GREATER THAN 0.50 NG/ML ?? CONTINUED ?Page: ?? 3 Patient No: [id number] ? [facility] Patient Name: ASHLEY HERNANDEZ ?[facility] Healthcare Age: 28 YRS ?: 1985 ?Sex:F ?[address] )[phone] ?? Adm Dt: 05/18/2014 ?[place] ??[address] Created: 05/19/2014 ??0036 ?? Pt. Type: E ? Discharge Dt: 05/19/2014 ? Pathologists: Waleska Cardona MD Admit Attend Dr: TIGRE RODRIGUEZ MD ?COAGULATION ? Units: ?? PROTIME ?INR ?APTT PAT ? Low: ??[10.9-14.8] ? [< ?? 36.0] ? Ref Range: ? SECS ?SECS ? 05/18/142319 ?11.8 ? 0.90 f ? 26.9 Footnotes and Symbols: f = Footnote INR (06/05/00 -- Current) RECOMMENDED RANGES FOR PROTIME INR: NOTE: THE INR HAS BEEN VALIDATED ONLY FOR PATIENTS ON STABLE ORAL ?ANTICOAGULANT THERAPY. ?2.0 - 3.0 ??PROPHYLAXIS OF VENOUS THROMBOSIS (HIGH RISK SURGERY) ?2.0 - 3.0 ??TREATMENT OF VENOUS THROMBOSIS ?2.0 - 3.0 ??TREATMENT OF PULMONARY EMBOLISM ?2.0 - 3.0 ??PREVENTION OF SYSTEMIC EMBOLISM ? TISSUE HEART VALVES ? AMI (TO PREVENT SYSTEMIC EMBOLISM)* ? VALVULAR HEART DISEASE ? ATRIAL FIBRILLATION ?2.5 - 3.5 ??MECHANICAL PROSTHETIC VALVES (HIGH RISK) ?2.0 - 3.0 ??BILEAFLET MECHANICAL VALVE IN AORTIC POSITION *If oral anticoagulant therapy is elected to prevent recurrent myocardial infarction, an INR of 2.5 to 3.5 is recommended, consistent with Food and Drug Administration recommendations. ?? END OF CHART ? Page: ?? 4 Historical Provider LAB BLOOD ORDERABLES Jeanette l Result Performing Organization Address [facility] de Phone Number HISTORICAL RESULTS * Plasma partial thromboplastin time (PTT) (05/18/2014 11:20 PM CDT) Pathologist [facility] APTT 26.9 -<36. seconds HISTOR ICAL RESULTS Plasma 05/18/2014 11:2 0 PM CDT Tigre Rodriguez MD LAB BLOOD ORDERABLES Final Re sult Performing Organization Address [facility] de Phone Number HISTORICAL RESULTS * Plasma prothrombin time (PT) (05/18/2014 11:20 PM CDT) Pathologist [facility] Prothrombin time (PT) 11.8 10.9 - 14.8 seconds HISTORICAL RESULTS INR 0.90 HISTORICAL RESULTS Comment: RECOMMENDED RANGES FOR PROTIME INR: NOTE: THE INR HAS BEEN VALIDATED ONLY FOR PATIENTS ON STABLE ORAL ?ANTICOAGULANT THERAPY. ?2.0 - 3.0 ??PROPHYLAXIS OF VENOUS THROMBOSIS (HIGH RISK SURGERY) ?2.0 - 3.0 ??TREATMENT OF VENOUS THROMBOSIS ?2.0 - 3.0 ??TREATMENT OF PULMONARY EMBOLISM ?2.0 - 3.0 ??PREVENTION OF SYSTEMIC EMBOLISM ? TISSUE HEART VALVES ? AMI (TO PREVENT SYSTEMIC EMBOLISM)* ? VALVULAR HEART DISEASE ? ATRIAL FIBRILLATION ?2.5 - 3.5 ??MECHANICAL PROSTHETIC VALVES (HIGH RISK) ?2.0 - 3.0 ??BILEAFLET MECHANICAL VALVE IN AORTIC POSITION *If oral anticoagulant therapy is elected to prevent recurrent myocardial infarction, an INR of 2.5 to 3.5 is recommended, consistent with Food and Drug Administration recommendations. Plasma 05/18/2014 11:2 0 PM CDT Tigre Rodriguez MD LAB BLOOD ORDERABLES Final [facility] Performing Organization Address City/[facility]/ZIP Co de Phone Number HISTORICAL RESULTS * Serum magnesium (05/18/2014 11:20 PM CDT) Pathologist [facility] Magnesium 2.1 1.5 - 2.2 mg/dl HISTORICAL RESULTS Serum 05/18/2014 11:2 0 PM CDT Tigre Rodriguez MD LAB BLOOD ORDERABLES Final Re sult Performing Organization Address [facility]/ZIP Co de Phone Number HISTORICAL RESULTS * (ABNORMAL) Blood cell count (CBC) (05/18/2014 11:20 PM CDT) WBC 12.7(H) 4.0 - 10.5 K/cumm HISTORICAL RESULTS RBC 4.56 4.20 - 5.40 M/cumm HISTORICAL RESULTS Hgb 13.6 12.0 - 16.0 g/dl HISTORICAL RESULTS Hct 40.8 37.0 - 47.0 % HISTORICAL RESULTS MCV 89.5 77.0 - 97.0 fl HISTORICAL RESULTS MCH 29.8 23.0 - 34.0 pg HISTORICAL RESULTS MCHC 33.3 32.0 - 36.0 g/dl HISTORICAL RESULTS Rdw 14.2 11.5 - 14.5 % HISTORICAL RESULTS Platelets 304 150 - 400 K/cumm HISTORICAL RESULTS MPV 9.5 7.4 - 10.4 fl HISTORICAL RESULTS Blood specimen (specimen) 05/18/2014 11:20 PM CDT Tigre Rodriguez MD LAB BLOOD ORDERABLES Final Re sult HISTORICAL RESULTS * (ABNORMAL) Blood WBC cell morphologic exam, auto (05/18/2014 11:20 PM CDT) Lymphocytes 40.6(H) 25.0 - 33.0 % HISTORICAL RESULTS Monos 6.0 0.0 - 13.0 % HISTORICAL RESULTS Neutrophils 47.8(L) 54.0 - 69.0 % HISTORICAL RESULTS Eosinophils 4.8 0.0 - 10.0 % HISTORICAL RESULTS Basophils 0.5 0.0 - 1.0 % HISTORICAL RESULTS Immature granulocytes 0.3 0.0 - 1.0 % HISTORICAL RESULTS Lymphocytes, abs 5.2(H) 1.2 - 3.4 K/cumm HISTORICAL RESULTS Monocytes, absolute 0.8(L) 1.1 - 1.9 K/cumm HISTORICAL RESULTS Neutrophils, abs 6.1 1.4 - 6.5 K/cumm HISTORICAL RESULTS Eosinophils, abs 0.6 0.0 - 0.7 cells/cum m HISTORICAL RESULTS Basophils, abs 0.1 0.0 - 0.2 K/cumm HISTORICAL RESULTS Immature granulocyte, abs 0.0(H) 0.0 - 0.0 K/cumm HISTORICAL RESULTS Blood specimen (specimen) 05/18/2014 11:20 PM CDT Tigre Rodriguez MD LAB BLOOD ORDERABLES Final Re sult HISTORICAL RESULTS * (ABNORMAL) Serum comprehensive metabolic panel (05/18/2014 11:20 PM CDT) BUN 10.0 6.0 - 23.0 mg/dl HISTORICAL RESULTS Sodium 140 134 - 143 mmol/L HISTORICAL RESULTS Potassium, sr 3.9 3.4 - 5.0 mmol/L HISTORICAL RESULTS Chloride 105 99 - 108 mmol/L HISTORICAL RESULTS CO2 31 23 - 32 mmol/L HISTORICAL RESULTS Glucose 107 70 - 199 mg/dl HISTORICAL RESULTS Comment: Note:The glucose is assumed non fasting Fastin-99 mg/dl Random: 70-199 mg/dl Either a fasting glucose > 126 mg/dL or a random glucose > 200 mg/dL plus symptoms is diagnostic of diabetes when confirmed on another day. Fasting values > 100 mg/dl but < 125 mg/dL are diagnostic of impaired fasting glucose. New reference ranges implemented 09/27/2013. Creatinine 0.96 0.60 - 1.30 mg/dl HISTORICAL RESULTS Comment: eGFR: >70 ml/min/1.73sq.m if non -Congolese. eGFR: >70 ml/min/1.73sq.m if -Congolese. AVE GFR for 20-29 yr. age group: ??116 ml/min/1.73sq.m Calculated using the MDRD Equation BUN/creat ratio 10 10 - 20 HIST ORICAL RESULTS A. gap 8 7 - 14 mmol/L HISTORICAL RESULTS Protein, sr 7.6 6.4 - 8.0 g/dl HISTORICAL RESULTS Alb 3.6 3.3 - 4.5 g/dl HISTORICAL RESULTS Alb/glob ratio 0.9(L) 1.1 - 1.8 HISTO RICAL RESULTS Calcium 9.2 8.6 - 9.8 mg/dl HISTORICAL RESULTS Bilirubin 0.2 0.0 - 1.1 mg/dl HISTORICAL RESULTS Alk phos 116 44 - 125 Units/L HISTORICAL RESULTS AST 15 5 - 40 Units/L HISTORICAL RESULTS ALT 27 15 - 70 Units/L HISTORICAL RESULTS Serum 05/18/2014 11:2 0 PM CDT us Tigre Rodriguez MD LAB BLOOD ORDERABLES Final Re sult HISTORICAL RESULTS * XR Chest Pa Lateral 2 Vw (05/18/2014 11:19 PM CDT) Anatomical Region Laterality Modality Body, Chest N/A Radiographic Irma ging 05/18/2014 11:1 9 PM CDT Narrative 05/19/2014 5:03 PM CDT XR Chest 2 Views ?[id number] ??Acc#: ??[id number] DATE OF EXAM: ??May ??2013 CLINICAL HISTORY: Chest pain for 3 hours. ??Smoker. RESULT: Erect PA and lateral views demonstrate normal heart size and pulmonary vascularity. ??No infiltrate, mass or pleural effusion is seen. Mediastinum is not widened. ??Diaphragm is smooth and costophrenic angles clear. ??Mild thoracic dextroscoliosis is noted. IMPRESSION: 1. ??NO CARDIOPULMONARY ABNORMALITY SEEN. 2. ??MILD THORACIC DEXTROSCOLIOSIS. Interpreting Physician: ??DR BRISA CADET M.D. ??Read on: ??May ??3 2013 6:54A Transcribed by: ??[facility] ??On: May ??3 2013 ??9:23A Approved Electronically by: ??HELIO Low, DR LEDEZMA ??on: ??May ??2013 5:02P Ordering DR: DR TIGRE RODRIGUEZ Attending DR: Procedure Note Provider, Rosendo, - 03/20/2017 XR Chest 2 Views [id number] Acc#: [id number] DATE OF EXAM: May 18 2014 CLINICAL HISTORY: Chest pain for 3 hours. Smoker. RESULT: Erect PA and lateral views demonstrate normal heart size and pulmonaryvascularity. No infiltrate, mass or pleural effusion is seen. Mediastinumis not widened. Diaphragm is smooth and costophrenic angles clear. Mildthoracic dextroscoliosis is noted. IMPRESSION: 1. NO CARDIOPULMONARY ABNORMALITY SEEN. 2. MILD THORACIC DEXTROSCOLIOSIS. Interpreting Physician: DR BRISA CADET M.D. Read on: May 19 20146:54A Transcribed by: claude On: May 19 2014 9:23A Approved Electronically by: DR BRISA CADET M.D. on: May 19 20145:02P Ordering DR: DR TIGRE RODRIGUEZ Attending DR: us Historical Provider MD IMG XR PROCEDURES Final R esult * Blood B-type natriuretic peptide (BNP) (05/18/2014 6:20 PM CDT) BNP <2 -<100 pg/ml HISTORIC AL RESULTS Blood specimen (specimen) 05/18/2014 6:20 PM CDT Narrative HISTORICAL RESULTS - 05/18/2014 7:12 PM CDT BNP REFERENCE RANGE <100 pg/ml Tigre Rodriguez MD LAB BLOOD ORDERABLES Final Re sult Performing Organization Address [facility] Co de Phone Number HISTORICAL RESULTS * Serum troponin I (05/18/2014 6:20 PM CDT) Troponin I <0.04 0.00 - 0.10 ng/ml HISTORICAL RESULTS Serum 05/18/2014 6:20 PM CDT Narrative HISTORICAL RESULTS - 05/18/2014 7:02 PM CDT NEGATIVE: ??0.00 - 0.10 NG/ML INDETERMINATE: ??0.11 - 0.50 NG/ML POSITIVE: ??GREATER THAN 0.50 NG/ML Tigre Rodriguez MD LAB BLOOD ORDERABLES Final Re sult Performing Organization Address [facility] Co de Phone Number HISTORICAL RESULTS * ELECTROCARDIOGRAPHY (ECG) (05/18/2014) Narrative 05/18/2014 Ordered by an unspecified provider. Historical Provider ECG ORDERABLES Final Res ult documented in this encounter Visit Diagnoses Diagnosis Chest pain Unspecified chest pain Tobacco use disorder documented in this encounter
--- OUTSIDE RECORDS SUMMARY | 2024-11-14 20:51 | XMS_ITS | Encounter Summary ---
Author Organization [facility] Address [address] [place] [address] Care Team Providers Care Fish Housekeeper Name Role Phone NatashaJhonXimoyleora Moss NP Primary Care Provider Reason for Visit * Reason Onset Date Comments appt reschedule 06/11/2021 Encounter Details Date Type Department Care Team (Late st Contact Info) Description 06/11/2021 Telephone [facility] Orthopedics and Sports Medicine [address] [facility] [address] [place] [phone] Claire Miller PA [address] 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 * Telephone Encounter - Isak Lucero - 06/11/2021 9:00 AM CDT Pt was called to reschedule and had no VM set up so no message was left. She was also sent a [employer] message. documented in this encounter Plan of Treatment Not on file documented as of this encounter Visit Diagnoses Not on filedocumented in this encounter Care Teams Fish Housekeeper Relationship Specialty Start Date End Date Kaur, Xiomy Moss NP [address] [place] [address] PCP - General Nurse Practitioner 05/18/21 06/27/21 documented as of this encounter
--- OUTSIDE RECORDS SUMMARY | 2024-11-14 20:51 | XMS_ITS | Encounter Summary ---
Author Organization [facility] Address [address] [place] [address] Care Team Providers Care Stations Superintendent Name Role Phone Natasha Xiomy Moss NP Primary Care Provider [phone] Xiomy Kaur OCC THERAPY ASST Unavailable [phone] Reason for Visit * Diagnostic Imaging (Routine) - Closed Specialty Diagnoses / Procedures Referred By Vicente hartman Referred To Contact Diagnoses Right wrist pain Procedures XR Wrist Right 3 or More Views Alfred To PA Phone: tel: fax: Referral ID Status Reason Start Date Expiration Date Visits Re quested Visits Authorized [id number] Closed 06/28/2021 07/28/2022 1 1 Encounter Details Date Type Department Care Team (Latest Contact Info) Description 06/28/2021 8:37 AM CDT - 06/28/2021 11:59 PM CDT Hospital Encounter [facility] Orthopedics and Sports Medicine [address] [place] [address] [place] [phone] Discharge Disposition: Discharge to home or self care Social History Tobacco Use Types Packs/Day Years Used Date Smoking Tobacco: Every Day Smokeless Tobacco: Never Comments No Sex and Gender Information Value Date Recorded Sex Assigned at Not on file 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 12 tablet 01/05/2018 09/10/2021 ergocalciferol (VITAMIN D) 50,000 unit capsule TAKE 1 CAPSULE BY MOUTH ONCE A WEEK 06/06/2021 10/01/2022 ergocalciferol (VITAMIN D) 50,000 unit capsule TAKE 1 CAPSULE BY MOUTH ONCE A WEEK 06/06/2021 09/10/2021 Euthyrox 25 mcg tablet TAKE 1 TABLET BY MOUTH ONCE DAILY IN THE MORNING 06/06/2021 09/10/2021 hydroCHLOROthiaz nba (HYDRODIURIL) 12.5 mg tablet Take 12.5 mg by mouth daily 05/01/2021 10/01/2022 hydroCHLOROthiaz nba (HYDRODIURIL) 12.5 mg tablet Take 12.5 mg by mouth daily 05/01/2021 09/10/2021 HYDROcodone-acet aminophen (NORCO) 5-325 mg per tablet TAKE 1 TO 2 TABLETS BY MOUTH EVERY 4 HOURS NEEDED FOR MODERATE TO SEVERE PAIN. NO MORE THAN 8 TABLETS PER DAY. 05/12/2021 09/10/2021 documented as of this encounter Discharge Disposition Disposition Code Departure Means Destination Discharge to home or self care documented in this encounter Plan of Treatment Not on file documented as of this encounter Procedures Procedure Name Priority Date/Time Associated Diagnosis Comments XR WRIST RIGHT 3 OR MORE VIEWS Schedule Routine, Read Routine (OP Routine) 06/28/2021 2:39 PM CDT Right wrist pain documented in this encounter Results * XR Wrist Right 3 or More Views (06/28/2021 2:39 PM CDT) Anatomical Region Laterality Modality Upper Extremities, Wrist Right Digital Radiography Narrative 07/01/2021 10:29 AM CDT No fractures or dislocations or other osseous abnormalities. Alfred RAND IMG XR PROCEDURES Final Result documented in this encounter Visit Diagnoses Not on filedocumented in this encounter Care Teams Stations Superintendent Relationship Specialty Start Date End Date Xiomy Kaur NP [address] [place] [address] PCP - General Nurse Practitioner 06/28/21 07/16/22 Xiomy Kaur NP [address] [place] [address] Nurse Practitioner 06/28/21 documented as of this encounter
--- OUTSIDE RECORDS SUMMARY | 2024-11-14 20:51 | XMS_ITS | Encounter Summary ---
Author Organization [facility] Address [address] [place] [address] Care Team Providers Care College Hire Name Role Phone Xiomy Kaur NP Primary Care Provider [phone] Xiomy Kaur MANAGED CARE LIAISON Unavailable [phone] Reason for Referral * Diagnostic Imaging (Routine) - Closed Specialty Diagnoses / Procedures Referred By Vicente hartman Referred To Contact Diagnoses Right wrist pain Procedures XR Wrist Right 3 or More Views Alfred To PA Phone: tel: fax: Referral ID Status Reason Start Date Expiration Date Visits Re quested Visits Authorized [id number] Closed 06/28/2021 07/28/2022 1 1 Reason for Visit * Reason Comments Pain Encounter Details Date Type Department Care Team (Late st Contact Info) Description 06/28/2021 2:45 PM CDT Office Visit [facility] [address] [place] [id number] Alfred To PA [address] [address] Carpal tunnel syndrome of right wrist (Primary Dx); Right wrist pain Social History Tobacco Use Types Packs/Day Years Used Date Smoking Tobacco: Every Day Smokeless Tobacco: Never Comments No Sex and Gender Information Value Date Recorded Sex Assigned at Not on file 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 Gender Identity Female 06/02/2024 9:46 PM CDT Sexual Orientation Straight 06/02/2024 9: 46 PM CDT documented as of this encounter Last Filed Vital Signs Vital Sign Reading Time Taken Comments Blood Pressure 113/71 06/28/2021 2:59 PM CDT Pulse 102 06/28/2021 2:59 PM CDT Temperature - - Respiratory Rate - - Oxygen Saturation - - Inhaled Oxygen Concentration - - Weight 95.3 kg (210 lb) 06/28/2021 2:59 PM CDT Height 156.5 cm (5' 1.6 ) 06/28/2021 2:59 PM CDT Body Mass Index 38.91 06/28/2021 2:59 PM CDT documented in this encounter Progress Notes * Alfred To Maryse - 06/28/2021 2:45 PM CDT Images from the original note were not included. NEW PATIENT VISIT Subjective CHIEF COMPLAINT She had concerns including Pain of the Right Wrist. HISTORY OF PRESENT ILLINESS Patient presents to clinic today for right wrist pain, ongoing for 5 years with no relation to accident or injury in getting worse over time. She reports pain today little to no pain today, but reports pain and other symptoms exacerbated with repetitive motion and overall use of her right wrist. She complains of associated numbness and tingling with radiating pain throughout her entire hand and fingers. 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 She reports having an NCV/EMG study completed 4 months ago. She has been taking ibuprofen p.r.n. which seemsto help some. Today she presents for further evaluation. PAST MEDICAL HISTORY She has a past medical history of Depression, Hypercholesteremia, Migraines, and Thyroid disease. PAST SURGICAL HISTORY She has a past surgical history that includes Tubal ligation. MEDICATIONS She has a current medication list which includes the following prescription(s): ergocalciferol, euthyrox, and hydrochlorothiazide. ALLERGIES She has No Known Allergies. SOCIAL HISTORY She reports that she has been smoking. She has never used smokeless tobacco. FAMILY HISTORY Family History Problem Relation Age of Onset ??? Cancer Other ??? Heart disease Other ??? Hypertension Other REVIEW OF SYSTEMS Review of Systems Constitutional: Negative for chills, fatigue and fever. HENT: Negative for sore throat. Eyes: Negative. Respiratory: Negative. Negative for cough and shortness of breath. Cardiovascular: Negative. Negative for chest pain. Gastrointestinal: Negative. Negative for constipation, nausea and vomiting. Endocrine: Negative. Genitourinary: Negative. Musculoskeletal: Positive for arthralgias. Skin: Negative. Allergic/Immunologic: Negative. Neurological: Positive for numbness. Hematological: Negative. Psychiatric/Behavioral: Negative. Objective PHYSICAL EXAM BP 113/71 Pulse 102 Ht 156.5 cm (5' 1.6 ) Wt 95.3 kg (210 lb) BMI 38.91 kg/m?? Right hand/wrist Inspection The patient has normal [...] strength throughout with exceptions as noted below. Wheel Tuner: 4/5 Neurovascular The patient has normal vascular on the right side of their body. The patient has normal sensation on the right side of their body. Test negativenegative Left hand/wrist The patient has normal inspection, palpation, range of motion, strength, and stability of the left hand and wrist. Strength The patient has 5/5 strength throughout with exceptions as noted below. REVIEW OF X-RAYS/STUDIES/LABS XR Wrist Right 3 or More Views No fractures or dislocations or other osseous abnormalities. Assessment/Plan Ashley was seen today for pain. Diagnoses and all orders for this visit: Carpal tunnel syndrome of right wrist Right wrist pain - XR Wrist Right 3 or More Views Plan Patient had normal examination findings today and review of nerve conduction study shows mild rightmedian nerve neuropathy, but despite these findings patient reports severe symptoms worsening over the past 5 years which impacts her overall activities of daily living. After treatment options surgical and nonsurgical were presented patient. She would like to meet with Dr. Ley for surgical consultation with regards to carpal tunnel release. HEP, NSAIDs p.r.n., RICE, cock-up wrist splint provided today. Diagnosis and treatment options reviewed with patient along with x-rays NCV results. Patient voicedunderstanding, all questions answered. Business Planner completed by using [employer] software, tile inspector variances may occur. KEYONA Gallardo Cosigned by Jonel Ley MD at 07/16/2021 12:36 PM CDT documented in this encounter Plan of Treatment [...] documented in this encounter Visit Diagnoses Diagnosis Carpal tunnel syndrome of right wrist- Primary Right wrist pain Pain in joint, forearm documented in this encounter Historical Medications * This list may reflect changes made after this encounter. Euthyrox 25 mcg tablet TAKE 1 TABLET BY MOUTH ONCE DAILY IN THE MORNING 06/06/2021 09/10/2021 hydroCHLOROthiazi de (HYDRODIURIL) 12.5 mg tablet Take 12.5 mg by mouth daily 05/01/2021 09/10/2021 ergocalciferol (VITAMIN D) 50,000 unit capsule TAKE 1 CAPSULE BY MOUTH ONCE A WEEK 06/06/2021 09/10/2021 added in this encounter Care Teams College Hire Relationship Specialty Start Date End Date Xiomy Kaur NP [address] [place] [address] PCP - General Nurse Practitioner 06/28/21 07/16/22 Xiomy Kaur NP [address] [place] [address] Nurse Practitioner 06/28/21 documented as of this encounter
--- OUTSIDE RECORDS SUMMARY | 2024-11-14 20:51 | XMS_ITS | Encounter Summary ---
Author Organization [facility] Address [address] [place] [address] Care Team Providers Care Inspector Assemblies And Installations Name Role Phone Unavailable Primary Care Provider Unavailabl e Encounter Details Date Type Department Care Team (Late st Contact Info) Description 11/05/2014 3:16 PM AIRSET CASTER - 11/05/2014 5:41 PM AIRSET CASTER Hospital Encounter [facility] Cony Preston MD [address] [place] [id number] Closed fracture of head of radius; Injury caused by animal; Place of occurrence, home Social History Tobacco Use Types Packs/Day Years Used Date Smoking Tobacco: Never Assessed Comments Unknown Sex and Gender Information Value Date Recorded Sex Assigned at Not on file Legal Sex Female 4:09 PM AIRSET CASTER Gender Identity Female 06/02/2024 9:46 PM CDT Sexual Orientation Straight 06/02/2024 9: 46 PM CDT documented as of this encounter Plan of Treatment Not on file documented as of this encounter Procedures Procedure Name Priority Date/Time Associated Diagnosis Comments XR ELBOW 3+ VW Routine 11/05/2014 4:59 PM AIRSET CASTER documented in this encounter Results * XR Elbow 3+ Vw (11/05/2014 4:59 PM AIRSET CASTER) Anatomical Region Laterality Modality N/A Radiographic Irma ging 11/05/2014 4:59 PM AIRSET CASTER Narrative 11/06/2014 9:27 AM AIRSET CASTER XR Elbow Min 3 Views R ??[id number] ??Acc#: ??[id number] DATE OF EXAM: ??Nov 05 2014 CLINICAL HISTORY: Animal bite to the right arm. RESULT: AP, lateral, and oblique views of the right elbow were obtained. ??A minimally displaced radial head fracture is noted. ??No joint dislocation is seen. ??No radiopaque foreign objects are noted. The anterior fat pad is prominent consistent with an effusion. IMPRESSION: 1. MINIMALLY DISPLACED RADIAL HEAD FRACTURE. 2. JOINT EFFUSION. Interpreting Physician: ??MAGNOLIA GRIGSBY M.D. ??Read on: ??Nov 06 2014 7:35A Transcribed by: ??grazyna ??On: Nov 06 2014 ??9:17A Approved Electronically by: ??MAGNOLIA GRIGSBY M.D. ??on: ??Nov 06 2014 9:27A Ordering DR: ??Adama Attending DR: CONY GIL Procedure Note Provider, MD Rosendo - 03/20/2017 XR Elbow Min 3 Views [id number] Acc#: [id number] DATE OF EXAM: Nov 05 2014 CLINICAL HISTORY: Animal bite to the right arm. RESULT: AP, lateral, and oblique views of the right elbow were obtained. Aminimally displaced radial head fracture is noted. No joint dislocationis seen. No radiopaque foreign objects are noted. The anterior fat pad isprominent consistent with an effusion. IMPRESSION: 1. MINIMALLY DISPLACED RADIAL HEAD FRACTURE. 2. JOINT EFFUSION. Interpreting Physician: MAGNOLIA GRIGSBY M.D. Read on: Nov 06 20147:[id number] Transcribed by: grazyna On: Nov 06 2014 9:17A Approved Electronically by: MAGNOLIA GRIGSBY M.D. on: Nov 06 20149:[id number] Ordering DR: Adama Attending DR: CONY GIL Historical Provider IMManisha XR PROCEDURES Final R esult documented in this encounter Visit Diagnoses Diagnosis Closed fracture of head of radius Injury caused by animal Unspecified injury caused by animal Place of occurrence, home documented in this encounter
--- OUTSIDE RECORDS SUMMARY | 2024-11-14 20:51 | XMS_ITS | Encounter Summary ---
Author Organization [facility] Address [address] [place] [address] Care Team Providers Care Vp Analysis Name Role Phone Xiomy Kaur NP Primary Care Provider [phone] Xiomy Kaur CURING MACHINE OPERATOR Unavailable [phone] Reason for Referral * Diagnostic Imaging (Routine) - Closed Specialty Diagnoses / Procedures Referred By Contac t Referred To Contact Diagnoses Other spondylosis with radiculopathy, lumbar region Procedures XR Spine Lumbar [place] [address] [place] [address] Phone: tel: fax: Referral ID Status Reason Start Date Expiration Date Visits Re quested Visits Authorized [id number] Closed 07/20/2021 08/19/2022 1 1 * Diagnostic Imaging (Routine) - Closed Specialty Diagnoses / Procedures Referred By Contac t Referred To Contact Diagnoses Neck pain Procedures XR Spine Cervical Complete 4 [place] [address] [place] [id number] Phone: tel: fax: Referral ID Status Reason Start Date Expiration Date Visits Re quested Visits Authorized [id number] Closed 07/20/2021 08/19/2022 1 1 Reason for Visit * Reason Comments Pain Pain Encounter Details Date Type Department Care Team (Latest Contact Info) Description 07/20/2021 10:30 AM CDT Office Visit [facility] [id number] [id number] [place] [id number] [address] Lumbar spondylosis with left L5 radiculopathy (Primary Dx); Cervical spondylosis; Other spondylosis with radiculopathy, lumbar region Social History Tobacco Use Types Packs/Day Years Used Date Smoking Tobacco: Every Day Smokeless Tobacco: Never Comments No Sex and Gender Information Value Date Recorded Sex Assigned at Not on file Legal Sex Female 4:09 PM 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 Gender Identity Female 06/02/2024 9:46 PM CDT Sexual Orientation Straight 06/02/2024 9: 46 PM CDT documented as of this encounter Last Filed Vital Signs Vital Sign Reading Time Taken Comments Blood Pressure 122/59 07/20/2021 9:56 AM CDT Pulse - - Temperature - - Respiratory Rate - - Oxygen Saturation - - Inhaled Oxygen Concentration - - Weight 94.3 kg (208 lb) 07/20/2021 9:56 AM CDT Height 154.9 cm (5' 1 ) 07/20/2021 9:56 AM CDT Body Mass Index 39.3 07/20/2021 9:56 AM CDT documented in this encounter Ordered Prescriptions Prescription Sig Dispense Quantity Refills Last Filled Start Date End Date meloxicam (MOBIC) 15 mg tablet Take 1 tablet (15 mg total) by mouth daily Do not take with other NSAIDs 90 tablet 1 07/20/2021 1 gabapentin (NEURONTIN) 300 mg capsule Take 1 capsule (300 mg total) by mouth nightly 90 capsule 1 07/20/2021 1 methylPREDNISolone (Medrol, Oz,) 4 mg Dosepack follow package directions 21 tablet 07/20/2021 1 documented in this encounter Progress Notes * Kayden Villa MD - 07/20/2021 10:30 AM CDT Chief Complaint Patient presents with ??? Cervical Spine - Pain ??? Lumbar Spine - Pain HPI This is a clinic note for a consultation by the requesting physician Xiomy Kaur NP for back pain. Ashley Rdz is a pleasant 35 y.o. female who presents today with back and neck pain radiating through her left hip, bilateral legs and arms. Her symptoms first started years ago, but were not precipitated by any identifiable sprain, strain, injury, or trauma. Since onset her symptoms have been worsening. She describes her symptoms as sharp and spasmatic. The patient has this pain at night, and while resting. Her symptoms are alleviated by sitting and lying down. They are exacerbated by standing, walking, and neck/low back movements. Patient admits problems with hand dexterity, buttoning shirts, fine motor activities. She also admits problems with gait and balance. She deniesbowel or bladder difficulties such as retention or incontinence. She admits any history of cancer or tumor. Treatment efforts have included Anti-inflammatory medications (ibuprofen, naparoxen, etx.), Rest from activities that bother you, Icing or heating and Muscle relaxant medications, with and without relief. She currently takes Aleeve for pain. Pain Assessment Pain Assessment: 0-10 Pain Score: 10 - Worst possible pain Pain Location: Back (Lumbar) Pain Radiating Towards: Bilateral Legs Pain Descriptors: Sharp, Spasm Pain Frequency: Constant/continuous Pain Onset: Ongoing Clinical Progression: Not changed Result of Injury: No Work-Related Injury: No Multiple Pain Sites: Two Pain 2 Pain Score 2: 5 - Moderate pain Pain Location 2: Back (Cervical) Pain Radiating Towards 2: Bilateral Arms Pain Descriptors 2: Spasm, Sharp Pain Frequency 2: Constant/continuous Pain Onset 2: On-going Clinical Progression 2: Not changed Result of Injury 2: No Work-Related Injury 2: No PAST MEDICAL HISTORY She has a past medical history of Cervical cancer screening. PAST SURGICAL HISTORY She has a past surgical history that includes Tubal ligation (2010) and Dilation and curettage of uterus (2006 and 2009). MEDICATIONS She has a current medication list which includes the following prescription(s): ergocalciferol, hydrochlorothiazide, levothyroxine, acetaminophen-codeine, gabapentin, hydrocodone-acetaminophen, meloxicam, and methylprednisolone. ALLERGIES She has No Known Allergies. SOCIAL HISTORY She reports that she has been smoking. She has never used smokeless tobacco. FAMILY HISTORY Her family history includes COPD in her father and mother; Diabetes in her mother; Heart disease inher father; Hypertension in her father and mother. Review of Systems Constitutional: Positive for malaise/fatigue. Negative for chills and fever. HENT: Negative for hearing loss and tinnitus. Eyes: Negative for blurred vision and redness. Respiratory: Negative for cough and shortness of breath. Cardiovascular: Negative for chest pain and palpitations. Gastrointestinal: Positive for constipation. Negative for diarrhea and heartburn. Genitourinary: Positive for frequency. Negative for dysuria. Musculoskeletal: Positive for joint pain. Leg pain Skin: Negative for itching and rash. Neurological: Positive for headaches. Negative for dizziness, tingling and sensory change. Endo/Heme/Allergies: Does not bruise/bleed easily. Psychiatric/Behavioral: Positive for depression. The patient is nervous/anxious. Physical Exam Vitals and nursing note reviewed. Constitutional: General: She is not in acute distress. Appearance: Normal appearance. HENT: Head: Normocephalic. Eyes: Extraocular Movements: Extraocular movements intact. Pupils: Pupils are equal, round, and reactive to light. Pulmonary: Effort: Pulmonary effort is normal. Musculoskeletal: Cervical back: Normal range of motion and neck supple. Skin: General: Skin is warm and dry. Neurological: General: No focal deficit present. Mental Status: She is alert and oriented to person, place, and time. Psychiatric: Mood and Affect: Mood normal. Behavior: Behavior normal. Thought Content: Thought content normal. Judgment: Judgment normal. C Spine Right strength Deltoid: 5/5 strengthBicep: 5/5 strength. Tricep: 5/5 strength. Wrist extension: 5/5 strength.Wristflexion: 5/5 strength.Senior Sales Director: 5/5 strength.Hand intrinsics: 5/5 strength Left strength Deltoid: 5/5 strength.Bicep: 5/5 strength. Tricep: 5/5 strength. Wrist extension: 5/5 strength. Wrist flexion: 5/5. Senior Sales Director: 5/5 strength. Hand intrinsics: 5/5 strength. Right neurovascular C5: normal sensation. C6: normal sensation. C7: normal sensation. C8: normal sensation. T1: normal sensation. Left neurovascular C5: normal sensation. C6: normal sensation. C7: normal sensation. C8: normal sensation. T1: normal sensation. Right reflexes Bicep reflex: 2+ Tricep reflex: 2+ Brachial radialis reflex: 2+ Dc's reflex: negative Left reflexes Bicep reflex: 2+ Tricep reflex: 2+ Brachial radialis reflex: 2+ Dc's reflex: negative Spine Right strength Right iliopsoas: 5/5 strength. Right quadricep: 5//5 strength. Right hamstrin/5 strength. Rightgastrocsoleus: 5/5 strength. Right tibialis anterior: 5/5 strength. Right extensor hallicus longus:5/5 strength. Left strength Left iliopsoas 5/5 strength. Left quadricep: 5/5 strength. Left hamstrin/5 strength. Left gastrocsoleus: 5/5 strength. Left tibialis anterior: 5/5 strength. Left extensor hallicus longus: 5/5 strength. Right neurovascular Right L1: normal Right L2: normal sensation. Right L3: normal sensation. Right L4: normal sensation. Right L5: normal sensation. Right S1: normal sensation. Left neurovascular Left L1: normal sensation. Left L2: normal sensation. Left L3: normal sensation. Left L4: normal sensation. Left L5: normal sensation. Left S1: normal sensation. Right hip Strength Knee extension: 5/5. Knee flexion: 5/5. Left hip Strength Knee extension: 5/5. Knee flexion: 5/5. REVIEW OF X-RAYS/STUDIES/LABS I personally reviewed and interpreted AP and lateral flexion/extension XR images of the patient's cervical spine taken in office on 07/20/2021 . 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 I personally reviewed and interpreted AP and lateral flexion/extension XR images of the patient's lumbar spine taken in office on 07/20/2021. These show osteopenia and a sacralized vertebral lumbar body at L4-S1. Impression: 1. Lumbar spondylosis with left L5 radiculopathy 2. Cervical spondylosis 3. Other spondylosis with radiculopathy, lumbar region My impression is lumbar spondylosis with left L5 radiculopathy. In addition to cervical spondylosis. Plan: I went over the history, physical exam, and imaging with Ashley Rdz and discussed options going forward. Due to her symptoms, the plan and teachings below were discussed. I spent time reviewing the patient's imaging studies with her and explaining how I used these findings and her physical exam findings to arrive at the above stated diagnoses. Additionally, I providedthe patient with printed reading material at today's visit which goes into further detail on her diagnoses. I told her to contact the clinic if she has any questions over the material. We reviewed the patients history, symptoms, exam findings, and imaging today. The typical management of this condition may include lifestyle modification, NSAIDs, physical therapy, oral steroids, epidural injections, neuromodulatory medications, and sometimes pain medications. Based on our discussion today we would like to have the patient initiate our recommendations for continued conservative therapy in the treatment of their condition noted in the assessment section. mendations for continuedconservative therapy in the treatment of their condition noted in the assessment section. Patient will be trialed on a medrol dosepak, along with Gabapentin for any neurogenic or radicular symptoms, and meloxicam for anti-inflammatory. She will also be referred to physical therapy in [place]. She will also follow up with her doctor for her carpal tunnel. The appropriate use, side effects, drug interactions, and typical dosing instructions of any or all medications prescribed were discussed and explained to the patient, as were possible concerns with the other treatments prescribed. They were instructed to call immediately if any concerns or adverse reactions arise, or symptoms worsen. I discussed the nicotine in cigarette smoke decreases blood flow to the articular surface of spine and overall health. I stressed how smoking cessation would benefit the patient significantly. Patient understood and agreed to try to cut down on cigarette intake. Orders Placed This Encounter Procedures ??? XR Spine Cervical Complete 4 Or 5 View ??? XR Spine Lumbar Complete 4 View ??? Ambulatory referral order to Physical Therapy - New Medications Ordered This Visit ??? methylPREDNISolone (Medrol, Oz,) 4 mg Dosepack Sig: follow package directions Dispense: 21 tablet Refill: 0 ??? gabapentin (NEURONTIN) 300 mg capsule Sig: Take 1 capsule (300 mg total) by mouth nightly Dispense: 90 capsule Refill: 1 ??? meloxicam (MOBIC) 15 mg tablet Sig: Take 1 tablet (15 mg total) by mouth daily Do not take with other NSAIDs Dispense: 90 tablet Refill: 1 Follow up: Patient will follow up in 2 months. Scribe Attestation By signing my name below, I, Miguel Angel Marie, attest that this documentation has been prepared under the direction and in the presence of Dr Kayden Villa MD Electronically signed: Carlita Perkins. Provider Attestation Dr. Kayden Luz MD personally performed the services described in this documentation. Allmedical record entries made by the scribe were at my direction and in my presence. I have reviewed the chart and agree that the record reflects my personal performance and is accurate and complete. documented in this encounter Plan of Treatment Not on file documented as of this encounter Procedures Procedure Name Priority Date/Time Associated Diagnosis Comments XR SPINE CERVICAL COMPLETE 4 OR 5 VW Schedule Routine, Read Routine (OP Routine) 07/20/2021 10:34 AM CDT Cervical spondylosis XR SPINE LUMBAR COMPLETE 4 OR MORE [...] XR PROCEDURES Edit ed Result - Final * XR Spine Lumbar Complete 4 View [...] Final documented in this encounter Visit Diagnoses Diagnosis Lumbar spondylosis with left L5 radiculopathy- Primary Cervical spondylosis Cervical spondylosis without myelopathy documented in this encounter Discontinued Medications Medication Sig Discontinue Reason Start Date End Da te ketorolac (TORADOL) 10 mg tablet Take by mouth every 6 (six) hours as needed Therapy completed 07/03/2021 07/20/2021 documented as of this encounter Historical Medications * This list may reflect changes made after this encounter. 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 NO MORE THAN 8 TABLETS PER DAY. 05/12/2021 1 hydroCHLOROthiaz nba (HYDRODIURIL) 12.5 mg tablet Take 12.5 mg by mouth daily 05/01/2021 2 added in this encounter Care Teams Vp Analysis Relationship Specialty Start Date End Date Xiomy Kaur NP [address] [place] [address] PCP - General Nurse Practitioner 06/28/21 07/16/22 Xiomy Kaur NP [address] [place] [address] Nurse Practitioner 06/28/21 documented as of this encounter
== END 2024-11-07 14:31 | disposition home or self-care (01) ==
PROVIDERS: Emergency Provider Nurse Practitioner Family
DX: H66.92 Otitis media, unspecified, left ear (principal); F17.210 Nicotine dependence, cigarettes, uncomplicated; K21.9 Gastro-esophageal reflux disease without esophagitis; E78.5 Hyperlipidemia, unspecified; E03.9 Hypothyroidism, unspecified; F32.A Depression, unspecified
CPT/HCPCS: 99213; G0463

== ENCOUNTER 2024-12-06 12:43 | Emergency (ER) | payer OTHER, SELFPAY ==
--- NOTE | 2024-12-06 12:45 | ED.EAR ---
HPI - Ear Problem General Chief complaint: Ear Stated complaint: lungs/ear Time Seen by Provider: 12/06/24 13:05 Source: patient and RN notes reviewed Mode of arrival: ambulatory Limitations: no limitations History of Present Illness HPI Narrative: 39-year-old female presents with concern for one-week history of cough, chest congestion with left ear pain starting 2 days ago. She reports she had a ruptured eardrum 3 weeks ago that has healed but now the ears hurting again. She denies fever. She denies shortness of breath. She has not been taking any sxek-dmi-[id number] medications. MD Complaint: ear pain Related Data Home Medications ?Medication ?Instructions ?Recorded ?Confirmed ?Last Taken ?Type cetirizine 10 mg tablet 10 mg PO DAILY 08/02/23 07/10/24 Unknown History famotidine 20 mg tablet 20 mg PO DAILY 08/16/23 07/10/24 Unknown History Allergies Allergy/AdvReac Type Severity Reaction Status Date / Time amoxicillin Allergy Intermediate Hives Verified 12/06/24 12:54 Penicillins Allergy Unknown Unknown Verified 12/06/24 12:54 Review of Systems Review of Systems: CONSTITUTIONAL: Denies malaise, chills, sweats, or fever. EYES: Denies visual changes, redness, or discharge. ENT: Denies rhinorrhea, congestion, sinus pain, and sore throat. Reports left ear pain CARDIOVASCULAR: Denies chest pain, palpitations, or edema. RESPIRATORY: Reports productive cough and chest congestion. Denies dyspnea. GASTROINTESTINAL: Denies abdominal pain, nausea, vomiting, diarrhea SKIN: Denies rash or itching. MUSCULOSKELETAL: Denies myalgia. NEUROLOGIC: Denies headache. All systems reviewed & are unremarkable except as noted in HPI and below PMFSH Past Medical History Medical History Acute adjustment disorder with anxiety Depression GERD (gastroesophageal reflux disease) Hives Hyperlipidemia Hypothyroidism Surgical History Surgical History H/O tubal ligation History of carpal tunnel release right and ulnar nerve History of dilatation and curettage Hx of tonsillectomy Family History Family History Mother Family history non-contributory Social History Social History Smoking packs per day: 0.5 Smoking cigarettes per day: 10.0 Smoking status: Current every day smoker Substance use: never Living arrangements: with family Gender identity (if verbalized by the patient): Female Spiritual care concerns: No Comments At time of signature, agree with nursing past medical, surgical, social and family history. There is no relevant family history pertinent to the presenting complaint Exam Narrative: GENERAL: Well-appearing, well-nourished, and in no acute distress. HEAD: Normocephalic EYES: PERRLA, conjunctivae clear ENT: Nares clear, turbinates edematous, clear discharge. Mucous membranes moist. TM pearly rothman with dull light reflex on the left; no tragal tenderness. Oropharynx not erythematous without lesions. Tonsils not enlarged and without exudate, no drooling, no hoarseness, no trismus, uvula midline. NECK: Supple. No lymphadenopathy CHEST: Scattered wheeze, otherwise Clear to auscultation, breath sounds equal. No wheezing, rhonchi, rales, or stridor. No respiratory distress, speaks in full sentences. Congested cough noted HEART: Regular rate and rhythm. No murmur heard. SKIN: Warm, dry, no rash. NEURO: Alert and oriented x3. PSYCH: Normal mood and affect Course Course Emergency Course: Patient is aware of diagnosis, understands and agrees to treatment plan. Anticipatory guidance given. Patient agrees to follow-up as directed and is aware of reasons to seek care at the emergency department. Portions of this record may have been created with voice recognition software Level of Care: Express Care Visit Vital Signs Vital signs: Reviewed. Medical Decision Making MDM Narrative Medical decision making narrative: I evaluated this in the [facility] care. History is obtained from patient who is an independent historian and physical exam was performed.? Available medical records were reviewed. ? Exam findings and relevant testing show no acute concerns or changes; patient is non-toxic appearing and is in no distress. Differential diagnosis considered: Gutierres virus, strep pharyngitis, allergic rhinitis, upper respiratory tract infection, sinusitis, rhinosinusitis, nasopharyngitis. viral pharyngitis, otitis media, otitis externa, otitis effusion, cerumen impaction, foreign body. Exam findings show no acute concerns or changes; patient is non-toxic appearing and is in no distress. Patient is appropriate for outpatient treatment and follow-up. ? Differential diagnosis and treatment plan were discussed with the patient. Patient agrees with discussion and after shared medical decision making agrees with plan of care. All questions were answered to the patient's satisfaction. Patient is appropriate for outpatient treatment and follow-up. Critical Care Time Critical Care Time Critical Care Time: No Discharge Plan Discharge Clinical Impression: Lower respiratory tract infection, Ear ache Patient Disposition: Home, Self-Care Condition: Stable Instructions: Antibiotic Form, How to Use a Metered-Dose Inhaler (ED), Earache (ED) Additional Instructions: 1) Please follow-up with your primary care doctor in the next 1-2 days. 2) If you have any worsening of symptoms or any other urgent concerns please go to the ER. 3) Please take medications as prescribed and continue taking your home medications as usual. 4) Please read and follow information included in discharge instructions. Patient Language: Sudanese Prescriptions: New azithromycin [Zithromax Z-Oz] 250 mg tablet See Rx Instructions .ROUTE .COMPLEX Qty: 6 0RF Rx Instructions: take 500 mg today (day 1), then 250 mg for 4 days (days 2-5) methylprednisolone [Medrol (Oz)] 4 mg tablets,dose pack See Rx Instructions .ROUTE .COMPLEX Qty: 21 0RF Rx Instructions: orally per package directions albuterol sulfate 90 mcg/actuation HFA aerosol inhaler 2 puff INHALATION QID PRN (Reason: shortness of breath or wheezing) Qty: 8.5 0RF No Action famotidine 20 mg tablet 20 mg PO DAILY cetirizine 10 mg tablet 10 mg PO DAILY Follow-up/Referrals: Lefty,Mikey Perdomo MD [Primary Care Provider] -
[2024-12-06 12:48] VITALS: BP 102/51; PULSE 87; RESP 20; TEMP 36.3; O2SAT 98
--- OUTSIDE RECORDS SUMMARY | 2024-12-09 13:13 | XMS_ITS | Clinical Summary ---
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 60 Tab 5 1 Active ergocalciferol (VITAMIN D) 10558 UNIT Capsule TAKE 1 CAPSULE BY MOUTH ONCE A WEEK 1 Active methylPREDNISol one (MEDROL DOSPACK) 4 MG Tablet Therapy Pack See product package insert for dosing schedule 21 Tablet 4 Active predniSONE (DELTASONE) 50 MG Tablet Take 1 Tablet by mouth daily. 5 Tablet 4 Active albuterol 108 (90 Base) MCG/ACT Aerosol Solution take 2 Puffs by inhalation every 6 hours as needed for Wheezing or Cough. 18 g 4 Active azithromycin (ZITHROMAX) 250 MG TabletIndicatio ns:ENT Infection 2 tab(s) daily for 1 day, then 1 tab(s) daily for days 2-5. Indications: Infection of Ears, Nose or Throat 6 Tablet 4 11/16/20 24 Active Problems No known active problems Encounters Date Type Department Care Team Description 11/12/2024 6:08 PM ADVERTISING DISPATCH CLERKS SUPERVISOR - 11/12/2024 8:15 PM ADVERTISING DISPATCH CLERKS SUPERVISOR Emergency [facility] Emergency [address] [place] [address] Krista Junior APRN, PRESS OPERATOR MEAT Non-recurrent acute suppurative otitis media of left ear with spontaneous rupture of tympanic membrane Discharge Disposition: Discharged to home or Selfcare 11/12/2024 Travel 09/25/2024 3:04 PM ADVERTISING DISPATCH CLERKS SUPERVISOR - 09/25/2024 4:17 PM ADVERTISING DISPATCH CLERKS SUPERVISOR Emergency [facility] Emergency [address] [place] [address] Daniel Nash APRN, JOHN PAUL Viral URI Discharge Disposition: Discharged to home or Selfcare 09/25/2024 Travel from Last 3 Months Social History Tobacco Use Types Packs/Day Years Used Date Smoking Tobacco: Every Day Cigarettes Smokeless Tobacco: Never Alcohol Use Standard Drinks/Week Comments No 0 (1 standard drink = 0.6 oz pur e alcohol) Comments No Sex and Gender Information Value Date Recorded Sex Assigned at Not on file Legal Sex Female 12:24 AM CDT Gender Identity Not on file Sexual Orientation Not on file Last Filed Vital Signs Vital Sign Reading Time Taken Comments Blood Pressure 105/85 11/12/2024 8:00 PM ADVERTISING DISPATCH CLERKS SUPERVISOR Pulse 85 11/12/2024 8:00 PM ADVERTISING DISPATCH CLERKS SUPERVISOR Temperature 37.2 ??C (98.9 ??F) 11/12/2024 8:00 PM CS T Respiratory Rate 16 11/12/2024 8:00 PM ADVERTISING DISPATCH CLERKS SUPERVISOR Oxygen Saturation 98% 11/12/2024 8:00 PM ADVERTISING DISPATCH CLERKS SUPERVISOR Inhaled Oxygen Concentration - - Weight 100.7 kg (222 lb 0.1 oz) 11/12/2024 5:04 PM ADVERTISING DISPATCH CLERKS SUPERVISOR Height 157.5 cm (5' 2 ) 11/12/2024 5:04 PM ADVERTISING DISPATCH CLERKS SUPERVISOR Body Mass Index 40.6 11/12/2024 5:04 PM ADVERTISING DISPATCH CLERKS SUPERVISOR Plan of Treatment Health Maintenance Due Date Last Done Comments Hepatitis C Virus (HCV) Screening 1986 TdaP Immunization 1986 Hepatitis B Immunization (1 of 3 - 19+ 3-dose series) 2005 Pneumococcal Immunization Co mbined (1 of 2 - PCV) 2005 Pap Smear 2007 Cervical Cancer Screening (CCS) 2016 HPV/Cotest 2016 Influenza Immunization (#1) 2024 SARS-COV-2 Immunization (1 - season) 2024 Respiratory Syncytial Virus (RSV) Immunization (Adult) (1 - 1-dose 75+ series) 2061 Meningococcal Immunization (ACWY) Aged Out No longer eligible based on patient's age to complete this topic Rotavirus Immunization Aged Out No lo nger eligible based on patient's age to complete this topic Procedures Procedure Name Priority Date/Time Associated Diagnosis Comments XR CHEST 2 VIEWS STAT 11/12/2024 6:53 PM ADVERTISING DISPATCH CLERKS SUPERVISOR GROUP A STREP BY PCR STAT 11/12/2024 5:09 PM ADVERTISING DISPATCH CLERKS SUPERVISOR RSV,SARS-COV-2,INFL UENZA A&B BY PCR STAT 11/12/2024 5:09 PM ADVERTISING DISPATCH CLERKS SUPERVISOR EKG 12 LEAD STAT 11/12/2024 5:05 PM ADVERTISING DISPATCH CLERKS SUPERVISOR EKG SCAN 11/12/2024 12:00 AM ADVERTISING DISPATCH CLERKS SUPERVISOR XR CHEST 2 VIEWS STAT 09/25/2024 2:28 PM ADVERTISING DISPATCH CLERKS SUPERVISOR GROUP A STREP BY PCR STAT 09/25/2024 2:22 PM ADVERTISING DISPATCH CLERKS SUPERVISOR RSV,SARS-COV-2,INFL UENZA A&B BY PCR STAT 09/25/2024 2:22 PM ADVERTISING DISPATCH CLERKS SUPERVISOR from Last 3 Months Results * XR CHEST 2 VIEWS (11/12/2024 6:53 PM ADVERTISING DISPATCH CLERKS SUPERVISOR) Only the most recent of2 resultswithin the time period is included. Anatomical Region Laterality Modality Chest N/A Digital Radiogra phy 11/12/2024 7:30 PM ADVERTISING DISPATCH CLERKS SUPERVISOR Impressions 11/12/2024 7:32 PM ADVERTISING DISPATCH CLERKS SUPERVISOR IMPRESSION: No acute cardiopulmonary abnormality. Narrative 11/12/2024 7:32 PM ADVERTISING DISPATCH CLERKS SUPERVISOR EXAM DESCRIPTION: XR CHEST 2 VIEWS REASON FOR STUDY: cough ??3-4 days ?? TECHNIQUE: 2 ??radiographic view(s) of the chest. COMPARISON: 09/25/2024 FINDINGS: LUNGS: ??No focal opacity, pleural effusion, or pneumothorax. ?? HEART/MEDIASTINUM: ??Cardiac silhouette normal in size. Mediastinal and hilar contours appear normal. LINES/TUBES: ??None. BONES: ??No acute osseous abnormality. THIS IS AN ELECTRONICALLY VERIFIED FINAL REPORT 11/12/2024 7:30 PM - Electronically signed by ??Jaguar To M.D. KT: KT D: ??11/12/2024 7:30 PM T: ??11/12/2024 7:30 PM Report ID: [id number] Reading Location: ??[id number] Procedure Note Jaguar To MD - 11/12/2024 EXAM DESCRIPTION: XR CHEST 2 VIEWS REASON FOR STUDY: cough 3-4 days TECHNIQUE: 2 radiographic view(s) of the chest. COMPARISON: 09/25/2024 FINDINGS: LUNGS: No focal opacity, pleural effusion, or pneumothorax. HEART/MEDIASTINUM: Cardiac silhouette normal in size. Mediastinal and hilar contours appear normal. LINES/TUBES: None. BONES: No acute osseous abnormality. THIS IS AN ELECTRONICALLY VERIFIED FINAL REPORT 11/12/2024 7:30 PM - Electronically signed by Jaguar To M.D. KT: KT Report ID: [id number] Reading Location: [id number] IMPRESSION: No acute cardiopulmonary abnormality. us Krista Junior JACQUARD PLATE MAKER, PRESS OPERATOR MEAT IMG DIAGNOSTIC ORDERA BLES Final Result * GROUP A STREP BY PCR (11/12/2024 5:09 PM ADVERTISING DISPATCH CLERKS SUPERVISOR) Only the most recent of2 resultswithin the time period is included. GROUP A STREP BY PCR NOT DETECTED NOT DETECTED 11/12/2024 6:17 PM ADVERTISING DISPATCH CLERKS SUPERVISOR [facility] Swab SPECIMEN FROM THROAT / Unknown Non-Phlebotomy Collection / Unknown 11/12/2024 5:09 PM ADVERTISING DISPATCH CLERKS SUPERVISOR 11/12/2024 5:50 PM ADVERTISING DISPATCH CLERKS SUPERVISOR Colin Butt MD MICROBIOLOGY - GENERAL ORD ERABLES Final Result [facility] [address] [place] [address] * RSV,SARS-COV-2,INFLUENZA A&B BY PCR (11/12/2024 5:09 PM ADVERTISING DISPATCH CLERKS SUPERVISOR) Only the most recent of2 resultswithin the time period is included. FLU A Negative Negative, Error 11/12/2024 6:29 PM ADVERTISING DISPATCH CLERKS SUPERVISOR [facility] FLU B Negative Negative 11/12/2024 6:29 PM ADVERTISING DISPATCH CLERKS SUPERVISOR [facility] RESP SYNC VIRUS Negative Negative 6:29 PM ADVERTISING DISPATCH CLERKS SUPERVISOR [facility] SARSCOV2 NOT DETECTED (Reference Range for this test is Not Detected) 11/12/2024 6:29 PM ADVERTISING DISPATCH CLERKS SUPERVISOR [facility] Comment:This test was perfor med by a Reverse Dx Board Operator PCR Method. Swab NASOPHARYNGEAL SWAB / Unknown Non-Phlebotomy Collection / Unknown 11/12/2024 5:09 PM ADVERTISING DISPATCH CLERKS SUPERVISOR 11/12/2024 5:50 PM ADVERTISING DISPATCH CLERKS SUPERVISOR Narrative [facility] - 11/12/2024 6:29 PM ADVERTISING DISPATCH CLERKS SUPERVISOR This test has not been FDA cleared or approved; the test has been authorized by FDA under an Emergency Use Authorization (EUA) for use by laboratories certified under the CLIA that meet the requirements to perform moderate, high or waived complexity tests. Authorized Fact Sheets about this test for providers and patients are available at: https://www.fda.gov/medical-devices/vqsnfickg-huqhizhrem-jtparlv-devices/emergen -us e-authorizations Colin Butt MD MICROBIOLOGY - GENERAL ORD ERABLES Final Result [facility] [address] [place] [address] * EKG 12 LEAD (11/12/2024 5:05 PM ADVERTISING DISPATCH CLERKS SUPERVISOR) Ventricular Rate 99 BPM EXTERNAL EKG Atrial Rate 99 BPM EXTERNAL EKG P-R Interval 152 ms EXTERNAL EKG QRS Duration 86 ms EXTERNAL EKG Q-T Duration 362 ms EXTERNAL EKG QTC CALCULATION 464 ms EXTERNAL EKG P [place] 38 degrees EXTERNAL EKG R [place] 7 degrees EXTERNAL EKG T [place] 45 degrees EXTERNAL EKG 11/12/2024 5:05 PM ADVERTISING DISPATCH CLERKS SUPERVISOR Impressions EXTERNAL EKG - 11/16/2024 4:07 PM ADVERTISING DISPATCH CLERKS SUPERVISOR Normal sinus rhythm Normal ECG When compared with ECG of 27-AUG-2021 13:25, No significant change was found ~ Confirmed by ARIANNA REYNOLDS ([id number]) on 11/16/2024 4:07:12 PM Narrative Procedure Note Arianna Reynolds MD - 11/16/2024 IMPRESSION: Normal sinus rhythm Normal ECG When compared with ECG of 27-AUG-2021 13:25, No significant change was found ~ Confirmed by ARIANNA REYNOLDS ([id number]) on 11/16/2024 4:07:12 PM us Colin Butt MD IMG ECG ORDERABLES Final R esult EXTERNAL EKG * EKG SCAN (11/12/2024 12:00 AM ADVERTISING DISPATCH CLERKS SUPERVISOR) 11/12/2024 us Provider Scan IMG ECG ORDERABLES Final Result RESULTING AGENCY from Last 3 Months Insurance MEDICAID [employer] Care Teams Lawn Maintenance Worker Relationship Specialty Start Date End Date Mikey Olea MD [address] [place] [address] [address] PCP - General Family Medicine 09/15/22
--- OUTSIDE RECORDS SUMMARY | 2024-12-09 13:13 | XMS_ITS | Referral Summary ---
Author Organization [facility] Address [address] [place] [address] Care Team Providers Care Testing Projects Administrator Name Role Phone NatashaXiomy Isa MARIE Unavailable [phone] Mikey Olea MD Primary Care Provider Eladio Weems MD Unavailable Jessenia Castrejon MD Unavailable [phone] Allergies Active Allergy Reactions Criticality Noted Date Comments Amoxicillin Hives Medium 05/31/2024 Amoxicillin-Pot Clavulanate Hives Medium 05/31/20 24 Medications OneTouch Delica Lancets 33 gauge miscIndications:Prediab etes Use to check blood sugars before meals and at bedtime 100 each 1 023 Active Additional Information Patient not taking.Reported on 05/31/2024 blood-glucose meter kitIndications:Prediabe elvie Please check sometimes fasting morning and sometimes 45 minutes after meal. 1 kit 023 Active OneTouch Verio Flex meter miscIndications:Impaire d fasting blood sugar USE TO CHECK FASTING IN THE MORNING AND SOMETIMES 45 MINUTES AFTER MEAL 023 Active OneTouch Verio test strips stripIndications:Predia betes USE TO CHECK BLOOD SUGAR BEFORE MEALS AND AT BEDTIME 100 each 023 Active Additional Information Patient not taking.Reported on 05/31/2024 levothyroxine (SYNTHROID) 100 mcg tabletIndications:Hypot hyroidism, unspecified type Take 1 tablet (100 mcg total) by mouth daily 90 tablet 3 Active Additional Information Patient not taking.Reported on 05/31/2024 famotidine (PEPCID) 20 mg tablet Take 1 tablet (20 mg total) by mouth 2 (two) times a day 60 tablet 11 Active fluticasone propionate (FLONASE) 50 mcg/actuation nasal sprayIndications:Recurr ent acute serous otitis media of left ear Administer 2 sprays into each nostril daily 1 each Active Additional Information Patient not taking.Reported on 05/31/2024 albuterol HFA (PROVENTIL HFA,VENTOLIN HFA,PROAIR HFA) 90 mcg/actuation inhalerIndications:Whee zing Inhale 2 puffs every 4 (four) hours as needed for wheezing 1 each Active cholecalciferol (VITAMIN D-3) 5,000 unit capsuleIndications:Brittany min D Deficiency Take 1 capsule (5,000 Units total) by mouth daily 90 capsule 3 024 2024 Active montelukast (SINGULAIR) 10 mg tablet Take 1 tablet (10 mg total) by mouth daily 30 tablet 3 Active rosuvastatin (CRESTOR) 10 mg tabletIndications:Famil ial hypercholesterolemia Take 1 tablet (10 mg total) by mouth daily 90 tablet 1 Active FLUoxetine (PROzac) 20 mg tabletIndications:Anxie ty and depression Take 2 tablets (40 mg total) by mouth daily 120 tablet Active busPIRone (BUSPAR) 5 mg tabletIndications:Gener alized Anxiety Disorder Take 1 tablet (5 mg total) by mouth 3 (three) times a day 180 tablet Active meloxicam (MOBIC) 15 mg tabletIndications:Chron ic low back pain, unspecified back pain laterality, unspecified whether sciatica present Take 1 tablet by mouth once daily 100 tablet 1 Active amitriptyline (ELAVIL) 10 mg tabletIndications:Chron ic low back pain, unspecified back pain laterality, unspecified whether sciatica present,Frequent headaches TAKE 1 TO 2 TABLETS BY MOUTH NIGHTLY 200 tablet 08/22/2 024 Active cetirizine (ZyrTEC) 10 mg tablet Take 1 tablet by mouth twice daily 60 tablet 024 Active Active Problems Problem Noted Date Diagnosed Date [...] Cervical Cancer screening: Due now, referral to gynaecological oncologist due to previous abnormal Pap - Breast [...] plan Assessment & Plan (01/08/2023 2:41 PM LEGAL SUPPORT MANAGER): - established with Endocrinology - told to start monitoring BG Lab Results Component Value Date HGBA1C 5.9 (H) 07/17/2022 Anti-TPO antibodies present 01/08/2023 Assessment & Plan (01/08/2023 2:43 PM LEGAL SUPPORT MANAGER): - noted on testing for chronic urticaria [...] re-evaluation Assessment & Plan (01/07/2024 4:34 PM LEGAL SUPPORT MANAGER): - chronic, better controlled - used to be on medications before - not on any medications now - requesting assistance with depression > Anxiety - currently on Prozac 20 mg daily - continue current management Lab Results Component Value Date TSH 5.27 (H) 09/10/2023 Assessment & Plan (01/08/2023 2:19 PM LEGAL SUPPORT MANAGER): - chronic, better controlled - used to be on medications before - not on any medications now - requesting assistance with depression > Anxiety - currently on Prozac 20 mg daily - continue current management Lab Results Component Value Date TSH 3.77 10/02/2022 Assessment & Plan (10/01/2022 3:46 PM LEGAL SUPPORT MANAGER): - chronic, worse - used to be on medications before - not on any medications now - requesting assistance with depression > Anxiety - start Prozac 10 mg and up titrate to 20 mg - f/u in 2 months Lab Results Component Value Date TSH 2.63 07/17/2022 Frequent headaches 07/22/2022 Assessment & Plan (01/07/2024 4:21 PM LEGAL SUPPORT MANAGER): -chronic, not well controlled history of migraine headaches, nausea, light sensitivity - now reports she gets headaches when having sex - she also has tension type headaches along with migraine headaches - uses tylenol as needed - tried sumatriptan once and experienced chest tightness and heart racing after 1 use so has discontinued it Assessment & Plan (10/01/2022 3:47 PM LEGAL SUPPORT MANAGER): -chronic, not well controlled history of migraine [...] 07/22/2022 Assessment & Plan (01/08/2023 2:40 PM LEGAL SUPPORT MANAGER): - chronic for 2 years; better controlled - unclear cause, has been seen in ED several times for this - referred to allergy/immunologyu and has established care - noted to have TPO antibody present during evaluation by Ip/Mosaic Technician and referred to [place] Machine Operator - doing well with Cetirizine 10 mg daily, Famotidine 20 mg daily and Montelukast 10 mg daily - continue management per allergy/immunology Assessment & Plan (10/01/2022 3:43 PM LEGAL SUPPORT MANAGER): - chronic for 2 years; not well [...] left L5 radiculopathy Overview (03/14/2024): 03/10 - Hello, This pt's neurosurgery referral was denied. The neurosurgeon that reviewed stated, Do not schedule. No note of patient having undergone conservative therapy. NO MRI available. BMI over limit for elective lumbar surgery. Thank you, [facility] Dr Olea would [...] diet. Assessment & Plan (01/07/2024 4:21 PM LEGAL SUPPORT MANAGER): Wt Readings from Last 3 Encounters: 01/07/24 [...] education Assessment & Plan (01/08/2023 2:20 PM LEGAL SUPPORT MANAGER): Wt Readings from Last 3 Encounters: 01/08/23 [...] education Assessment & Plan (10/01/2022 3:46 PM LEGAL SUPPORT MANAGER): Wt Readings from Last 3 Encounters: 10/01/22 [...] 05/01/2021 Assessment & Plan (01/07/2024 4:34 PM LEGAL SUPPORT MANAGER): Social History Tobacco Use Smoking Status Every [...] 07/17/2022 Assessment & Plan (01/08/2023 2:37 PM LEGAL SUPPORT MANAGER): - chronic, unknown - Noted 08/08 with LDL >200 - also noted to have hypertriglyceridemia - started Crestor 10 mg daily - labs pending, will review and see [facility] Lab Results Component Value Date CHOL 296 (H) 07/17/2022 Lab Results Component Value Date HDL 28 (L) 07/17/2022 Lab Results Component Value Date LDLCALC 202 (H) 07/17/2022 Lab Results Component Value Date TRIG 328 (H) 07/17/2022 Assessment & Plan (10/01/2022 3:43 PM LEGAL SUPPORT MANAGER): - recent diagnosis - Noted 08/08 with [...] history in past even as far as 2017 - most recent Vitamin D level is as shown below - patient is to be started on Vitamin D supplementation - currently on Vitamin D3 5000iu daily - continue current management Vitamin D 35 on 08/2023 Vitamin D 25-OH Date Value Ref Range Status 07/17/2022 23 (L) 30 - 80 ng/mL Final Assessment & Plan (10/01/2022 3:45 PM LEGAL SUPPORT MANAGER): - chronic, not well controlled - noted to have vitamin D deficiency on 07/08 - history in past even as far as 2017 - most recent Vitamin D level is [...] on file Legal Sex Female 4:09 PM LEGAL SUPPORT MANAGER Gender Identity Female 06/02/2024 9:46 PM [...] last revised on 2020. Testing performed by: [facility], [address] [place] [address], [place]., [address] Blood 07/17/2022 9:37 AM CDT 07/17/2022 12:13 PM CDT us Mikey Olea MD LAB MICROBIOLOGY - GENE RAL ORDERABLES Final Result [facility] [address] [place] [address] from Last 3 Months or Most Recently Relevant to Health Maintenance [place] [address] [address] Care Teams Testing Projects Administrator Relationship Specialty Start Date End Date Mikey Olea MD [address] [place] [address] PCP - General Family Medicine 07/17/22 Xiomy Kaur NP [address] [place] [address] Nurse Practitioner 06/28/21 Eladio Weems MD [address] [facility] [address] Consulting Physician Endocrinology Diabetes & Metabolism 01/08/23 Jessenia Castrejon MD 1 [facility] [address] Referring Physician Allergy and Immunology 01/08/23
--- OUTSIDE RECORDS SUMMARY | 2024-12-09 13:13 | XMS_ITS | Clinical Summary ---
Author Organization [facility] [address] Address [address] [place] [address] Care Team Providers Care Golf Course Mechanic Name Role Phone NatashaXiomy Isa MARIE Unavailable [phone] Mikey Olea MD Primary Care Provider Eladio Weems MD Unavailable Jessenia Castrejon MD Unavailable [phone] Allergies Active Allergy Reactions Criticality Noted Date [...] Cervical Cancer screening: Due now, referral to site acquisition specialist due to previous abnormal Pap - Breast [...] plan Assessment & Plan (01/08/2023 2:41 PM COMMUNICATION SKILLS INSTRUCTOR): - established with Endocrinology - told to start monitoring BG Lab Results Component Value Date HGBA1C 5.9 (H) 07/17/2022 Anti-TPO antibodies present 01/08/2023 Assessment & Plan (01/08/2023 2:43 PM COMMUNICATION SKILLS INSTRUCTOR): - noted on testing for chronic [...] re-evaluation Assessment & Plan (01/07/2024 4:34 PM COMMUNICATION SKILLS INSTRUCTOR): - chronic, better controlled - used to be on medications before - not on any medications now - requesting assistance with depression > Anxiety - currently on Prozac 20 mg daily - continue current management Lab Results Component Value Date TSH 5.27 (H) 09/10/2023 Assessment & Plan (01/08/2023 2:19 PM COMMUNICATION SKILLS INSTRUCTOR): - chronic, better controlled - used to be on medications before - not on any medications now - requesting assistance with depression > Anxiety - currently on Prozac 20 mg daily - continue current management Lab Results Component Value Date TSH 3.77 10/02/2022 Assessment & Plan (10/01/2022 3:46 PM COMMUNICATION SKILLS INSTRUCTOR): - chronic, worse - used to be on medications before - not on any medications now - requesting assistance with depression > Anxiety - start Prozac 10 mg and up titrate to 20 mg - f/u in 2 months Lab Results Component Value Date TSH 2.63 07/17/2022 Frequent headaches 07/22/2022 Assessment & Plan (01/07/2024 4:21 PM COMMUNICATION SKILLS INSTRUCTOR): -chronic, not well controlled history of migraine headaches, nausea, light sensitivity - now reports she gets headaches when having sex - she also has tension type headaches along with migraine headaches - uses tylenol as needed - tried sumatriptan once and experienced chest tightness and heart racing after 1 use so has discontinued it Assessment & Plan (10/01/2022 3:47 PM COMMUNICATION SKILLS INSTRUCTOR): -chronic, not well controlled history of [...] 07/22/2022 Assessment & Plan (01/08/2023 2:40 PM COMMUNICATION SKILLS INSTRUCTOR): - chronic for 2 years; better controlled - unclear cause, has been seen in ED several times for this - referred to allergy/immunologyu and has established care - noted to have TPO antibody present during evaluation by Community [facility] Coordinator and referred to Contracting Executive - doing well with Cetirizine 10 mg daily, Famotidine 20 mg daily and Montelukast 10 mg daily - continue management per allergy/immunology Assessment & Plan (10/01/2022 3:43 PM COMMUNICATION SKILLS INSTRUCTOR): - chronic for 2 years; not [...] lumbar surgery. Thank you, [facility]erral [facility] Dr [...] diet. Assessment & Plan (01/07/2024 4:21 PM COMMUNICATION SKILLS INSTRUCTOR): Wt Readings from Last 3 Encounters: [...] education Assessment & Plan (01/08/2023 2:20 PM COMMUNICATION SKILLS INSTRUCTOR): Wt Readings from Last 3 Encounters: [...] education Assessment & Plan (10/01/2022 3:46 PM COMMUNICATION SKILLS INSTRUCTOR): Wt Readings from Last 3 Encounters: [...] 05/01/2021 Assessment & Plan (01/07/2024 4:34 PM COMMUNICATION SKILLS INSTRUCTOR): Social History Tobacco Use Smoking Status [...] 07/17/2022 Assessment & Plan (01/08/2023 2:37 PM COMMUNICATION SKILLS INSTRUCTOR): - chronic, unknown - Noted 08/08 with LDL >200 - also noted to have hypertriglyceridemia - started Crestor 10 mg daily - labs pending, will review and see [facility] Lab Results Component Value Date CHOL 296 (H) 07/17/2022 Lab Results Component Value Date HDL 28 (L) 07/17/2022 Lab Results Component Value Date LDLCALC 202 (H) 07/17/2022 Lab Results Component Value Date TRIG 328 (H) 07/17/2022 Assessment & Plan (10/01/2022 3:43 PM COMMUNICATION SKILLS INSTRUCTOR): - recent diagnosis - Noted 08/08 [...] Final Assessment & Plan (10/01/2022 3:45 PM COMMUNICATION SKILLS INSTRUCTOR): - chronic, not well controlled - [...] on file Legal Sex Female 4:09 PM COMMUNICATION SKILLS INSTRUCTOR Gender Identity Female 06/02/2024 9:46 PM [...] Hep C Ab Nonreactive Nonreactive MECHELLE NINO ([place]) Comment: Interpretive Data Nonreactive: Antibodies to HCV [...] last revised on 2020. Testing performed by: [facility], [address] [place] [address]., [id number] Blood 07/17/2022 9:37 AM CDT 07/17/2022 12:13 PM CDT Mikey Olea MD LAB MICROBIOLOGY - GENE RAL ORDERABLES Final Result MECHELLE NINO ([place]) 1 [facility] Department [place] [address] from Last 3 Months or Most Recently Relevant to Health Maintenance Insurance Care Teams Golf Course Mechanic Relationship Specialty Start Date End Date Mikey Olea MD [address] [place] [address] PCP - General Family Medicine 07/17/22 Xiomy Kaur NP [address] [place] [address] Nurse Practitioner 06/28/21 Eladio Weems MD [address] [facility] [address] [place] [address] Consulting Physician Endocrinology Diabetes & Metabolism 01/08/23 Jessenia Castrejon MD [address] [facility] [address] [place] [address] Referring Physician Allergy and Immunology 01/08/23
== END 2024-12-06 13:25 | disposition home or self-care (01) ==
PROVIDERS: Emergency Provider Nurse Practitioner; PCP Family Medicine
DX: J22 Unspecified acute lower respiratory infection (principal); H92.02 Otalgia, left ear; F17.210 Nicotine dependence, cigarettes, uncomplicated; K21.9 Gastro-esophageal reflux disease without esophagitis; E78.5 Hyperlipidemia, unspecified; E03.9 Hypothyroidism, unspecified
CPT/HCPCS: 99213; G0463

== ENCOUNTER 2025-10-28 13:11 | Emergency (ER) | payer OTHER, SELFPAY ==
[2025-10-28 13:15] VITALS: BP 131/61; PULSE 87; RESP 16; TEMP 36.4; O2SAT 100
[2025-10-28 13:35] LABS: EDSTREPNEGPOS1 Negative (Negative)
--- NOTE | 2025-10-28 13:55 | ED_ITS ---
HPI - URI/Sore Throat General Chief Complaint: Upper Respiratory Infection Stated Complaint: sore throat Time Seen by Provider: 10/28/25 13:45 Source: patient and RN notes reviewed Mode of arrival: ambulatory Limitations: no limitations History of Present Illness HPI Narrative: 39-year-old female presents Express Care complaining of sore throat for 2 days. Patient denies any other upper respiratory symptoms, fevers, body aches, chills, nausea vomiting, diarrhea, cough, abdominal pain, or any other symptoms. Patient is taking Tylenol Motrin help with symptoms. Patient denies any significant past medical problems. Related Data Home Medications ?Medication ?Instructions ?Recorded ?Confirmed ?Last Taken ?Type famotidine 20 mg tablet 20 mg PO DAILY 08/16/2306/18 Unknown History clindamycin phosphate 1 % topical topical 10/28/25 Un known History gel doxycycline hyclate 100 mg capsule mg 10/28/25 Unknow n History fluconazole 150 mg tablet mg 10/28/25 Unknown History levothyroxine 300 mcg tablet mcg 10/28/25 Unknown His tory metronidazole 500 mg tablet mg 10/28/25 Unknown Histo ry Allergies Allergy/AdvReac Type Severity Reaction Status Date / Time amoxicillin Allergy Intermediate Hives Verified 10/28/25 13:18 Penicillins Allergy Unknown Unknown Verified 10/28/25 13:18 Review of Systems Review of Systems: CONSTITUTIONAL: Denies fever, chills, or sweats. EYES: Denies visual changes, redness, or discharge. ENT: Denies rhinorrhea, congestion, or otalgia. Positive for sore throat CARDIOVASCULAR: Denies chest pain, palpitations, or edema. RESPIRATORY: Denies cough or dyspnea. GASTROINTESTINAL: Denies abdominal pain, nausea, vomiting, or diarrhea. GENITOURINARY: Denies dysuria or hematuria. SKIN: Denies rash or itching. MUSCULOSKELETAL: Denies back pain, joint pain, or myalgia. NEUROLOGIC: Denies headache, numbness, or weakness. PSYCHIATRIC: Denies anxiety or depression. All other systems reviewed are negative, except as documented in HPI. [facility] Past Medical History Medical History Acute adjustment disorder with anxiety GERD (gastroesophageal reflux disease) Hypothyroidism Depression Hyperlipidemia Hives Surgical History Surgical History History of carpal tunnel release right and ulnar nerve History of dilatation and curettage Hx of tonsillectomy H/O tubal ligation Family History Family History Mother Family history non-contributory Social History Social History Smoking packs per day: 0.5 Smoking cigarettes per day: 10.0 Smoking status: Current every day smoker Substance use: never Living arrangements: with family Gender identity (if verbalized by the patient): Female Spiritual care concerns: No Comments At the time of my signature, I reviewed and agree with the nursing past medical, surgical, social, and family history. There is no relevant family history pertinent to the patient complaint. Exam Narrative: GENERAL: This is a well-nourished, well-developed adult, in no apparent distress. They are non ill-appearing, nontoxic appearing. HEAD: normocephalic, atraumatic. EYES: Sclera clear/white. Conjunctiva normal. Vision is grossly intact. Extraocular movements intact EARS: External ears normal, auditory canals clear and without drainage, TMs normal without perforation. Hearing grossly intact. NOSE: External nose normal with no obvious nasal discharge, nasal turbinates without redness, no rhinorrhea. THROAT: Mucous membranes moist, posterior pharynx injected without swelling. Uvula midline. NECK: Neck supple, mild cervical lymphadenopathy, no masses or thyromegaly. CARDIOVASCULAR: Regular rate and rhythm without murmurs, gallops, or rubs. RESPIRATORY: Clear to auscultation. Breath sounds equal bilaterally. No wheezes, rales, or rhonchi. SKIN: warm, Dry, intact with no suspicious lesions or rash, good texture and turgor. NEURO: awake, alert, and oriented to person, place and time. There were no obvious focal neurologic abnormalities. EXTREMITIES: No joint tenderness, effusion, or edema noted. BACK: Nontender without deformity. No CVA tenderness. Course Course Level of Care: Express Care Visit Vital Signs Vital signs: Vital Signs Temperature 97.5 F L 10/28/25 13:15 Pulse Rate 87 10/28/25 13:15 Respiratory Rate 16 10/28/25 13:15 Blood Pressure 131/61 10/28/25 13:15 Pulse Oximetry 100 10/28/25 13:15 Oxygen Delivery Room Air 10/28/25 13:15 Temperature 97.5 F L 10/28/25 13:15 Pulse Rate 87 10/28/25 13:15 Respiratory Rate 16 10/28/25 13:15 Blood Pressure 131/61 10/28/25 13:15 Pulse Oximetry 100 10/28/25 13:15 Oxygen Delivery Room Air 10/28/25 13:15 [facility] Narrative Medical decision making narrative: Rapid strep negative. A throat culture is pending. Symptoms likely viral in etiology. Discussed supportive care. Discussed physical exam findings. Advised supportive measures and signs/symptoms to go to the ER. Pt is appropriate for outpt treatment and f/u. Differential Diagnosis Differential Diagnosis: Differential diagnostic considerations for upper respiratory infection include upper respiratory infection, croup, otitis media, sinusitis, viral infection, bronchitis, influenza, pharyngitis, strep, uvulitis. Lab Data [facility] Lab Attestation statement: I personally reviewed the patient's lab results. Labs: Lab Results 10/28/25 Range/Units 13:34 POC Grp A Strep Screen Negative (Negative) Critical Care Time Critical Care Time Critical Care Time: No Discharge Plan Discharge Clinical Impression: Pharyngitis Qualifiers: Pharyngitis/tonsillitis etiology: unspecified etiology Qualified Code(s): J02.9 - Acute pharyngitis, unspecified Patient Disposition: Home Condition: Stable Instructions: Antibiotic Form, Pharyngitis (ED) Additional Instructions: Your rapid strep swab was negative today at [facility]. You will be notified in a few days if the culture comes back positive for strep, and appropriate antibiotics will be called in for you at that time. Your symptoms are likely due to a viral illness, which is not treated with antibiotics. Viral symptoms can be present for up to 7-10 days. Take Tylenol or Motrin as needed for fever or pain. Follow instructions on the bottle. Salt water gargle rinses and spit as needed for sore throat. Warm Peppermint tea is also soothing for sore throat. Rest and stay hydrated. Follow up with your PCP in 5-7 days if symptoms are not improving. Go to the ER immediately if you developed chest pain, vomiting, difficulty breathing or swallowing, or any serious concerns Patient Language: Azeri Prescriptions: No Action famotidine 20 mg tablet 20 mg PO DAILY doxycycline hyclate 100 mg capsule fluconazole 150 mg tablet levothyroxine 300 mcg tablet metronidazole 500 mg tablet clindamycin phosphate 1 % gel TOPICAL Follow-up/Referrals: Lefty,Mikey Perdomo MD [Primary Care Provider, Unknown] Time of Disposition: 13:53
== END 2025-10-28 14:00 | disposition home or self-care (01) ==
PROVIDERS: PCP Family Medicine
DX: J02.9 Acute pharyngitis, unspecified (principal); F17.210 Nicotine dependence, cigarettes, uncomplicated; E03.9 Hypothyroidism, unspecified; E78.5 Hyperlipidemia, unspecified; K21.9 Gastro-esophageal reflux disease without esophagitis
CPT/HCPCS: 87081; 87880; 99213; G0463